=== PATIENT | female | born 1950 | race Caucasian/White ===

== ENCOUNTER 2020-06-23 13:48 | Outpatient (CLI) | payer MEDICARE, MEDICAID, SELFPAY ==
--- NOTE | 2020-06-23 13:54 | XR_ITS ---
WS: [id number] Exam: XR chest 2V* [id number] Date/Time of Exam: 06/23/2020 1:55 PM Reason For Exam: CLAVICULAR AREA FULLNESS Comparison 10/09/2016. The lungs are hyperinflated and clear. Normal cardiomediastinal structures. No pleural effusions. Old fracture of the midshaft old left clavicle. Bony structures are otherwise intact. Mild scoliosis of the lower thoracic and lumbar spine. XR/XR chest 2V* [id number] IMPRESSION: 1. Pulmonary hyperinflation which might indicate COPD. No acute cardiopulmonary process. 2. Old healed fracture of the left clavicle.
--- NOTE | 2020-06-23 13:54 | CT_ITS ---
WS: [id number] LDCT LUNG CANCER SCREENING TECHNIQUE: Noncontrast CT of the chest with coronal and sagittal reformatted images. CLINICAL INFORMATION: HX OF TOBACCO USE COMPARISON: CT chest , June 2017, December 2015. DLP: 78.91 mGy.cm DIvol: 2.[address] scans at [facility] use at least one of these dose optimization techniques: automat ed exposure control; mA and/or kV adjustment per patient size (includes targeted exams where dose is matched to clinical indication); or iterative reconstruction. FINDINGS: Moderate chronic emphysematous changes. Again seen is left upper lobe nodule measuring 5 mm in the an terior segment left upper lobe with long-term stability. A few calcified granulomas. Coronary calcifi cation. No mediastinal or hilar lymphadenopathy. Partially visualized left renal lesion likely renal cyst. Small esophageal hiatal hernia. Adrenal glands are normal. CT/CT lung screening [id number] IMPRESSION: LUNG-RADS: 2-Benign Appearance or Behavior FOLLOW UP: 12 Month: Continue annual screening with LDCT
--- NOTE | 2020-06-23 13:54 | USCV_ITS ---
Yoselin Martin Age: 69 Gender: F : 1950 Exam Date: 06/23/2020 14:10 Ordering Phys: Marine Eagle NP Technologist: Bobby Mcclellan [place] [facility] [place]ication: DVT IN NECK VEINS PROCEDURES: Venous duplex imaging was performed in only the left upper extremity. The following venous structures were evaluated: internal jugular vein, subclavian vein, axillary vein, and brachial veins. In addition, the basilic vein, cephalic vein, radial vein, and ulnar vein. Serial compression, augmentation maneuvers, and spectral Doppler flow evaluation were performed. FINDINGS: No evidence of deep vein thrombosis or superficial thrombophlebitis in the left upper extremity. CONCLUSIONS No evidence of thrombus of the left upper extremity veins. Den Chang MD (Electronically Signed) Final Date: 23 June 2020 17:27 S
== END 2020-06-23 13:49 | disposition home or self-care (01) ==
PROVIDERS: PCP Nurse Practitioner Family; Visit Provider Nurse Practitioner Family
DX: R22.2 Localized swelling, mass and lump, trunk (principal); Z72.0 Tobacco use; I82.629 Acute embolism and thrombosis of deep veins of unspecified upper extremity
CPT/HCPCS: 71046; 71271; 93971

== ENCOUNTER 2020-09-11 09:53 | Inpatient (IN) | payer MEDICARE, MEDICAID, SELFPAY ==
[2020-09-11] VITALS (13 sets, daily range): BP systolic 154–233; BP diastolic 77–130; PULSE 50–75; RESP 16–19; TEMP 36.4; O2SAT 94–98; BMI 28.3
--- NOTE | 2020-09-11 10:10 | CT_ITS ---
WS: [id number] CT HEAD NONCONTRAST HISTORY: stroke like symptoms TECHNIQUE: Contiguous axial imaging performed through the brain in 2.5 mm imaging. Bone and soft tiss ue windows. Sagittal and coronal reformats reviewed. All CT scans at [facility] use at ast one of these dose optimization techniques: automated exposure control; mA and/or kV adjustment pe r patient size (includes targeted exams where dose is matched to clinical indication); or iterative r econstruction. DLP: 846.00 mGy-cm. COMPARISON: None available. No acute intracranial hemorrhage, midline shift or mass effect. Mild atrophy and moderate chronic microvascular ischemic disease. Small lacunar infarcts in the LEFT external capsule and basal ganglia. Ventricles: Normal size with no hydrocephalus. No inferior displacement of the cerebellar tonsils. Paranasal sinuses: As visualized are clear. Mastoid air cells: Well pneumatized. Calvarium and scalp: Skull is intact with no soft tissue edema or swelling. Scattered intracranial vertebral artery calcifications. There is extensive calcification within the i ntracranial carotid arteries. CT/CT head wo con* [id number] IMPRESSION: 1. No acute intracranial hemorrhage. 2. Mild atrophy with moderate chronic microvascular ischemic type changes. Notified Irving Cordova DO at 09/11/2020 10:17 AM.
--- NOTE | 2020-09-11 10:20 | XR_ITS ---
WS: [id number] PORTABLE CHEST HISTORY: dyspnea COMPARISON: 06/23/2020 Mild pulmonary hyperinflation. No mass or nodules. No pneumonia. Benign granuloma LEFT lower lobe. No pleural effusion or pneumothorax. Cardiac size: Normal. Mediastinum/Aorta: Mild atherosclerosis aorta. No osseous abnormality seen. XR/XR chest 1V portable [id number] IMPRESSION: 1. Chronic emphysema. 2. Partially calcified aorta.
--- NOTE | 2020-09-11 10:20 | ECG_ITS ---
[facility] Test Date: 2020-09-11 Pat Name: Yoselin Martin Department: Room: Gender: Female Garment Inspector: : 1950 Requested By: Irving Petit Order Number: [id number] Karla MD: Colt Andino M.D. Measurements Intervals [place] Rate: 55 P: 65 CT: 149 QRS: 49 QRSD: 95 T: 254 QT: 440 QTc: 422 Interpretive Statements SINUS BRADYCARDIA SEPTAL MYOCARDIAL INFARCTION , PROBABLY OLD [40+ ms Q WAVE IN V1/V2] MODERATE T-WAVE ABNORMALITY, CONSIDER ANTEROLATERAL ISCHEMIA [-0.1+ mV T WAVE IN V3-V6] MODERATE T-WAVE ABNORMALITY, CONSIDER INFERIOR ISCHEMIA [-0.1+ mV T WAVE IN II/aVF] No previous ECG available for comparison Electronically Signed On 09-11-2020 21:50:15 CDT by Colt Andino M.D. [id number]
--- NOTE | 2020-09-11 10:21 | CT_ITS ---
WS: [id number] CT ANGIOGRAM CEREBRAL AND CAROTID ARTERIES HISTORY: L side acute weakness TECHNIQUE: CT angiogram is performed of the carotid and cerebral arteries. During arterial injection imaging is obtained from the skull vertex to the aortic arch in 1.25 mm imaging. Coronal and sagittal reformats are submitted. Additional multi planar reformats of the carotid and cerebral arteries are submitted, MIP imaging also reviewed. NASCET criteria utilized. All CT scans at [facility] use at least one of these dose optimization techniques: automated exposure control; mA and/or kV ad justment per patient size (includes targeted exams where dose is matched to clinical indication); or iterative reconstruction. CONTRAST: Omnipaque 350; 95 mL IV. DLP: 2194.45 mGy.cm COMPARISON: None available. Carotid Angiogram: Right carotid: Common carotid artery: Arises normally from the innominate artery. No significant plaque. There is a very small amount of scattered plaque and intimal thickening. Internal carotid artery: Mild stenosis at the origin. There is an additional stenosis with calcified plaque and intimal thickening in the proximal ICA. RIGHT ICA stenosis at the origin is 50%. Additiona l stenosis approximately 2 cm from the origin is 75%. External carotid artery: Patent. Left carotid: Common carotid artery: Arises from the base of the innominate. Mild atherosclerotic plaque and intima l thickening. Internal carotid artery: Focal calcified plaque and intimal thickening and mild stenosis involving th e origin. Less than 50% stenosis at the proximal ICA. External carotid artery: Patent. Right vertebral artery: Unremarkable. Left vertebral artery: Mild stenosis C5 LEFT transverse foramina. Subclavian arteries: Mild atherosclerotic disease. No high-grade stenosis. Upper thorax: Spiculated 4 mm nodule in the anterior LEFT upper lobe. No change since 07/21/2017. Mild biapical pleural thickening. Thyroid gland: Small caliber thyroid. Osseous structures: C4 anterolisthesis by 5 mm. In the region of the pharynx small low-attenuation nodule in the RIGHT palatine tonsil. Nodule measur es approximately 5 mm. Direct visualization recommended to exclude malignancy. Small benign cervical chain lymph nodes. CEREBRAL ANGIOGRAM: Intracranial vertebral arteries: Scattered plaque. Mildly dominant LEFT vertebral artery. Basilar artery: No significant stenosis or occlusion. No aneurysm. Intracranial Internal carotid arteries: Moderate calcified plaque through the cavernous sinuses and s upraclinoid carotid arteries. Stenosis at 50% bilaterally. Middle cerebral arteries: Normal. Anterior cerebral arteries and ACOM: Normal. Posterior cerebral arteries and PCOM's: Normal. Dural venous sinuses are normally enhancing. Mastoid air cells: Normal. Paranasal sinuses: Normal. Calvarium: Normal. CT/CT angio headneck* [id number] IMPRESSION: 1. Proximal RIGHT ICA stenosis 75%. 2. Origin RIGHT ICA stenosis 50%. 3. Proximal LEFT ICA stenosis less than 50%. 4. 50% stenoses involving the intracranial carotid arteries to the cavernous s inuses and supraclinoid. 5. RIGHT palatine tonsil hypoechoic nodule measures 5 mm. Recommend direct vis ualization.
--- NOTE | 2020-09-11 10:22 | W.ED.NEUROSD ---
HPI - Neuro Symptoms/Deficit General: Chief Complaint: Neuro Symptoms/Deficit Stated Complaint: neuro sys Time Seen by Provider: 09/11/20 10:15 History of Present Illness: HPI Narrative: 69-year-old female presents emergency room with right-sided weakness. It began at 3 30-4 AM this morning when she woke up. She is presenting now 6 hours after onset. Gotten up to go to the bathroom and stumbled and fell. She missed her dose of her blood pressure medicine prior. Initial presentation today she was hypertensive did improve after her first blood pressure was taken. She denies chest pain she has a little bit of shortness of breath. She has a little bit of numbness on her left side of her face and on the right arm and leg. Onset (ago): hour(s) Timing confirmed by: spouse Location: right face, left arm and left leg Severity: moderate Quality: weak, numb and tingling Relieving factors: none Exacerbating factors: none Context: other (Woke up with symptoms at 330.) Associated symptoms: Reports tingling and weakness; Deny chest pain, cough, diaphoresis, fevers/chills, headache(s), anorexia, malaise, nausea, seizures, short of breath, syncope, vertigo or vomiting Treatments Prior to Arrival: none Review of Systems Const: Denies: malaise or diaphoresis ENMT: Denies: throat pain, ear or mastoid pain, nasal discharge or nasal congestion Card: Denies: chest pain or syncope Resp: Denies: dyspnea, productive cough or non-productive cough GI: Denies: nausea or vomiting : Denies: flank pain, difficulty voiding, dysuria, urinary frequency or urinary urgency Skin/Breast: Denies: rash or pruritus Neuro: Reports: weakness in extremities; Denies: headache(s) or vertigo PFS ED PFSH: Medical History Claudication History of PFTs (~2013) normal spirometry Hyperlipidemia Hypertension Osteoporosis Peripheral vascular disease TIA (transient ischemic attack) Surgical History History of angiography (~2017) peripheral, fouond to have occluded mid to distal SFA, had orbital arthrectomy and balloon angioplasty History of tubal ligation Status post open reduction and internal fixation (ORIF) of fracture (~2012) right tib fib, Dr Cotter Family History Other Stroke Social History Smoking and tobacco status: current every day smoker Alcohol intake: never Substance/Drug Use: never Household members: family NIH stroke score NIHSS: Level Of Consciousness - 1a: 0 Level Of Consciousness Questions - 1b: Both Correct Level Of Consciousness Commands - 1c: Both Correct Best Gaze - 2: Normal Visual Barrios - 3: No Visual Loss Facial Palsy - 4: Minor Paralysis Motor Arm Right - 5: Drift Motor Arm Left - 5: No Drift Motor Leg Right - 6: No Drift Motor Leg Left - 6: Drift Limb Ataxia - 7: Present In One Limb Sensory - 8: Mild To Moderate Loss Best Language - 9: No Aphasia Dysarthia - 10: Normal Extinction And Inattention - 11: 0 Score: Total Score: 5 Physical Exam Const: COMMON NORMALS: no acute distress GENERAL APPEARANCE: cooperative and comfortable ORIENTATION/CONSCIOUSNESS: Yes awake, Yes oriented to person, Yes oriented to place and Yes oriented to time HENMT: COMMON NORMALS: normocephalic, atraumatic, hearing grossly normal bilaterally, external ears normal, EAC's normal, TM's normal bilaterally, Normal nasal mucous membranes and turbinates present, moist oral mucous membranes and oropharynx normal HEAD & SCALP: normocephalic and atraumatic NOSE: Normal nasal mucous membranes and turbinates present EXTERNAL EAR: Yes external ears normal EXTERNAL AUDITORY CANAL: EAC's normal TYMPANIC MEMBRANE: TM's normal bilaterally Eye: COMMON NORMALS: Equal, round and reactive pupils present, EOMs intact bilaterally, conjunctivae normal and no scleral icterus CONJUNCTIVA: Yes conjunctivae normal PUPIL: Yes Equal, round and reactive pupils present Neck/C-Spine: COMMON NORMALS: no JVD Resp: COMMON NORMALS: normal respiratory effort, No retractions, No use of accessory muscles and clear to auscultation bilaterally AUSCULTATION: clear to auscultation bilaterally Cardio: COMMON NORMALS: no JVD, regular rate, regular rhythm and No murmurs present (Cardio) RATE: regular rate RHYTHM: regular rhythm GI: COMMON NORMALS: Soft to palpation and No hepatosplenomegaly present AUSCULTATION: Yes normoactive bowel sounds PALPATION: Yes Soft to palpation, No Tenderness to palpation present (GI), No Guarding due to palpation present (GI) and Yes No hepatosplenomegaly present Extremity: NARRATIVE EXTREMITY EXAM: See stroke score Neuro: SENSORIUM/ORIENTATION: Yes oriented to person, Yes oriented to place and Yes oriented to time OTHER: See stroke score Skin: COMMON NORMALS: no rashes or lesions noted GENERAL SKIN EXAM: no rashes or lesions noted Course Vital Signs: Vital signs: Vital Signs Temperature 97.8 F 09/12/20 07:24 Pulse Rate 51 L 09/12/20 07:24 Respiratory Rate 18 09/12/20 07:24 Blood Pressure 179/68 09/12/20 07:24 Pulse Oximetry 98 09/12/20 07:24 MDM - Neuro Symptoms/Deficit MDM Narrative: Medical decision making narrative: Patient has persistent symptoms. Her stroke score is too low for embolectomy and her timeframe is outside of the window for TPA. She is a little over 6 hours the time presentation. CTA of the head and neck shows some right-sided ICA stenosis but there is no embolism. We will go ahead and admit for further work-up and evaluation for cause of stroke as well as adjustment antiplatelet therapies. Discussed with hospitalist orders written. Family expressed concern about blood pressure at this point would allow permissive hypertension try to keep blood pressure around 165-180 patient was placed on nitro paste to lower blood pressure slightly. Lab Data: Labs: Lab Results 09/11/20 09/11/20 09/11/20 Range/Units 10:00 10:00 10:00 WBC 9.3 (4.0-10.0) 10^3/ uL RBC 4.66 (4.1-5.3) 10^6/u L Hgb 15.2 (11.5-15.3) g/dL Hct 46.7 (37.0-47.0) % MCV 100.2 H (81-99) fL MCH 32.6 (28.0-34.0) pg MCHC 32.5 (30.0-36.0) g/dL RDW 15.6 H (12.1-15.1) % Plt Count 247 (130-400) 10^3/c mm MPV 9.9 (7.4-10.4) fL Neut % (Auto) 63.6 % Lymph % (Auto) 29.1 % [place] % (Auto) 5.1 % Eos % (Auto) 0.9 % Baso % (Auto) 1.0 % Neut # (Auto) 5.91 (1.8-7.7) 10^3/u L Lymph # (Auto) 2.7 (0.8-4.8) 10^3/u L [place] # (Auto) 0.5 (0.2-0.9) 10^3/u L Eos # (Auto) 0.1 (0.0-0.8) 10^3/u L Baso # (Auto) 0.1 (0.0-0.1) 10^3/u L Nucleated RBC % (a uto) 0 % Nucleated RBCs # 0.0 /100WBC PT 13.20 (12.1-14.9) SECO NDS INR 0.97 (0.8-1.2) APTT 32.4 (23.9-36.7) SECO NDS Sodium 140 (136-145) mmol/L Potassium 4.0 (3.5-5.1) mmol/L Chloride 103 (98-107) mmol/L Carbon Dioxide 25 (22-29) mmol/L Anion Gap 16.0 (5-19) BUN 5 L (8-23) mg/dL Creatinine 0.9 (0.5-0.9) mg/dL GFR Calculation 61.9 L (90-130) mL/min Glucose 115 (65-115) mg/dL Calculated Osmolal ity 288 (285-295) mOsm/k g Calcium 9.2 (8.5-10.5) mg/dL Total Bilirubin 0.6 (0.15-1.2) mg/dL AST 25 (0-32) U/L ALT 15 (0-33) U/L Alkaline Phosphata se 58 (35-105) IU/L Total Protein 8.3 (6.6-8.7) g/dL Albumin 4.8 (3.5-5.2) g/dL Globulin 3.5 (1.3-4.6) g/dL Urine Color (Yellow) Urine Appearance (CLEAR) Urine pH (5-7) Ur Specific Gravit y (1.005-1.030) Urine Protein (Negative) Urine Glucose (UA) (Normal) Urine Ketones (Negative) Urine Blood (Negative) Urine Nitrate (Negative) Urine Bilirubin (Negative) Prot Sulfosalicyli c Acd (Negative) Urine Urobilinogen (Negative) mg/dL Ur Leukocyte Jada ase (Negative) Urine RBC (0-2) /hpf Urine WBC (0-5) /hpf Ur Squamous Epith Cells (0-5) /hpf Amorphous Sediment Urine Bacteria (NONE) /hpf Urine Opiates Scre en (Negative) ng/mL Ur Barbiturates Sc reen (Negative) ng/mL Ur Phencyclidine S crn (Negative) ng/mL Ur Amphetamines Sc reen (Negative) ng/mL U Benzodiazepines Scrn (Negative) ng/mL Urine Cocaine Scre en (Negative) ng/mL U Marijuana (THC) Screen (Negative) ng/mL 09/11/20 09/11/20 Range/Units 12:18 12:18 WBC (4.0-10.0) 10^3/ uL RBC (4.1-5.3) 10^6/u L Hgb (11.5-15.3) g/dL Hct (37.0-47.0) % MCV (81-99) fL MCH (28.0-34.0) pg MCHC (30.0-36.0) g/dL RDW (12.1-15.1) % Plt Count (130-400) 10^3/c mm MPV (7.4-10.4) fL Neut % (Auto) % Lymph % (Auto) % [place] % (Auto) % Eos % (Auto) % Baso % (Auto) % Neut # (Auto) (1.8-7.7) 10^3/u L Lymph # (Auto) (0.8-4.8) 10^3/u L [place] # (Auto) (0.2-0.9) 10^3/u L Eos # (Auto) (0.0-0.8) 10^3/u L Baso # (Auto) (0.0-0.1) 10^3/u L Nucleated RBC % (a uto) % Nucleated RBCs # /100WBC PT (12.1-14.9) SECO NDS INR (0.8-1.2) APTT (23.9-36.7) SECO NDS Sodium (136-145) mmol/L Potassium (3.5-5.1) mmol/L Chloride (98-107) mmol/L Carbon Dioxide (22-29) mmol/L Anion Gap (5-19) BUN (8-23) mg/dL Creatinine (0.5-0.9) mg/dL GFR Calculation (90-130) mL/min Glucose (65-115) mg/dL Calculated Osmolal ity (285-295) mOsm/k g Calcium (8.5-10.5) mg/dL Total Bilirubin (0.15-1.2) mg/dL AST (0-32) U/L ALT (0-33) U/L Alkaline Phosphata se (35-105) IU/L Total Protein (6.6-8.7) g/dL Albumin (3.5-5.2) g/dL Globulin (1.3-4.6) g/dL Urine Color Yellow (Yellow) Urine Appearance Hazy A (CLEAR) Urine pH 8 H (5-7) Ur Specific Gravit y 1.015 (1.005-1.030) Urine Protein Neg (Negative) Urine Glucose (UA) Norm (Normal) Urine Ketones Negative (Negative) Urine Blood 2+ H (Negative) Urine Nitrate Positive H (Negative) Urine Bilirubin Neg (Negative) Prot Sulfosalicyli c Acd Positive (Negative) Urine Urobilinogen Norm (Negative) mg/dL Ur Leukocyte Jada ase Negative (Negative) Urine RBC 0-4 H (0-2) /hpf Urine WBC None (0-5) /hpf Ur Squamous Epith Cells 5-10 H (0-5) /hpf Amorphous Sediment Not Reportable Urine Bacteria 4+ H (NONE) /hpf Urine Opiates Scre en Positive H (Negative) ng/mL Ur Barbiturates Sc reen Negative (Negative) ng/mL Ur Phencyclidine S crn Negative (Negative) ng/mL Ur Amphetamines Sc reen Negative (Negative) ng/mL U Benzodiazepines Scrn Negative (Negative) ng/mL Urine Cocaine Scre en Negative (Negative) ng/mL U Marijuana (THC) Screen Positive H (Negative) ng/mL Discharge Plan Discharge Patient Disposition: Admitted As Inpatient Admit Provider: Marine Duong Clinical Impression: CVA (cerebral vascular accident), Accelerated hypertension, Carotid stenosis Condition: Stable Coding Level of Care Code ED Multimedia Authoring Specialist for Blayne Mccain
[2020-09-11 10:25] LABS: Basophils # 0.1 10^3/uL (0.0-0.1); Eosinophils # 0.1 10^3/uL (0.0-0.8); Eosinophils % 0.9 %; Hematocrit 46.7 % (37.0-47.0); Hemoglobin 15.2 g/dL (11.5-15.3); INR 0.97 (0.8-1.2); Lymphocytes # 2.7 10^3/uL (0.8-4.8); Lymphocytes % 29.1 %; Mean Corpuscular HGB Conc 32.5 g/dL (30.0-36.0); Mean Corpuscular Hemoglobin 32.6 pg (28.0-34.0); Mean Corpuscular Volume 100.2 fL (81-99); Mean Platelet Volume 9.9 fL (7.4-10.4); Monocytes # 0.5 10^3/uL (0.2-0.9); Monocytes % 5.1 %; Neutrophils # 5.91 10^3/uL (1.8-7.7); Neutrophils % 63.6 %; Nucleated Red Blood Cells % 0 %; Partial Thromboplastin Time 32.4 SECONDS (23.9-36.7); Platelet Count 247 10^3/cmm (130-400); Red Blood Count 4.66 10^6/uL (4.1-5.3); Red Cell Distribution Width 15.6 % (12.1-15.1); White Blood Count 9.3 10^3/uL (4.0-10.0)
[2020-09-11] MEDS: labetalol 5 mg/mL SDV 20mL 10 MG IV (10:30)
[2020-09-11 10:43] LABS: Alanine Aminotransferase 15 U/L (0-33); Albumin Level 4.8 g/dL (3.5-5.2); Alkaline Phosphatase 58 IU/L (35-105); Aspartate Amino Transferase 25 U/L (0-32); Blood Urea Nitrogen 5 mg/dL (8-23); Calcium 9.2 mg/dL (8.5-10.5); Carbon Dioxide 25 mmol/L (22-29); Chloride 103 mmol/L (98-107); Globulin 3.5 g/dL (1.3-4.6); Glomerular Filtration Rate 61.9 mL/min (90-130); Glucose 115 mg/dL (65-115); Osmolality Calculated 288 mOsm/kg (285-295); Sodium 140 mmol/L (136-145); Total Bilirubin 0.6 mg/dL (0.15-1.2); Total Protein 8.3 g/dL (6.6-8.7)
[2020-09-11] MEDS: iohexol 350 mg/mL 100 mL Btl IV (10:59)
[2020-09-11] MEDS: nitroglycerin 1 gm/inch oint Pkt 1 INCH TOPICAL (12:00)
--- NOTE | 2020-09-11 12:26 | PC.PHAR ---
PT STATES SHE TAKES CARE OF HER OWN MEDICATIONS-PT STATES SHE TAKES MOST OF HER MEDS PRN-ALL MEDICATIONS ENTERED HAVE NOTES IN THE PHARMACY COMMENTS OF WHEN MED WAS LAST FILLED-PT STATES SHE TOOK HER VALSARTAN 320MG TODAY LAST FILLED ON 06/03/20 30D/S-PT HAS A CYMBALTA 30MG READY TO DIGITAL STRATEGY MANAGER AT [facility]-PT STATES SHE JUST TAKES HER MEDS WHEN SHE THINKS SHE NEEDS THEM
[2020-09-11 12:40] LABS: Sulfosalicylic Acid Urine Positive (Negative); Urine Appearance Hazy (CLEAR); Urine Color Yellow (Yellow); pH Urine 8 (5-7)
[2020-09-11 12:41] LABS: Add Urine Microscopic? YES; Bilirubin Urine Neg (Negative); Blood Urine 2+ (Negative); Glucose Urine UA Norm (Normal); Ketones Urine Negative (Negative); Leukocyte Esterase Urine Negative (Negative); Nitrate Urine Positive (Negative); Protein Urine Neg (Negative); RBC Urine 0-4 /hpf (0-2); Specific Gravity, Urine 1.015 (1.005-1.030); Urobilinogen Urine Norm (Negative)
[2020-09-11 12:42] LABS: Add Urine Culture? Yes; Bacteria Urine 4+ /hpf
[2020-09-11 13:13] LABS: Amphetamines Screen Urine Negative (Negative); Barbiturates Screen Urine Negative (Negative); Benzodiazepines Screen Urine Negative (Negative); Cocaine Screen Urine Negative (Negative); Opiate Screen Urine Positive (Negative); PCP Screen Urine Negative (Negative); THC Screen Urine Positive (Negative)
--- NOTE | 2020-09-11 15:25 | PM.HP ---
Providers/Chief Complaint Admitting Physician: Marine Duong MD Primary Care Provider: Marnie Eagle NP Chief Complaint: neuro sys History of Present Illness Yoselin Martin is a 69 year old female who presented to the emergency room with chief complaint of a fall at home and right-sided weakness. Last known well was when she went to bed the evening prior. She got up in the middle of the night may be around 4 AM and try to get to the bathroom stumbled and fell down. She denies any difficulty swallowing. Her voice has been soft since then. She does not really have any difficulty finding words or speaking in a way that others can understand. She reports some weakness and numbness on her right upper and lower extremity. Complains of pain in the right leg as well although it is nonfocal and extending the entire leg. Unable to really describe further right now. No vision changes to speak of. She reports having had previous mini strokes in the past. She is a known smoker with peripheral vascular disease previously requiring peripheral angiography and intervention. She does not take her medications regularly. NIH score was 5. She presented outside of the window for TPA consideration. Pressures were 230s over 110s. She received some labetalol with improvement in pressure to 170s over 130s. Sounds like she had not taken her blood pressure medication today. Review of Systems Const: Denies: fever(s), chills, change in appetite or change in weight Eyes: Denies: change in vision ENMT: Reports: hoarseness; Denies: throat pain or nasal congestion Card: Denies: chest pain, palpitations or edema Resp: Denies: dyspnea, productive cough or non-productive cough GI: Denies: abdominal pain, nausea, vomiting, dysphagia, diarrhea, constipation, hematochezia or melena : Denies: difficulty voiding or hematuria Musc: Reports: extremity pain (Right leg throughout the length of the leg) Skin/Breast: Reports: dry skin; Denies: rash, pruritus or sores Neuro: Reports: headache(s), numbness in extremities, weakness in extremities and difficulty walking Psych: Denies: anxiety or depression Arvin/Lymph: Denies: easy bruising or easy bleeding Medications/Allergies Home Medications Medication Instructions Recorded Confirmed Last Taken Type albuterol sulfate 2 puff INHALATION Q4H PRN 09/11/20 09/11/20 Unknown History alendronate 70 mg PO Q7D PRN 09/11/20 09/11/20 Unknown History amlodipine 10 mg PO QPM PRN 09/11/20 09/11/20 09/09/20 History aspirin [Aspir-81] 81 mg PO QAM 09/11/20 09/11/20 Unknown History atorvastatin 40 mg PO BEDTIME 09/11/20 09/11/20 09/09/20 History buspirone 5 mg PO TID PRN 09/11/20 09/11/20 09/10/20 History cilostazol 50 mg PO BID PRN 09/11/20 09/11/20 Unknown History duloxetine 30 mg PO DAILY 09/11/20 09/11/20 Unknown History gabapentin 300 mg PO BID PRN 09/11/20 09/11/20 Unknown History levothyroxine 25 mcg PO DAILY PRN 09/11/20 09/11/20 Unknown History multivitamin 1 tab PO DAILY 09/11/20 09/11/20 Unknown History nitroglycerin 0.4 mg SUBLINGUAL PRN 09/11/20 09/11/20 Unknown History spironolactone 37.5 mg PO DAILY 09/11/20 09/11/20 09/09/20 History trazodone 100 - 200 mg PO BEDTIME PRN 09/11/20 09/11/20 Unknown History valsartan 320 mg PO DAILY PRN 09/11/20 09/11/20 09/11/20 History Allergies Allergy/AdvReac Type Severity Reaction Status Date / Time No Known Allergies Allergy Verified 09/11/20 12:07 PFSH Acute PFSH: Medical History (Updated 09/11/20 @ 21:14 by Marine Duong MD) Claudication History of PFTs (~2013) normal spirometry Hyperlipidemia Hypertension Osteoporosis Peripheral vascular disease TIA (transient ischemic attack) Surgical History (Updated 09/11/20 @ 21:05 by Marine Duong MD) History of angiography (~2017) peripheral, fouond to have occluded mid to distal SFA, had orbital arthrectomy and balloon angioplasty History of tubal ligation Status post open reduction and internal fixation (ORIF) of fracture (~2012) right tib fib, Dr Cotter Family History (Updated 09/11/20 @ 21:05 by Marine Duong MD) Other Stroke Social History (Updated 09/11/20 @ 21:05 by Marine Duong MD) Smoking and tobacco status: current every day smoker Alcohol intake: never Substance/Drug Use: never Household members: family Vitals/I&O/Wt Last Vital Signs Temp 97.5 F L 09/11/20 14:57 Pulse 54 L 09/11/20 14:57 Resp 16 09/11/20 14:57 BP 154/90 09/11/20 14:57 Pulse Ox 94 09/11/20 14:57 Weight last 48 hrs Weight 72.575 kg Data : 09/11/20 10:00 09/11/20 10:00 Other Labs: Laboratory Results WBC 9.3 10^3/uL (4.0-10.0) 09/11/20 10:00 RBC 4.66 10^6/uL (4.1-5.3) 09/11/20 10:00 Hgb 15.2 g/dL (11.5-15.3) 09/11/20 10:00 Hct 46.7 % (37.0-47.0) 09/11/20 10:00 MCV 100.2 fL (81-99) H 09/11/20 10:00 MCH 32.6 pg (28.0-34.0) 09/11/20 10:00 MCHC 32.5 g/dL (30.0-36.0) 09/11/20 10:00 RDW 15.6 % (12.1-15.1) H 09/11/20 10:00 Plt Count 247 10^3/cmm (130-400) 09/11/20 10:00 MPV 9.9 fL (7.4-10.4) 09/11/20 10:00 Neut % (Auto) 63.6 % 09/11/20 10:00 Lymph % (Auto) 29.1 % 09/11/20 10:00 [place] % (Auto) 5.1 % 09/11/20 10:00 Eos % (Auto) 0.9 % 09/11/20 10:00 Baso % (Auto) 1.0 % 09/11/20 10:00 Neut # (Auto) 5.91 10^3/uL (1.8-7.7) 09/11/20 10:00 Lymph # (Auto) 2.7 10^3/uL (0.8-4.8) 09/11/20 10:00 [place] # (Auto) 0.5 10^3/uL (0.2-0.9) 09/11/20 10:00 Eos # (Auto) 0.1 10^3/uL (0.0-0.8) 09/11/20 10:00 Baso # (Auto) 0.1 10^3/uL (0.0-0.1) 09/11/20 10:00 Nucleated RBC % (auto) 0 % 09/11/20 10:00 Nucleated RBCs # 0.0 /100WBC 09/11/20 10:00 PT 13.20 SECONDS (12.1-14.9) 09/11/20 10:00 INR 0.97 (0.8-1.2) 09/11/20 10:00 APTT 32.4 SECONDS (23.9-36.7) 09/11/20 10:00 Sodium 140 mmol/L (136-145) 09/11/20 10:00 Potassium 4.0 mmol/L (3.5-5.1) 09/11/20 10:00 Chloride 103 mmol/L (98-107) 09/11/20 10:00 Carbon Dioxide 25 mmol/L (22-29) 09/11/20 10:00 Anion Gap 16.0 (5-19) 09/11/20 10:00 BUN 5 mg/dL (8-23) L 09/11/20 10:00 Creatinine 0.9 mg/dL (0.5-0.9) 09/11/20 10:00 GFR Calculation 61.9 mL/min (90-130) L 09/11/20 10:00 Glucose 115 mg/dL (65-115) 09/11/20 10:00 Calculated Osmolality 288 mOsm/kg (285-295) 09/11/20 10:00 Calcium 9.2 mg/dL (8.5-10.5) 09/11/20 10:00 Total Bilirubin 0.6 mg/dL (0.15-1.2) 09/11/20 10:00 AST 25 U/L (0-32) 09/11/20 10:00 ALT 15 U/L (0-33) 09/11/20 10:00 Alkaline Phosphatase 58 IU/L (35-105) 09/11/20 10:00 Total Protein 8.3 g/dL (6.6-8.7) 09/11/20 10:00 Albumin 4.8 g/dL (3.5-5.2) 09/11/20 10:00 Globulin 3.5 g/dL (1.3-4.6) 09/11/20 10:00 Urine Color Yellow (Yellow) 09/11/20 12:18 Urine Appearance Hazy (CLEAR) A 09/11/20 12:18 Urine pH 8 (5-7) H 09/11/20 12:18 Ur Specific [place]ent 1.015 (1.005-1.030) 09/11/20 12:18 Urine Protein Neg (Negative) 09/11/20 12:18 Urine Glucose (UA) Norm (Normal) 09/11/20 12:18 Urine Ketones Negative (Negative) 09/11/20 12:18 Urine Blood 2+ (Negative) H 09/11/20 12:18 Urine Nitrate Positive (Negative) H 09/11/20 12:18 Urine Bilirubin Neg (Negative) 09/11/20 12:18 Prot Sulfosalicylic Acd Positive (Negative) 09/11/20 12:18 Urine Urobilinogen Norm mg/dL (Negative) 09/11/20 12:18 Ur Leukocyte Esterase Negative (Negative) 09/11/20 12:18 Urine RBC 0-4 /hpf (0-2) H 09/11/20 12:18 Urine WBC None /hpf (0-5) 09/11/20 12:18 Ur Squamous Epith Cells 5-10 /hpf (0-5) H 09/11/20 12:18 Amorphous Sediment Not Reportable 09/11/20 12:18 Urine Bacteria 4+ /hpf (NONE) H 09/11/20 12:18 Urine Opiates Screen Positive ng/mL (Negative) H 09/11/20 12:18 Ur Barbiturates Screen Negative ng/mL (Negative) 09/11/20 12:18 Ur Phencyclidine Scrn Negative ng/mL (Negative) 09/11/20 12:18 Ur Amphetamines Screen Negative ng/mL (Negative) 09/11/20 12:18 U Benzodiazepines Scrn Negative ng/mL (Negative) 09/11/20 12:18 Urine Cocaine Screen Negative ng/mL (Negative) 09/11/20 12:18 U Marijuana (THC) Screen Positive ng/mL (Negative) H 09/11/20 12:[address] 09/11/20 10:10 IMPRESSION: 1. No acute intracranial hemorrhage. 2. Mild atrophy with moderate chronic microvascular ischemic type changes. Notified Irving Cordova DO at 09/11/2020 10:17 AM. Chest X-Ray 09/11/20 10:20 IMPRESSION: 1. Chronic emphysema. 2. Partially calcified aorta. Head/Neck CTA 09/11/20 10:21 IMPRESSION: 1. Proximal RIGHT ICA stenosis 75%. 2. Origin RIGHT ICA stenosis 50%. 3. Proximal LEFT ICA stenosis less than 50%. 4. 50% stenoses involving the intracranial carotid arteries to the cavernous sinuses and supraclinoid. 5. RIGHT palatine tonsil hypoechoic nodule measures 5 mm. Recommend direct visualization. A&P Assessment and plan (1) Fall at home: Status: Acute (2) CVA (cerebral vascular accident): Status: Acute (3) Carotid stenosis: Status: Acute (4) Accelerated hypertension: Status: Acute (5) Hyperlipidemia: Status: Acute (6) Peripheral vascular disease: Status: Acute (7) Nicotine dependence, cigarettes, with other nicotine-induced disorders: Status: Acute Additional A&P Information Observation admission for now Serial neuro exams Aspirin and Plavix Chronically has a statin on her home medication list but it does not sound like she is always taking Permissive hypertension for now Echocardiogram, lipid panel, A1c, TSH Speech, PT, OT Education on smoking cessation initiated by reviewing with patient that the #1 thing she could do to help decrease the risk of recurrent stroke symptoms is to quit smoking. We talked about the fact that she had not previously quit smoking despite having to have vascular intervention on her legs. Continue home BuSpar Hold trazodone tonight to limit impact on serial neuro exams Address home antihypertensives in the next 24 to 48 hours Lovenox for DVT prophylaxis Supportive care otherwise Further plans of care pending clinical course Plans discussed with patient as well as her daughter. Everyone was given an opportunity to ask questions Full code Attestations Medical Necessity Statement*: Currently anticipated stay less than 2 midnights in a patient presenting with neurological complaints suggestive of CVA and accelerated hypertension. Plans are as indicated. Coding Level of Care Code Acute Clinical Unit Coordinator for Chg Fwd Diagnoses Fall at home W19.XXXA; Y92.009 CVA (cerebral vascular accident) I63.9 Carotid stenosis I65.29 Accelerated hypertension I10 Hyperlipidemia E78.5 Peripheral vascular disease I73.9 Nicotine dependence, cigarettes, with other nicotine-induced disorders F17.218
[2020-09-11] MEDS: atorvastatin 40 mg Tablet 20 MG PO (21:07)
[2020-09-11] MEDS: BuSPIRONE 10 mg Tablet 5 MG PO (21:07)
[2020-09-12] VITALS (11 sets, daily range): BP systolic 144–188; BP diastolic 68–89; PULSE 45–66; RESP 16–20; TEMP 36.5–36.8; O2SAT 94–98
[2020-09-12 05:47] LABS: Basophils # 0.1 10^3/uL (0.0-0.1); Eosinophils # 0.1 10^3/uL (0.0-0.8); Eosinophils % 0.6 %; Hematocrit 43.6 % (37.0-47.0); Hemoglobin 14.4 g/dL (11.5-15.3); Lymphocytes # 2.5 10^3/uL (0.8-4.8); Lymphocytes % 31.5 %; Mean Corpuscular Hemoglobin 32.1 pg (28.0-34.0); Mean Corpuscular Volume 97.3 fL (81-99); Mean Platelet Volume 10.2 fL (7.4-10.4); Monocytes # 0.5 10^3/uL (0.2-0.9); Monocytes % 5.9 %; Neutrophils # 4.76 10^3/uL (1.8-7.7); Neutrophils % 60.7 %; Nucleated Red Blood Cells % 0 %; Platelet Count 207 10^3/cmm (130-400); Red Blood Count 4.48 10^6/uL (4.1-5.3); Red Cell Distribution Width 15.2 % (12.1-15.1); White Blood Count 7.8 10^3/uL (4.0-10.0)
--- NOTE | 2020-09-12 06:00 | USCV_ITS ---
Yoselin Martin Age: 69 Gender: F : 1950 Exam Date: 09/12/2020 10:49 Ordering Phys: Marine Duong MD Technologist: Janae Natarajan [place] [facility] [place]: cva BP: 180 / 82 HR: 70 Rhythm: Sinus Technical Quality: Adequate MEASUREMENTS (Male / Female) Normal Values 2D ECHO LV Diastolic Diameter PLAX 4.0 cm 4.2 - 5.9 / 3.9 - 5.3 cm LV Systolic Diameter PLAX 2.7 cm LV Chamber Size 4.0 cm IVS Diastolic Thickness 1.7 cm 0.6 - 1.0 / 0.6 - 0.9 cm IVS Systolic Thickness 2.1 cm LVPW Diastolic Thickness 1.3 cm 0.6 - 1.0 / 0.6 - 0.9 cm LVPW Systolic Thickness 1.5 cm RV Chamber Size 2.9 cm LVOT Diameter 1.8 cm LV Ejection Fraction 2D Teich 62.8 % LV Ejection Fraction MOD 2C 55.8 % LV Ejection Fraction 2C AL 55.4 % LA Diameter 3.4 cm LA Width 2.6 cm LA Height 5.2 cm RA Width 2.9 cm RA Height 4.0 cm Aorta at Sinotubular Diameter 2.8 cm M-MODE LV Diastolic Diameter MM 5.0 cm 4.2 - 5.9 / 3.9 - 5.3 cm LV Systolic Diameter MM 3.2 cm LV Ejection Fraction MM Teich 64.9 % IVS Diastolic Thickness MM 1.3 cm 0.6 - 1.0 / 0.6 - 0.9 cm IVS Systolic Thickness MM 1.6 cm LVPW Diastolic Thickness MM 1.1 cm 0.6 - 1.0 / 0.6 - 0.9 cm LVPW Systolic Thickness MM 1.4 cm Aortic Annulus Diameter 3.1 cm LA Ao Ratio MM 1.2 MV E Point Septal Separation 0.5 cm DOPPLER AV Peak Velocity 115.0 cm/s LVOT Peak Velocity 90.0 cm/s AV Area Cont Eq vti 1.9 cm squared AV Area Cont Eq pk 2.1 cm squared MV Area PHT 3.7 cm squared Mitral E to A Ratio 0.7 MV E' Velocity 28.5 cm/s Mitral E to MV E' Ratio 11.5 Mitral E to LV E' Lateral Ratio 11.3 Mitral E to LV E' Septal Ratio 11.8 TR Peak Velocity 248.5 cm/s TR Peak Gradient 24.7 mmHg TR Mean Velocity 179.3 cm/s TR Mean Gradient 13.7 mmHg TR Velocity Time Integral 71.7 cm TV Peak E Velocity 32.0 cm/s Right Atrial Pressure 3.0 mmHg Pulmonary Artery Systolic Pressu 27.7 mmHg PV Peak Velocity 87.0 cm/s RV Acceleration Time 0.1 s RV Ejection Time 0.3 s RV AcT/ET 0.3 FINDINGS Left Ventricle Normal LV size ejection fraction of around 60%. Dyskinetic inferobasal segment. Right Ventricle The right ventricle is normal in size and function. Right Atrium The right atrium is normal in size. Left Atrium Mildly increased left atrial size. Mitral Valve Mild-moderate mitral valve regurgitation. Aortic Valve No gross abnormalities noted Tricuspid Valve [id number] tricuspid valve regurgitation. Estimated pulmonary peak systolic pressure of 28 mmHg Pulmonic Valve Pulmonic valve not well visualized. Pericardium Normal pericardium without effusion. Aorta Normal ascending aorta dimension. CONCLUSIONS Normal LV size ejection fraction of around 60%. Dyskinetic inferobasal segment-may suggest RCA infarct/ischemia. [id number] tricuspid valve regurgitation Mildly increased left atrial size. Mild-moderate mitral valve regurgitation. There is no pericardial effusion. There are no intracardiac masses. Compared to the study from 06/08/2017, there may not be a significant Dr Indra Julien MD FACC (Electronically Signed) Final Date: 12 Sep 2020 11:54 S
[2020-09-12 06:33] LABS: Alanine Aminotransferase 14 U/L (0-33); Albumin Level 4.5 g/dL (3.5-5.2); Alkaline Phosphatase 57 IU/L (35-105); Anion Gap 14.7 (5-19); Aspartate Amino Transferase 25 U/L (0-32); Blood Urea Nitrogen 6 mg/dL (8-23); Calcium 9.1 mg/dL (8.5-10.5); Carbon Dioxide 24 mmol/L (22-29); Chloride 104 mmol/L (98-107); Chol HDL Ratio 6.04 mg/dL (0.0-4.40); Cholesterol 290 mg/dL (0-200); Creatinine Clr Calc Pharmacy 62.4647; Globulin 3.7 g/dL (1.3-4.6); Glomerular Filtration Rate 82.7 mL/min (90-130); Glucose 97 mg/dL (65-115); HDL Cholesterol 48 mg/dL (60-100); LDL Cholesterol Calculated 218 mg/dL (50-129); LDL HDL Ratio 4.54 RATIO (0.00-3.22); Magnesium 2.1 mg/dL (1.7-2.3); Osmolality Calculated 286 mOsm/kg (285-295); Potassium 3.7 mmol/L (3.5-5.1); Sodium 139 mmol/L (136-145); Thyroid Stimulating Hormone 27.15 uIU/mL (0.27-4.20); Total Bilirubin 0.7 mg/dL (0.15-1.2); Total Protein 8.2 g/dL (6.6-8.7); Triglycerides 119 mg/dL (0-150)
[2020-09-12 06:48] LABS: Estmated Average Glucose 105; Hemoglobin A1C 5.3 % (4.0-6.0)
[2020-09-12] MEDS: aspirin 81 mg EC Tablet PO (08:43)
[2020-09-12] MEDS: enoxaparin 40 mg/0.4 mL Syringe SUBCUT (08:43)
[2020-09-12] MEDS: clopidogrel 75 mg Tablet PO (08:43)
[2020-09-12 11:34] LABS: Free T4 Free Thyroxine 0.12 ng/dL (0.82-1.77); T3 Free 0.4 PG/ML (2.0-4.4)
--- NOTE | 2020-09-12 12:35 | P.PN_ITS ---
Subjective Subjective: Interval history: Not doing any better but not doing any worse. Still with right-sided weakness. Voice remains hoarse. Has not yet worked with physical and Occupational Therapy at the time of my evaluation. NIH score staying 5-6. No new complaints. Vitals/I&O/Wt Last Vital Signs Temp 98.2 F 09/12/20 11:57 Pulse 56 L 09/12/20 11:57 Resp 18 09/12/20 11:57 BP 183/68 09/12/20 11:57 Pulse Ox 97 09/12/20 11:57 09/11/20 09/12/20 09/12/20 22:59 06:59 14:59 Intake Total 160 / 160 120 / 120 Balance 160 / 160 120 / 120 Weight last 48 hrs Weight 72.575 kg Physical Exam Narrative: EXAM NARRATIVE: Constitutional: Awake, alert, still soft-spoken HEENT: Facial droop unchanged, moist mucous membranes Respiratory: Scattered wheezes but no accessory muscle use Cardiovascular: Regular rate and rhythm Abdomen: Soft, nontender Extremities: No pitting edema Neuro: Speech remains soft but understandable, right-sided weakness unchanged involving both the arm and the leg Data : 09/12/20 05:28 09/12/20 05:28 Other data: Upper thorax: Spiculated 4 mm nodule in the anterior LEFT upper lobe. No change since 07/21/2017. CTA head/Neck results 1. Proximal RIGHT ICA stenosis 75%. 2. Origin RIGHT ICA stenosis 50%. 3. Proximal LEFT ICA stenosis less than 50%. 4. 50% stenoses involving the intracranial carotid arteries to the cavernous sinuses and supraclinoid. 5. RIGHT palatine tonsil hypoechoic nodule measures 5 mm. Recommend direct visualization. ECHO CONCLUSIONS Normal LV size ejection fraction of around 60%. Dyskinetic inferobasal segment-may suggest RCA infarct/ischemia. [id number] tricuspid valve regurgitation Mildly increased left atrial size. Mild-moderate mitral valve regurgitation. There is no pericardial effusion. There are no intracardiac masses. A&P Assessment and plan (1) Fall at home: Status: Acute (2) CVA (cerebral vascular accident): With right-sided weakness and facial droop Status: Acute (3) Carotid stenosis: Status: Acute (4) Accelerated hypertension: Status: Acute (5) Hyperlipidemia: Status: Chronic (6) Peripheral vascular disease: Status: Chronic (7) Hypothyroidism: with significant tsh elevation Status: Chronic (8) Noncompliance with medications: Status: Acute (9) Nicotine dependence, cigarettes, with other nicotine-induced disorders: Status: Acute Additional A&P Information Stable left thorax nodule 5mm right tonsil hypoechoic nodule Dyskinetic inferobasal segment of the heart on echo, may sugggest RCA infarct/ischemia - looks like no change from prior echo Aspirin and Plavix, statin Continue permissive hypertension for now Start resumption of valsartan tomorrow followed by other medications as needed Will need follow up regarding carotid stenosis, she has known significant vascular disease peripherally Home pletal held with aspirin and plavix Continue to reinforce smoking cessation Check free t3 and free t4 Resume home levothyroxine at 25 mcg as not certain she was taking regularly Continue home BuSpar Resume trazodone tonight at lower dose prn Lovenox for DVT prophylaxis Need to reinforce taking medications as prescribed Supportive care otherwise Plans discussed with patient. Current plan is home. Her sister is going to come help her with rehab needs and someone is building a ramp and such at the house. Full code Attestations Medical Necessity Statement*: Requires ongoing inpatient stay for continued evaluation given lack of any clinical improvement, need for therapy post stroke. As stay will now crossed 2 midnights, have changed to inpatient Coding Level of Care Code Acute Process Improvement Engineer for Chg Fwd Diagnoses Fall at home W19.XXXA; Y92.009 CVA (cerebral vascular accident) I63.9 Carotid stenosis I65.29 Accelerated hypertension I10 Hyperlipidemia E78.5 Peripheral vascular disease I73.9 Hypothyroidism E03.9 Noncompliance with medications Z91.14 Nicotine dependence, cigarettes, with other nicotine-induced disorders F17.218
--- NOTE | 2020-09-12 13:28 | PC.NUTR ---
MD nutrition consult, stroke diagnosis. Attempted to provide nutrition education related to Stroke Nutrition Therapy and Cholesterol-Lowering Nutrition Therapy but pt appeared very tired and was slow to respond to questions. Pt requested RD to come back at later time. Left educational handouts in room for pt to review. Will attempt to follow up on another day. Recommend assist with meal set-up as pt seemed to be struggling with some items on tray. Informed nurse of recommendation.
[2020-09-12] MEDS: atorvastatin 40 mg Tablet 20 MG PO (21:29)
[2020-09-13] VITALS (12 sets, daily range): BP systolic 127–172; BP diastolic 54–84; PULSE 51–70; RESP 15–19; TEMP 36.4–37; O2SAT 90–98
[2020-09-13] MEDS: enoxaparin 40 mg/0.4 mL Syringe SUBCUT (07:47)
[2020-09-13] MEDS: aspirin 81 mg EC Tablet PO (07:47)
[2020-09-13] MEDS: clopidogrel 75 mg Tablet PO (07:47)
[2020-09-13] MEDS: cefTRIAXone 1,000 MG in sodium chloride 0.9% (plus) 50 ML 100 MG IV (09:46)
--- NOTE | 2020-09-13 11:14 | PC.NURSE ---
Patient requesting pain medication for her legs. patient states she takes Tramadol at home. keno writer / runner notified Dr Duong.
--- NOTE | 2020-09-13 11:37 | PC.NURSE ---
Notified Dr Duong patient is positive for ecoli in urine.
[2020-09-13] MEDS: TRAMadol 50 mg Tablet PO (14:18)
--- NOTE | 2020-09-13 16:08 | P.PN_ITS ---
Subjective Subjective: Interval history: Feels like she is a little bit stronger today. Tolerating oral intake. After working with therapy, she realizes that she needs placement for rehabilitation. Vitals/I&O/Wt Last Vital Signs Temp 98.0 F 09/13/20 15:43 Pulse 61 09/13/20 15:43 Resp 17 09/13/20 15:43 BP 171/76 09/13/20 15:43 Pulse Ox 95 09/13/20 15:43 09/13/20 09/13/20 09/13/20 06:59 14:59 22:59 Intake Total 50 / 50 Balance 50 / 50 Physical Exam Narrative: EXAM NARRATIVE: Constitutional: Awake, alert, soft-spoken HEENT: Facial droop is a little less today Respiratory: Clear to auscultation bilaterally Cardiovascular: Regular rate and rhythm Abdomen: Soft, nontender Extremities: No pitting edema, chronic contracture right arm at the elbow Neuro: Speech is soft but appropriate and discernible, right upper extremity strength is a little better than yesterday as his right lower extremity. Can almost touch her finger with her nose in the right arm even with contraction Data : 09/12/20 05:28 09/12/20 05:28 Micro: Microbiology 09/11/20 12:18 Urine Culture - Final Urine,Clean Catch Escherichia coli A&P Assessment and plan (1) Fall at home: Status: Acute (2) CVA (cerebral vascular accident): With right-sided weakness and facial droop Status: Acute (3) Carotid stenosis: Status: Acute (4) Accelerated hypertension: Status: Acute (5) E. coli urinary tract infection: Status: Acute (6) Hyperlipidemia: Status: Chronic (7) Peripheral vascular disease: Status: Chronic (8) Hypothyroidism: with significant tsh elevation Status: Chronic (9) Noncompliance with medications: Status: Acute (10) Nicotine dependence, cigarettes, with other nicotine-induced disorders: Status: Acute Additional A&P Information Stable left thorax nodule 5mm right tonsil hypoechoic nodule Dyskinetic inferobasal segment of the heart on echo, may sugggest RCA infarct/ischemia - looks like no change from prior echo Chronic contracture right upper extremity Aspirin and Plavix, statin Repeat CT of the head in the morning Currently on 100 mg of losartan daily, home ARB had been valsartan 320 mg daily but she was not taking it Other antihypertensives from home medication list including spironolactone and amlodipine have not yet been addressed We will have to be careful resuming home medications as patient was not taking them as prescribed Reviewed with her at length the importance of compliance with her medications in particular her antiplatelet medications, her cholesterol medication and the blood pressure medications that we ultimately settle on. Also importance her thyroid medicine. She expressed understanding of this. We reviewed the need for smoking cessation and even avoidance of nicotine in the setting of a stroke. She is willing to try and actually looks at rehabilitation as an opportunity to get the nicotine out of her system. Will need follow up regarding carotid stenosis, she has known significant vascular disease peripherally Had previously been on Pletal for peripheral vascular disease Levothyroxine resumed at 25 mcg as patient has not been taking it Will need repeat TSH in 3 to 4 weeks Continue home BuSpar Has trazodone as needed for sleep Has breathing treatments if needed Lovenox for DVT prophylaxis Supportive care otherwise Plans discussed with patient as well as the niece at the bedside. She now is agreeable to placement for rehabilitation given the extent of her debility Full code Attestations Medical Necessity Statement*: Requires ongoing inpatient stay for continued rehabilitation, medication management status post CVA with right hemiparesis as well as treatment for E. coli urinary tract infection Other Attestations: Smoking cessation education for approximately 5 minutes wa s completed today Coding Level of Care Code Acute Boring Machine Operator Production for Nonag Fwd Diagnoses Fall at home W19.XXXA; Y92.009 CVA (cerebral vascular accident) I63.9 Carotid stenosis I65.29 Accelerated hypertension I10 E. coli urinary tract infection N39.0; B96.20 Hyperlipidemia E78.5 Peripheral vascular disease I73.9 Hypothyroidism E03.9 Noncompliance with medications Z91.14 Nicotine dependence, cigarettes, with other nicotine-induced disorders F17.218 NIH stroke score NIHSS Level Of Consciousness - 1a: 0 Level Of Consciousness Questions - 1b: Both Correct Level Of Consciousness Commands - 1c: Both Correct Best Gaze - 2: Normal Visual Barrios - 3: No Visual Loss Facial Palsy - 4: Minor Paralysis Motor Arm Right - 5: Drift Motor Arm Left - 5: Drift Motor Leg Right - 6: Drift Motor Leg Left - 6: No Drift Limb Ataxia - 7: Present In One Limb Sensory - 8: Mild To Moderate Loss Best Language - 9: No Aphasia Dysarthia - 10: Normal Extinction And Inattention - 11: 0 Score Total Score: 6
[2020-09-13] MEDS: atorvastatin 40 mg Tablet 20 MG PO (20:36)
[2020-09-14] VITALS (11 sets, daily range): BP systolic 133–178; BP diastolic 48–89; PULSE 50–78; RESP 16–18; TEMP 36.6–37; O2SAT 94–97
--- NOTE | 2020-09-14 00:53 | PC.NURSE ---
At midnight rounds Nurse noted that patient had pulled IV catheter out and had a skin tear on left forearm just under the IV site. When asked how the skin tear occurred the pt stated, this thing scratched me and pointed to the IV. Nurse inserted new 20 g IV to the left wrist. Skin tear measured 2.1 cm wide and 1.3 cm in length. Nurse cleansed skin tear with NS, patted dry, 3 steri strips applied and covered with optifoam. PT was incontinent of urine, Nurse provided reza care and changed pt brief, pt repositioned with pillows, pt resting in bed with call light within reach.
[2020-09-14] MEDS: ondansetron 2 mg/ML SDV 2 mL 4 MG IVP (04:43)
--- NOTE | 2020-09-14 06:00 | CT_ITS ---
WS: [id number] CT HEAD TECHNIQUE: Noncontrast CT of the head obtained from the skullbase to the vertex. CLINICAL INFORMATION: cva COMPARISON: September 11, 2020 DLP: 853.[address] scans at [facility] use at least one of these dose optimization techniques: automat ed exposure control; mA and/or kV adjustment per patient size (includes targeted exams where dose is matched to clinical indication); or iterative reconstruction. FINDINGS: No evidence of intracranial hemorrhage or mass effect. Ventricular system and basal cisterns are garcia nt. Mild small vessel changes with moderate parenchymal volume loss. Chronic appearing lacunar infarc t left caudate. Suggestion of Low-attenuation change left periventricular white matter slightly more prominent compared to previous. This can be followed up with MRI. No extra-axial fluid collections. N o evidence of mass or mass effect. Paranasal sinuses and mastoid air cells are well aerated. .Normal visualized soft tissues. CT/CT head wo con* [id number] IMPRESSION: 1. No evidence of intracranial hemorrhage or mass effect. 2. Multiple vessel changes. Moderate parenchymal volume loss. 3. Chronic lacunar infarct left caudate. 4. Suggestion of Low-attenuation change left periventricular white matter slig htly more prominent compared to previous. This can be followed up with MRI. Oth erwise normal cortes-white differentiation. 5. No other significant changes.
--- NOTE | 2020-09-14 06:00 | ECG_ITS ---
[facility] ED Test Date: 2020-09-14 Pat Name: Yoselin Martin Department: Room: 252 Gender: Female Drain Layer: : 1950 Requested By: Marine Duong Order Number: [id number] Karla MD: Debbie Miner M.D. Measurements Intervals [place] Rate: 51 P: 48 UT: 158 QRS: 30 QRSD: 102 T: 264 QT: 469 QTc: 433 Interpretive Statements SINUS BRADY[address]IA [address] DEVIATION AND MODERATE T-WAVE ABNORMALITY, CONSIDER LATERAL ISCHEMIA [-0.1+ mV T WAVE IN I/aVL/V5/V6] ST DEVIATION AND MODERATE T-WAVE ABNORMALITY, CONSIDER INFERIOR ISCHEMIA [-0.1+ mV T WAVE IN II/aVF] Compared to ECG 09/11/2020 11:07:00 Myocardial infarct finding no longer present T-wave abnormality still present Possible ischemia still present Electronically Signed On 09-16-2020 7:08:04 CDT by Debbie Miner M.D. [email or web address] [facility] [id number]
[2020-09-14] MEDS: cefTRIAXone 1,000 MG in sodium chloride 0.9% (plus) 50 ML 100 MG IV (07:46)
[2020-09-14] MEDS: aspirin 81 mg EC Tablet PO (07:46)
[2020-09-14] MEDS: clopidogrel 75 mg Tablet PO (07:46)
[2020-09-14] MEDS: enoxaparin 40 mg/0.4 mL Syringe SUBCUT (07:47)
--- NOTE | 2020-09-14 12:10 | P.PN_ITS ---
Subjective Subjective: Interval history: This morning patient was examined, she tells me that she is doing better, continues to have right upper extremity weakness, about the same compared to yesterday, right lower extremity weakness, minimal right facial droop, no slurring of her words, no visual deficits, she understands that she is quite unsteady on her feet, will require alf placement, is working with physical therapy, afebrile overnight Vitals/I&O/Wt Last Vital Signs Temp 98.6 F 09/14/20 11:09 Pulse 64 09/14/20 11:09 Resp 18 09/14/20 11:09 BP 133/48 09/14/20 11:09 Pulse Ox 96 09/14/20 11:09 09/13/20 09/14/20 09/14/20 22:59 06:59 14:59 Intake Total 360 / 410 290 / 290 Balance 360 / 410 290 / 290 Physical Exam Const: COMMON NORMALS: no acute distress and alert ORIENTATION/CONSCIOUSNESS: Yes awake, Yes oriented to person, Yes oriented to place and Yes oriented to time Resp: COMMON NORMALS: normal respiratory effort, No retractions, No use of accessory muscles and clear to auscultation bilaterally AUSCULTATION: clear to auscultation bilaterally Cardio: COMMON NORMALS: regular rate, regular rhythm, S1 normal heart sound present and S2 normal heart sound present RATE: regular rate RHYTHM: regular rhythm HEART SOUNDS: S1 normal heart sound present and S2 normal heart sound present GI: COMMON NORMALS: Normal to inspection, nondistended, normoactive bowel sounds present, Soft to palpation and non-tender PALPATION: Yes Soft to palpation Extremity: COMMON NORMALS: no pedal edema Neuro: SENSORIUM/ORIENTATION: Yes alert, Yes oriented to person, Yes oriented to place and Yes oriented to time OTHER: Minimal right facial droop Right upper extremity strength, 1 out of 5 compared to 5/5 on the left Right lower extremity strength 1 out of 5 compared to 5/5 on the left Data : 09/12/20 05:28 09/12/20 05:28 Micro: Microbiology 09/11/20 12:18 Urine Culture - Final Urine,Clean Catch Escherichia coli A&P Assessment and plan (1) Fall at home: Status: Acute (2) CVA (cerebral vascular accident): With right-sided weakness and facial droop Status: Acute (3) Carotid stenosis: Status: Acute (4) Accelerated hypertension: Status: Acute (5) E. coli urinary tract infection: Status: Acute (6) Hyperlipidemia: Status: Chronic (7) Peripheral vascular disease: Status: Chronic (8) Hypothyroidism: with significant tsh elevation Status: Chronic (9) Noncompliance with medications: Status: Acute (10) Nicotine dependence, cigarettes, with other nicotine-induced disorders: Status: Acute Additional A&P Information Stable left thorax nodule 5mm right tonsil hypoechoic nodule Dyskinetic inferobasal segment of the heart on echo, may sugggest RCA infarct/ ischemia - looks like no change from prior echo, on aspirin, statin, does have nonspecific ST-T wave changes seen on EKG, will order troponin series, monitor for chest pain will have patient follow-up with cardiology as outpatient Chronic contracture right upper extremity Aspirin and Plavix, statin Repeat CT of the head in the morning Currently on 100 mg of losartan daily, home ARB had been valsartan 320 mg daily but she was not taking it Other antihypertensives from home medication list including spironolactone and amlodipine have not yet been addressed We will have to be careful resuming home medications as patient was not taking them as prescribed Reviewed with her at length the importance of compliance with her medications in particular her antiplatelet medications, her cholesterol medication and the blood pressure medications that we ultimately settle on. Also importance her thyroid medicine. She expressed understanding of this. We reviewed the need for smoking cessation and even avoidance of nicotine in the setting of a stroke. She is willing to try and actually looks at rehabilitation as an opportunity to get the nicotine out of her system. Has right ICA stenosis 75%, will require follow-up as outpatient with Dr. Burgess Had previously been on Pletal for peripheral vascular disease Levothyroxine resumed at 25 mcg as patient has not been taking it Will need repeat TSH in 3 to 4 weeks Continue home BuSpar Has trazodone as needed for sleep Has breathing treatments if needed Lovenox for DVT prophylaxis Supportive care otherwise Plans discussed with patient as well as the niece at the bedside. She now is agreeable to placement for rehabilitation, working on alf placement Full code Attestations Medical Necessity Statement*: Patient requires hospitalization for CVA, echocardiogram changes Coding Level of Care Code Acute Rehab Assistant for Chg Fwd Diagnoses Fall at home W19.XXXA; Y92.009 CVA (cerebral vascular accident) I63.9 Carotid stenosis I65.29 Accelerated hypertension I10 E. coli urinary tract infection N39.0; B96.20 Hyperlipidemia E78.5 Peripheral vascular disease I73.9 Hypothyroidism E03.9 Noncompliance with medications Z91.14 Nicotine dependence, cigarettes, with other nicotine-induced disorders F17.218
--- NOTE | 2020-09-14 12:14 | ECG_ITS ---
[facility] ED Test Date: 2020-09-14 Pat Name: Yoselin Martin Department: Room: 252 Gender: Female Installment Account Checker: : 1950 Requested By: Murray Meng Order Number: [id number] Karla MD: Debbie Miner M.D. Measurements Intervals [place] Rate: 51 P: 27 HI: 142 QRS: 11 QRSD: 94 T: 214 QT: 469 QTc: 434 Interpretive Statements SINUS BRADYCARDIA ST DEVIATION AND MODERATE T-WAVE ABNORMALITY, CONSIDER ANTEROLATERAL ISCHEMIA [-0.1+ mV T WAVE IN V3-V6] Compared to ECG 09/14/2020 05:50:54 No significant changes Electronically Signed On 09-16-2020 6:57:20 CDT by Debbie Miner M.D. [id number]
[2020-09-14 13:00] LABS: Troponin(5th) Baseline 14 ng/L (0-10)
--- NOTE | 2020-09-14 14:14 | ECG_ITS ---
[facility] ED Test Date: 2020-09-14 Pat Name: Yoselin Martin Department: Room: 252 Gender: Female Paper Sheeter: : 1950 Requested By: Murray Meng Order Number: [id number] Karla MD: Debbie Miner M.D. Measurements Intervals [place] Rate: 52 P: 48 CO: 142 QRS: 26 QRSD: 93 T: -88 QT: 444 QTc: 415 Interpretive Statements SINUS BRADYCARDIA ST DEVIATION AND MODERATE T-WAVE ABNORMALITY, CONSIDER ANTEROLATERAL ISCHEMIA [-0.1+ mV T WAVE IN V3-V6] ST DEVIATION AND MODERATE T-WAVE ABNORMALITY, CONSIDER INFERIOR ISCHEMIA [-0.1+ mV T WAVE IN II/aVF] Compared to ECG 09/14/2020 13:37:54 No significant changes Electronically Signed On 09-16-2020 7:06:58 CDT by Debbie Miner M.D. [email or web address].[email or web address]/store/[id number]
[2020-09-14 14:43] LABS: Troponin 5 2HR 16.28 ng/L (0-10); Troponin 5 2HR Delta 2.28 ABS# (0-10)
[2020-09-14 19:16] LABS: Troponin 5 6HR 16.46 ng/L (0-10); Troponin 5 6HR Delta 2.46 ng/L (0-12)
[2020-09-14] MEDS: atorvastatin 40 mg Tablet 20 MG PO (20:16)
[2020-09-15] VITALS (9 sets, daily range): BP systolic 130–151; BP diastolic 67–95; PULSE 48–82; RESP 16–18; TEMP 36.3–37.2; O2SAT 92–97
[2020-09-15 06:23] LABS: Basophils # 0.1 10^3/uL (0.0-0.1); Basophils % 1.3 %; Eosinophils # 0.1 10^3/uL (0.0-0.8); Eosinophils % 1.3 %; Hematocrit 41.9 % (37.0-47.0); Hemoglobin 13.8 g/dL (11.5-15.3); Lymphocytes # 2.6 10^3/uL (0.8-4.8); Lymphocytes % 36.4 %; Mean Corpuscular HGB Conc 32.9 g/dL (30.0-36.0); Mean Corpuscular Hemoglobin 32.7 pg (28.0-34.0); Mean Corpuscular Volume 99.3 fL (81-99); Mean Platelet Volume 10.6 fL (7.4-10.4); Monocytes # 0.6 10^3/uL (0.2-0.9); Monocytes % 8.4 %; Neutrophils # 3.77 10^3/uL (1.8-7.7); Neutrophils % 52.3 %; Nucleated Red Blood Cells % 0 %; Platelet Count 207 10^3/cmm (130-400); Red Blood Count 4.22 10^6/uL (4.1-5.3); White Blood Count 7.2 10^3/uL (4.0-10.0)
[2020-09-15 07:05] LABS: Anion Gap 20.5 (5-19); Blood Urea Nitrogen 15 mg/dL (8-23); Calcium 9.1 mg/dL (8.5-10.5); Carbon Dioxide 18 mmol/L (22-29); Chloride 101 mmol/L (98-107); Glomerular Filtration Rate 61.9 mL/min (90-130); Glucose 83 mg/dL (65-115); Magnesium 2.2 mg/dL (1.7-2.3); Osmolality Calculated 282 mOsm/kg (285-295); Potassium 3.5 mmol/L (3.5-5.1); Sodium 136 mmol/L (136-145)
[2020-09-15] MEDS: aspirin 81 mg EC Tablet PO (08:40)
[2020-09-15] MEDS: clopidogrel 75 mg Tablet PO (08:40)
[2020-09-15] MEDS: cefTRIAXone 1,000 MG in sodium chloride 0.9% (plus) 50 ML 100 MG IV (08:40)
[2020-09-15] MEDS: enoxaparin 40 mg/0.4 mL Syringe SUBCUT (08:52)
--- NOTE | 2020-09-15 09:54 | PC.SOCIAL ---
IMM Update Pg. 2 of IMM updated and reviewed with patient who verbalized understanding. Copy provided.
--- NOTE | 2020-09-15 11:59 | P.PN_ITS ---
Subjective Subjective: Interval history: Patient was seen this morning, he denies any chest pain, no palpitations, her right upper extremity weakness, right lower extremity weakness improving, is working with physical therapy, she overall is doing better, continue PT OT Vitals/I&O/Wt Last Vital Signs Temp 98.5 F 09/15/20 11:31 Pulse 57 L 09/15/20 11:31 Resp 18 09/15/20 11:31 BP 151/86 09/15/20 11:31 Pulse Ox 95 09/15/20 11:31 09/14/20 09/15/20 09/15/20 22:59 06:59 14:59 Intake Total 240 / 1010 290 / 290 Balance 240 / 1010 290 / 290 Physical Exam Const: COMMON NORMALS: no acute distress and alert ORIENTATION/CONSCIOUSNESS: Yes awake, Yes oriented to person, Yes oriented to place and Yes oriented to time Resp: COMMON NORMALS: normal respiratory effort, No retractions, No use of accessory muscles and clear to auscultation bilaterally AUSCULTATION: clear to auscultation bilaterally Cardio: COMMON NORMALS: regular rate, regular rhythm, S1 normal heart sound present and S2 normal heart sound present RATE: regular rate RHYTHM: regular rhythm HEART SOUNDS: S1 normal heart sound present and S2 normal heart sound present GI: COMMON NORMALS: Normal to inspection, nondistended, normoactive bowel sounds present, Soft to palpation and non-tender PALPATION: Yes Soft to palpation Extremity: COMMON NORMALS: no pedal edema Neuro: SENSORIUM/ORIENTATION: Yes alert, Yes oriented to person, Yes oriented to place and Yes oriented to time OTHER: Minimal right facial droop Chronic flexion contracture right upper extremity Right upper extremity strength, 1 out of 5 compared to 5/5 on the left Right lower extremity strength 1 out of 5 compared to 5/5 on the left Data : 09/15/20 04:50 09/15/20 04:50 A&P Assessment and plan (1) Fall at home: Status: Acute (2) CVA (cerebral vascular accident): With right-sided weakness and facial droop Status: Acute (3) Carotid stenosis: Status: Acute (4) Accelerated hypertension: Status: Acute (5) E. coli urinary tract infection: Status: Acute (6) Hyperlipidemia: Status: Chronic (7) Peripheral vascular disease: Status: Chronic (8) Hypothyroidism: with significant tsh elevation Status: Chronic (9) Noncompliance with medications: Status: Acute (10) Nicotine dependence, cigarettes, with other nicotine-induced disorders: Status: Acute Additional A&P Information Stable left thorax nodule 5mm right tonsil hypoechoic nodule Dyskinetic inferobasal segment of the heart on echo, may sugggest RCA infa rct/ischemia, no chest pain complaints, 6-hour troponin XVI, no significant delta, EKG do show inferior and lateral ischemia, T wave changes, and ST depressions: Patient is on aspirin, statin, Plavix, have consulted cardiology Chronic contracture right upper extremity Aspirin and Plavix, statin Repeat CT of the head in the morning Currently on 100 mg of losartan daily, home ARB had been valsartan 320 mg daily but she was not taking it Other antihypertensives from home medication list including spironolactone and amlodipine have not yet been addressed We will have to be careful resuming home medications as patient was not taking them as prescribed Reviewed with her at length the importance of compliance with her medications in particular her antiplatelet medications, her cholesterol medication and the blood pressure medications that we ultimately settle on. Also importance her thyroid medicine. She expressed understanding of this. We reviewed the need for smoking cessation and even avoidance of nicotine in the setting of a stroke. She is willing to try and actually looks at rehabilitation as an opportunity to get the nicotine out of her system. Has right ICA stenosis 75%, will require follow-up as outpatient with Dr. Burgess Had previously been on Pletal for peripheral vascular disease Levothyroxine resumed at 25 mcg as patient has not been taking it Will need repeat TSH in 3 to 4 weeks Continue home BuSpar Has trazodone as needed for sleep Has breathing treatments if needed Lovenox for DVT prophylaxis Supportive care otherwise Plans discussed with patient as well as the niece at the bedside. She now is agreeable to placement for rehabilitation, working on retirement placement Full code Plan for today continue PT OT Coke, continue medications Attestations Medical Necessity Statement*: Patient requires hospitalization for CVA, now having heart wall motion abnormalities on echo with EKG changes requiring evaluation Coding Level of Care Code Acute Technical Inspector for Chg Fwd Diagnoses Fall at home W19.XXXA; Y92.009 CVA (cerebral vascular accident) I63.9 Carotid stenosis I65.29 Accelerated hypertension I10 E. coli urinary tract infection N39.0; B96.20 Hyperlipidemia E78.5 Peripheral vascular disease I73.9 Hypothyroidism E03.9 Noncompliance with medications Z91.14 Nicotine dependence, cigarettes, with other nicotine-induced disorders F17.218
--- NOTE | 2020-09-15 19:33 | PM.CONSULT ---
Providers/Reason For Consult Consulting Physican/Specialty*: DESI Julien MD/Cardiology Reason for Consult*: With abnormal EKG and echocardiogram suggesting underlying coronary ischemia. Attending Physician: Murray Meng MD Primary Care Provider: Marine Eagle NP History of Present Illness History of Present Illness Yoselin Martin is a 69 year old female with a history of hypertension, type 2 diabetes,? Dyslipidemia, presented with a right-sided weakness. She was found to have 2 inversions in the anterolateral and inferior leads. Echocardiographic evidence of dyskinetic inferobasal segment. Cardiology consult is requested for further cardiac evaluation recommendations. Apparently never had any chest pain or unusual shortness of breath. She has a history of peripheral artery disease and underwent atherectomy of the SFA lesion on the right side, in 2018. She currently has no leg pains. Denies any unusual shortness of breath. No fever or chills. No cough. She has no previous history for any coronary disease or myocardial infarction. In 2013, she had a myocardial perfusion imaging which was unremarkable. She has not had a recent stress testing. Her right-sided weakness is slowly improving. Review of Systems Narrative: CONSTITUTIONAL: No fever or chills. [] EYES: No blurring of vision or other visual disturbances lately. [] ENT: No hoarseness of voice, auditory disturbances or sore throat. [] CARDIOVASCULAR: As mentioned above. [] RESPIRATORY: No significant cough. [] GASTROINTESTINAL: No hematemesis or melena. [] GENITOURINARY: No dysuria or hematuria. [] INTEGUMENTARY: No skin rashes or history of skin cancer. [] NEURO: Sudden onset of weakness of the right upper and lower extremity. PSYCHIATRIC: No history of psychosis or major depression. [] HEMATOLOGIC: No bleeding disorders or significant anemia. [] ENDOCRINE: No history of polyuria or polydipsia. [] MUSCULOSKELETAL: No recent joint pain or swelling. [] ALLERGY/IMMUNOLOGY: As mentioned above. [] Meds/Allergies Home Medications and Allergies Home Medications Medication Instructions Recorded Confirmed Last Taken Type albuterol sulfate 2 puff INHALATION Q4H PRN 09/11/20 09/11/20 Unknown History alendronate 70 mg PO Q7D PRN 09/11/20 09/11/20 Unknown History amlodipine 10 mg PO QPM PRN 09/11/20 09/11/20 09/09/20 History aspirin [Aspir-81] 81 mg PO QAM 09/11/20 09/11/20 Unknown History atorvastatin 40 mg PO BEDTIME 09/11/20 09/11/20 09/09/20 History buspirone 5 mg PO TID PRN 09/11/20 09/11/20 09/10/20 History cilostazol 50 mg PO BID PRN 09/11/20 09/11/20 Unknown History duloxetine 30 mg PO DAILY 09/11/20 09/11/20 Unknown History gabapentin 300 mg PO BID PRN 09/11/20 09/11/20 Unknown History levothyroxine 25 mcg PO DAILY PRN 09/11/20 09/11/20 Unknown History multivitamin 1 tab PO DAILY 09/11/20 09/11/20 Unknown History nitroglycerin 0.4 mg SUBLINGUAL PRN 09/11/20 09/11/20 Unknown History spironolactone 37.5 mg PO DAILY 09/11/20 09/11/20 09/09/20 History trazodone 100 - 200 mg PO BEDTIME PRN 09/11/20 09/11/20 Unknown History valsartan 320 mg PO DAILY PRN 09/11/20 09/11/20 09/11/20 History Allergies Allergy/AdvReac Type Severity Reaction Status Date / Time No Known Allergies Allergy Verified 09/11/20 12:07 Current Medications Current Medications Generic Name Dose Route Start Last Admin Trade Name Freq PRN Reason Stop Dose Admin Aspirin 81 mg 09/12/20 09:00 09/15/20 08:40 Aspirin 81 Mg Ec Tablet PO 81 mg DAILY DEMOND Administration Atorvastatin Calcium 20 mg 09/11/20 21:00 09/14/20 20:16 Atorvastatin 40 Mg Tablet PO 20 mg BEDTIME DEMOND Administration Clopidogrel Bisulfate 75 mg 09/12/20 09:00 09/15/20 08:40 Clopidogrel 75 Mg Tablet PO 75 mg DAILY DEMOND Administration Enoxaparin Sodium 40 mg 09/12/20 09:00 09/15/20 08:52 Enoxaparin 40 Mg/0.4 Ml Syringe SUBCUT 40 mg Q24H DEMOND Administration Ceftriaxone Sodium 1,000 mg/ 50 mls @ 100 mls/hr 09/13/20 08:00 09/15/20 09:25 Sodium Chloride IV Infused Q24H DEMOND Infusion Protocol Ondansetron HCl 4 mg 09/11/20 15:19 09/14/20 04:43 Ondansetron 2 Mg/Ml Sdv 2 Ml IVP 4 mg Q6H PRN Administration NAUSEA AND VOMITING Tramadol HCl 50 mg 09/13/20 13:03 09/13/20 14:18 Tramadol 50 Mg Tablet PO 50 mg Q6H PRN Administration MODERATE PAIN PFSH Acute PFSH: Medical History Claudication History of PFTs (~2013) normal spirometry Hyperlipidemia Hypertension Hypothyroidism Osteoporosis Peripheral vascular disease TIA (transient ischemic attack) Surgical History History of angiography (~2017) peripheral, fouond to have occluded mid to distal SFA, had orbital arthrectomy and balloon angioplasty History of tubal ligation Status post open reduction and internal fixation (ORIF) of fracture (~2012) right tib fib, Dr Cotter Family History Other Stroke Social History Smoking and tobacco status: current every day smoker Alcohol intake: never Substance/Drug Use: never Household members: family Vitals/I&O/Wt Last Vital Signs Temp 98.5 F 09/15/20 19:31 Pulse 58 L 09/15/20 19:31 Resp 18 09/15/20 19:31 BP 133/80 09/15/20 19:31 Pulse Ox 92 09/15/20 19:31 09/15/20 09/15/20 09/15/20 06:59 14:59 22:59 Intake Total 770 / 770 120 / 890 Balance 770 / 770 120 / 890 Physical Exam Narrative: EXAM NARRATIVE: GENERAL: The patient is alert and oriented times three. Not in any acute distress. HEENT: No significant pallor, icterus or lymphadenopathy. The pupils are symmetrical in size. Oral cavity: There are no mucous membrane lesions. Funduscopic examination: The fundus is not visualized NECK: Trachea appears to be central. No masses noted. No JVD or thyromegaly appreciated. No carotid bruit. RESPIRATORY: Chest is symmetrical. No intercostals muscle retraction or any accessory muscle activation. There is no chest wall tenderness. Breath sounds are heard bilaterally. No rales or rhonchi heard. No evidence of any consolidation. BREASTS: Deferred. HEART: The PMI is in the 5th left intercostals space just inside the midclavicular line. No palpable precordial events. S1 and S2 are normal. No S3 or S4 heard. No pericardial rub or any click heard. Short systolic murmur in the left sternal border ABDOMEN: No vessel pulsations or distention. No tenderness. No organomegaly appreciated. No abdominal bruit. Bowel sounds are normally heard. : Deferred. RECTAL: Deferred. LYMPHATIC: No lymphadenopathy noted in the neck or groin. EXTREMITIES: No edema or cyanosis. No clubbing. The pulses are symmetrical bilaterally. The radial, femoral, dorsalis pedis and the posterior tibial pulses are palpated and was found to be of low volume and amplitude. MUSCULOSKELETAL: No acute joint deformities or swelling SKIN: There are no significant scars or skin rash noted. NEUROPSYCHIATRIC: Patient has grade 3 power of the right upper Maki and grade 4 of the right lower extremity. She also seems as minimal verbal aphasia ; increased rigidity in the upper and lower extremity on the right side Data Labs: Other Labs: Laboratory Last Values WBC 7.2 10^3/uL (4.0- 10.0) 09/15/20 04:50 RBC 4.22 10^6/uL (4.1 -5.3) 09/15/20 04:50 Hgb 13.8 g/dL (11.5-1 5.3) 09/15/20 04:50 Hct 41.9 % (37.0-47.0 ) 09/15/20 04:50 MCV 99.3 fL (81-99) H 09/15/20 04:50 MCH 32.7 pg (28.0-34. 0) 09/15/20 04:50 MCHC 32.9 g/dL (30.0-3 6.0) 09/15/20 04:50 RDW 15.0 % (12.1-15.1 ) 09/15/20 04:50 Plt Count 207 10^3/cmm (130 -400) 09/15/20 04:50 MPV 10.6 fL (7.4-10.4 ) H 09/15/20 04:50 Neut % (Auto) 52.3 % 09/15/20 04:50 Lymph % (Auto) 36.4 % 09/15/20 04:50 Eddy % (Auto) 8.4 % 09/15/20 04:50 Eos % (Auto) 1.3 % 09/15/20 04:50 Baso % (Auto) 1.3 % 09/15/20 04:50 Neut # (Auto) 3.77 10^3/uL (1.8 -7.7) 09/15/20 04:50 Lymph # (Auto) 2.6 10^3/uL (0.8- 4.8) 09/15/20 04:50 Eddy # (Auto) 0.6 10^3/uL (0.2- 0.9) 09/15/20 04:50 Eos # (Auto) 0.1 10^3/uL (0.0- 0.8) 09/15/20 04:50 Baso # (Auto) 0.1 10^3/uL (0.0- 0.1) 09/15/20 04:50 Nucleated RBC % (a uto) 0 % 09/15/20 04:50 Nucleated RBCs # 0.0 /100WBC 09/15/20 04:50 PT 13.20 SECONDS (12 .1-14.9) 09/11/20 10:00 INR 0.97 (0.8-1.2) 09/11/20 10:00 APTT 32.4 SECONDS (23. 9-36.7) 09/11/20 10:00 Sodium 136 mmol/L (136-1 45) 09/15/20 04:50 Potassium 3.5 mmol/L (3.5-5 .1) 09/15/20 04:50 Chloride 101 mmol/L (98-10 7) 09/15/20 04:50 Carbon Dioxide 18 mmol/L (22-29) L 09/15/20 04:50 Anion Gap 20.5 (5-19) H 09/15/20 04:50 BUN 15 mg/dL (8-23) 09/15/20 04:50 Creatinine 0.9 mg/dL (0.5-0. 9) 09/15/20 04:50 GFR Calculation 61.9 mL/min (90-1 30) L 09/15/20 04:50 Glucose 83 mg/dL (65-115) 09/15/20 04:50 Estimat Average Gl ucose 105 09/12/20 05:28 Hemoglobin A1c 5.3 % (4.0-6.0) 09/12/20 05:28 Calculated Osmolal ity 282 mOsm/kg (285- 295) L 09/15/20 04:50 Calcium 9.1 mg/dL (8.5-10 .5) 09/15/20 04:50 Magnesium 2.2 mg/dL (1.7-2. 3) 09/15/20 04:50 Total Bilirubin 0.7 mg/dL (0.15-1 .2) 09/12/20 05:28 AST 25 U/L (0-32) 09/12/20 05:28 ALT 14 U/L (0-33) 09/12/20 05:28 Alkaline Phosphata se 57 IU/L (35-105) 09/12/20 05:28 Troponin T Baselin e 14 ng/L (0-10) H 09/14/20 12:26 Troponin T 120 Min [place] band 16.28 ng/L (0-10) H 09/14/20 14:19 Delta Troponin T 2.28 ABS# (0-10) 09/14/20 14:19 Troponin T Hi Sens 6Hr 16.46 ng/L (0-10) H 09/14/20 18:30 Troponin T Hi Sens 6Hr Delta 2.46 ng/L (0-12) 09/14/20 18:30 Total Protein 8.2 g/dL (6.6-8.7 ) 09/12/20 05:28 Albumin 4.5 g/dL (3.5-5.2 ) 09/12/20 05:28 Globulin 3.7 g/dL (1.3-4.6 ) 09/12/20 05:28 Triglycerides 119 mg/dL (0-150) 09/12/20 05:28 Cholesterol 290 mg/dL (0-200) H 09/12/20 05:28 LDL Cholesterol, C alc 218 mg/dL (50-129 ) H 09/12/20 05:28 HDL Cholesterol 48 mg/dL (60-100) L 09/12/20 05:28 LDL/HDL Ratio 4.54 RATIO (0.00- 3.22) H 09/12/20 05: Cholesterol/HDL Ra maria ines 6.04 mg/dL (0.0-4 .40) H 09/12/20 05:28 TSH 27.15 uIU/mL (0.2 7-4.20) H 09/12/20 05: Free T4 0.12 ng/dL (0.82- 1.77) L 09/12/20 05: Free T3 0.4 PG/ML (2.0-4. 4) L 09/12/20 05:28 Urine Color Yellow (Yellow) 09/11/20 12:18 Urine Appearance Hazy (CLEAR) A 09/11/20 12:18 Urine pH 8 (5-7) H 09/11/20 12:18 Ur Specific Gravit y 1.015 (1.005-1.0 30) 09/11/20 12:18 Urine Protein Neg (Negative) 09/11/20 12:18 Urine Glucose (UA) Norm (Normal) 09/11/20 12:18 Urine Ketones Negative (Negati ve) 09/11/20 12:18 Urine Blood 2+ (Negative) H 09/11/20 12:18 Urine Nitrate Positive (Negati ve) H 09/11/20 12:18 Urine Bilirubin Neg (Negative) 09/11/20 12:18 Prot Sulfosalicyli c Acd Positive (Negati ve) 09/11/20 12:18 Urine Urobilinogen Norm mg/dL (Negat emily) 09/11/20 12:18 Ur Leukocyte Jada ase Negative (Negati ve) 09/11/20 12:18 Urine RBC 0-4 /hpf (0-2) H 09/11/20 12:18 Urine WBC None /hpf (0-5) 09/11/20 12:18 Ur Squamous Epith Cells 5-10 /hpf (0-5) H 09/11/20 12:18 Amorphous Sediment Not Reportable 09/11/20 12:18 Urine Bacteria 4+ /hpf (NONE) H 09/11/20 12:18 Urine Opiates Scre en Positive ng/mL (N egative) H 09/11/20 12:18 Ur Barbiturates Sc reen Negative ng/mL (N egative) 09/11/20 12:18 Ur Phencyclidine S crn Negative ng/mL (N egative) 09/11/20 12:18 Ur Amphetamines Sc reen Negative ng/mL (N egative) 09/11/20 12:18 U Benzodiazepines Scrn Negative ng/mL (N egative) 09/11/20 12:18 Urine Cocaine Scre en Negative ng/mL (N egative) 09/11/20 12:18 U Marijuana (THC) Screen Positive ng/mL (N egative) H 09/11/20 12:18 Peripheral angiogram followed by intervention of the right SFA on 04/19/2018 Successful atherectomy with using CSI luz device of mid right SFA after crossing with a wire performed it was followed by application of drug-eluting l utonix balloon. Excellent angiographic results with excellent flow was achieved. 3 vessel runoff was well-visualized below the knee. Right anterior tibial artery reconstitute itself in the distal segment after a short 100% occlusion. Since there was good blood supply throught right anterior tibial artery we do not think of need of performing right anterior tibial artery intervention. Echocardiogram on 09/12/2020 Normal LV size ejection fraction of around 60%. Dyskinetic inferobasal segment-may suggest RCA infarct/ischemia. [id number] tricuspid valve regurgitation Mildly increased left atrial size. Mild-moderate mitral valve regurgitation. There is no pericardial effusion. There are no intracardiac masses. Compared to the study from 06/08/2017, there may not be a significant The EKG from 09/14/2020 Sinus bradycardia with a rate of 52 bpm. T inversions in V3 to V5 and 2, 3 and aVF normal QTC Neck CTA revealed 1. Proximal RIGHT ICA stenosis 75%. 2. Origin RIGHT ICA stenosis 50%. 3. Proximal LEFT ICA stenosis less than 50%. 4. 50% stenoses involving the intracranial carotid arteries to the cavernous sinuses and supraclinoid. 5. RIGHT palatine tonsil hypoechoic nodule measures 5 mm. Recommend direct visualization. A&P Assessment and plan (1) Abnormal EKG: The abnormal EKG may suggest inferolateral wall ischemia. Apparently the patient has no specific symptoms pertaining to coronary ischemia. However since she is being considered for carotid artery surgery, it may be appropriate to go ahead and do a myocardial perfusion imaging to evaluate for any underlying coronary ischemia. Based on the results, further recommendations will be made. She may continue on the current medications for the time being Status: Acute (2) Carotid stenosis: This patient is around 75% stenosis in the right side and 50% stenosis in the left side. Further evaluation management Status: Acute Qualifiers: Laterality: bilateral Qualified Code(s): I65.23 - Occlusion and stenosis of bilateral carotid arteries (3) CVA (cerebral vascular accident): Patient has grade 3 part of the right upper extremity and grade 4 power of the right lower extremity. 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 May do a repeat Doppler examination, to follow-up on the peripheral arterial disease. Status: Chronic (5) Hyperlipidemia: The latest lipid profile were reviewed. Patient will have a repeat lipid profile today. Based on the results, further management decisions will be made. Status: Chronic Qualifiers: Hyperlipidemia type: moderate mixed hyperlipidemia not requiring statin therapy Qualified Code(s): E78.2 - Mixed hyperlipidemia Consult Attestations Medical Necessity Statement: Patient requires continued hospital stay for close monitoring and further management Coding Level of Care Code Acute Supervisor Statement [facility] for [facility] Medical Decision Making High Complexity Diagnoses Abnormal EKG R94.31 Carotid stenosis I65.23 Laterality: bilateral CVA (cerebral vascular accident) I63.443 CVA mechanism: embolism Laterality of affected vessel: bilateral Precerebral and cerebral artery: cerebellar artery Peripheral vascular disease I73.9 Hyperlipidemia E78.2 Hyperlipidemia type: moderate mixed hyperlipidemia not requiring statin therapy Time Spent (min) 60
[2020-09-15] MEDS: atorvastatin 40 mg Tablet 20 MG PO (21:47)
[2020-09-16] VITALS (12 sets, daily range): BP systolic 103–146; BP diastolic 68–83; PULSE 55–84; RESP 12–18; TEMP 36.3–36.6; O2SAT 90–97
[2020-09-16] MEDS: TRAMadol 50 mg Tablet PO (03:05)
[2020-09-16 05:17] LABS: Basophils # 0.1 10^3/uL (0.0-0.1); Eosinophils # 0.1 10^3/uL (0.0-0.8); Eosinophils % 1.8 %; Hematocrit 39.2 % (37.0-47.0); Hemoglobin 13.2 g/dL (11.5-15.3); Lymphocytes # 2.5 10^3/uL (0.8-4.8); Lymphocytes % 31.7 %; Mean Corpuscular HGB Conc 33.7 g/dL (30.0-36.0); Mean Corpuscular Hemoglobin 32.5 pg (28.0-34.0); Mean Corpuscular Volume 96.6 fL (81-99); Mean Platelet Volume 10.8 fL (7.4-10.4); Monocytes # 0.6 10^3/uL (0.2-0.9); Monocytes % 7.5 %; Neutrophils # 4.46 10^3/uL (1.8-7.7); Neutrophils % 57.6 %; Nucleated Red Blood Cells % 0 %; Platelet Count 215 10^3/cmm (130-400); Red Blood Count 4.06 10^6/uL (4.1-5.3); Red Cell Distribution Width 14.6 % (12.1-15.1); White Blood Count 7.8 10^3/uL (4.0-10.0)
[2020-09-16 05:39] LABS: Alanine Aminotransferase 18 U/L (0-33); Albumin Level 4.4 g/dL (3.5-5.2); Alkaline Phosphatase 51 IU/L (35-105); Anion Gap 15.5 (5-19); Aspartate Amino Transferase 53 U/L (0-32); Blood Urea Nitrogen 17 mg/dL (8-23); Calcium 9.4 mg/dL (8.5-10.5); Carbon Dioxide 23 mmol/L (22-29); Chloride 101 mmol/L (98-107); Globulin 3.3 g/dL (1.3-4.6); Glomerular Filtration Rate 61.9 mL/min (90-130); Glucose 100 mg/dL (65-115); Magnesium 2.2 mg/dL (1.7-2.3); Osmolality Calculated 284 mOsm/kg (285-295); Phosphorus 3.6 mg/dL (2.5-4.5); Potassium 3.5 mmol/L (3.5-5.1); Sodium 136 mmol/L (136-145); Total Bilirubin 0.7 mg/dL (0.15-1.2); Total Protein 7.7 g/dL (6.6-8.7)
[2020-09-16] MEDS: cefTRIAXone 1,000 MG in sodium chloride 0.9% (plus) 50 ML 100 MG IV (08:15)
[2020-09-16] MEDS: aspirin 81 mg EC Tablet PO (08:15)
[2020-09-16] MEDS: clopidogrel 75 mg Tablet PO (08:15)
[2020-09-16] MEDS: enoxaparin 40 mg/0.4 mL Syringe SUBCUT (08:16)
--- NOTE | 2020-09-16 12:37 | P.PN_ITS ---
Subjective Subjective: Interval history: Patient was examined this morning, her sister is at bedside, she tells me that her strength is improving, she is working well with physical therapy, no chest pain overnight, there is plans on performing stress test given her EKG changes, and echo findings, Vitals/I&O/Wt Last Vital Signs Temp 97.8 F 09/16/20 11:56 Pulse 61 09/16/20 11:56 Resp 18 09/16/20 11:56 BP 134/83 09/16/20 11:56 Pulse Ox 97 09/16/20 11:56 09/15/20 09/16/20 09/16/20 22:59 06:59 14:59 Intake Total 120 / 890 600 / 1490 290 / 290 Balance 120 / 890 600 / 1490 290 / 290 Physical Exam Const: COMMON NORMALS: alert ORIENTATION/CONSCIOUSNESS: Yes awake, Yes or iented to person, Yes oriented to place and Yes oriented to time Resp: COMMON NORMALS: normal respiratory effort, No retractions, No use of accessory muscles and clear to auscultation bilaterally AUSCULTATION: clear to auscultation bilaterally Cardio: COMMON NORMALS: regular rate, regular rhythm, S1 normal heart sound present and S2 normal heart sound present RATE: regular rate RHYTHM: regular rhythm HEART SOUNDS: S1 normal heart sound present and S2 normal heart sound present GI: COMMON NORMALS: Normal to inspection, nondistended, normoactive bowel sounds present, Soft to palpation and non-tender PALPATION: Yes Soft to pal pation Extremity: COMMON NORMALS: no pedal edema Neuro: SENSORIUM/ORIENTATION: Yes alert, Yes oriented to person, Yes oriented to place and Yes oriented to time OTHER: Minimal right facial droop Chronic flexion contracture right upper extremity Right upper extremity strength, 3 out of 5 compared to 5/5 on the left Right lower extremity strength 3 out of 5 compared to 5/5 on the left Data : 09/16/20 04:36 09/16/20 04:36 A&P Assessment and plan (1) Fall at home: Status: Acute (2) CVA (cerebral vascular accident): With right-sided weakness and facial droop Status: Acute Qualifiers: CVA mechanism: embolism Laterality of affected vessel: bilateral Precerebral and cerebral artery: cerebellar artery Qualified Code(s): 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 coli urinary tract infection: Status: Acute (6) Hyperlipidemia: Status: Chronic Qualifiers: Hyperlipidemia type: moderate mixed hyperlipidemia not requiring statin therapy Qualified Code(s): E78.2 - Mixed hyperlipidemia (7) Peripheral vascular disease: Status: Chronic (8) Hypothyroidism: with significant tsh elevation Status: Chronic (9) Noncompliance with medications: Status: Acute (10) Nicotine dependence, cigarettes, with other nicotine-induced disorders: Status: Acute Additional A&P Information Stable left thorax nodule 5mm right tonsil hypoechoic nodule Dyskinetic inferobasal segment of the heart on echo, may sugggest RCA infarct/is chemia, no chest pain complaints, 6-hour troponin XVI, no significant delta, EKG do show inferior and lateral ischemia, T wave changes, and ST depressions: Patient is on aspirin, statin, Plavix, have consulted cardiology, plans on performing a nuclear stress test, npo midnight Chronic contracture right upper extremity Aspirin and Plavix, statin Currently on 100 mg of losartan daily, home ARB had been valsartan 320 mg daily but she was not taking it Other antihypertensives from home medication list including spironolactone and amlodipine have not yet been addressed We will have to be careful resuming home medications as patient was not taking them as prescribed Reviewed with her at length the importance of compliance with her medications in particular her antiplatelet medications, her cholesterol medication and the blood pressure medications that we ultimately settle on. Also importance her thyroid medicine. She expressed understanding of this. We reviewed the need for smoking cessation and even avoidance of nicotine in the setting of a stroke. She is willing to try and actually looks at rehabilitation as an opportunity to get the nicotine out of her system. Has right ICA stenosis 75%, will require follow-up as outpatient with Dr. Burgess Had previously been on Pletal for peripheral vascular disease Levothyroxine resumed at 25 mcg as patient has not been taking it Will need repeat TSH in 3 to 4 weeks Continue home BuSpar Has trazodone as needed for sleep Has breathing treatments if needed Lovenox for DVT prophylaxis Supportive care otherwise Plans discussed with patient as well as the niece at the bedside. She now is agreeable to placement for rehabilitation, working on long-term placement Full code Plan for today continue PT OT, continue medications, monitor for chest pain, n.p.o. midnight for stress test Attestations Medical Necessity Statement*: Patient requires hospitalization, for stroke, echo changes, EKG changes, requiring stress test Coding Level of Care Code Acute [employer] Serv[employer] for [employer] Diagnoses Fall at home W19.XXXA; Y92.009 CVA (cerebral vascular accident) I63.443 CVA mechanism: embolism Laterality of affected vessel: bilateral Precerebral and cerebral artery: cerebellar artery Carotid stenosis I65.23 Laterality: bilateral Accelerated hypertension I10 E. coli urinary tract infection N39.0; B96.20 Hyperlipidemia E78.2 Hyperlipidemia type: moderate mixed hyperlipidemia not requiring statin therapy Peripheral vascular disease I73.9 Hypothyroidism E03.9 Noncompliance with medications Z91.14 Nicotine dependence, cigarettes, with other nicotine-induced disorders F17.218
--- NOTE | 2020-09-16 12:37 | PC.OT ---
OT note: Attempted OT session but pt declined at this time and requested to hold for the rest of this day as she reported she felt nauseated today. Alerted nurse.
[2020-09-16] MEDS: atorvastatin 40 mg Tablet PO (20:25)
--- NOTE | 2020-09-16 21:02 | P.PN_ITS ---
Subjective Subjective: Interval history: Patient is feeling okay. Denies any chest pain or shortness of breath. She did not have a myocardial perfusion imaging today because of some technical issues. Medications: Reviewed: Yes Medication Review Details: Current Medications Albuterol/Ipratropium (Ipratropium-Albuterol 3 Ml Neb) 3 ml INHALATION Q4H PRN PRN Reason: SHORTNESS OF BREATH Aspirin (Aspirin 81 Mg Ec Tablet) 81 mg PO DAILY PENDING SALE TO [facility] Last Admin: 09/16/20 08:15 Dose: 81 mg Documented by: Atorvastatin Calcium (Atorvastatin 40 Mg Tablet) 40 mg PO BEDTIME PENDING SALE TO [facility] Last Admin: 09/16/20 20:25 Dose: 40 mg Documented by: Buspirone HCl (Buspirone 10 Mg Tablet) 5 mg PO TID PRN PRN Reason: ANXIETY Clopidogrel Bisulfate (Clopidogrel 75 Mg Tablet) 75 mg PO DAILY PENDING SALE TO [facility] Last Admin: 09/16/20 08:15 Dose: 75 mg Documented by: Enoxaparin Sodium (Enoxaparin 40 Mg/0.4 Ml Syringe) 40 mg SUBCUT Q24H PENDING SALE TO [facility] Last Admin: 09/16/20 08:16 Dose: 40 mg Documented by: Levothyroxine Sodium (Levothyroxine 25 Mcg Tablet) 25 mcg PO DAILY PRN PRN Reason: THYROID Losartan Potassium (Losartan 50 Mg Tablet) 100 mg PO DAILY PRN PRN Reason: BLOOD PRESSURE. Nicotine (Nicotine 14 Mg Patch) 1 patch TRANSDERMA DAILY PRN PRN Reason: nicotine withdrawal Ondansetron HCl (Ondansetron 2 Mg/Ml Sdv 2 Ml) 4 mg IVP Q6H PRN PRN Reason: NAUSEA AND VOMITING Last Admin: 09/14/20 04:43 Dose: 4 mg Documented by: Regadenoson (Regadenoson 0.4 Mg/5 Ml Syringe) 0.4 mg IVP ONCE PRN PRN Reason: Lexiscan Stress Test Tramadol HCl (Tramadol 50 Mg Tablet) 50 mg PO Q6H PRN PRN Reason: MODERATE PAIN Last Admin: 09/16/20 03:05 Dose: 50 mg Documented by: Trazodone HCl (Trazodone 50 Mg Tablet) 50 mg PO BEDTIME PRN PRN Reason: INSOMNIA Vitals/I&O/Wt Last Vital Signs Temp 97.6 F 09/16/20 20:00 Pulse 58 L 09/16/20 20:00 Resp 16 09/16/20 20:00 BP 114/68 09/16/20 20:00 Pulse Ox 96 09/16/20 20:00 09/16/20 09/16/20 09/16/20 06:59 14:59 22:59 Intake Total 600 / 1490 530 / 530 240 / 770 Balance 600 / 1490 530 / 530 240 / 770 Physical Exam Narrative: EXAM NARRATIVE: GENERAL: The patient is alert and oriented times three. Not in any acute distress. HEENT: No significant pallor, icterus or lymphadenopathy. The pupils are symmetrical in size. Oral cavity: There are no mucous membrane lesions. NECK: Trachea appears to be central. No masses noted. No JVD or thyromegaly appreciated. No carotid bruit. RESPIRATORY: Chest is symmetrical. No intercostals muscle retraction or any accessory muscle activation. There is no chest wall tenderness. Breath sounds are heard bilaterally. No rales or rhonchi heard. No evidence of any consolidation. BREASTS: Deferred. HEART: No palpable precordial events. S1 and S2 are normal. No S3 or S4 heard. No pericardial rub or any click heard. Short systolic murmur in the left sternal border ABDOMEN: No vessel pulsations or distention. No tenderness. No organomegaly appreciated. No abdominal bruit. Bowel sounds are normally heard. : Deferred. RECTAL: Deferred. LYMPHATIC: No lymphadenopathy noted in the neck or groin. EXTREMITIES: No edema or cyanosis. No clubbing. The pulses are symmetrical bilat erally. The radial, femoral, dorsalis pedis and the posterior tibial pulses are palpated and was found to be of low volume and amplitude. MUSCULOSKELETAL: No acute joint deformities or swelling SKIN: There are no significant scars or skin rash noted. NEUROPSYCHIATRIC: Continues to have right-sided weakness Data : 09/17/20 05:36 09/17/20 05:36 A&P Assessment and plan (1) Abnormal EKG: The abnormal EKG may suggest inferolateral wall ischemia. Apparently the patient has no specific symptoms pertaining to coronary ischemia. However since she is being considered for carotid artery surgery, it may be appropriate to go ahead and do a myocardial perfusion imaging to evaluate for any underlying coronary ischemia. Based on the results, further recommendations will be made. She may continue on the current medications for the time being. The MPI was rescheduled for tomorrow. Status: Acute (2) Carotid stenosis: This patient is around 75% stenosis in the right side and 50% stenosis in the left side. Further evaluation management Status: Acute Qualifiers: Laterality: bilateral Qualified Code(s): I65.23 - Occlusion and stenosis of bilateral carotid arteries (3) CVA (cerebral vascular accident): Patient has grade 3 part of the right upper extremity and grade 4 power of the right lower extremity. 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 May continue with the current medications. Status: Chronic (5) Hyperlipidemia: The latest lipid profile were reviewed. Patient will have a repeat lipid profile today. Based on the results, further management decisions will be made. Status: Chronic Qualifiers: Hyperlipidemia type: moderate mixed hyperlipidemia not requiring statin therapy Qualified Code(s): E78.2 - Mixed hyperlipidemia Attestations Medical Necessity Statement*: Disposition as per the primary Coding Level of Care Code Acute Cotton Washer for [facility] Fwd Medical Decision Making Moderate Complexity Diagnoses Abnormal EKG R94.31 Carotid stenosis I65.23 Laterality: bilateral CVA (cerebral vascular accident) I63.443 CVA mechanism: embolism Laterality of affected vessel: bilateral Precerebral and cerebral artery: cerebellar artery Peripheral vascular disease I73.9 Hyperlipidemia E78.2 Hyperlipidemia type: moderate mixed hyperlipidemia not requiring statin therapy Time Spent (min) 25
[2020-09-17] VITALS (8 sets, daily range): BP systolic 112–149; BP diastolic 65–90; PULSE 55–112; RESP 12–20; TEMP 36.4–37.1; O2SAT 94–98
[2020-09-17 06:35] LABS: Basophils # 0.1 10^3/uL (0.0-0.1); Basophils % 0.9 %; Eosinophils # 0.1 10^3/uL (0.0-0.8); Eosinophils % 1.4 %; Hematocrit 35.1 % (37.0-47.0); Hemoglobin 11.6 g/dL (11.5-15.3); Lymphocytes # 2.5 10^3/uL (0.8-4.8); Lymphocytes % 30.4 %; Mean Corpuscular Hemoglobin 32.3 pg (28.0-34.0); Mean Corpuscular Volume 97.8 fL (81-99); Mean Platelet Volume 11.1 fL (7.4-10.4); Monocytes # 0.6 10^3/uL (0.2-0.9); Monocytes % 6.8 %; Neutrophils # 4.86 10^3/uL (1.8-7.7); Neutrophils % 60.1 %; Nucleated Red Blood Cells % 0 %; Platelet Count 201 10^3/cmm (130-400); Red Blood Count 3.59 10^6/uL (4.1-5.3); White Blood Count 8.1 10^3/uL (4.0-10.0)
[2020-09-17 06:52] LABS: Alanine Aminotransferase 16 U/L (0-33); Albumin Level 4.3 g/dL (3.5-5.2); Alkaline Phosphatase 49 IU/L (35-105); Anion Gap 15.4 (5-19); Aspartate Amino Transferase 50 U/L (0-32); Blood Urea Nitrogen 20 mg/dL (8-23); Carbon Dioxide 23 mmol/L (22-29); Chloride 100 mmol/L (98-107); Creatinine Clr Calc Pharmacy 49.9717; Globulin 3.3 g/dL (1.3-4.6); Glomerular Filtration Rate 54.8 mL/min (90-130); Glucose 89 mg/dL (65-115); Magnesium 2.2 mg/dL (1.7-2.3); Osmolality Calculated 282 mOsm/kg (285-295); Phosphorus 3.2 mg/dL (2.5-4.5); Potassium 3.4 mmol/L (3.5-5.1); Sodium 135 mmol/L (136-145); Total Bilirubin 0.8 mg/dL (0.15-1.2); Total Protein 7.6 g/dL (6.6-8.7)
--- NOTE | 2020-09-17 07:23 | ECG_ITS ---
[facility] Test Date: 2020-09-17 Pat Name: Yoselin Martin Department: Room: 252 Gender: Female Sales Service Promoter: : 1950 Requested By: Murray Meng Order Number: [id number] Karla MD: Indra Julien M.D. Interpretive Statements NAME OF STUDY: LEXISCAN SESTAMIBI STRESS TEST INDICATION: Chest Pain PROCEDURE: At the baseline, the EKG revealed normal sinus rhythm with short AR interval. Diffuse nonspecific ST-T changes.. The baseline blood pressure was 139/79 mm Hg with a heart rate of 61 beats/min. Lexiscan was infused over a period of 20 seconds. A total of 0.4 milligrams of Lexiscan was infused. The stress phase was continued for a total of 5 minutes. Heart rate at the end of the stress phase was 72 with a blood pressure 113/69. The EKG at the peak infusion revealed no significant changes. Sestamibi was injected 20 seconds after the Lexiscan infusion. Blood pressure at the end of the recovery phase was 112/66 with a heart rate of 73 per minute. CONCLUSION: 1. No significant EKG changes no significant changes Chest Painwith the LexiScan infusion 2. No LexiScan induced chest pain or cardiac arrhythmia 3. Normal blood pressure and heart rate response 4. Sestamibi/sestamibi perfusion scan pending; see separate report. Electronically Signed On 10-01-2020 20:10:01 CDT by Indra Julien M.D. [id number]
--- NOTE | 2020-09-17 07:23 | NMCV_ITS ---
NM karsten perf SPECT r/s* [id number] Yoselin Martin Age: 69 Gender: F : 1950 Exam Date: 09/17/2020 07:03 Ordering Phys: Murray Meng MD Technologist: MARJORIE Roland Exam Location: [facility] Indications: NEURO SYS STRESS TEST Please see separate stress test report in [facility] for full findings IMAGE PROTOCOL Rest/Stress 1 Lexiscan Day Radiopharmaceutical Dose (mCi) Administration Site Administered by Rest: Tc-99m 10.9 IV MARJORIE Chaudhary Sestamibi Stress:Tc-99m 32.8 IV MARJORIE Chaudhary Sestamibi Rest: 17-Sep-2020 60 Discovery 630 Stress: 17-Sep-2020 30 Discovery 630 0.4mg Lexiscan. Supine position only as patient was unable to lay prone. SPECT RESULTS Technical Quality: Good Raw Data Analysis: Normal Image Corrections: No attenuation or motion correction applied Summed Stress Score: 0 Summed Rest Score: 0 Summed Difference Score: 0 PERFUSION FINDINGS Uniform myocardial tracer uptake with no severe perfusion abnormalities. FUNCTIONAL RESULTS (calculated via Gated SPECT) Stress Image LV EF (%): 72 Stress EDV (mL):53 TID: 0.97 Stress ESV (mL):15 FUNCTIONAL FINDINGS: Segmental wall motion analysis revealing no gross wall motion abnormalities. IMPRESSIONS 1. Unremarkable myocardial perfusion imaging 2. Normal LV ejection fraction 72%. 3. LV wall motion analysis revealing no gross wall motion normalities. 4. Normal LV volume. No significant coronary ischemia, based on the above findings Dr Indra Julien MD FACC (Electronically Signed) Final Date: 17 Sep 2020 13:13 S
[2020-09-17] MEDS: regadenoson 0.4 Mg/5 ml Syringe IVP (07:48)
[2020-09-17] MEDS: TRAMadol 50 mg Tablet PO (08:47)
--- NOTE | 2020-09-17 10:39 | PC.CHAP ---
Pastoral Care Encounter/Spiritual Assessment Type of Contact [] Declined tin assorter visit [] Patient/Family/Request visit [] Outpatient visit [] Follow-up visit [] Physician referral [] Code/Alert [x] Routine visit [] Staff referral [] Actively dying [] Patient sleeping [] Family support [] [] Out of room [] Palliative care [] [x] Receiving care in room [] Pre-surgical visit [x] Trauma [x] Long length of stay [] ICU visit [] Other: Relational/Emotional Strength [x] Patient feels connected with others/family/visitors/staff [] Distress [x] Loneliness/isolation [] Abandonment Spirituality of Patient [x] Person of Vilma [] Attends Church of their Vilma [x] Believes in Prayer [] Reads Bible or Cheondoism materials [] There are Spiritual issues to be addressed Deputy Prosecuting Attorney Interventions x] Prayer [x] Active listening [x] Non-anxious presence [x] Spiritual/emotional support [] Crisis/trauma care [x] Spiritual counseling [] Bereavement support [] Provided bereavement packet [] Provided Bible/devotional materials [] Provided toy/stuffed animal, coloring book to patient or family member [] Provided Communion [] Anointing/[place] [] Salvation [x] Completed spiritual assessment [] Other: Impact on Illness or Injury [] Angry [x] Fearful [] Anxious [] Often cries [] Exhaustion [x] Unable to work [] Unable to attend sikhism [x] Unable to walk/stand [] Unable to read [] Unable to drive [] Unable to eat/drink [] Unable to sleep [] Unable to be with family [] Patient intubated [] Other: Summary Neuro system half-way care able to communicate, she weak proble go to a nurding home, just keeping under by [email or web address] Time spent with patient 10 mins
--- NOTE | 2020-09-17 10:46 | PC.SOCIAL ---
IMM Update Pg.2 of IMM updated and reviewed with patient who verbalized understanding. Copy provided to patient.
[2020-09-17] MEDS: clopidogrel 75 mg Tablet PO (11:06)
[2020-09-17] MEDS: aspirin 81 mg EC Tablet PO (11:06)
[2020-09-17] MEDS: enoxaparin 40 mg/0.4 mL Syringe SUBCUT (11:07)
--- NOTE | 2020-09-17 11:07 | PM.DCS ---
Discharge Providers Date of Admission: 09/12/20 12:29 Date of Discharge: September 17, 2020 Attending Provider at Admission: Marine Duong MD Attending Provider at Discharge: Murray Meng MD Primary Care Provider: Marine Eagle NP Diagnoses at Discharge Discharge Diagnosis (1) Abnormal EKG: Status: Acute (2) Carotid stenosis: Status: Acute Qualifiers: Laterality: bilateral Qualified Code(s): I65.23 - Occlusion and stenosis of bilateral carotid arteries (3) CVA (cerebral vascular accident): Status: Acute Qualifiers: CVA mechanism: embolism Laterality of affected vessel: bilateral Precerebral and cerebral artery: cerebellar artery Qualified Code(s): 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 for fall, and right-sided weakness. Patient was admitted to the [facility] for acute CVA, NIH was 5, she was outside the TPA window, was hypertensive on admission. For acute CVA, right-sided weakness and facial droop, admitted received aspirin, statin, Plavix, fluids, neurochecks, and clinically monitored. Patient's strength did improve, working with physical therapy, on discharge her right upper and right lower extremity strength is 3 out of 5, she does have a minimal facial droop, discharged to a halfway for physical therapy. For blood pressure control discharged on Norvasc 10 mg daily. [facility] was advised to monitor blood pressures, and titrate as tolerated. Apparently at home patient was taking blood pressure medications as needed, and a lot of her other medications as needed. Follow-up with neurology in 1 month. Discharged on aspirin, Plavix, statin. Patient was found to have right ICA stenosis of 75%, follow-up with Dr. Burgess as outpatient. Discharged on aspirin, Plavix, statin. For hypothyroidism, discharged on levothyroxine 25 mcg daily, repeat TSH in 6 weeks, patient was taking this medication as needed. On echocardiogram was found to have Dyskinetic inferobasal segment of the heart on echo, may sugggest RCA infarct/ischemia, no chest pain complaints, no significant delta troponin, EKG do show inferior and lateral ischemia, T wave changes, and ST depressions, Patient is on aspirin, statin, Plavix, have consulted cardiology,nuclear stress test showed: low probability of obstructive cad, patient advised to monitor for chest pain, follow up with cardiology as outpatient. Physical Exam Const: COMMON NORMALS: alert ORIENTATION/CONSCIOUSNESS: Yes awake, Yes oriented to person, Yes oriented to place and Yes oriented to time Resp: COMMON NORMALS: normal respiratory effort, No retractions, No use of accessory muscles and clear to auscultation bilaterally AUSCULTATION: clear to auscultation bilaterally Cardio: COMMON NORMALS: regular rate, regular rhythm, S1 normal heart sound present and S2 normal heart sound present RATE: regular rate RHYTHM: regular rhythm HEART SOUNDS: S1 normal heart sound present and S2 normal heart sound present GI: COMMON NORMALS: Normal to inspection, nondistended, normoactive bowel sounds present, Soft to palpation and non-tender PALPATION: Yes Soft to palpation Extremity: COMMON NORMALS: no pedal edema Neuro: SENSORIUM/ORIENTATION: Yes alert, Yes oriented to person, Yes oriented to place and Yes oriented to time OTHER: Minimal right facial droop Chronic flexion contracture right upper extremity Right upper extremity strength, 3 out of 5 compared to 5/5 on the left Right lower extremity strength 3 out of 5 compared to 5/5 on the left Discharge Data Data Completed and Pending: Completed Studies During Hospitalization Category Date Time Status CT angio headneck * [id number]/70178 Stat Cat Scan 09/11/20 10:[address] head wo con* 7 0450 Routine Cat Scan 09/14/20 06:[address] head wo con* 7 0450 Urgent Cat Scan 09/11/20 10:[address] Stress Te st MIBI [Sestamibi Stress Test Reque st Exams 09/17/20 07:23 Draft ] Routine XR chest 1V shanae ble [id number] Stat Exams 09/11/20 10:20 Completed CV echo complete* [id number] Routine Ultrasound 09/12/20 06:00 Completed Pending at discharge Category Date Time Status Sestamibi Stress Test Request Routi ne Exams 09/16/20 12:36 Ordered Complete Blood Co unt w/Auto AM LABS Lab 09/18/20 04:00 Ordered Comprehensive Met abolic Panel AM LA BS Lab 09/18/20 04:00 Ordered Magnesium AM LABS Lab 09/18/20 04:00 Ordered Phosphorus AM LAB S Lab 09/18/20 04:00 Ordered NM karsten perf SPECT r/s* [id number] Routin e Nuc Med 09/17/20 07:23 Taken Labs from last 24 hours 09/17/20 09/17/20 05:36 05:36 WBC 8.1 RBC 3.59 L Hgb 11.6 Hct 35.1 L MCV 97.8 MCH 32.3 MCHC 33.0 RDW 15.0 Plt Count 201 MPV 11.1 H Neut % (Auto) 60.1 Lymph % (Auto) 30.4 [place] % (Auto) 6.8 Eos % (Auto) 1.4 Baso % (Auto) 0.9 Neut # (Auto) 4.86 Lymph # (Auto) 2.5 [place] # (Auto) 0.6 Eos # (Auto) 0.1 Baso # (Auto) 0.1 Nucleated RBC % (a uto) 0 Nucleated RBCs # 0.0 Sodium 135 L Potassium 3.4 L Chloride 100 Carbon Dioxide 23 Anion Gap 15.4 BUN 20 Creatinine 1.0 H GFR Calculation 54.8 L Glucose 89 Calculated Osmolal ity 282 L Calcium 9.0 Phosphorus 3.2 Magnesium 2.2 Total Bilirubin 0.8 AST 50 H ALT 16 Alkaline Phosphata se 49 Total Protein 7.6 Albumin 4.3 Globulin 3.3 Vitals: Last Vital Signs Temp 98.4 F 09/17/20 07:16 Pulse 68 09/17/20 10:14 Resp 17 09/17/20 10:14 BP 120/65 09/17/20 07:48 Pulse Ox 98 09/17/20 10:14 Discharge Plan Discharge Patient Disposition: Xfer SNF Condition: Stable Prescriptions: New clopidogrel 75 mg Tablet 75 mg PO DAILY 30 Days Qty: 30 RF: 0 nicotine 14 mg/24 hr Patch 24 Hour 1 patch transdermal DAILY Qty: 28 RF: 0 Continued buspirone 5 mg tablet 5 mg PO TID PRN (Reason: Anxiety) RF: 0 trazodone 100 mg tablet 100 - 200 mg PO BEDTIME PRN (Reason: PT STATES SHE TAKES PRN-SEE PHARMACY COMMENTS) RF: 0 nitroglycerin 0.4 mg tablet, sublingual 0.4 mg sublingual PRN RF: 0 gabapentin 300 mg capsule 300 mg PO BID PRN (Reason: PT STATES TAKES PRN) RF: 0 albuterol sulfate 90 mcg/actuation HFA aerosol inhaler 2 puff INHALATION Q4H PRN (Reason: Shortness Of Breath) RF: 0 duloxetine 30 mg capsule,delayed release(DR/EC) 30 mg PO DAILY RF: 0 multivitamin Tablet 1 tab PO DAILY RF: 0 aspirin 81 mg Tablet,Delayed Release (Dr/Ec) 81 mg PO QAM 30 Days Qty: 30 RF: 0 atorvastatin 40 mg tablet 40 mg PO BEDTIME 30 Days Qty: 30 RF: 0 Changed amlodipine 10 mg tablet 10 mg PO DAILY 30 Days Qty: 30 RF: 0 alendronate 70 mg tablet 70 mg PO Q7D Qty: 0 RF: 0 levothyroxine 25 mcg tablet 25 mcg PO DAILY 30 Days Qty: 30 RF: 0 Discontinued cilostazol 50 mg tablet 50 mg PO BID PRN (Reason: PT STATES SHE TAKES PRN) RF: 0 spironolactone 25 mg tablet 37.5 mg PO DAILY RF: 0 valsartan 320 mg tablet 320 mg PO DAILY PRN (Reason: PT STATES SHE TAKES PRN-SEE PHARMACY COMMENTS) RF: 0 Discharge Orders: Discharge Order (Routine); Ordered 09/17/20 Ordered By: Murray Meng Referrals: [facility] [Outside] Ros Lee MD [Physician] - 1 month (cva) Indra Julien MD [Physician] - 1 month Robert Burgess MD [Physician] - 1 month (carotid artery stenosis) Discharge Diet: Advance as tolerated Discharge Activity: Resume usual activity Patient Instructions: Self Care Measures After a Stroke (DC), Opioid Safety Activity Restrictions/Additional Instructions: -If you have chest pain go to the emergency room -Continue physical therapy after CVA -Continue aspirin, statin, Plavix -Follow-up with neurology -For carotid artery stenosis on the right, please follow-up with Dr. Burgess -Repeat TSH in 6 weeks -Continue to monitor blood pressures closely, add blood pressure medications as needed Discharge Attestations Time Spent in Discharge Care*: greater than 30 min Quality Metrics Clinical Quality Measures During this hospital stay, did patient experience: Stroke Contraindication to Antithrombotic: Antithrombotic prescribed Contraindication to Anticoagulation: Overlap treatment not indicated Contraindication to Statin: Statin prescribed and None Coding Level of Care Code Acute Chg FW DC note Exam Detailed Diagnoses Abnormal EKG R94.31 Carotid stenosis I65.23 Laterality: bilateral CVA (cerebral vascular accident) I63.443 CVA mechanism: embolism Laterality of affected vessel: bilateral Precerebral and cerebral artery: cerebellar artery Peripheral vascular disease I73.9 Hyperlipidemia E78.2 Hyperlipidemia type: moderate mixed hyperlipidemia not requiring statin therapy
--- NOTE | 2020-09-17 11:09 | PC.NURSE ---
PT NOT IN ROOM AT [facility], WENT TO GET STRESS TEST
--- NOTE | 2020-09-17 13:51 | P.PN_ITS ---
Subjective Subjective: Interval history: Patient had a myocardial perfusion imaging today. She was found to have no evidence of ischemia, based on the perfusion scan. She denies any chest pain or chest tightness. The right-sided weakness is slowly improving. Medications: Medication Review Details: Current Medications Albuterol/Ipratropium (Ipratropium-Albuterol 3 Ml Neb) 3 ml INHALATION Q4H PRN PRN Reason: SHORTNESS OF BREATH Aminophylline (Aminophylline 25 Mg/Ml Sdv 10 Ml) 25 mg IVP Q2M PRN PRN Reason: see dose instructions Stop: 09/18/20 07:22 Aspirin (Aspirin 81 Mg Ec Tablet) 81 mg PO DAILY [facility] Last Admin: 09/17/20 11:06 Dose: 81 mg Documented by: Atorvastatin Calcium (Atorvastatin 40 Mg Tablet) 40 mg PO BEDTIME [facility] Last Admin: 09/16/20 20:25 Dose: 40 mg Documented by: Buspirone HCl (Buspirone 10 Mg Tablet) 5 mg PO TID PRN PRN Reason: ANXIETY Clopidogrel Bisulfate (Clopidogrel 75 Mg Tablet) 75 mg PO DAILY [facility] Last Admin: 09/17/20 11:06 Dose: 75 mg Documented by: Enoxaparin Sodium (Enoxaparin 40 Mg/0.4 Ml Syringe) 40 mg SUBCUT Q24H [facility] Last Admin: 09/17/20 11:07 Dose: 40 mg Documented by: Levothyroxine Sodium (Levothyroxine 25 Mcg Tablet) 25 mcg PO DAILY PRN PRN Reason: THYROID Losartan Potassium (Losartan 50 Mg Tablet) 100 mg PO DAILY PRN PRN Reason: BLOOD PRESSURE. Nicotine (Nicotine 14 Mg Patch) 1 patch TRANSDERMA DAILY PRN PRN Reason: nicotine withdrawal Nitroglycerin (Nitroglycerin 0.4 Mg Sublingual Tablet) 0.4 mg SUBLINGUAL Q5M PRN PRN Reason: CHEST PAIN Stop: 09/18/20 07:22 Ondansetron HCl (Ondansetron 2 Mg/Ml Sdv 2 Ml) 4 mg IVP Q6H PRN PRN Reason: NAUSEA AND VOMITING Last Admin: 09/14/20 04:43 Dose: 4 mg Documented by: Ondansetron HCl (Ondansetron 2 Mg/Ml Sdv 2 Ml) 4 mg IVP Q2M PRN PRN Reason: NAUSEA Regadenoson (Regadenoson 0.4 Mg/5 Ml Syringe) 0.4 mg IVP ONCE PRN PRN Reason: Lexiscan Stress Test Trazodone HCl (Trazodone 50 Mg Tablet) 50 mg PO BEDTIME PRN PRN Reason: INSOMNIA Vitals/I&O/Wt Last Vital Signs Temp 98.1 F 09/17/20 11:14 Pulse 60 09/17/20 11:14 Resp 17 09/17/20 11:14 BP 135/83 09/17/20 11:14 Pulse Ox 96 09/17/20 11:14 09/16/20 09/17/20 09/17/20 22:59 06:59 14:59 Intake Total 1200 / 1730 0 / 0 Balance 1200 / 1730 0 / 0 Physical Exam Narrative: EXAM NARRATIVE: GENERAL: The patient is alert and oriented times three. Not in any acute distress. HEENT: No significant pallor, icterus or lymphadenopathy. The pupils are symmetrical in size. Oral cavity: There are no mucous membrane lesions. NECK: Trachea appears to be central. No masses noted. No JVD or thyromegaly appreciated. No carotid bruit. RESPIRATORY: Chest is symmetrical. No intercostals muscle retraction or any accessory muscle activation. There is no chest wall tenderness. Breath sounds are heard bilaterally. No rales or rhonchi heard. No evidence of any consolidation. BREASTS: Deferred. HEART: No palpable precordial events. S1 and S2 are normal. No S3 or S4 heard. No pericardial rub or any click heard. Short systolic murmur in the left sternal border ABDOMEN: No vessel pulsations or distention. No tenderness. No organomegaly appreciated. No abdominal bruit. Bowel sounds are normally heard. : Deferred. RECTAL: Deferred. LYMPHATIC: No lymphadenopathy noted in the neck or groin. EXTREMITIES: No edema or cyanosis. No clubbing. The pulses are symmetrical bilaterally. The radial, femoral, dorsalis pedis and the posterior tibial pulses are palpated and was found to be of low volume and amplitude. MUSCULOSKELETAL: No acute joint deformities or swelling SKIN: There are no significant scars or skin rash noted. NEUROPSYCHIATRIC: Continues to have right-sided weakness Data : 09/17/20 05:36 09/17/20 05:36 A&P Assessment and plan (1) Abnormal EKG: The myocardial perfusion imaging results and the implications were discussed with the patient in detail. Based on the perfusion scan, patient does not require any further investigations at this point. She is advised to con tinue on the current medications. Status: Acute (2) Carotid stenosis: This patient is around 75% stenosis in the right side and 50% stenosis in the left side. Further evaluation management. Patient has an appointment to see Dr. Burgess as an outpatient. Whenever it is appropriate, the patient may go ahead with the surgical intervention. Status: Acute Qualifiers: Laterality: bilateral Qualified Code(s): I65.23 - Occlusion and stenosis of bilateral carotid arteries (3) CVA (cerebral vascular accident): Continue the physical therapy and Occupational Therapy as scheduled. 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 May continue with the current medications. Status: Chronic (5) Hyperlipidemia: The latest lipid profile were reviewed. Patient will have a repeat lipid profile today. Based on the results, further management decisions will be made. Status: Chronic Qualifiers: Hyperlipidemia type: moderate mixed hyperlipidemia not requiring statin therapy Qualified Code(s): E78.2 - Mixed hyperlipidemia Additional A&P Information Patient will be seen at the heart care services by Dr. Ulloa in 1 month Attestations Medical Necessity Statement*: As per the primary Coding Level of Care Code Acute Dental Service Chief for Chg Fwd Exam Detailed Medical Decision Making Moderate Complexity Diagnoses Abnormal EKG R94.31 Carotid stenosis I65.23 Laterality: bilateral CVA (cerebral vascular accident) I63.443 CVA mechanism: embolism Laterality of affected vessel: bilateral Precerebral and cerebral artery: cerebellar artery Peripheral vascular disease I73.9 Hyperlipidemia E78.2 Hyperlipidemia type: moderate mixed hyperlipidemia not requiring statin therapy Time Spent (min) 30
== END 2020-09-17 18:55 | disposition skilled nursing facility (03) | DRG 65 ==
LOC: ER 10:37 → MEDSURG 13:33
PROVIDERS: Admitting Provider Hospitalist; Emergency Provider Family Medicine; PCP Nurse Practitioner Family; Visit Provider Family Medicine
DX: I63.443 Cerebral infarction due to embolism of bilateral cerebellar arteries (principal); G81.91 Hemiplegia, unspecified affecting right dominant side; N39.0 Urinary tract infection, site not specified; R29.810 Facial weakness; R29.705 NIHSS score 5; W18.30XA Fall on same level, unspecified, initial encounter; F17.210 Nicotine dependence, cigarettes, uncomplicated; I73.9 Peripheral vascular disease, unspecified; Z98.62 Peripheral vascular angioplasty status; Z91.14 Patient's other noncompliance with medication regimen; Z86.73 Personal history of transient ischemic attack (TIA), and cerebral infarction without residual deficits; E78.2 Mixed hyperlipidemia; I10 Essential (primary) hypertension; M81.0 Age-related osteoporosis without current pathological fracture; J43.9 Emphysema, unspecified; I65.21 Occlusion and stenosis of right carotid artery; I08.1 Rheumatic disorders of both mitral and tricuspid valves; E03.9 Hypothyroidism, unspecified; R91.8 Other nonspecific abnormal finding of lung field; J35.9 Chronic disease of tonsils and adenoids, unspecified; B96.20 Unspecified Escherichia coli [E. coli] as the cause of diseases classified elsewhere; Z79.51 Long term (current) use of inhaled steroids; Z79.82 Long term (current) use of aspirin; R94.31 Abnormal electrocardiogram [ECG] [EKG]
CPT/HCPCS: 36415; 70450; 70496; 70498; 71045; 78452; 80048; 80053; 80061; 80306; 81001; 83036; 83735; 84100; 84439; 84443; 84481; 84484; 85025; 85610; 85730; 87077; 87086; 87186; 92507; 92523; 92526; 92610; 93005; 93017; 93306; 96372; 96374; 97110; 97112; 97161; 97165; 97530; 97535; 99291; A9500; G0378; J0696; J1650; J2405; J2785; J3490; Q9967

== ENCOUNTER 2020-10-26 12:22 | Outpatient (CLI) | payer MEDICARE, MEDICAID, SELFPAY ==
--- NOTE | 2020-10-26 15:22 | ONC CON_ITS ---
Dr. Martines New Patient Note Patient: Yoselin Martin Unit #: [id number]: 1950 Dicatated By: Mariza Martines M.D.Date of Visit: Oct 26, 2020 Onc MED New Patient/Consult Referring Physician: Marine Eagle N.P. History of Present Illness: Mrs. Yoselin Martin, 69-year-old female, with history of CVA causing right-sided weakness, hypothyroidism, hypertension, found to have elevated serum light chains on routine lab work-up. Her lab work-up done on October 05, 2020 showed free kappa light chain 84.54 free lambda light chain 31.98 and free kappa/lambda ratio 2.64, serum protein electrophoresis shows normal SPEP pattern, prior to that labs done on July 07, 2020 shows creatinine was 0.94, BUN 6, total protein was 8.2 normal being less than 8 and globin was 3.6, normal being 3.5 or less, calcium was 9.1 Patient denies any new bony pains, denies any recurrent infections, denies any night sweats, denies any recurrent fever, denies any peripheral lymphadenopathy, denies any abdominal fullness, denies any history of chronic arthritis, denies any back pain, denies any sinusitis or dysuria. As per patient she used to smoke heavily until about 2 months ago when she had a stroke, that time she quit smoking. Denies alcohol use Past Medical History: Ms. Martin's medical history consists of depression, hypertension, hypothyroidism, osteoporosis, and stroke. Past Surgical History: Ms. Martin's surgical/procedural history consists of appendectomy, tubal ligation, covid vaccine #2 in 2020, covid vaccine #1 in 2020, and repair of right lower leg fracture in 2008. Medications: 1Daily Multiple Vitamins 1 Tablet Oral daily, Alendronate Sodium 1 Tablet (of 70 mg) Oral q 7 days, amLODIPine Besylate 1 Tablet (of 10 mg) Oral daily, Aspirin 81 1 Tablet (of 81 mg) Tablet, chewable Oral daily, Atorvastatin Calcium 1 Tablet (of 40 mg) Oral daily, busPIRone HCl 1 Tablet (of 5 mg) Oral b.i.d., Clopidogrel Bisulfate 1 Tablet (of 75 mg) Oral daily, Cymbalta 1 Capsule (of 30 mg) Capsule Delayed Release Particles Oral daily, EQ Nicotine 1 Patch(es) (of 14 mg/24hr) Patch 24 Hr Transdermal daily, Euthyrox 1 Tablet (of 25 mcg) Oral daily, Gabapentin 1 Capsule (of 300 mg) Oral b.i.d. Allergies: Lisinopril Social History: Ms. Martin is single. She is a daily smoker who has smoked 1.0 pack/day for 57 years. Family History: Ms. Martin's mother at age 69: congestive heart failure, and rheumatoid arthritis. Ms. Martin's father at age 67: Parkinson's disease. Ms. Martin has 1 brother who is . She has 1 sister who is : lung cancer. Review Of Symptoms: Review of Systems is not available for this patient. Vital Signs: Performed on Oct 26, 2020 14:50: 5, 0, 27.74, 1.74 sq.m, 63 in, 98 %, 68 /min, 18 /min, 121/76 mm(hg), 98.9 F (HIGH), and 156.6 lbs (HIGH). Performance Status: 2 - Ambulatory/capable of all self-care, unable to perform any work activities. Up and about more than 50% of waking hours. (ECOG) Physical Examination: ENMT - No mouth sores, no thrush, no jaundice, No cervical or axillary lymphadenopathy, Respiratory - Lungs are clear to auscultation, Cardiovascular - Regular rate and rhythm of heart, Abdomen - Soft, bowel sounds present, Extremities - No visible edema or rash. Lab/Imaging: Most recent lab results are not available for this patient. Impression: Elevated free kappa/lambda ratio, and free kappa/lambda light chains chains, checked on October 05, 2020, showed free kappa serum light chain 84.54, lambda light chain 31.98, kappa/lambda ratio 2.64 normal being less than 1.65 Serum protein electrophoresis shows normal pattern CMP done on July 07, 2020 showed total protein 8.2 normal being less than 8, globin 3.6 normal being less than 3.5, serum creatinine 0.94, calcium 9.1 Hypothyroidism Essential hypertension CVA causing right-sided weakness, now on physical therapy History of heavy smoking since age 15, quit about 2 months ago Plan: Discussed with patient regarding her labs especially elevated total protein/globulin seen on CMP done on July 07, 2020, serum light chain assay and SPEP done on October 05, 2020 showed SPEP normal pattern but elevated both serum kappa and lambda chain as well as ratio, etiology unclear , could be multifactorial including underlying inflammation or immunological disorder or renal insufficiency or plasma cell disorder like MGUS or myeloma but less likely. At this point, will proceed with sed rate, C-reactive protein level to rule out underlying inflammation, also check quantitative immunoglobulins, 24-hour urine protein electrophoresis and immunofixation, and bone survey and serum LDH. Patient return to clinic in 2 weeks with CBC CMP Signed By: Mariza Martines M.D. <<Signature on File>>
[2020-10-26 16:38] LABS: C Reactive Protein 0.8 mg/L (0.0-4.9); Immunoglobulin IGA 302 mg/dL (70-400); Immunoglobulin IGG 1826 mg/dL (700-1600); Immunoglobulin IGM 37 mg/dL (40-230); Lactate Dehydrogenase 211 U/L (135-214)
[2020-10-26 16:53] LABS: Erythrocyte Sedimentation Rate 22 mm/hr (0-15)
== END 2020-10-26 12:23 | disposition home or self-care (01) ==
PROVIDERS: PCP Nurse Practitioner Family; Visit Provider Internal Medicine Hematology & Oncology
DX: R74.8 Abnormal levels of other serum enzymes (principal); E03.9 Hypothyroidism, unspecified; I10 Essential (primary) hypertension; I63.9 Cerebral infarction, unspecified; R53.1 Weakness; F17.211 Nicotine dependence, cigarettes, in remission; Z79.899 Other long term (current) drug therapy
CPT/HCPCS: 36415; 82784; 83615; 85651; 86140; 99204

== ENCOUNTER 2020-10-28 12:13 | Outpatient (CLI) | payer MEDICARE, MEDICAID, SELFPAY ==
[2020-10-29 13:33] LABS: CREATININE, 24 HOUR URINE 0.34 g/24 h (0.50-2.15); PROTEIN, TOTAL, 24 HR UR 34 mg/24 h (<150); Protein/Creatinine Ratio 0.101 (< OR = 0.114); Protein/Creatinine Ratio 101 mg/g creat (< OR = 114)
[2020-10-30 12:28] LABS: ALBUMIN 100 %; ALPHA-1-GLOBULINS 0 %; ALPHA-2-GLOBULINS 0 %; BETA GLOBULINS 0 %; GAMMA GLOBULINS 0 %
== END 2020-10-28 12:14 | disposition home or self-care (01) ==
PROVIDERS: PCP Nurse Practitioner Family; Visit Provider Internal Medicine Hematology & Oncology
DX: R74.8 Abnormal levels of other serum enzymes (principal); Z79.899 Other long term (current) drug therapy
CPT/HCPCS: 84156; 84166

== ENCOUNTER 2020-11-10 05:59 | Outpatient (CLI) | payer MEDICARE, MEDICAID, SELFPAY ==
[2020-11-10 14:05] LABS: Basophils # 0.1 10^3/uL (0.0-0.1); Eosinophils # 0.2 10^3/uL (0.0-0.8); Eosinophils % 3.6 %; Hematocrit 35.7 % (37.0-47.0); Hemoglobin 11.1 g/dL (11.5-15.3); Lymphocytes # 2.6 10^3/uL (0.8-4.8); Lymphocytes % 37.9 %; Mean Corpuscular HGB Conc 31.1 g/dL (30.0-36.0); Mean Corpuscular Hemoglobin 32.6 pg (28.0-34.0); Mean Corpuscular Volume 104.7 fL (81-99); Mean Platelet Volume 9.7 fL (7.4-10.4); Monocytes # 0.4 10^3/uL (0.2-0.9); Monocytes % 5.8 %; Neutrophils # 3.48 10^3/uL (1.8-7.7); Neutrophils % 51.6 %; Nucleated Red Blood Cells % 0 %; Platelet Count 229 10^3/cmm (130-400); Red Blood Count 3.41 10^6/uL (4.1-5.3); Red Cell Distribution Width 13.9 % (12.1-15.1); White Blood Count 6.8 10^3/uL (4.0-10.0)
[2020-11-10 14:19] LABS: Alanine Aminotransferase 13 U/L (0-33); Albumin Level 4.3 g/dL (3.5-5.2); Alkaline Phosphatase 50 IU/L (35-105); Anion Gap 13.2 (5-19); Aspartate Amino Transferase 21 U/L (0-32); Blood Urea Nitrogen 12 mg/dL (8-23); Carbon Dioxide 27 mmol/L (22-29); Chloride 101 mmol/L (98-107); Globulin 3.5 g/dL (1.3-4.6); Glomerular Filtration Rate 61.9 mL/min (90-130); Glucose 91 mg/dL (65-115); Osmolality Calculated 283 mOsm/kg (285-295); Potassium 4.2 mmol/L (3.5-5.1); Sodium 137 mmol/L (136-145); Total Bilirubin 0.3 mg/dL (0.15-1.2); Total Protein 7.8 g/dL (6.6-8.7)
[2020-11-10 16:49] LABS: Ferritin 202 ng/mL (15-150); Iron 61 ug/dL (37-145); Percent Saturation 21.5 % (20-50); Total Iron Binding Capacity 283 mcg/dl; Unsaturated Iron Binding 222 ug/dL (112-347)
[2020-11-10 17:03] LABS: Vitamin B12 455 pg/mL (232-1245)
--- NOTE | 2020-11-15 17:00 | ONC FU_ITS ---
Dr. Martines follow up note Patient: Yoselin Martin Unit #: [id number]: 1950 Dicatated By: Mariza Martines M.D.Date of Visit:Nov 10, 2020 Onc Med Follow-up/Prog Note History of Present Illness: Mrs. Yoselin Martin, 69-year-old female, with history of CVA causing right-sided weakness, hypothyroidism, hypertension, found to have elevated serum light chains on routine lab work-up. Her lab work-up done on October 05, 2020 showed free kappa light chain 84.54 free lambda light chain 31.98 and free kappa/lambda ratio 2.64, serum protein electrophoresis shows normal SPEP pattern, prior to that labs done on July 07, 2020 shows creatinine was 0.94, BUN 6, total protein was 8.2 normal being less than 8 and globin was 3.6, normal being 3.5 or less, calcium was 9.1 Patient denies any new bony pains, denies any recurrent infections, denies any night sweats, denies any recurrent fever, denies any peripheral lymphadenopathy, denies any abdominal fullness, denies any history of chronic arthritis, denies any back pain, denies any sinusitis or dysuria. As per patient she used to smoke heavily until about 2 months ago when she had a stroke, that time she quit smoking. Denies alcohol use Came for follow-up, denies any specific complaints, no fever chills, no nausea or vomiting, no diarrhea constipation, no new bony pains, no weight loss, no night sweats, no recurrent fever no palpitation or shortness of breath, no peripheral numbness Medications: 1Daily Multiple Vitamins 1 Tablet Oral daily, Alendronate Sodium 1 Tablet (of 70 mg) Oral q 7 days, amLODIPine Besylate 1 Tablet (of 10 mg) Oral daily, Aspirin 81 1 Tablet (of 81 mg) Tablet, chewable Oral daily, Atorvastatin Calcium 1 Tablet (of 40 mg) Oral daily, busPIRone HCl 1 Tablet (of 5 mg) Oral b.i.d., Clopidogrel Bisulfate 1 Tablet (of 75 mg) Oral daily, Cymbalta 1 Capsule (of 30 mg) Capsule Delayed Release Particles Oral daily, EQ Nicotine 1 Patch(es) (of 14 mg/24hr) Patch 24 Hr Transdermal daily, Euthyrox 1 Tablet (of 25 mcg) Oral daily, Gabapentin 1 Capsule (of 300 mg) Oral b.i.d. Allergies: Lisinopril Review of Systems: Review of Systems is not available for this patient. Vital Signs: Performed on Nov 10, 2020 16:20 Height - 63.00 in Weight - 160.2 lbs (HIGH) BSA - 1.76 sq.m BMI - 28.38 Temperature - 98.6 F Pulse - 59 /min (LOW) Respiration - 18 /min BP - 130/75 mm(hg) O2 Sat - 98 % Pain - 0 Fatigue - 5 Performance Status: 0 - Fully active, able to carry on all predisease activities without restrictions. (ECOG) Physical Examination: ENMT - No mouth sores, no thrush, no jaundice, Respiratory - Lungs are clear to auscultation, Cardiovascular - Regular rate and rhythm of heart, Abdomen - Soft, bowel sounds present, Extremities - No visible edema. Lab/Imaging: Most recent lab results are not available for this patient. Impression: Elevated free kappa/lambda ratio, and free kappa/lambda light chains chains, checked on October 05, 2020, showed free kappa serum light chain 84.54, lambda light chain 31.98, kappa/lambda ratio 2.64 normal being less than 1.65 Serum protein electrophoresis shows normal pattern CMP done on July 07, 2020 showed total protein 8.2 normal being less than 8, globin 3.6 normal being less than 3.5, serum creatinine 0.94, calcium 9.1 24-hour urine protein electrophoresis/immunofixation done on October 27, 2020 showed no abnormal protein is observed, sed rate 22, IgG 1826 normal being less than 1600, IgM 37, IgA 302, C-reactive protein 0.8, LDH 211 Hypothyroidism Essential hypertension CVA causing right-sided weakness, now on physical therapy History of heavy smoking since age 15, quit about 2 months ago Plan: Discussed with patient regarding her labs white blood count 6.8 hemoglobin 11.1 hematocrit 35.7 MCV 104.7 platelets 229,000 CMP within normal limits, IgA 302 IgG 1826 normal being less than 1600, IgM 37, sed rate 22 C-reactive protein 0.8, 24-hour urine protein electrophoresis shows no abnormal pattern Clinically, patient doing well with no new signs symptom her follow-up lab work-up shows elevated IgG level and initial work-up shows elevated kappa/lambda ratio, concern is about plasma cell disorder/dyscrasia or lymphoproliferative disorder, but LDH is within normal range At this point, will proceed with bone marrow evaluation and also check iron studies and B12 level as patient has macrocytic anemia, if normal, her macrocytic anemia could be due to myelodysplasia Return to clinic 10 days after bone marrow evaluation for further discussion Signed By: Mariza Martines M.D. <<Signature on File>>
== END 2020-11-10 06:00 | disposition home or self-care (01) ==
LOC: ONCMED 06:08
PROVIDERS: PCP Nurse Practitioner Family; Visit Provider Internal Medicine Hematology & Oncology
DX: R74.8 Abnormal levels of other serum enzymes (principal); E03.9 Hypothyroidism, unspecified; I10 Essential (primary) hypertension; F17.211 Nicotine dependence, cigarettes, in remission; Z86.73 Personal history of transient ischemic attack (TIA), and cerebral infarction without residual deficits; Z79.899 Other long term (current) drug therapy
CPT/HCPCS: 36415; 80053; 82607; 82728; 83540; 83550; 85025; 99214

== ENCOUNTER → 2020-11-13 14:52 | Outpatient (BNVA) | payer MEDICARE, MEDICAID, SELFPAY | PROVIDERS: PCP Nurse Practitioner Family; Visit Provider Nurse Practitioner | DX: I69.398 Other sequelae of cerebral infarction (principal); R26.89 Other abnormalities of gait and mobility; Z87.891 Personal history of nicotine dependence | CPT/HCPCS: 99204 ==

== ENCOUNTER 2021-01-20 06:00 | Outpatient (RCR) | payer MEDICARE, MEDICAID, SELFPAY | END 2021-01-28 23:59 | disposition home or self-care (01) | LOC: SST 06:00 | PROVIDERS: PCP Nurse Practitioner Family; Referring Provider Nurse Practitioner Family; Visit Provider Nurse Practitioner Family | DX: R13.10 Dysphagia, unspecified (principal) | CPT/HCPCS: 92524; 92610 ==

== ENCOUNTER 2021-02-15 08:22 | Outpatient (CLI) | payer MEDICARE, MEDICAID, SELFPAY ==
--- NOTE | 2021-02-15 08:34 | FL_ITS ---
WS: [id number] MODIFIED BARIUM SWALLOW TECHNIQUE: Modified barium swallow with speech therapy using multiple consistencies. FLUOROSCOPY TIME: 3.9 minutes. CLINICAL INFORMATION: Other dysphagia COMPARISON: None. FINDINGS: Multiple consistencies utilized. Mild pooling in the vallecula. Slightly delayed oropharyngeal phase. Trace penetration with thin liquids. No kiran aspiration. Barium tablet delayed transit at the GE junction with moderate esophageal dysmotility. Moderate narro wing of the GE junction could be further evaluated with endoscopy. Some this may be due to spasm or a chalasia Moderate spondylitic changes cervical spine with grade 1 anterolisthesis C4 on C5. Disc space narrowi ng worse at C5-C7. FL/FL barium swallow modifd 40936 IMPRESSION: 1. Trace penetration with thin liquids. No kiran aspiration. 2. Moderate esophageal dysmotility with delayed emptying. 3. Moderate narrowing of the GE junction with delayed transit of the barium ta blet could be further evaluated with endoscopy.
== END 2021-02-15 08:23 | disposition home or self-care (01) ==
LOC: RAD 08:29
PROVIDERS: PCP Nurse Practitioner Family; Visit Provider Nurse Practitioner Family
DX: I63.9 Cerebral infarction, unspecified (principal); R49.9 Unspecified voice and resonance disorder; R13.10 Dysphagia, unspecified
CPT/HCPCS: 74230; 92611

== ENCOUNTER 2021-03-01 06:00 | Outpatient (RCR) | payer MEDICARE, MEDICAID, SELFPAY | END 2021-03-01 23:59 | disposition home or self-care (01) | LOC: SST 06:00 | PROVIDERS: PCP Nurse Practitioner Family; Visit Provider Nurse Practitioner Family | DX: R13.10 Dysphagia, unspecified (principal) | CPT/HCPCS: 92507 ==

== ENCOUNTER → 2021-04-12 13:58 | Outpatient (BNVA) | payer MEDICARE, MEDICAID, SELFPAY | PROVIDERS: PCP Nurse Practitioner Family; Visit Provider Surgery | DX: Z01.812 Encounter for preprocedural laboratory examination (principal); Z20.822 Contact with and (suspected) exposure to COVID-19 | CPT/HCPCS: 87635 ==

== ENCOUNTER 2021-04-15 09:49 | Day surgery (SDC) | payer MEDICARE, MEDICAID, SELFPAY ==
[2021-04-13 14:30] VITALS: BMI 27.4
--- NOTE | 2021-04-15 10:26 | ANES.PREANE2 ---
Pre-Anesthetic Assessment Pre-Anesthetic Assessment: Height/Weight: Height 1.63 m Weight 72.575 kg Preop Diagnosis: upper gi symptoms Proposed Procedure: Operation Date: 04/15/21 11:30 Proposed Procedures p EGD Dilation W/ Balloon 68279 R13.10(Not Applicable) - Obey Funez MD Was Beta Cristiano taken within 24 hours: N/A Was Clonidine taken within 24 hours: N/A Social: Social History: No alcohol and No tobacco Exam: Pre-Anes Outpt Exam: alert, oriented x 3, clear to auscultation bilaterally and regular rate & rhythm Airway: Submandibular: WNL Cervical ROM: WNL MP: 2 Dentition: False Pulmonary: Pulmonary: COPD CV/HEM: CV/HEM: HTN and PVD Metabolic: Metabolic: Hyperlipidemia, Morbid obesity and Thyroid Neuropsych: Neuropsych: CVA Anesthetic Plan: ASA status: 3 Anesthesia: MAC Risk of > 500 ml blood loss (7ml/kg in children): No PFSH Anesthesia PFSH: Medical History (Updated 03/23/21 @ 16:37 by Obey Funez MD) Carotid stenosis CVA (cerebral vascular accident) Hyperlipidemia Hypertension Hypothyroidism Osteoporosis Peripheral vascular disease TIA (transient ischemic attack) Surgical History (Updated 03/23/21 @ 16:37 by Obey Fuenz MD) History of angiography (~2017) peripheral, fouond to have occluded mid to distal SFA, had orbital arthrectomy and balloon angioplasty History of colonoscopy History of tubal ligation Status post open reduction and internal fixation (ORIF) of fracture (~2012) right tib fib, Dr Cotter Family History Mother CAD (coronary artery disease) Family/Other CAD (coronary artery disease) Sister Cancer Diabetes Denies family history of Clotting disorder Dementia Chronic kidney disease (CKD) Suicide Anesthesia complication Bleeding disorder Lung disease Stroke Social History Smoking and tobacco status: never smoked Quit status (tobacco): has quit using tobacco Year quit tobacco: 1.5 month ago Alcohol intake: never Household members: family History of recent travel: No Data Anesthesia Cardiac Studies: No Data to Display
[2021-04-15 10:58] VITALS: BP 162/88; PULSE 61; RESP 18; TEMP 36.1; O2SAT 99
[2021-04-15] MEDS: sodium chloride 0.9% 1,000 ML 30 ML IV (11:17)
--- NOTE | 2021-04-15 11:56 | P.HP_ITS ---
Same Day Surgery H&P Indication for Procedure/HPI DATE OF PROCEDURE: April 15, 2021 CHIEF COMPLAINT/INDICATIONFOR SURGICAL PROCEDURE: dysphagia PREOP DIAGNOSIS: upper gi symptoms PLANNED PROCEDRUE: Operation Date: 04/15/21 11:30 Proposed Procedures p EGD Dilation W/ Balloon 53299 R13.10(Not Applicable) - Obey Funez MD Medications/Allergies* Home Medications Medication Instructions Recorded Confirmed Type buspirone 5 mg PO TID PRN 09/11/20 04/15/21 History duloxetine 30 mg PO DAILY 09/11/20 04/15/21 History gabapentin 300 mg PO BID PRN 09/11/20 04/15/21 History multivitamin 1 tab PO DAILY 09/11/20 04/15/21 History nitroglycerin 0.4 mg SUBLINGUAL PRN 09/11/20 04/13/21 History clopidogrel 75 mg tablet 75 mg PO DAILY 10/19/20 04/13/21 History spironolactone 25 mg tablet 25 mg PO DAILY 11/13/20 04/15/21 History levothyroxine 50 mcg PO DAILY 04/15/21 04/15/21 History Allergies/Adverse Reactions Allergy/AdvReac Type Severity Reaction Status Date / Time No Known Allergies Allergy Verified 04/15/21 10:57 Current Medications: Generic Name Dose Route Start Last Admin Trade Name Freq PRN Reason Stop Dose Admin Sodium Chloride 1,000 mls @ 30 mls/hr 04/15/21 10:00 04/15/21 11:17 Sodium Chloride 0.9% IV 04/16/21 09:59 30 mls/hr .Q24H DEMOND Administration Pertinent History/Comorbid Conditions* Medical History (Updated 03/23/21 @ 16:37 by Obey Fnuez MD) Carotid stenosis CVA (cerebral vascular accident) Hyperlipidemia Hypertension Hypothyroidism Osteoporosis Peripheral vascular disease TIA (transient ischemic attack) Surgical History (Updated 03/23/21 @ 16:37 by Obey Funez MD) History of angiography (~2017) peripheral, fouond to have occluded mid to distal SFA, had orbital arthrectomy and balloon angioplasty History of colonoscopy History of tubal ligation Status post open reduction and internal fixation (ORIF) of fracture (~2012) right tib fib, Dr Cotter Family History (Updated 10/19/20 @ 14:36 by Mariela Hall RN) Diabetes Sister CAD (coronary artery disease) Mother Family/Other Cancer Sister Denies family history of Clotting disorder Dementia Chronic kidney disease (CKD) Suicide Anesthesia complication Bleeding disorder Lung disease Stroke Social History Smoking and tobacco status: never smoked Quit status (tobacco): has quit using tobacco Year quit tobacco: 1.5 month ago Alcohol intake: never Household members: family History of recent travel: No Pertinent Exam Findings alert, oriented x 3 and regular rate & rhythm Recommendations Surgery/Procedure today Coding Level of Care Code Acute Electromechanisms Design Drafter for Blayne Mccain
[2021-04-15 12:24] VITALS: BP 121/73; PULSE 79; RESP 18; TEMP 36.5; O2SAT 96
[2021-04-15 12:40] VITALS: BP 117/72; PULSE 66; RESP 18; TEMP 36.3; O2SAT 95
--- NOTE | 2021-04-15 13:13 | ANE.PACU2 ---
Documented by User: Racquel Zambrano CRNA 04/15/21 13:13 Inpatient post-anesthesia follow up: Airway intact: Yes Vital signs: Temperature 97.4 F Pulse Rate 66 Respiratory Rate 18 Blood Pressure 117/72 Pulse Oximetry 95 Oxygen Delivery Me thod Room Air Oxygen Flow Rate Fraction of Inspir ed Oxygen Hydration adequate: Yes Mental status: Baseline
--- NOTE | 2021-04-15 14:11 | ANE.PACU2 ---
Inpatient post-anesthesia follow up: Airway intact: Yes Vital signs: Temperature 97.4 F Pulse Rate 66 Respiratory Rate 18 Blood Pressure 117/72 Pulse Oximetry 95 Oxygen Delivery Me thod Room Air Oxygen Flow Rate Fraction of Inspir ed Oxygen Hydration adequate: Yes Nausea and vomiting: No Pain level: 1 Mental status: Baseline
== END 2021-04-15 13:00 | disposition home or self-care (01) ==
PROVIDERS: PCP Nurse Practitioner Family; Visit Provider Surgery
PROC: 0DJ08ZZ Inspection of Upper Intestinal Tract, Via Natural or Artificial Opening Endoscopic (ICD-10-PCS; CPT 43235; 2021-04-15 11:30)
DX: R13.10 Dysphagia, unspecified (principal); Z86.73 Personal history of transient ischemic attack (TIA), and cerebral infarction without residual deficits; E78.5 Hyperlipidemia, unspecified; I10 Essential (primary) hypertension; E03.9 Hypothyroidism, unspecified; M81.0 Age-related osteoporosis without current pathological fracture; K44.9 Diaphragmatic hernia without obstruction or gangrene; K20.90 Esophagitis, unspecified without bleeding; K22.2 Esophageal obstruction; J44.9 Chronic obstructive pulmonary disease, unspecified
CPT/HCPCS: 43239; 43249; 88305; 96360; 96361; J2704; J7030

== ENCOUNTER 2021-05-05 08:39 | Outpatient (CLI) | payer MEDICARE, MEDICAID, SELFPAY ==
--- NOTE | 2021-05-05 08:47 | USCV_ITS ---
Yoselin Martin Age: 70 Gender: F : 1950 Exam Date: 05/05/2021 08:57 Ordering Phys: Robert Burgess MD (Andy) ([email or web address] Technologist: [place] [facility] [place] Indication: ICA STENOSIS Risk Factors: Smoker Previous Vascular Surgery: Right Brachial BP: / Left Brachial BP: / Right Left Velocity (cm/s) Spectral Plaque Velocity (cm/s) Spectral Plaque Syst/Diast Broadening Syst/Diast Broadening 48.20/ 9.60 Prox CCA 44.50 / 9.00 43.60/ 7.20 Mid CCA 42.00 / 11.00 58.60/ 12.80 Hetro Distal CCA 46.50 / 10.30 Hetro 78.80/ 10.10 Hetro Prox ICA 25.60 / 7.50 Hetro 94.40/ 24.70 Mid ICA 44.20 / 13.10 80.60/ 9.20 Distal ICA 48.60 / 12.00 104.40 ECA 65.20 1.61 ICA/CCA 1.05 Antegrade Vertebral Antegrade 32.90/ 10.30 cm/s 81.60/ 21.30 cm/s Tri Subclavian Bi FINDINGS Comparison: none available. No significant elevation of systolic or diastolic velocities. Diffuse bilateral scattered calcified plaque extending through the bifurcations. Antegrade vertebral arteries. CONCLUSIONS Bilateral ICA stenosis less than 50%. Dr. Nuha Way DO (Electronically Signed) Final Date: 05 May 2021 11:47 S
== END 2021-05-05 08:40 | disposition home or self-care (01) ==
LOC: RAD 08:42
PROVIDERS: PCP Nurse Practitioner Family; Visit Provider Thoracic Surgery (Cardiothoracic Vascular Surgery)
DX: I65.23 Occlusion and stenosis of bilateral carotid arteries (principal)
CPT/HCPCS: 93880

== ENCOUNTER → 2021-06-26 14:46 | Outpatient (BNVA) | payer MEDICARE, MEDICAID, SELFPAY | PROVIDERS: PCP Nurse Practitioner Family; Visit Provider Nurse Practitioner | DX: Z20.822 Contact with and (suspected) exposure to COVID-19 (principal); B34.9 Viral infection, unspecified | CPT/HCPCS: 87635 ==

== ENCOUNTER 2021-07-21 07:34 | Outpatient (CLI) | payer MEDICARE, MEDICAID, SELFPAY ==
--- NOTE | 2021-07-21 07:54 | USCV_ITS ---
Yoselin Martin Age: 70 Gender: F : 1950 Exam Date: 07/21/2021 08:02 Ordering Phys: Indra Julien MD ([email or web address]) Technologist: Exam [place] [facility] [place]: pad Risk Factors: Previous Vascular Surgery: RIGHT LEFT BP: 140.0 / 82.00 BP: 140.0/ 78.00 0 0 Waveform Velocity (cm/s) Velocity (cm/s) Waveform Biphasic 102.4 Iliac Prox 228.4 Biphasic Biphasic 95.5 Iliac Mid 226.4 Biphasic Biphasic 86.4 Iliac Distal 212.8 Biphasic Biphasic 59.4 DYNAMOTOR REPAIRER 117.0 Biphasic Biphasic 54.2 SFA Prox 120.0 Biphasic Monophasic 26.2 SFA Mid 130.2 Biphasic N/A SFA Dist 94.4 Biphasic Monophasic 42.8 POP 42.2 Monophasic Monophasic 31.3 SKOOG PATCHING MACHINE OPERATOR 33.0 Monophasic N/A DPA 55.5 Monophasic 0.4 OLAF 0.3 FINDINGS On the right side moderate diffuse plaques in the iliac artery on the right side. Monophasic Doppler waveforms with sluggish flow in the common femoral , proximal and mid superficial femoral artery. No flow was detected in the distal superficial femoral and dorsalis pedis artery on the right side. Monophasic and continuous Doppler flow signals in the popliteal and posterior tibial artery. Mild to moderate diffuse disease in the left iliac and femoral artery with biphasic Doppler flow signal. Monophasic flow signals in the popliteal and infrapopliteal vessels. OLAF of 0.4 on the right side and 0.3 on the left side CONCLUSIONS 1. Abnormal resting ABIs bilaterally, suggesting severe obstructive, multisegmental peripheral artery disease 2. Distal superficial femoral and dorsalis pedis artery on the right side appeared to be totally occluded. 3. Features of collateral filling of the popliteal and posterior tibial artery, on the right side. 4. The iliac, femoral, popliteal and infrapopliteal vessels appear to be patent on the left side Compared to the study from 03/29/2018, there is a significant drop in the ABIs bilaterally Dr Indra Julien MD [facility] (Electronically Signed) Final Date: 23 July 2021 09:59 S
== END 2021-07-21 07:35 | disposition home or self-care (01) ==
LOC: RAD 07:36
PROVIDERS: PCP Nurse Practitioner Family; Visit Provider Internal Medicine Cardiovascular Disease
DX: I73.9 Peripheral vascular disease, unspecified (principal)
CPT/HCPCS: 93925

== ENCOUNTER → 2021-08-05 14:54 | Outpatient (BNVA) | payer MEDICARE, MEDICAID, SELFPAY | PROVIDERS: PCP Nurse Practitioner Family; Visit Provider Internal Medicine | DX: I73.9 Peripheral vascular disease, unspecified (principal); I10 Essential (primary) hypertension; E78.2 Mixed hyperlipidemia; F17.210 Nicotine dependence, cigarettes, uncomplicated; Z79.82 Long term (current) use of aspirin | CPT/HCPCS: 99214; 99215 ==

== ENCOUNTER 2021-08-17 10:00 | Outpatient (CLI) | payer MEDICARE, MEDICAID, SELFPAY ==
[2021-08-17 11:03] LABS: Basophils # 0.1 10^3/uL (0.0-0.1); Eosinophils # 0.2 10^3/uL (0.0-0.8); Eosinophils % 3.1 %; Hematocrit 44.7 % (37.0-47.0); Hemoglobin 14.3 g/dL (11.5-15.3); Lymphocytes # 2.6 10^3/uL (0.8-4.8); Lymphocytes % 34.8 %; Mean Corpuscular Volume 93.9 fl (81-99); Mean Platelet Volume 9.7 fL (7.4-10.4); Monocytes # 0.5 10^3/uL (0.2-0.9); Monocytes % 6.4 %; Neutrophils % 54.6 %; Nucleated Red Blood Cells % 0 %; Platelet Count 311 10^3/cmm (130-400); Red Blood Count 4.76 10^6/uL (4.1-5.3); Red Cell Distribution Width 15.6 % (12.1-15.1); White Blood Count 7.3 10^3/uL (4.0-10.0)
[2021-08-17 11:21] LABS: INR 0.95 (0.83-1.21)
[2021-08-17 11:24] LABS: Anion Gap 12.9 (5-19); Blood Urea Nitrogen 7 mg/dL (8-23); Calcium 9.8 mg/dL (8.5-10.5); Carbon Dioxide 25 mmol/L (22-29); Chloride 106 mmol/L (98-107); Glucose 79 mg/dL (65-115); Osmolality Calculated 287 mOsm/kg (285-295); Potassium 3.9 mmol/L (3.5-5.1); Sodium 140 mmol/L (136-145)
== END 2021-08-17 10:01 | disposition home or self-care (01) ==
LOC: LAB 10:07
PROVIDERS: PCP Nurse Practitioner Family; Visit Provider Internal Medicine
DX: Z01.812 Encounter for preprocedural laboratory examination (principal); I10 Essential (primary) hypertension
CPT/HCPCS: 80048; 85025; 85610

== ENCOUNTER 2021-08-20 09:50 | Inpatient (IN) | payer MEDICARE, MEDICAID, SELFPAY ==
[2021-08-20] VITALS (27 sets, daily range): BP systolic 86–166; BP diastolic 28–104; PULSE 62–96; RESP 12–24; TEMP 36.5–36.6; O2SAT 77–100; BMI 30.1
--- NOTE | 2021-08-20 06:00 | XACV_ITS ---
Wt: 77 kg BSA: 1.88 m2 Any Known Allergies: No known allergies Gender: Female : 1950 Exam Type: Invasive Peripheral Vascular Procedure(s): Procedure Description: Peripheral Cath Diagnostic Procedure Procedure Description: Abdominal aortic angiography Procedure Description: Lower extremities' angiography Procedure Description: Peripheral vascular Intervention Procedure Description: PV Balloon Procedure Description: PV Atherectomy Exam Priority: Routine Abdominal Diagnostic Findings Distal aorta: Patent. 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 Lower Extremity Diagnostic Findings Right common iliac artery:Patent Right external iliac artery: Has proximal 20 to 30% stenosis Right internal iliac artery: Patent Right common femoral artery: Patent Right profunda artery: Patent Right SFA: Proximal to mid artery is totally occluded. Heavily calcified. Right SFA: Proximal to mid SFA is totally occluded. Popliteal artery is reconstituted via collaterals. Right TP segment: Patent Right anterior tibial artery: Occluded Right peroneal artery is diffusely diseased with a mid segment occlusion. Right posterior tibial artery: Patent . Right Mid-longitudinal Superficial Femoral Artery: 100% stenosis. Right Mid-longitudinal Posterior Tibial Artery: 100% stenosis. INDICATION: Severe lifesyle limiting claudication. Lower Extremity Interventional Findings PROCEDURE DETAIL: We obtained access in the left common femoral artery. Short sheath was switched over to long sheath and was put in right external iliac artery. Using seeker support catheter and Glidewire we crossed the totally occluded SFA segment. Orbital arthrectomy of SFA was performed. After that we performed balloon angioplasty using 5.0 x 250mm. At this time angiogram demonstrated extravasation of contrast at TP segment level. There was also possible dissection of the posterior tibial artery with compromised flow. We used 300 cm run-through wire to cross the occluded posterior tibial segment and performed balloon angioplasty with 2.0 x 80 mm multiple times. Blood flow was still compromised however improved significantly compared to before. At this time we decided to stop the procedure. Guide wire and catheter were removed. Patient left the [facility] in a stable condition.. Right Mid-longitudinal Superficial Femoral Artery: 70% stenosis treated with AB [place] 35 DIVISION ENGINEER Catheter [id number]. Right Mid-longitudinal Posterior Tibial Artery: 70% stenosis treated with AB ARMADA 14 OTW [id number]. Conclusions Totally occluded right SFA that underwent successful revascularization with orbital arthrectomy and balloon angioplasty. Small vessel perforation in the TP segment and possible dissection of the Posterior tibial artery. Balloon angioplasty of the PT was also performed. Improved but still low flow. There is severe right lower extremity disease. Right Mid-longitudinal Superficial Femoral Artery was treated with Balloon. Right Mid-longitudinal Posterior Tibial Artery was treated with Balloon. Recommendations Transfer to ICU. Close serial right lower extremity exams including doppler exams of pulses. Continue Aspirin. Hemodynamic Data Phase:Rest AO : 123.0 / 59.0 ( 72.0 ) @ 8:44:00 AM 129.0 / 58.0 ( 86.0 ) @ 8:44:00 AM 104.0 / 58.0 ( 77.0 ) @ 8:45:00 AM Access Site Site: Left Femoral artery Sheath Size: 6 Fr Hemost... Method: Suture Hemost... Success: Successful Procedure Details Findings Procedure Consent Obtained. Admit Source: Out Patient. Pre-Procedure Time Out. Identified patient by full name and date of as verbalized by the patient/guarantor. Does the consent match the physician's order: Yes. Accurate & Complete Informed Consent: Yes. Inpatient/Outpatient History & Physical on Chart: Yes. If H&P is completed, is and addenduem needed: No; If yes, is the addendum complete: No. Visualize and Verify Site with Patient/Guarantor: N/A. Relevant Radiology Images available: No. The risks, benefits, and alternatives of sedation and/or procedure were discussed by physician. The patient agrees to continue. Procedure started. Correct patient, site and procedure confirmed by cath team. PERRLA. Strong, equal hand clinic licensed practical nurse bilaterally. Lungs clear x 5 lobes. IV Site on Arrival: 20 gauge in the left anticubital. IV Fluids: 0.9% NaCl at KVO. 0 mL infused prior to optical lab technician. Pre Procedural Pulses: bilateral dorsalis pedis was Absent. Pre Procedural Pulses: bilateral posterior tibial was Doppled. Pre Procedural Pulses: bilateral radial was 3+. Oxygen started at 2liters/min via nasal canula. bilateral groins was prepped with chloroprep then draped in the usual sterile fashion. Physician notified. Baseline sample Acquired. HR: 60 BPM. Physician arrived. Physician scrubbed in. Time out performed with cath team. Lidocaine 1% infiltrated to the left groin. Arterial access obtained with micropuncture set. 5 fr UF catheter in over standard wire. Abdominal aortogram performed in AP @ 10 mL/sec for a total of 30 mL. Glidewire advanced through UF catheter. Glidewire out. Right common iliac selected and arteriogram performed 10ml/sec for a total of 30ml. Glidewire advanced through UF catheter, seated in right SFA. UF catheter removed over Glidewire. 6fr sheath exchanged for 6fr 45cm flexor sheath. Right common and external iliac selected and arteriogram performed 10ml/sec for a total of 20ml. Right leg selected and arteriogram with runoff performed @ 10 mL/sec for a total of 30 mL. 5 Fr Seeker in over glidewire. Side port of sheath attached to Normal Saline flush at KVO to maintain patency. Glidewire out through seeker. Hand injection through the seeker. Viper wire in through seeker, advanced to popliteal. Unable to cross. Viper wire out through seeker catheter. Hand injection through seeker. Viper wire advanced through seeker catheter. Seeker removed over viper wire. Orbital atherectomy device loaded and advanced over viper wire, directed to ostial sfa. Orbital atherectomy performed to ostial SFA. Orbital atherectomy performed to mid and distal SFA. Orbital atherectomy device removed over viper wire. Seeker advanced in over viper wire to popliteal. Viper wire out through seeker. Glidewire in through seeker catheter, directed to popliteal. Seeker out over wire. Inflation number : 1 A AB [place] 35 DIVISION ENGINEER Catheter [id number] was prepped and advanced across the Superficial Femoral, Right , then inflated to 8 FAN for 1:30 seconds. Inflation number: 2 The AB [place] 35 DIVISION ENGINEER Catheter [id number] was reinflated across the Superficial Femoral, Right, to 6 FAN for 1:29 seconds. Balloon out over wire. Angiography performed, checking results. Seeker in over glidewire. Glidewire advanced to popliteal. Glidewire removed through seeker. Hand injection through the seeker. Support catheter positioned in the popliteal to better visualize the distal vessels. Angiography performed. 300cm runthrough wire advanced through seeker catheter. Runthrough wire out. Seeker advanced to peroneal. 300cm runthrough wire advanced through seeker to peroneal. Runthrough wire out. Hand injection through seeker. Runthrough wire in through seeker advanced to posterior tib. Anesthesiologist Paged. Anesthesia arrived to sedate patient. seeker removed over runthrough wire. Inflation number : 1 A AB ARMADA 14 OTW [id number] was prepped and advanced across the Posterior Tibial, Right , then inflated to 8 FAN for 0:54 seconds. Inflation number: 2 The AB ARMADA 14 OTW [id number] was reinflated across the Posterior Tibial, Right, to 8 FAN for 1:01 seconds. Balloon out over wire. Angiography performed. Checking results. Balloon inserted over the wire to the posterior tibial. Inflation number: 3 The AB ARMADA 14 OTW [id number] was reinflated across the Posterior Tibial, Right, to 8 FAN for 0:36 seconds. Inflation number: 4 The AB ARMADA 14 OTW [id number] was reinflated across the Posterior Tibial, Right, to 8 FAN for 1:04 seconds. Inflation number: 5 The AB ARMADA 14 OTW [id number] was reinflated across the Posterior Tibial, Right, to 4 FAN for 0:32 seconds. Balloon out over wire. Seeker in over runthrough 300cm, advanced to popliteal. wire out through seeker. Hand injection through the seeker. DSA 6f/s performed. Hand injection through seeker. DSA 6f/s. Obtained new second Runthrough 300cm wire. Runthrough in through seeker. Runthrough wire advanced to mid posteror tibial. Seeker out over wire. Inflation number: 6 The AB ARMADA 14 OTW [id number] was reinflated across the Posterior Tibial, Right, to 8 FAN for 0:41 seconds. Inflation number: 7 The AB ARMADA 14 OTW [id number] was reinflated across the Posterior Tibial, Right, to 8 FAN for 0:26 seconds. Inflation number: 8 The AB ARMADA 14 OTW [id number] was reinflated across the Posterior Tibial, Right, to 8 FAN for 0:31 seconds. Inflation number: 9 The AB ARMADA 14 OTW [id number] was reinflated across the Posterior Tibial, Right, to 6 FAN for 0:13 seconds. Balloon out over wire. Seeker advanced over wire to politeal. Wire out. Hand injection through seeker. DSA 6f/s performed. Glidewire in through seeker. Seeker out. Right leg runoff through sheath 10ml/sec for a total of 30 ml. Exchanged 45 flexor 6fr sheath for short 6 fr femoral sheath. A Suture was successful obtaining hemostatsis at the Left Femoral artery insertion site. Sheath(s) sutured into position with 2-0 silk and sterile 4x4's and Op-site applied over the site. No oozing or signs and symptoms of hematoma noted. Arterial sheath flushed and connected to tranducer and pressure bag with heparinized saline. Post Procedure: Pulses reassessed and unchanged. PERRLA. Strong, equal hand clinic licensed practical nurse bilaterally. No VTE prophylaxis required. Post-op diagnosis: Severe PAD. Complications: None. Estimated blood loss: 5mL-10mL. Responsiveness - Normal response to verbal stimuli; alert and oriented, PERRLA. Airway - Unaffected, no intervention required; spontaneous ventilation. Circulation: W/N/L, pulses unchanged. Nausea/Vomiting: No. Total IV fluids: 500 mL. Medication's Wasted: Heparin = 3000 unit. Medication's Wasted: Nitro = 48.6 mg. Procedure completed. Patient transferred by bed to ICU. Procedure Medications Start: 7:24 AM Stop: 7:24 AM Medication: Versed Amount: 1 mg Route: I.V. Start: 7:24 AM Stop: 7:24 AM Medication: Fentanyl Amount: 50 mcg Route: I.V. Start: 8:12 AM Stop: 8:12 AM Medication: Heparin Amount: 5000 units Route: I.V. Start: 8:16 AM Stop: 8:16 AM Medication: Versed Amount: 1 mg Route: I.V. Start: 8:17 AM Stop: 8:17 AM Medication: Fentanyl Amount: 25 mcg Route: I.V. Start: 8:21 AM Stop: 8:21 AM Medication: Nitrogylcerin Amount: 400 mcg Route: I.A. Start: 8:28 AM Stop: 8:28 AM Medication: Fentanyl Amount: 25 mcg Route: I.V. Start: 8:28 AM Stop: 8:28 AM Medication: Versed Amount: 1 mg Route: I.V. Start: 8:32 AM Stop: 8:32 AM Medication: Hydralazine Amount: 10 mg Route: I.V. Start: 8:33 AM Stop: 8:33 AM Medication: Hydralazine Amount: 10 mg Route: I.V. Start: 8:33 AM Stop: 8:33 AM Medication: Versed Amount: 1 mg Route: I.V. Start: 8:33 AM Stop: 8:33 AM Medication: Fentanyl Amount: 25 mcg Route: I.V. Start: 8:34 AM Stop: 8:34 AM Medication: Fentanyl Amount: 25 mcg Route: I.V. Start: 9:19 AM Stop: 9:19 AM Medication: Heparin Amount: 1000 units Route: I.V. Start: 9:29 AM Stop: 9:29 AM Medication: Heparin Amount: 1000 units Route: I.V. I, the attending physician, have reviewed and verified all procedure medications. Yes, all medications given per verbal order History/Risk Factors Hypertension: Yes Dyslipidemia: Yes Peripheral Arterial Disease (PAD): Yes Obesity: No Renal Disease: No Tobacco Use: Former Prior Interventions PCI: No CABG: No Valve Surgery: No Report Signatures Finalized by Colt Andino MD on 09/02/2021 05:03 PM
[2021-08-20] MEDS: diphenhydrAMINE 50 mg Capsule PO (06:45)
--- NOTE | 2021-08-20 07:17 | W.PM.OPSUD ---
Surgery/Procedure H&P Update DATE OF PROCEDURE: August 20, 2021 DATE H&P PERFORMED: 08/05/21 H&P UPDATE INFORMATION: I have reviewed H&P completed within last 30 days, I have examined patient prior to procedure and No changes to prior documentation PREOP DIAGNOSIS: Severe lifestyle limiting claudication PRIMARY INDICATION FOR PROCEDURE: Severe lifestyle limiting claudication PLANNED PROCEDURE: Operation Date: 08/20/21 07:00 Proposed Procedures p Peripheral Diagnostic(Bilateral) - Colt Andino M.D Possible percutaneous intervention PATIENT REASSESSED PRIOR TO SEDATION, WITH NO CHANGE NOTED: Yes PHYSICAL EXAM: alert, oriented x 3, clear to auscultation bilaterally and regular rate & rhythm AIRWAY EVAL/ANESTHESIA PLAN: ASA III, Local Anesthesia, Risks, benefits & alternatives of sedation and/or procedure discussed and Patient agrees to continue as planned
--- NOTE | 2021-08-20 09:52 | P.ANESASSM_ITS ---
Pre-Anesthetic Assessment Height/Weight: Height 1.6 m Weight 77.111 kg Temp Pulse Resp BP Pulse Ox 97.9 F 62 18 135/77 97 08/20/21 06:30 08/20/21 06:30 08/20/21 06:30 08/20/21 06:30 08/20/21 06:30 Preop Diagnosis: Severe lifestyle limiting claudication Operation Date: 08/20/21 07:00 Proposed Procedures p Peripheral Diagnostic(Bilateral) - Colt Andino M.D Anesthetic Plan ASA status: 3 Anesthesia: Anesthesia Evaluation, General and MAC Other: Called emergently to central lab technician for help with sedation. Patient not tolerating nurse administered sedation. Risk of > 500 ml blood loss (7ml/kg in children): No Medications/Allergies Home Medications Medication Instructions Recorded Confirmed Last Taken Type buspirone 5 mg tablet 5 mg PO TID PRN 09/11/20 08/20/21 08/19/21 21:00 History duloxetine 30 mg capsule,delayed 30 mg PO DAILY 09/11/20 08/20/21 08/19/21 09:00 History release gabapentin 300 mg capsule 300 mg PO BID PRN 09/11/20 08/20/21 08/19/21 21:00 History multivitamin 1 tab PO DAILY 09/11/20 08/20/21 08/19/21 09:00 History nitroglycerin 0.4 mg sublingual 0.4 mg SUBLINGUAL PRN 09/11/20 08/20/21 Unknown History tablet alendronate 70 mg tablet 70 mg PO Q7D #0 tab 09/17/20 08/20/21 08/17/21 09:00 Rx amlodipine 10 mg tablet 10 mg PO DAILY 30 Days #30 tab 09/17/20 08/20/21 08/19/21 21:00 Rx aspirin 81 mg tablet,delayed 81 mg PO QAM 30 Days #30 tab 09/17/20 08/20/21 08/19/21 21:00 Rx release atorvastatin 40 mg tablet 40 mg PO BEDTIME 30 Days #30 tab 09/17/20 08/20/21 08/19/21 21:00 Rx clopidogrel 75 mg tablet 75 mg PO DAILY 10/19/20 08/20/21 08/19/21 21:00 History spironolactone 25 mg tablet 25 mg PO DAILY 11/13/20 08/20/21 08/19/21 09:00 History levothyroxine 25 mcg tablet 50 mcg PO DAILY 04/15/21 08/20/21 08/20/21 06:00 History Allergies Allergy/AdvReac Type Severity Reaction Status Date / Time No Known Allergies Allergy Verified 08/20/21 06:31 Current Medications Generic Name Dose Route Start Last Admin Trade Name Jonasq PRN Reason Stop Dose Admin Sodium Chloride 1,000 mls @ 50 mls/hr 08/20/21 06:15 08/20/21 06:57 Sodium Chloride 0.9% IV 08/21/21 02:14 Not Given .Q20H ONE PFSH Anesthesia Medical History Carotid stenosis CVA (cerebral vascular accident) Hyperlipidemia Hypertension Hypothyroidism Osteoporosis Peripheral vascular disease TIA (transient ischemic attack) Surgical History History of angiography (~2017) peripheral, fouond to have occluded mid to distal SFA, had orbital arthrectomy and balloon angioplasty History of colonoscopy History of tubal ligation Status post open reduction and internal fixation (ORIF) of fracture (~2012) right tib fib, Dr Cotter Family History Mother CAD (coronary artery disease) Family/Other CAD (coronary artery disease) Sister Cancer Diabetes Denies family history of Clotting disorder Dementia Chronic kidney disease (CKD) Suicide Anesthesia complication Bleeding disorder Lung disease Stroke Social History Smoking and tobacco status: current every day smoker Alcohol intake: never Household members: family History of recent travel: No Data Anesthesia Cardiac Studies: Echocardiogram Ultrasound 09/12/20 Sestamibi Stress Test (Cardiology) 09/17/20
--- NOTE | 2021-08-20 09:53 | ANE.PACU2 ---
Inpatient post-anesthesia follow up: Airway intact: Yes Vital signs: Temperature 97.9 F Pulse Rate 62 Respiratory Rate 18 Blood Pressure 135/77 Pulse Oximetry 97 Oxygen Delivery Me thod Room Air Oxygen Flow Rate Fraction of Inspir ed Oxygen Hydration adequate: Yes Nausea and vomiting: No Pain level: 1 Mental status: Baseline
--- NOTE | 2021-08-20 10:07 | PC.NURSE ---
Left groin cath insertion clean dry and intact, distal pulses +2 with doppler
[2021-08-20] MEDS: fentaNYL 50 mcg/mL INJ 2mL IVP (10:31)
--- NOTE | 2021-08-20 10:39 | PC.NURSE ---
Dr. Andino at bedside, gave v.o. to place nitro paste to L foot, warm extremity, leave sheath in. HCP to reassess later today
[2021-08-20] MEDS: sodium chloride 0.9% 1,000 ML 50 ML IV (11:11)
[2021-08-20] MEDS: nitroglycerin 1 gm/inch oint Pkt 1 INCH TOPICAL ×4 (11:11→22:10)
[2021-08-20] MEDS: sodium chloride 0.9% 1,000 ML 100 ML IV ×2 (11:12→21:16)
--- NOTE | 2021-08-20 11:15 | P.ANESASSM_ITS ---
Pre-Anesthetic Assessment Height/Weight: Height 1.6 m Weight 77.111 kg Temp Pulse Resp BP Pulse Ox 97.9 F 71 19 H 140/75 91 08/20/21 06:30 08/20/21 10:15 08/20/21 10:31 08/20/21 10:15 08/20/21 10:31 Preop Diagnosis: Severe lifestyle limiting claudication Operation Date: 08/20/21 07:00 Proposed Procedures p Peripheral Diagnostic(Bilateral) - Colt Andino M.D Operation Date: 08/20/21 11:55 Proposed Procedures p Exploration of Wound(Not Applicable) - Robert Burgess MD Familial anesthetic complications: None Was Beta Cristiano taken within 24 hours: N/A Was Clonidine taken within 24 hours: N/A Last intake: 06/21/21 Social Tobacco Exam alert, oriented x 3 and regular rate & rhythm course breath sounds b/l Airway Submandibular: within normal limits Cervical ROM: within normal limits Mallampati: Class II Dentition: false History/ROS No significant complaints Pulmonary Chronic Obstructive Pulmonary Disease CV/HEM Hypertension and Peripheral Vascular Disease 09/17/20 Stress Test CONCLUSION: 1. No significant EKG changes? no significant changes Chest Painwith the LexiScan infusion 2. No LexiScan induced chest pain or cardiac arrhythmia 3. Normal blood pressure and heart rate response 4. Sestamibi/sestamibi perfusion scan pending; see separate report. Carotid Doppler Study 05/05/21 CONCLUSIONS ?Bilateral ICA stenosis less than 50%. None reported Hepatic None reported GI None reported Metabolic Thyroid Disease Musc/sk Acute compartment syndrome Neuropsych Cerebrovascular Accident Anesthetic Plan ASA status: 3E Anesthesia: Anesthesia Evaluation and General Other: We discussed risk and benefits of general anesthesia including PONV, sore throat (sometimes severe), corneal abrasion, positioning and peripheral nerve injuries, life threatening allergic reaction, post operative ICU admission requiring prolonged intubation, stroke, heart attack, , and rare incidences of recall. Patient consents to proceed with general anesthesia consent not signed due to patient discomfort and recent sedation. Risk of > 500 ml blood loss (7ml/kg in children): No Medications/Allergies Home Medications Medication Instructions Recorded Confirmed Last Taken Type buspirone 5 mg tablet 5 mg PO TID PRN 09/11/20 08/20/21 08/19/21 21:00 History duloxetine 30 mg capsule,delayed 30 mg PO DAILY 09/11/20 08/20/21 08/19/21 09:00 History release gabapentin 300 mg capsule 300 mg PO BID PRN 09/11/20 08/20/21 08/19/21 21:00 History multivitamin 1 tab PO DAILY 09/11/20 08/20/21 08/19/21 09:00 History nitroglycerin 0.4 mg sublingual 0.4 mg SUBLINGUAL PRN 09/11/20 08/20/21 Unknown History tablet alendronate 70 mg tablet 70 mg PO Q7D #0 tab 09/17/20 08/20/21 08/17/21 09:00 Rx amlodipine 10 mg tablet 10 mg PO DAILY 30 Days #30 tab 09/17/20 08/20/21 08/19/21 21:00 Rx aspirin 81 mg tablet,delayed 81 mg PO QAM 30 Days #30 tab 09/17/20 08/20/21 08/19/21 21:00 Rx release atorvastatin 40 mg tablet 40 mg PO BEDTIME 30 Days #30 tab 09/17/20 08/20/21 08/19/21 21:00 Rx clopidogrel 75 mg tablet 75 mg PO DAILY 10/19/20 08/20/21 08/19/21 21:00 History spironolactone 25 mg tablet 25 mg PO DAILY 11/13/20 08/20/21 08/19/21 09:00 Hist ory levothyroxine 25 mcg tablet 50 mcg PO DAILY 04/15/21 08/20/21 08/20/21 06:00 History Allergies Allergy/AdvReac Type Severity Reaction Status Date / Time No Known Allergies Allergy Verified 08/20/21 06:31 Current Medications Generic Name Dose Route Start Last Admin Trade Name Freq PRN Reason Stop Dose Admin Fentanyl 50 mcg 08/20/21 10:01 08/20/21 10:31 Fentanyl 50 Mcg/Ml Inj 2ml IVP 50 mcg PRN PRN Administration PAIN Sodium Chloride 1,000 mls @ 50 mls/hr 08/20/21 06:15 08/20/21 11:11 Sodium Chloride 0.9% IV 08/21/21 02:14 50 mls/hr .Q20H ONE Administration Sodium Chloride 1,000 mls @ 100 mls/hr 08/20/21 10:15 08/20/21 11:12 Sodium Chloride 0.9% IV 100 mls/hr .Q10H DEMOND Administration Nitroglycerin 1 inch 08/20/21 11:00 08/20/21 11:11 Nitroglycerin 1 Gm/Inch Oint Pkt TOPICAL 1 inch Q6H DEMOND Administration PFSH Anesthesia Medical History Carotid stenosis CVA (cerebral vascular accident) Hyperlipidemia Hypertension Hypothyroidism Osteoporosis Peripheral vascular disease TIA (transient ischemic attack) Surgical History History of angiography (~2017) peripheral, fouond to have occluded mid to distal SFA, had orbital arthrec quyen and balloon angioplasty History of colonoscopy History of tubal ligation Status post open reduction and internal fixation (ORIF) of fracture (~2012) right tib fib, Dr Cotter Family History Mother CAD (coronary artery disease) Family/Other CAD (coronary artery disease) Sister Cancer Diabetes Denies family history of Clotting disorder Dementia Chronic kidney disease (CKD) Suicide Anesthesia complication Bleeding disorder Lung disease Stroke Social History Smoking and tobacco status: current every day smoker Alcohol intake: never Household members: family History of recent travel: No Data Anesthesia : 08/20/21 12:18 08/20/21 12:18 Cardiac Studies: Echocardiogram Ultrasound 09/12/20 Sestamibi Stress Test (Cardiology) 09/17/20
--- NOTE | 2021-08-20 11:19 | PC.NURSE ---
Patient has decreased sensation to R LE and loss of pulse, Dr. Arana aware
--- NOTE | 2021-08-20 11:42 | PM.CONSULT ---
Providers/Reason For Consult Consulting Physician/Specialty*: Dr. Burgess/cardiothoracic surgery Reason for Consult*: Acute right lower extremity compartment syndrome Requesting Physician: Dr. Andino/cardiovascular medicine Attending Physician: Colt Andino M.D Primary Care Provider: Marine Eagle NP History of Present Illness History of Present Illness Yoselin Martin is a 70 year old female whom I have been requested to see urgently by Dr. Andino for concerns of right lower extremity compartment syndrome. She underwent intervention earlier today for an occluded SFA. She had a previous intervention to the right lower extremity a few years ago by Dr. Ulloa. She most recently complained of life activity limiting claudication of the right lower extremity prompting need for reassessment. Duplex study performed of July 21 revealed monophasic signals from the mid right SFA distally Procedure report is not yet available for the intervention earlier today though I have reviewed the study where there was angioplasty after successfully crossing the right SFA occlusion. The distal wire did appear to terminate at the level of the trifurcation. Images performed at the end of the procedure did reveal a extravascular blush consistent with probable extravasation at this level. Post procedure, patient has complained of increasing discomfort in the right lower extremity, and indeed by exam the right posterior leg he has very tight which I do think does suggest probable compartment syndrome. I also note that she does have decreased motion of her right toes and right foot. I concur with Dr. Andino's assessment and have recommended proceeding expeditiously to the operating room and attempt to perform fasciotomies. At my request, I did asked Dr. Andino to speak with orthopedic service as I feel they have a greater knowledge of the anatomy of the compartments of the leg, though after speaking with Dr. Gates, he reports that she stated she did not feel comfortable related to probable vascular bleeding. Medications/Allergies Home Medications Medication Instructions Recorded Confirmed Last Taken Type buspirone 5 mg tablet 5 mg PO TID PRN 09/11/20 08/20/21 08/19/21 21:00 History duloxetine 30 mg capsule,delayed 30 mg PO DAILY 09/11/20 08/20/21 08/19/21 09:00 History release gabapentin 300 mg capsule 300 mg PO BID PRN 09/11/20 08/20/21 08/19/21 21:00 History multivitamin 1 tab PO DAILY 09/11/20 08/20/21 08/19/21 09:00 History nitroglycerin 0.4 mg sublingual 0.4 mg SUBLINGUAL PRN 09/11/20 08/20/21 Unknown History tablet alendronate 70 mg tablet 70 mg PO Q7D #0 tab 09/17/20 08/20/21 08/17/21 09:00 Rx amlodipine 10 mg tablet 10 mg PO DAILY 30 Days #30 tab 09/17/20 08/20/21 08/19/21 21:00 Rx aspirin 81 mg tablet,delayed 81 mg PO QAM 30 Days #30 tab 09/17/20 08/20/21 08/19/21 21:00 Rx release atorvastatin 40 mg tablet 40 mg PO BEDTIME 30 Days #30 tab 09/17/20 08/20/21 08/19/21 21:00 Rx clopidogrel 75 mg tablet 75 mg PO DAILY 10/19/20 08/20/21 08/19/21 21:00 History spironolactone 25 mg tablet 25 mg PO DAILY 11/13/20 08/20/21 08/19/21 09:00 History levothyroxine 25 mcg tablet 50 mcg PO DAILY 04/15/21 08/20/21 08/20/21 06:00 History Allergies Allergy/AdvReac Type Severity Reaction Status Date / Time No Known Allergies Allergy Verified 08/20/21 06:31 Current Medications Generic Name Dose Route Start Last Admin Trade Name Freq PRN Reason Stop Dose Admin Fentanyl 50 mcg 08/20/21 10:01 08/20/21 10:31 Fentanyl 50 Mcg/Ml Inj 2ml IVP 50 mcg PRN PRN Administration PAIN Sodium Chloride 1,000 mls @ 50 mls/hr 08/20/21 06:15 08/20/21 11:11 Sodium Chloride 0.9% IV 08/21/21 02:14 50 mls/hr .Q20H ONE Administration Sodium Chloride 1,000 mls @ 100 mls/hr 08/20/21 10:15 08/20/21 11:12 Sodium Chloride 0.9% IV 100 mls/hr .Q10H DEMOND Administration Nitroglycerin 1 inch 08/20/21 11:00 08/20/21 11:11 Nitroglycerin 1 Gm/Inch Oint Pkt TOPICAL 1 inch Q6H DEMOND Administration PFSH Acute PFSH: Medical History Carotid stenosis CVA (cerebral vascular accident) Hyperlipidemia Hypertension Hypothyroidism Osteoporosis Peripheral vascular disease TIA (transient ischemic attack) Surgical History History of angiography (~2018) peripheral, fouond to have occluded mid to distal SFA, had orbital arthrectomy and balloon angioplasty History of colonoscopy History of tubal ligation Status post open reduction and internal fixation (ORIF) of fracture (~2012) right tib fib, Dr Cotter Family History Mother CAD (coronary artery disease) Family/Other CAD (coronary artery disease) Sister Cancer Diabetes Denies family history of Clotting disorder Dementia Chronic kidney disease (CKD) Suicide Anesthesia complication Bleeding disorder Lung disease Stroke Social History Smoking and tobacco status: current every day smoker Alcohol intake: never Household members: family History of recent travel: No Vitals/I&O/Wt Last Vital Signs Temp 97.9 F 08/20/21 06:30 Pulse 71 08/20/21 10:15 Resp 19 H 08/20/21 10:31 BP 140/75 08/20/21 10:15 Pulse Ox 91 08/20/21 10:31 Weight last 48 hrs Weight 170 lb Physical Exam Extremity: OTHER: The right lower extremity below the knee is quite tense posteriorly consistent with probable compartment syndrome which does coincide with her examination, radiographic findings, increasing pain, and decreasing motor movement of the right foot. A&P Assessment and plan (1) Compartment syndrome of lower extremity: I have spoken with Ms. Martin at bedside and discussed my impression and recommendation for urgent surgical exploration to relieve what I feel clinically, is compartment syndrome. Rationale was carefully discussed and she is in agreement. She is in quite a bit of discomfort so we will try to assist with analgesia as we prepare for urgent transport to the operating room theater. Status: Acute Consult Attestations Medical Necessity Statement: Acute compartment syndrome right lower extremity Coding Level of Care Code New Pt Acute Newspaper Or Periodical Editor for [facility] Fwd Patient Type New History Problem Focused Exam Problem Focused Medical Decision Making Moderate Complexity Diagnoses Compartment syndrome of lower extremity T79.A29A
--- NOTE | 2021-08-20 11:51 | PC.NURSE ---
OR staff took patient to OR per Dr. Blackwell approximately [phone]
[2021-08-20] MEDS: ceFAZolin 1,000 mg SDV 1000 MG IRRIGATION (12:25)
[2021-08-20 12:29] LABS: Basophils # 0.1 10^3/uL (0.0-0.1); Basophils % 0.4 %; Eosinophils % 0.3 %; Hematocrit 37.5 % (37.0-47.0); Lymphocytes # 2.1 10^3/uL (0.8-4.8); Lymphocytes % 16.9 %; Mean Corpuscular Volume 93.8 fl (81-99); Mean Platelet Volume 9.7 fL (7.4-10.4); Monocytes # 0.6 10^3/uL (0.2-0.9); Neutrophils # 9.34 10^3/uL (1.8-7.7); Neutrophils % 76.9 %; Nucleated Red Blood Cells % 0 %; Platelet Count 266 10^3/cmm (130-400); Red Cell Distribution Width 15.6 % (12.1-15.1); White Blood Count 12.2 10^3/uL (4.0-10.0)
[2021-08-20 12:46] LABS: Alanine Aminotransferase 13 U/L (0-33); Albumin Level 3.8 g/dL (3.5-5.2); Alkaline Phosphatase 60 IU/L (35-105); Anion Gap 15.4 (5-19); Aspartate Amino Transferase 18 U/L (0-32); Blood Urea Nitrogen 10 mg/dL (8-23); Calcium 7.4 mg/dL (8.5-10.5); Carbon Dioxide 19 mmol/L (22-29); Chloride 107 mmol/L (98-107); Creatinine Clr Calc Pharmacy 63.4198; Glucose 171 mg/dL (65-115); Osmolality Calculated 289 mOsm/kg (285-295); Potassium 3.4 mmol/L (3.5-5.1); Sodium 138 mmol/L (136-145); Total Bilirubin 0.2 mg/dL (0.15-1.2); Total Protein 5.8 g/dL (6.6-8.7)
--- NOTE | 2021-08-20 12:55 | P.OP_ITS ---
Operative Report Date of procedure: August 20, 2021 Pre-op diagnosis: Preop Diagnosis acute compartment syndrome Post-op diagnosis: same Procedure done: 2 incision approach for relief of compartment syndrome right lower extremity Pathology: none sent Surgeon: Robert Burgess Estimated blood loss (mL): 200 Complications: None Brief History: Ms. Martin is a 70-year-old female who underwent percutaneous intervention kristie soriano for an occluded right SFA which was resulting in lifestyle limiting claudication. The right SFA was successfully crossed though it appears there is an extravasation at the level of the trifurcation. Post procedure, patient has developed increasing pain and obvious tension in the right leg. There is also noted to be some decreased range of motion of her toes and dorsiflexion of her foot. After examination at bedside in the ICU, we have recommended an expeditious attempt for decompression. Rationale was carefully discussed with Ms. Martin. Risks were carefully reviewed. Procedure: Ms. Martin was taken expeditiously to the operating room theater where she was carefully placed on the OR table. She underwent general endotracheal anes thesia. Her entire right leg and distal thigh were sterilely prepped and draped. Initially, an incision was made medially extending from just distal to the level of the knee down toward the medial malleolus. Dissection was continued through the soft tissue with cautery utilized as required. Fascia was separately reached at which time the superior posterior compartment was decompressed with a longitudinal incision along the gastrocnemius fascia. The soleus muscle was then elevated after detachment exposing the deep posterior fascia which was then opened. Violaceous discoloration of the muscle began to return to normal pink color after fascial release. Next, we turned our attention to the lateral aspect of the leg where a lateral incision was made over the intermuscular septum and extended distally. Skin flaps were created medially and laterally exposing the fascia to the anterior and lateral compartments. The intermuscular septum between the compartments was identified lying for appropriate release of the associated fascia closure. Bleeding encountered was controlled with cautery as required. I continued dissection more proximally from the lateral aspect up to the level of near the knee where there was moderate thrombus noted which I suspect was related to the area of additional extravasation. This region was evacuated. No further obvious bleeding was noted. Hemostasis confirmed. Wound VAC dressing was then placed on both medial and lateral wounds and connected to appropriate suction. Ms. Mario tolerated procedure well was awakened from general anesthesia. She will be returned to the ICU for continued close monitoring.
--- NOTE | 2021-08-20 12:55 | P.MISC_ITS ---
Miscellaneous Note Purpose of Documentation: Brief procedure note and post procedure events Note: Patient presented with severe lifestyle limiting claudication of the right lower extremity. Patient was taken to the Accounting [facility] Operator for peripheral angiogram and possible intervention after discussing risks and benefits of the procedure. On angiogram, she was found to have totally occluded SFA that reconstituted in the distal segment via collaterals. She had single-vessel runoff to the foot with patent posterior tibial artery that had a proximal stenosis. Peroneal artery is occluded in the midsegment and anterior tibial artery is totally occluded. We decided to perform revascularization of right SFA. After performing orbital arthrectomy and balloon angioplasty, blush and contrast extravasation was noted in TP segment that was likely secondary to wire perforation. Flow in posterior tibial artery was also compromised. We advanced a run-through wire into distal posterior tibial artery and performed low- pressure balloon angioplasties. This restored blood flow to mid calf with weak collaterals to the foot. During the procedure patient did have significant right lower leg discomfort. Postprocedure she was transferred to ICU. I examined the patient and she had significant tightness and swelling of upper calf. Her sensation on examination was intact however had painful movement of the foot. Given high likelihood of compartment syndrome, I emergently contacted Dr. Burgess. I also discussed with orthopedic team however they did not feel comfortable doing the procedure as they were concerned about vascular injury. Dr Burgses evaluated the patient and transferred her to OR for possible fasciotomy. Plan discussed in detail with the patient.
--- NOTE | 2021-08-20 13:16 | SUR.OPER ---
1300 report given to ANNETTE RN, PNEUMONIC SIMCO, REPORT CHARTED, ALL QUESTIONS ANSWERED AND RN STATED UNDERSTANDING.
--- NOTE | 2021-08-20 13:19 | SUR.OPER ---
1310 ADDENDUM TO REPORT: TOES ON RIGHT FOOT PINK AND PULSES FOUND ON DORSALIS PEDIS RIGHT FOOT.
--- NOTE | 2021-08-20 13:23 | PC.NURSE ---
Dr. Arana at bedside, observed Wound vac and slight pedal pulse palpable to R foot. gave v.o. to place Nitro paste back on that was removed during surgery
--- NOTE | 2021-08-20 13:41 | P.PN_ITS ---
Subjective Subjective: Patient developed some respiratory distress last night. She is currently on a BiPAP. The oxygenation seems to be improving. She was given IV Lasix for diuresis. Clinically she seems to improving. Currently she is on 6 L of oxygen by nasal cannula. Medications: Medication Review Details: Current Medications Acetaminophen (Acetaminophen 325 Mg Tablet) 650 mg PO Q6H PRN PRN Reason: MILD PAIN Al Hydrox/Mg Hydrox/Simethicone (Hzpu-Amn-Dduxgytut-Sean 30 Ml Udc) 30 ml PO Q15M PRN PRN Reason: INDIGESTION Al Hydrox/Mg Hydrox/Simethicone (Kfpd-Lai-Xcehgtwcp-Sean 30 Ml Udc) 30 ml PO Q4H PRN PRN Reason: INDIGESTION Alprazolam (Alprazolam 0.5 Mg Tablet) 0.25 mg PO TID PRN PRN Reason: ANXIETY Atropine Sulfate (Atropine 1 Mg/Ml Sdv 1 Ml) 0.5 mg IVP PRN PRN PRN Reason: Symptomatic bradycardia Bisacodyl (Bisacodyl 5 Mg Tablet) 5 mg PO Q6H PRN PRN Reason: Constipation (Use 2nd) Bisacodyl (Bisacodyl 10 Mg Supp) 10 mg [place] Q6H PRN PRN Reason: Constipation (Use 5th) Bismuth Subsalicylate (Bismuth Subsalicylate 240 Ml Btl) 30 ml PO PRN PRN PRN Reason: DIARRHEA Diphenhydramine HCl (Diphenhydramine 25 Mg Capsule) 25 mg PO BEDTIME PRN PRN Reason: SLEEP Docusate Sodium (Docusate Sodium 100 Mg Capsule) 100 mg PO BID PRN PRN Reason: Constipation (Use 1st) Fentanyl (Fentanyl 50 Mcg/Ml Inj 2ml) 50 mcg IVP PRN PRN PRN Reason: PAIN Last Admin: 08/20/21 10:31 Dose: 50 mcg Documented by: Guaifenesin (Guaifenesin 100 Mg/5 Ml Udc 10 Ml) 200 mg PO Q4H PRN PRN Reason: COUGH Sodium Chloride (Sodium Chloride 0.9%) 1,000 mls @ 50 mls/hr IV .Q20H ONE Stop: 08/21/21 02:14 Last Admin: 08/20/21 11:11 Dose: 50 mls/hr Documented by: Sodium Chloride (Sodium Chloride 0.9%) 1,000 mls @ 100 mls/hr IV .Q10H [facility] Last Admin: 08/20/21 11:12 Dose: 100 mls/hr Documented by: Cefazolin Sodium 1,000 mg/ (Sodium Chloride) 50 mls @ 100 mls/hr IV Q8H [facility]; Protocol Stop: 08/21/21 12:29 Ketorolac Tromethamine (Ketorolac 30 Mg/Ml Inj) 30 mg IVP Q6H PRN PRN Reason: MODERATE PAIN Stop: 08/25/21 13:06 Lactulose (Lactulose Oral Liq 20 Gm/30 Ml Udc) 20 gm PO Q6H PRN PRN Reason: Constipation (Use 3rd) Magnesium Hydroxide (Magnesium Hydroxide 30 Ml Udc) 45 ml PO DAILY PRN PRN Reason: Constipation (use 4th) Morphine Sulfate (Morphine 4 Mg/Ml Sdv 1 Ml) 2 mg IVP Q1H PRN PRN Reason: SEVERE PAIN Naloxone HCl (Naloxone 0.4 Mg/Ml Sdv) 0.1 mg IVP Q2M PRN PRN Reason: RESPIRATORY RATE < 8/MIN Nitroglycerin (Nitroglycerin 0.4 Mg Sublingual Tablet) 0.4 mg SUBLINGUAL Q5M PRN PRN Reason: CHEST PAIN Nitroglycerin (Nitroglycerin 1 Gm/Inch Oint Pkt) 1 inch TOPICAL Q6H [facility] Last Admin: 08/20/21 11:11 Dose: 1 inch Documented by: Ondansetron HCl (Ondansetron 2 Mg/Ml Sdv 2 Ml) 4 mg IVP Q6H PRN PRN Reason: NAUSEA AND VOMITING Oxycodone/Acetaminophen (Oxycodone-Apap 5-325 Mg Tablet) 1 tab PO Q4H PRN PRN Reason: MODERATE PAIN Promethazine HCl (Promethazine 25 Mg Supp) 25 mg [place] Q6H PRN PRN Reason: NAUSEA AND VOMITING Temazepam (Temazepam 15 Mg Capsule) 15 mg PO BEDTIME PRN PRN Reason: INSOMNIA Vitals/I&O/Wt Last Vital Signs Temp 97.9 F 08/20/21 06:30 Pulse 82 08/20/21 13:00 Resp 19 H 08/20/21 10:31 BP 116/28 08/20/21 13:00 Pulse Ox 100 08/20/21 13:00 08/19/21 08/20/21 08/20/21 22:59 06:59 14:59 Intake Total 50 / 50 Balance 50 / 50 Weight last 48 hrs Weight 170 lb Physical Exam Narrative: GENERAL: The patient is alert and oriented times three. Not in any acute distress. HEENT: Minimal pallor. No icterus or lymphadenopathy.Oral cavity: There are no mucous membrane lesions. NECK: Trachea appears to be central. No masses noted. No JVD or thyromegaly appreciated. RESPIRATORY: Chest is symmetrical. No intercostals muscle retraction or any accessory muscle activation. There is no chest wall tenderness. Breath sounds are heard bilaterally. No rales or rhonchi heard. No evidence of any consolidation. BREASTS: Deferred. HEART: The first heart sound is variable. Second heart sound is normal. No S3 or S4. Holosystolic murmur in the left sternal border. No diastolic murmurs. No pericardial rub ABDOMEN: No vessel pulsations or distention. No tenderness. No organomegaly jeff reciated. Bowel sounds are normally heard. : Deferred. RECTAL: Deferred. LYMPHATIC: No lymphadenopathy noted in the neck. EXTREMITIES: No edema or cyanosis. No clubbing. MUSCULOSKELETAL: No acute joint deformities or swelling SKIN: There are no significant rashes or ecchymosis NEUROPSYCHIATRIC: The patient is alert and oriented x3. Appears to be in a good mood. No tremors or rigidity noted. Data : 08/20/21 12:18 08/20/21 12:18 Other Labs: Laboratory Last Values WBC 12.2 10^3/uL (4.0-10.0) H 08/20/21 12:18 RBC 4.00 10^6/uL (4.1-5.3) L 08/20/21 12:18 Hgb 12.0 g/dL (11.5-15.3) 08/20/21 12:18 Hct 37.5 % (37.0-47.0) 08/20/21 12:18 MCV 93.8 fl (81-99) 08/20/21 12:18 MCH 30.0 pg (28.0-34.0) 08/20/21 12:18 MCHC 32.0 g/dL (30.0-36.0) 08/20/21 12:18 RDW 15.6 % (12.1-15.1) H 08/20/21 12:18 Plt Count 266 10^3/cmm (130-400) 08/20/21 12:18 MPV 9.7 fL (7.4-10.4) 08/20/21 12:18 Neut % (Auto) 76.9 % 08/20/21 12:18 Lymph % (Auto) 16.9 % 08/20/21 12:18 Sutter % (Auto) 5.0 % 08/20/21 12:18 Eos % (Auto) 0.3 % 08/20/21 12:18 Baso % (Auto) 0.4 % 08/20/21 12:18 Neut # (Auto) 9.34 10^3/uL (1.8-7.7) H 08/20/21 12:18 Lymph # (Auto) 2.1 10^3/uL (0.8-4.8) 08/20/21 12:18 Sutter # (Auto) 0.6 10^3/uL (0.2-0.9) 08/20/21 12:18 Eos # (Auto) 0.0 10^3/uL (0.0-0.8) 08/20/21 12:18 Baso # (Auto) 0.1 10^3/uL (0.0-0.1) 08/20/21 12:18 Nucleated RBC % (auto) 0 % 08/20/21 12:18 Nucleated RBCs # 0.0 /100WBC 08/20/21 12:18 Sodium 138 mmol/L (136-145) 08/20/21 12:18 Potassium 3.4 mmol/L (3.5-5.1) L 08/20/21 12:18 Chloride 107 mmol/L (98-107) 08/20/21 12:18 Carbon Dioxide 19 mmol/L (22-29) L 08/20/21 12:18 Anion Gap 15.4 (5-19) 08/20/21 12:18 BUN 10 mg/dL (8-23) 08/20/21 12:18 Creatinine 0.7 mg/dL (0.5-0.9) 08/20/21 12:18 GFR Calculation Not Reportable 08/20/21 12:18 Glucose 171 mg/dL (65-115) H 08/20/21 12:18 Calculated Osmolality 289 mOsm/kg (285-295) 08/20/21 12:18 Calcium 7.4 mg/dL (8.5-10.5) L 08/20/21 12:18 Total Bilirubin 0.2 mg/dL (0.15-1.2) 08/20/21 12:18 AST 18 U/L (0-32) 08/20/21 12:18 ALT 13 U/L (0-33) 08/20/21 12:18 Alkaline Phosphatase 60 IU/L (35-105) 08/20/21 12:18 Total Protein 5.8 g/dL (6.6-8.7) L 08/20/21 12:18 Albumin 3.8 g/dL (3.5-5.2) 08/20/21 12:18 Globulin 2.0 g/dL (1.3-4.6) 08/20/21 12:18 Blood Type O Positive 08/20/21 11:44 Rho(D) Type Positive 08/20/21 11:44 Antibody Screen Negative 08/20/21 11:44 Crossmatch See Detail 08/20/21 11:44 A&P Assessment and plan (1) Abnormal EKG: The myocardial perfusion imaging results and the implications were discussed with the patient in detail. Based on the perfusion scan, patient does not require any further investigations at this point. She is advised to continue on the current medications. Status: Acute (2) Carotid stenosis: Patient may continue on the current management. This is being followed by Dr. Burgess as an outpatient. Status: Acute Qualifiers: Laterality: bilateral Qualified Code(s): I65.23 - Occlusion and stenosis of bilateral carotid arteries (3) CVA (cerebral vascular accident): Continue the physical therapy and Occupational Therapy as scheduled. 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 May continue with the current medications. Status: Chronic (5) Hyperlipidemia: The latest lipid profile were reviewed. Patient will have a repeat lipid profile today. Based on the results, further management decisions will be made. Status: Chronic Qualifiers: Hyperlipidemia type: moderate mixed hyperlipidemia not requiring statin therapy Qualified Code(s): E78.2 - Mixed hyperlipidemia Coding Level of Care Code Acute Neighborhood Coordinator for g Fwd Diagnoses Abnormal EKG R94.31 Carotid stenosis I65.23 Laterality: bilateral CVA (cerebral vascular accident) I63.443 CVA mechanism: embolism Laterality of affected vessel: bilateral Precerebral and cerebral artery: cerebellar artery Peripheral vascular disease I73.9 Hyperlipidemia E78.2 Hyperlipidemia type: moderate mixed hyperlipidemia not requiring statin therapy
[2021-08-20] MEDS: morphine 4 mg/mL SDV 1 mL 2 MG IVP ×3 (14:37→22:05)
--- NOTE | 2021-08-20 15:18 | PC.NURSE ---
Report given to JENNIFER DEMPSEY
--- NOTE | 2021-08-20 15:19 | ANE.PACU2 ---
Inpatient post-anesthesia follow up: Airway intact: Yes Vital signs: Temperature 97.9 F Pulse Rate 72 Respiratory Rate 17 Blood Pressure 116/28 Pulse Oximetry 100 Oxygen Delivery Me thod [ Room Air Current Rate & Del jose angel] Oxygen Delivery Me thod Simple Mask Oxygen Flow Rate 6 Fraction of Inspir ed Oxygen Hydration adequate: Yes Nausea and vomiting: No Pain level: 1 Mental status: Baseline
[2021-08-20] MEDS: ondansetron 2 mg/ML SDV 2 mL 4 MG IVP (15:31)
[2021-08-20 16:24] LABS: Partial Thromboplastin Time 27.1 SECONDS (23.9-36.7)
--- NOTE | 2021-08-20 16:45 | P.CONIM_ITS ---
Providers/Reason For Consult Consulting Physician/Specialty*: Internal medicine/Dr. Lauren Reason for Consult*: Medical comorbidities Requesting Physician: Dr. Andino Attending Physician: Colt Andino M.D Primary Care Provider: Marine Eagle NP History of Present Illness History of Present Illness Yoselin Martin is a 70 year old female with a past medical history of hypertension, hyperlipidemia, hypothyroidism, chronic contracture of right upper extremity, history of peripheral vascular disease, TIA, smoker who underwent elective peripheral angiogram and intervention earlier today for occluded SFA for life activity limiting claudication and right lower extremity. Patient had previous intervention on the right lower extremity a few years ago as well. Patient had duplex study performed of July 21 which revealed monophasic signals from the mid right SFA distally. Procedure report is not yet available for the intervention earlier today though I am told there was angioplasty after successfully crossing the right SFA occlusion.? Postprocedure images performed at the end of the procedure did reveal a extravascular blush consistent with probable extravasation at this level.? Post procedure, patient has complained of increasing discomfort in the right lower extremity, and indeed by exam the right posterior leg he has very tight which I do think does suggest probable compartment syndrome. Cardiothoracic surgery was consulted urgently with concerns for compartment syndrome of the right lower extremities and she underwent fasciotomy. Hospitalist service has been consulted for managing medical comorbidities. Patient seen in ICU. Wound VAC in place. Patient is on normal saline disease per hour. Vitals stable with mean artery pressure over 65. Patient is awake and alert. As per nursing staff patient leg is already becoming warm and better preoperatively. Blood work preoperatively showed a white count 12.2, hemoglobin of 12,000, platelet count 266, sodium 138, chloride of 107, creatinine of 0.7, AST/ALT of 18/13, protein of 5.8, TSH of 0.9. Review of Systems General: Reports: 10 or more systems reviewed and unremarkable except in HPI and below Const: Denies: fever(s), chills, body aches, change in appetite, change in weight, malaise, night sweats, diaphoresis, change in sleep pattern, daytime sleepiness or snoring Eyes: Denies: change in vision, blurry vision, photophobia, eye discomfort or eye discharge ENMT: Denies: throat pain, enlarged tonsils, hoarseness, mouth pain, oral sores, dry mouth, tinnitus, nasal congestion or post nasal drip Card: Denies: chest pain, palpitations, irregular heart rhythm, edema, swelling of feet/ankles, lightheadedness, syncope, pre-syncope, dyspnea on e xertion, orthopnea, leg pain with exertion or acrocyanosis Resp: Denies: dyspnea, productive cough, non-productive cough, wheezing, stridor, pain on inspiration, change in phlegm color, hemoptysis or chest congestion GI: Denies: abdominal pain, nausea, vomiting, hematemesis, coffee ground emesis, dysphagia, heartburn, diarrhea, constipation, bloating, GI cramping, change in bowel habits, pain on defecation, hematochezia or melena : Denies: flank pain, dysuria, urinary frequency, urinary urgency, urinary hesitancy, nocturia or hematuria Musc: Denies: neck pain, back pain, extremity pain, joint pain, joint swelling, joint redness, joint stiffness or limited range of motion Neuro: Denies: headache(s), numbness in extremities, weakness in extremities, sensory changes, lack of coordination, difficulty walking, frequent falls, dizziness, vertigo, confusion, Slurred speech present, difficulty communicating thoughts or seizure-like activity Psych: Denies: anxiety, depression, mood swings, panic attacks, hopelessness or irritability Endo: Denies: polyuria, polydipsia, tired all the time, cold intolerance, excessive sweating, flushing or heat intolerance Arvin/Lymph: Denies: easy bruising or easy bleeding All/Imm: Denies: tongue swelling, facial swelling or acute wheezing Medications/Allergies Home Medications Medication Instructions Recorded Confirmed Last Taken Type buspirone 5 mg tablet 5 mg PO TID PRN 09/11/20 08/20/21 08/19/21 21:00 History duloxetine 30 mg capsule,delayed 30 mg PO DAILY 09/11/20 08/20/21 08/19/21 09:00 History release gabapentin 300 mg capsule 300 mg PO BID PRN 09/11/20 08/20/21 08/19/21 21:00 History multivitamin 1 tab PO DAILY 09/11/20 08/20/21 08/19/21 09:00 History nitroglycerin 0.4 mg sublingual 0.4 mg SUBLINGUAL PRN 09/11/20 08/20/21 Unknown History tablet alendronate 70 mg tablet 70 mg PO Q7D #0 tab 09/17/20 08/20/21 08/17/21 09:00 Rx amlodipine 10 mg tablet 10 mg PO DAILY 30 Days #30 tab 09/17/20 08/20/21 08/19/21 21:00 Rx aspirin 81 mg tablet,delayed 81 mg PO QAM 30 Days #30 tab 09/17/20 08/20/21 08/19/21 21:00 Rx release atorvastatin 40 mg tablet 40 mg PO BEDTIME 30 Days #30 tab 09/17/20 08/20/21 08/19/21 21:00 Rx clopidogrel 75 mg tablet 75 mg PO DAILY 10/19/20 08/20/21 08/19/21 21:00 History spironolactone 25 mg tablet 25 mg PO DAILY 11/13/20 08/20/21 08/19/21 09:00 History levothyroxine 25 mcg tablet 50 mcg PO DAILY 04/15/21 08/20/21 08/20/21 06:00 History Allergies Allergy/AdvReac Type Severity Reaction Status Date / Time No Known Allergies Allergy Verified 08/20/21 06:31 Current Medications Generic Name Dose Route Start Last Admin Trade Name Freq PRN Reason Stop Dose Admin Sodium Chloride 1,000 mls @ 100 mls/hr 08/20/21 10:15 08/20/21 11:12 Sodium Chloride 0.9% IV 100 mls/hr .Q10H DEMOND Administration Morphine Sulfate 2 mg 08/20/21 13:07 08/20/21 14:37 Morphine 4 Mg/Ml Sdv 1 Ml IVP 2 mg Q1H PRN Administration SEVERE PAIN Nitroglycerin 1 inch 08/20/21 11:00 08/20/21 11:11 Nitroglycerin 1 Gm/Inch Oint Pkt TOPICAL 1 inch Q6H DEMOND Administration Ondansetron HCl 4 mg 08/20/21 13:07 08/20/21 15:31 Ondansetron 2 Mg/Ml Sdv 2 Ml IVP 4 mg Q6H PRN Administration NAUSEA AND VOMITING PFSH Acute PFSH: Medical History (Updated 08/20/21 @ 16:47 by Mendez Lauren MD) Abnormal EKG Carotid stenosis Claudication CVA (cerebral vascular accident) Hyperlipidemia Hypertension Hypothyroidism Nicotine dependence, cigarettes, with other nicotine-induced disorders Osteoporosis Peripheral vascular disease TIA (transient ischemic attack) Surgical History History of angiography (~2018) peripheral, fouond to have occluded mid to distal SFA, had orbital arthrectomy and balloon angioplasty History of colonoscopy History of tubal ligation Status post open reduction and internal fixation (ORIF) of fracture (~2012) right tib fib, Dr Cotter Family History Mother CAD (coronary artery disease) Family/Other CAD (coronary artery disease) Sister Cancer Diabetes Denies family history of Clotting disorder Dementia Chronic kidney disease (CKD) Suicide Anesthesia complication Bleeding disorder Lung disease Stroke Social History Smoking and tobacco status: current every day smoker Alcohol intake: never Household members: family History of recent travel: No Vitals/I&O/Wt Last Vital Signs Temp 97.9 F 08/20/21 06:30 Pulse 72 08/20/21 14:00 Resp 17 08/20/21 14:37 BP 116/28 08/20/21 13:00 Pulse Ox 100 08/20/21 13:00 08/20/21 08/20/21 08/20/21 06:59 14:59 22:59 Intake Total 50 / 50 Balance 50 / 50 Weight last 48 hrs Weight 77.111 kg Physical Exam Narrative: General: No acute distress, AO x3 contracture present in right upper extremity HEENT: PERRLA, pupils bilaterally equal and reactive Chest: Normal vesicular breath sounds, no added sounds, equal good air entry bilaterally CVS: S1-S2 regular, no murmurs, no tachycardia, no gallops, no rubs Abdomen: Soft, nontender, no organomegaly, bowel sounds present Neuro: No focal deficits, no facial deformity, AO x3, Extremity: Wound VAC present in right lower extremity, foot slightly warm to touch, pulses not palpable palpable or dopplerable. Patient slightly able to move her toes Data : 08/21/21 03:15 08/21/21 03:15 A&P Assessment and plan (1) Peripheral vascular disease: Status: Chronic (2) Peripheral vascular angioplasty status: Status: Acute (3) Compartment syndrome of lower extremity: Status: Acute (4) Accelerated hypertension: Status: Acute (5) Hypothyroidism: Status: Chronic Qualifiers: Hypothyroidism type: acquired Qualified Code(s): E03.9 - Hypothyroidism, unspecified (6) Noncompliance with medications: Status: Acute (7) Hyperlipidemia: Status: Chronic Qualifiers: Hyperlipidemia type: moderate mixed hyperlipidemia not requiring statin therapy Qualified Code(s): E78.2 - Mixed hyperlipidemia Plan 70-year-old female with past medical history of peripheral vascular disease who underwent peripheral angioplasty today complicated by slight extravasation is leading to compartment syndrome post fasciotomies seen in ICU. Plan: Compartment syndrome post fasciotomy: Continue wound VAC dressing as per Dr. Burgess. Anticoagulation, ambulation as per Dr. Burgess. Recheck postoperative labs with CBC, CMP, lactate. Switch antibiotics from cefazolin to Zosyn. For now we will continue anti biotics at least for 3 days. MRSA swab. Normal saline 100 cc/h. Frequent neurovascular checks. Dilaudid 0.2 mg every 4 hours as needed for pain. Keep mean artery pressure over 65. If needed can use Levophed. For now blood pressure is well controlled. Continued IV fluids. Watch for fluid overload. Last echocardiogram from August 2020 shows an EF of 60%, dyskinetic inferior basal segment, mild to moderate TR, mildly increased LA size, mild to moderate MR. Hypertension: Goal blood pressure less than 140/90 mmHg with mean over 65. Takes amlodipine 10 mg daily at home. For now hold off on medication given soft blood pressures. We will continue to monitor. Continue other chronic medications including atorvastatin 40 mg daily, BuSpar 5 mg 3 times daily as needed, Cymbalta, iron, gabapentin, levothyroxine. Full code. Cardiac diet. Anticoagulation as per surgical team. Thank you for involving us in the care of Ms. Martin. Please call with any questions. Consult Attestations Medical Necessity Statement: As per primary team. Time Spent in Patient Care: Greater than 35 minutes Coding Level of Care Code Acute Chain[employer]ch Pants Outseamer for Blayne Mccain Diagnoses Peripheral vascular disease I73.9 Peripheral vascular angioplasty status Z98.62 Compartment syndrome of lower extremity T79.A29A Accelerated hypertension I10 Hypothyroidism E03.9 Hypothyroidism type: acquired Noncompliance with medications Z91.14 Hyperlipidemia E78.2 Hyperlipidemia type: moderate mixed hyperlipidemia not requiring statin therapy
[2021-08-20] MEDS: famotidine 20 mg/2 mL INJ IVP (17:35)
[2021-08-20] MEDS: piperacillin-tazobactam 3.375 GM in sodium chloride 0.9% (plus) 100 ML IV (17:36)
[2021-08-20] MEDS: ferrous gluconate 324 mg Tablet PO (17:36)
--- NOTE | 2021-08-20 17:40 | PC.NURSE ---
Wound vac keeps saying blockage detected, staff unable to fix, message sent to Dr. Blackwell
[2021-08-20 18:15] LABS: Iron 95 ug/dL (37-145); Percent Saturation 28.1 % (20-50); Total Iron Binding Capacity 337 mcg/dl; Unsaturated Iron Binding 242 ug/dL (112-347)
[2021-08-20 18:24] LABS: Thyroid Stimulating Hormone 0.97 uIU/mL (0.27-4.20)
--- NOTE | 2021-08-20 18:33 | PC.NURSE ---
bp dropped to 79 systolic,Dr. Lauren notified, ordered cmp cbc and latic and type and cross, advised to ask Dr. Andino if sheath can be left in for art line, he denied due to vessel disease to site
[2021-08-20 19:15] LABS: Basophils % 0.2 %; Hematocrit 33.8 % (37.0-47.0); Hemoglobin 10.9 g/dL (11.5-15.3); Lymphocytes # 0.9 10^3/uL (0.8-4.8); Lymphocytes % 7.9 %; Mean Corpuscular HGB Conc 32.2 g/dL (30.0-36.0); Mean Corpuscular Hemoglobin 31.3 pg (28.0-34.0); Mean Corpuscular Volume 97.1 fl (81-99); Mean Platelet Volume 9.8 fL (7.4-10.4); Monocytes # 0.2 10^3/uL (0.2-0.9); Monocytes % 1.5 %; Neutrophils # 9.87 10^3/uL (1.8-7.7); Nucleated Red Blood Cells % 0 %; Platelet Count 256 10^3/cmm (130-400); Red Blood Count 3.48 10^6/uL (4.1-5.3); Red Cell Distribution Width 15.9 % (12.1-15.1)
[2021-08-20 19:29] LABS: Lactate (Lactic Acid level) 3.4 mmol/L (0.5-2.2)
[2021-08-20 19:30] LABS: Alanine Aminotransferase 13 U/L (0-33); Albumin Level 3.7 g/dL (3.5-5.2); Alkaline Phosphatase 61 IU/L (35-105); Anion Gap 18.1 (5-19); Aspartate Amino Transferase 20 U/L (0-32); Blood Urea Nitrogen 13 mg/dL (8-23); Calcium 7.7 mg/dL (8.5-10.5); Carbon Dioxide 18 mmol/L (22-29); Chloride 107 mmol/L (98-107); Globulin 2.7 g/dL (1.3-4.6); Glucose 189 mg/dL (65-115); Osmolality Calculated 293 mOsm/kg (285-295); Potassium 4.1 mmol/L (3.5-5.1); Sodium 139 mmol/L (136-145); Total Bilirubin 0.2 mg/dL (0.15-1.2); Total Protein 6.4 g/dL (6.6-8.7)
[2021-08-20] MEDS: ketorolac 30 mg/mL INJ IVP (19:47)
[2021-08-20] MEDS: HYDROmorphone 1 mg/mL INJ 1 mL 0.2 MG IVP ×2 (20:36→23:51)
[2021-08-20] MEDS: atorvastatin 40 mg Tablet PO (20:42)
[2021-08-20] MEDS: sodium chloride 0.9% (100 ml) 100 ML 50 ML (21:03)
[2021-08-20 23:06] LABS: Add Urine Microscopic? NO; Charge for UA Resulting for Rev
[2021-08-20 23:11] LABS: Bilirubin Urine Neg (Negative); Blood Urine Neg (Negative); Glucose Urine UA Norm (Normal); Ketones Urine Negative (Negative); Leukocyte Esterase Urine Negative (Negative); Nitrate Urine Negative (Negative); Protein Urine Neg (Negative); Specific Gravity, Urine 1.005 (1.005-1.030); Urine Appearance Clear (CLEAR); Urine Color Yellow (Yellow); Urobilinogen Urine Norm (Negative); pH Urine 6.5 (5-7)
[2021-08-21] VITALS (56 sets, daily range): BP systolic 81–145; BP diastolic 45–86; PULSE 65–92; RESP 11–23; TEMP 36.4–36.9; O2SAT 79–94
[2021-08-21] MEDS: morphine 4 mg/mL SDV 1 mL 2 MG IVP ×3 (00:12→23:08)
[2021-08-21] MEDS: piperacillin-tazobactam 3.375 GM in sodium chloride 0.9% (plus) 100 ML IV ×3 (00:42→16:58)
--- NOTE | 2021-08-21 00:43 | PC.NURSE ---
SHEATH REMOVAL Left leg sheath removed without complication.
[2021-08-21] MEDS: ketorolac 30 mg/mL INJ IVP (01:21)
[2021-08-21] MEDS: nitroglycerin 1 gm/inch oint Pkt 1 INCH TOPICAL ×4 (04:16→22:41)
[2021-08-21 04:56] LABS: Basophils % 0.1 %; Hematocrit 36.4 % (37.0-47.0); Hemoglobin 11.4 g/dL (11.5-15.3); Lymphocytes # 1.1 10^3/uL (0.8-4.8); Lymphocytes % 7.2 %; Mean Corpuscular HGB Conc 31.3 g/dL (30.0-36.0); Mean Corpuscular Volume 95.8 fl (81-99); Mean Platelet Volume 10.3 fL (7.4-10.4); Monocytes # 0.5 10^3/uL (0.2-0.9); Monocytes % 3.6 %; Neutrophils # 13.32 10^3/uL (1.8-7.7); Neutrophils % 88.6 %; Nucleated Red Blood Cells % 0 %; Platelet Count 210 10^3/cmm (130-400); Red Cell Distribution Width 16.4 % (12.1-15.1)
[2021-08-21 05:14] LABS: Alanine Aminotransferase 13 U/L (0-33); Albumin Level 3.4 g/dL (3.5-5.2); Alkaline Phosphatase 57 IU/L (35-105); Anion Gap 14.9 (5-19); Aspartate Amino Transferase 27 U/L (0-32); Blood Urea Nitrogen 17 mg/dL (8-23); Calcium 7.5 mg/dL (8.5-10.5); Carbon Dioxide 19 mmol/L (22-29); Chloride 107 mmol/L (98-107); Globulin 2.8 g/dL (1.3-4.6); Glucose 131 mg/dL (65-115); Osmolality Calculated 285 mOsm/kg (285-295); Potassium 4.9 mmol/L (3.5-5.1); Sodium 136 mmol/L (136-145); Total Bilirubin 0.6 mg/dL (0.15-1.2); Total Protein 6.2 g/dL (6.6-8.7)
[2021-08-21 05:22] LABS: Estmated Average Glucose 108; Hemoglobin A1C 5.4 % (4.0-6.0)
[2021-08-21] MEDS: HYDROmorphone 1 mg/mL INJ 1 mL 0.2 MG IVP (05:52)
[2021-08-21] MEDS: famotidine 20 mg/2 mL INJ IVP ×2 (05:52→17:51)
[2021-08-21] MEDS: sodium chloride 0.9% 1,000 ML 100 ML IV ×2 (05:53→18:07)
--- NOTE | 2021-08-21 07:18 | P.PN_ITS ---
Subjective Subjective: Postop day #1 status post right lower extremity fasciotomy for acute compartment syndrome. Continue to difficulties with functioning of the wound VAC due to output and clots in the tubing has necessitated removing the wound VAC and initiating wet-to-dry dressings. The muscle itself appears to be of viable. She has good sensation and movement of her foot and toes. Output has been substantial at approximate 100 cc with wound VAC in place, therefore I did elect to transfuse 1 unit packed RBCs. Hemoglobin this morning is 11.4 Vitals/I&O/Wt Last Vital Signs Temp 98 F 08/20/21 21:45 Pulse 82 08/21/21 06:00 Resp 15 08/21/21 06:00 BP 128/76 08/21/21 06:00 Pulse Ox 89 L 08/21/21 06:00 08/20/21 08/21/21 08/21/21 22:59 06:59 14:59 Intake Total 2200 / 2250 2271.667 / 4521.667 Output Total 850 / 850 1050 / 1900 Balance 1350 / 1400 1221.667 / 2621.667 Weight last 48 hrs Weight 170 lb Physical Exam Extremity: NARRATIVE EXTREMITY EXAM: Wound VAC dressing was removed. Exposed musculature appears viable. Wet-to-dry dressing was reapplied. Neuro: OTHER: She is able to move her right foot and toes to command. Sensation appears to be intact. The right foot is slowly warming up. Urinary Catheter Management: Forrest: Cath Placed During This Visit: yes Reason for Continuing Indwelling Catheter: Accurate Measurement of Urinary Output in Critically Ill Patients Urinary Catheter Date of Insertion: 08/20/21 Urinary Catheter Time of Insertion: 22:57 Data : 08/21/21 03:15 08/21/21 03:15 A&P Assessment and plan (1) Compartment syndrome of lower extremity: Postop day #1 status post right lower extremity fasciotomy Plan: We will transition to wet-to-dry dressing changes at least daily and as needed if there is bloody saturation Status: Acute Attestations Medical Necessity Statement*: Postop day #1 status post fasciotomy for acute compartment syndrome. Coding Level of Care Code Acute Rn Medical Surgical for Blayne Mccain Diagnoses Compartment syndrome of lower extremity T79.A29A
[2021-08-21] MEDS: ferrous gluconate 324 mg Tablet PO ×2 (08:00→17:51)
[2021-08-21] MEDS: levothyroxine 50 mcg Tablet PO (08:46)
[2021-08-21] MEDS: duloxetine 30 mg Capsule PO (08:46)
--- NOTE | 2021-08-21 08:53 | P.PN_ITS ---
Subjective Subjective: Patient is feeling better today. Yesterday had developed compartment syndrome of the right lower extremity, after successful revascularization with balloon angioplasty and orbital arthrectomy.Underwent fasciotomy with Dr Burgess. Leg pain has resolved today. Sensation and movement intact Vitals/I&O/Wt Last Vital Signs Temp 97.9 F 08/21/21 07:33 Pulse 83 08/21/21 07:33 Resp 18 08/21/21 07:33 BP 129/63 08/21/21 07:33 Pulse Ox 90 08/21/21 07:33 08/20/21 08/21/21 08/21/21 22:59 06:59 14:59 Intake Total 2200 / 2250 2271.667 / 4521.667 100 / 100 Output Total 850 / 850 1050 / 1900 Balance 1350 / 1400 1221.667 / 2621.667 100 / 100 Weight last 48 hrs Weight 170 lb Physical Exam Narrative: General: No acute distress, AO x3 contracture present in right upper extremity HEENT: PERRLA, pupils bilaterally equal and reactive Chest: Normal vesicular breath sounds, no added sounds, equal good air entry bilaterally CVS: S1-S2 regular, no murmurs, no tachycardia, no gallops, no rubs Abdomen: Soft, nontender, no organomegaly, bowel sounds present Neuro: No focal deficits, no facial deformity, AO x3, Extremity: Dressing on the right lower extremity. Patient's right foot has normal temparature and color has improved significantly compared to yesterday. Able to move the toes and has senstation. Pulses not palpable Urinary Catheter Management: Forrest: Cath Placed During This Visit: yes Reason for Continuing Indwelling Catheter: Accurate Measurement of Urinary Output in Critically Ill Patients Urinary Catheter Date of Insertion: 08/20/21 Urinary Catheter Time of Insertion: 22:57 Data : 08/21/21 03:15 08/21/21 03:15 A&P Assessment and plan (1) Claudication: Status: Acute (2) Compartment syndrome of lower extremity: Status: Acute (3) Peripheral vascular disease: Status: Chronic (4) Hyperlipidemia: Status: Chronic Qualifiers: Hyperlipidemia type: moderate mixed hyperlipidemia not requiring statin therapy Qualified Code(s): E78.2 - Mixed hyperlipidemia Plan Patient had developed compartment syndrome of the right lower extremity, after successful revascularization with balloon angioplasty and orbital arthrectomy yesterday.Underwent emergent fasciotomy with Dr Burgess. Leg pain has resolved today. Sensation and movement intact with significant improvement in foot color. Pulses are not dopplerable(only had a dopplerable PT previously). Lactate is improving Continue current medications Blood pressure control Appreciate Dr Burgess's input and management of the compartment syndrome. Appreciate hospitalist service with help in management of medical issues Continue ICU stay Attestations Medical Necessity Statement*: Care expected to cross 2 midnights. Coding Level of Care Code Acute Principal Electrical Engineer for Blayne Mccain Diagnoses Claudication I73.9 Compartment syndrome of lower extremity T79.A29A Peripheral vascular disease I73.9 Hyperlipidemia E78.2 Hyperlipidemia type: moderate mixed hyperlipidemia not requiring statin therapy
--- NOTE | 2021-08-21 09:14 | PC.NURSE ---
Patient placed on 3L of o2, saturation improved from 87%-93%. Unable to doppler pedal/posterior tibial pulse. Right extremity shows evidence of better color, sensation, and warmth. Doctor notified and assessed in person.
[2021-08-21 09:50] LABS: Lactate (Lactic Acid level) 2.5 mmol/L (0.5-2.2)
[2021-08-21] MEDS: oxyCODONE-APAP 5-325 mg Tablet 1 TAB PO ×2 (12:56→21:05)
--- NOTE | 2021-08-21 14:09 | P.PN_ITS ---
Subjective Subjective: This morning on examination ICU patient doing a lot better. She is awake and alert. Denies any nausea, vomiting, headache. Wound VAC dressing has been removed by Dr. Burgess and switch to wet-to-dry dressings. Mild soakage present. Patient states she has mild sensation in her toes. Denies any [id number]. Able to wiggle her toes slightly. Vitals/I&O/Wt Last Vital Signs Temp 98.2 F 08/21/21 12:00 Pulse 79 08/21/21 12:00 Resp 17 08/21/21 12:56 BP 138/66 08/21/21 12:00 Pulse Ox 92 08/21/21 12:56 08/20/21 08/21/21 08/21/21 22:59 06:59 14:59 Intake Total 2200 / 2250 2271.667 / 4521.667 250 / 250 Output Total 850 / 850 1050 / 1900 Balance 1350 / 1400 1221.667 / 2621.667 250 / 250 Weight last 48 hrs Weight 77.111 kg Physical Exam Narrative: General: No acute distress, AO x3 contracture present in right upper extremity HEENT: PERRLA, pupils bilaterally equal and reactive Chest: Normal vesicular breath sounds, no added sounds, equal good air entry bilaterally CVS: S1-S2 regular, no murmurs, no tachycardia, no gallops, no rubs Abdomen: Soft, nontender, no organomegaly, bowel sounds present Neuro: No focal deficits, no facial deformity, AO x3, Extremity: Postsurgical dressings wet-to-dry present in right lower extremity, slight soakage, foot warm to touch, pulses not palpable palpable or dopplerable. Patient slightly able to move her toes Urinary Catheter Management: Forrest: Cath Placed During This Visit: yes Reason for Continuing Indwelling Catheter: Accurate Measurement of Urinary Output in Critically Ill Patients Urinary Catheter Date of Insertion: 08/20/21 Urinary Catheter Time of Insertion: 22:57 Data : 08/21/21 03:15 08/21/21 03:15 Micro: Microbiology 08/20/21 22:42 MRSA Culture - Final Nose A&P Assessment and plan (1) Peripheral vascular disease: Status: Chronic (2) Peripheral vascular angioplasty status: Status: Acute (3) Compartment syndrome of lower extremity: Status: Acute (4) Accelerated hypertension: Status: Acute (5) Hypothyroidism: Status: Chronic Qualifiers: Hypothyroidism type: acquired Qualified Code(s): E03.9 - Hypothyroidism, unspecified (6) Noncompliance with medications: Status: Acute (7) Hyperlipidemia: Status: Chronic Qualifiers: Hyperlipidemia type: moderate mixed hyperlipidemia not requiring statin therapy Qualified Code(s): E78.2 - Mixed hyperlipidemia Plan 70-year-old female with past medical history of peripheral vascular disease who underwent peripheral angioplasty today complicated by slight extravasation is leading to compartment syndrome post fasciotomies seen in ICU. Plan: Compartment syndrome post fasciotomy: Wound dressings as per Dr. Burgess. Anticoagulation, ambulation as per Dr. Burgess. Continue with to Zosyn. For now we will continue antibiotics at least for 3 days. MRSA swab negative Normal saline 100 cc/h. Frequent neurovascular checks. Dilaudid 0.2 mg every 4 hours as needed for pain. Keep mean artery pressure over 65. If needed can use Levophed. For now blood pressure is well controlled. Continued IV fluids. Watch for fluid overload. Last echocardiogram from August 2020 shows an EF of 60%, dyskinetic inferior basal segment, mild to moderate TR, mildly increased LA size, mild to moderate MR. Hypertension: Goal blood pressure less than 140/90 mmHg with mean over 65. Takes amlodipine 10 mg daily at home. Blood pressure is better. For now continue to hold off on amlodipine. Continue other chronic medications including atorvastatin 40 mg daily, BuSpar 5 mg 3 times daily as needed, Cymbalta, iron, gabapentin, levothyroxine. Full code. Cardiac diet. Anticoagulation as per surgical team. Thank you for involving us in the care of Ms. Martin. Please call with any questions. Attestations Medical Necessity Statement*: As per primary team. Time Spent in Patient Care: 16 - 35 minutes Coding Level of Care Code Acute Hand Printed Circuit Board Assembler for Blayne Fwd Diagnoses Peripheral vascular disease I73.9 Peripheral vascular angioplasty status Z98.62 Compartment syndrome of lower extremity T79.A29A Accelerated hypertension I10 Hypothyroidism E03.9 Hypothyroidism type: acquired Noncompliance with medications Z91.14 Hyperlipidemia E78.2 Hyperlipidemia type: moderate mixed hyperlipidemia not requiring statin therapy
[2021-08-21] MEDS: ondansetron 2 mg/ML SDV 2 mL 4 MG IVP (18:34)
[2021-08-21] MEDS: atorvastatin 40 mg Tablet PO (20:27)
[2021-08-22] VITALS (58 sets, daily range): BP systolic 91–145; BP diastolic 46–88; PULSE 60–108; RESP 12–24; TEMP 36.4–37.3; O2SAT 87–97
[2021-08-22] MEDS: piperacillin-tazobactam 3.375 GM in sodium chloride 0.9% (plus) 100 ML IV ×2 (01:28→17:37)
[2021-08-22 02:33] LABS: Basophils % 0.3 %; Hematocrit 24.6 % (37.0-47.0); Lymphocytes # 3.2 10^3/uL (0.8-4.8); Lymphocytes % 21.7 %; Mean Corpuscular HGB Conc 32.5 g/dL (30.0-36.0); Mean Corpuscular Hemoglobin 30.4 pg (28.0-34.0); Mean Corpuscular Volume 93.5 fl (81-99); Monocytes % 7.1 %; Neutrophils # 10.35 10^3/uL (1.8-7.7); Neutrophils % 70.3 %; Nucleated Red Blood Cells % 0 %; Platelet Count 156 10^3/cmm (130-400); Red Blood Count 2.63 10^6/uL (4.1-5.3); Red Cell Distribution Width 16.7 % (12.1-15.1); White Blood Count 14.7 10^3/uL (4.0-10.0)
[2021-08-22 02:57] LABS: Alanine Aminotransferase 15 U/L (0-33); Albumin Level 3.4 g/dL (3.5-5.2); Alkaline Phosphatase 46 IU/L (35-105); Anion Gap 13.2 (5-19); Aspartate Amino Transferase 52 U/L (0-32); Blood Urea Nitrogen 10 mg/dL (8-23); Calcium 7.5 mg/dL (8.5-10.5); Carbon Dioxide 20 mmol/L (22-29); Chloride 113 mmol/L (98-107); Creatinine Clr Calc Pharmacy 63.4198; Globulin 1.7 g/dL (1.3-4.6); Glucose 97 mg/dL (65-115); Osmolality Calculated 293 mOsm/kg (285-295); Potassium 4.2 mmol/L (3.5-5.1); Sodium 142 mmol/L (136-145); Total Bilirubin 0.3 mg/dL (0.15-1.2); Total Protein 5.1 g/dL (6.6-8.7)
[2021-08-22] MEDS: nitroglycerin 1 gm/inch oint Pkt 1 INCH TOPICAL ×4 (04:57→22:54)
[2021-08-22] MEDS: BuSPIRONE 10 mg Tablet 5 MG PO (07:20)
[2021-08-22] MEDS: famotidine 20 mg/2 mL INJ IVP ×2 (08:42→17:40)
[2021-08-22] MEDS: ferrous gluconate 324 mg Tablet PO ×2 (08:43→17:40)
[2021-08-22] MEDS: duloxetine 30 mg Capsule PO (08:43)
[2021-08-22] MEDS: levothyroxine 50 mcg Tablet PO (08:43)
[2021-08-22] MEDS: oxyCODONE-APAP 5-325 mg Tablet 1 TAB PO ×2 (09:23→21:10)
--- NOTE | 2021-08-22 09:29 | PM.PN ---
Subjective Subjective: Patient is doing better. No leg pain today. Hgb has decreased. Getting blood transfusion. Vitals/I&O/Wt Last Vital Signs Temp 98 F 08/22/21 07:34 Pulse 90 08/22/21 07:34 Resp 18 08/22/21 09:23 BP 129/69 08/22/21 07:34 Pulse Ox 93 08/22/21 09:23 08/21/21 08/22/21 08/22/21 22:59 06:59 14:59 Intake Total 1850 / 2200 788.750 / 2988.750 400 / 400 Output Total 1600 / 2500 Balance 1850 / 1300 -811.250 / 488.750 400 / 400 Physical Exam Narrative: General: No acute distress, AO x3 contracture present in right upper extremity HEENT: PERRLA, pupils bilaterally equal and reactive Chest: Normal vesicular breath sounds, no added sounds, equal good air entry bilaterally CVS: S1-S2 regular, no murmurs, no tachycardia, no gallops, no rubs Abdomen: Soft, nontender, no organomegaly, bowel sounds present Neuro: No focal deficits, no facial deformity, AO x3, Extremity: Dressing on the right lower extremity. Patient's right foot has normal temperature and color has improved Able to move the toes and has senstation. Pulses not palpable Urinary Catheter Management: Forrest: Cath Placed During This Visit: yes Reason for Continuing Indwelling Catheter: Accurate Measurement of Urinary Output in Critically Ill Patients Urinary Catheter Date of Insertion: 08/20/21 Urinary Catheter Time of Insertion: 22:57 Data : 08/22/21 02:15 08/22/21 02:15 Micro: Microbiology 08/20/21 22:42 MRSA Culture - Final Nose A&P Assessment and plan (1) Claudication: Status: Acute (2) Compartment syndrome of lower extremity: Status: Acute (3) Peripheral vascular disease: Status: Chronic (4) Hyperlipidemia: Status: Chronic Qualifiers: Hyperlipidemia type: moderate mixed hyperlipidemia not requiring statin therapy Qualified Code(s): E78.2 - Mixed hyperlipidemia Plan Patient had developed compartment syndrome of the right lower extremity, after successful revascularization of SFA with balloon angioplasty and orbital arthrectomy yesterday.Underwent emergent fasciotomy with Dr Burgess. Leg pain has resolved today. Sensation and movement intact with significant improvement in foot color. Pulses are not dopplerable(only had a dopplerable PT previously). Hemoglobin has decreased. Will recieve blood transfusion Continue current medications Blood pressure control Appreciate Dr Burgess's input and management of the compartment syndrome. Appreciate hospitalist service with help in management of medical issues Continue ICU stay Attestations Medical Necessity Statement*: Care expected to cross 2 midnights. Coding Level of Care Code Acute Inspector Experimental Assembly for [facility] Fwd Diagnoses Claudication I73.9 Compartment syndrome of lower extremity T79.A29A Peripheral vascular disease I73.9 Hyperlipidemia E78.2 Hyperlipidemia type: moderate mixed hyperlipidemia not requiring statin therapy
--- NOTE | 2021-08-22 10:57 | PC.NURSE ---
Patient was reported as confused and agitated after midnight. Patient reportedly pulled IV twice. second shift supervisor was unable to get IV access. New IV inserted approximately 0830 and IV fluids started. One dose of Zosyn was not administered due to unavailable IV access. Patient was well oriented after shift change.
[2021-08-22] MEDS: docusate sodium 100 mg Capsule PO ×2 (11:17→19:57)
--- NOTE | 2021-08-22 12:00 | PM.PN ---
Subjective Subjective: Postop day #2 status post right lower extremity fasciotomy. Having lunch right now with her son. Minimal right leg discomfort. She is able to wiggle her toes much more actively today. Foot color remains good. Hemoglobin drifted to 8.0. Transfusion is pending. Nurses report dressing is not been changed since prior to shift change at 6:30 AM and currently upon inspection remains dry. Vitals/I&O/Wt Last Vital Signs Temp 97.9 F 08/22/21 11:18 Pulse 76 08/22/21 11:18 Resp 16 08/22/21 11:18 BP 110/75 08/22/21 11:18 Pulse Ox 93 08/22/21 11:18 08/21/21 08/22/21 08/22/21 22:59 06:59 14:59 Intake Total 1850 / 2200 788.750 / 2988.750 400 / 400 Output Total 1600 / 2500 Balance 1850 / 1300 -811.250 / 488.750 400 / 400 Physical Exam Extremity: NARRATIVE EXTREMITY EXAM: Good motion of the right foot and right toes which has improved over the past 24 hours. Foot color is also improved. Current dressing which has been in place for at least 7 to 8 hours remains dry to the outer surface., This would suggest decreasing drainage. Urinary Catheter Management: Forrest: Cath Placed During This Visit: yes Reason for Continuing Indwelling Catheter: Accurate Measurement of Urinary Output in Critically Ill Patients Urinary Catheter Date of Insertion: 08/20/21 Urinary Catheter Time of Insertion: 22:57 Data : 08/22/21 02:15 08/22/21 02:15 Micro: Microbiology 08/20/21 22:42 MRSA Culture - Final Nose A&P Assessment and plan (1) Compartment syndrome of lower extremity: Status: Acute Plan Postop day #2 status post right lower extremity fasciotomy Plan: Continue dressing changes wet-to-dry, at least daily and as needed for drainage At discharge with need to arrange for home health services and also schedule follow-up with wound care services. I did confer with Ms. Martin and her son today. All questions answered. Attestations Medical Necessity Statement*: Postop day #2 status post right lower extremity fasciotomy secondary to acute compartment syndrome, following successful revascularization Coding Level of Care Code Acute Screen Repairer Crusher for Blayne Mccain Diagnoses Compartment syndrome of lower extremity T79.A29A
--- NOTE | 2021-08-22 12:35 | P.PN_ITS ---
Subjective Subjective: No complaints overnight. Had had dressing changed 3 times yesterday because of soakage. No soakage today. Getting out of bed to bedside commode. Denies any nausea vomiting, headache. States have some sensation in the feet. Able to move her toes. Family at bedside. Vitals/I&O/Wt Last Vital Signs Temp 98.5 F 08/22/21 12:15 Pulse 78 08/22/21 12:15 Resp 16 08/22/21 12:15 BP 116/71 08/22/21 12:15 Pulse Ox 95 08/22/21 12:15 08/21/21 08/22/21 08/22/21 22:59 06:59 14:59 Intake Total 1850 / 2200 788.750 / 2988.750 400 / 400 Output Total 1600 / 2500 Balance 1850 / 1300 -811.250 / 488.750 400 / 400 Physical Exam Narrative: General: No acute distress, AO x3 contracture present in right upper extremity HEENT: PERRLA, pupils bilaterally equal and reactive Chest: Normal vesicular breath sounds, no added sounds, equal good air entry bilaterally CVS: S1-S2 regular, no murmurs, no tachycardia, no gallops, no rubs Abdomen: Soft, nontender, no organomegaly, bowel sounds present Neuro: No focal deficits, no facial deformity, AO x3, Extremity: Postsurgical dressings wet-to-dry present in right lower extremity, slight soakage, foot warm to touch, pulses not palpable palpable or dopplerable. Patient slightly able to move her toes Urinary Catheter Management: Forrest: Cath Placed During This Visit: yes Reason for Continuing Indwelling Catheter: Accurate Measurement of Urinary Output in Critically Ill Patients Urinary Catheter Date of Insertion: 08/20/21 Urinary Catheter Time of Insertion: 22:57 Data : 08/22/21 02:15 08/22/21 02:15 Micro: Microbiology 08/20/21 22:42 MRSA Culture - Final Nose A&P Assessment and plan (1) Peripheral vascular disease: Status: Chronic (2) Peripheral vascular angioplasty status: Status: Acute (3) Compartment syndrome of lower extremity: Status: Acute (4) Accelerated hypertension: Status: Acute (5) Hypothyroidism: Status: Chronic Qualifiers: Hypothyroidism type: acquired Qualified Code(s): E03.9 - Hypothyroid ism, unspecified (6) Noncompliance with medications: Status: Acute (7) Hyperlipidemia: Status: Chronic Qualifiers: Hyperlipidemia type: moderate mixed hyperlipidemia not requiring statin therapy Qualified Code(s): E78.2 - Mixed hyperlipidemia Plan 70-year-old female with past medical history of peripheral vascular disease who underwent peripheral angioplasty today complicated by slight extravasation is leading to compartment syndrome post fasciotomies seen in ICU. Plan: Compartment syndrome post fasciotomy: Wound dressings as per Dr. Burgess. Anticoagulation, ambulation as per Dr. Burgess. Continue with to Zosyn. For now we will continue antibiotics at least for 3 days. MRSA swab negative Normal saline 100 cc/h. Frequent neurovascular checks. Dilaudid 0.2 mg every 4 hours as needed for pain. Keep mean artery pressure over 65. If needed can use Levophed. For now blood pressure is well controlled. Continued IV fluids. Watch for fluid overload. Last echocardiogram from August 2020 shows an EF of 60%, dyskinetic inferior basal segment, mild to moderate TR, mildly increased LA size, mild to moderate MR. Hypertension: Goal blood pressure less than 140/90 mmHg with mean over 65. Takes amlodipine 10 mg daily at home. Blood pressure is better. For now continue to hold off on amlodipine. Continue other chronic medications including atorvastatin 40 mg daily, BuSpar 5 mg 3 times daily as needed, Cymbalta, iron, gabapentin, levothyroxine. Full code. Cardiac diet. Anticoagulation as per surgical team. Plan for today: Transfuse 1 unit of PRBC. Keep hemoglobin over 8. Continue Zosyn. Can discontinue fluids. Out of bed to chair. Physical therapy evaluation. Continue with dressing as per cardiothoracic surgery. Thank you for involving us in the care of Ms. Martin. Please call with any questions. Attestations Medical Necessity Statement*: As per primary team. Follow-up COTTON CLASSER care follow-up compartment syndrome post revascularization Time Spent in Patient Care: Greater than 35 minutes Coding Level of Care Code Acute Business Test Analyst for [facility] Diagnoses Peripheral vascular disease I73.9 Peripheral vascular angioplasty status Z98.62 Compartment syndrome of lower extremity T79.A29A Accelerated hypertension I10 Hypothyroidism E03.9 Hypothyroidism type: acquired Noncompliance with medications Z91.14 Hyperlipidemia E78.2 Hyperlipidemia type: moderate mixed hyperlipidemia not requiring statin therapy
--- NOTE | 2021-08-22 15:46 | NUR.SHIFT ---
Shift Note Frequent safety and comfort rounds today less confusion noted today. Orders and/or nursing care completed as indicated. Patient monitored for response to intervention changing dressings on right leg. assisted up to bedside commode with no weightbearing on right leg for today. significant other in room aware started teaching on wound care at home. Will continue to monitor.
[2021-08-22] MEDS: atorvastatin 40 mg Tablet PO (20:23)
[2021-08-22] MEDS: bisacodyl 5 mg Tablet PO (21:12)
--- NOTE | 2021-08-22 22:37 | PC.NURSE ---
Spoke with Family Patient woke up requesting to speak with significant other, Ceferino. Took mobile phone in room and let patient talk to Ceferino, then this nurse updated on patient condition. Answered all questions.
[2021-08-23] VITALS (46 sets, daily range): BP systolic 95–173; BP diastolic 42–77; PULSE 62–107; RESP 10–26; TEMP 36.3–36.8; O2SAT 80–97
[2021-08-23] MEDS: piperacillin-tazobactam 3.375 GM in sodium chloride 0.9% (plus) 100 ML IV ×2 (01:52→10:03)
[2021-08-23] MEDS: nitroglycerin 1 gm/inch oint Pkt 1 INCH TOPICAL ×4 (04:58→23:26)
[2021-08-23] MEDS: famotidine 20 mg/2 mL INJ IVP ×2 (05:01→17:21)
[2021-08-23 05:03] LABS: Basophils # 0.1 10^3/uL (0.0-0.1); Basophils % 0.4 %; Eosinophils # 0.2 10^3/uL (0.0-0.8); Eosinophils % 1.4 %; Hematocrit 27.5 % (37.0-47.0); Hemoglobin 8.9 g/dL (11.5-15.3); Lymphocytes # 4.3 10^3/uL (0.8-4.8); Lymphocytes % 36.6 %; Mean Corpuscular HGB Conc 32.4 g/dL (30.0-36.0); Mean Corpuscular Hemoglobin 30.3 pg (28.0-34.0); Mean Corpuscular Volume 93.5 fl (81-99); Mean Platelet Volume 10.4 fL (7.4-10.4); Monocytes # 0.9 10^3/uL (0.2-0.9); Monocytes % 7.4 %; Neutrophils # 6.33 10^3/uL (1.8-7.7); Neutrophils % 53.4 %; Nucleated Red Blood Cells % 0.3 %; Platelet Count 170 10^3/cmm (130-400); Red Blood Count 2.94 10^6/uL (4.1-5.3); Red Cell Distribution Width 15.9 % (12.1-15.1); White Blood Count 11.9 10^3/uL (4.0-10.0)
--- NOTE | 2021-08-23 05:07 | PC.NURSE ---
Shift Summary Patient had an uneventful shift. She remains alert to self and place. Surgical incision noted to right lower medial and lateral leg, dressing changed overnight-please see wound assessment for details. Patient ambulates to bedside commode with nurse assist voided 480 mls of urine overnight.
[2021-08-23 05:25] LABS: Alanine Aminotransferase 20 U/L (0-33); Albumin Level 3.2 g/dL (3.5-5.2); Alkaline Phosphatase 52 IU/L (35-105); Anion Gap 12.5 (5-19); Aspartate Amino Transferase 71 U/L (0-32); Blood Urea Nitrogen 8 mg/dL (8-23); Calcium 7.6 mg/dL (8.5-10.5); Carbon Dioxide 21 mmol/L (22-29); Chloride 110 mmol/L (98-107); Creatinine Clr Calc Pharmacy 63.4198; Globulin 2.6 g/dL (1.3-4.6); Glucose 96 mg/dL (65-115); Osmolality Calculated 288 mOsm/kg (285-295); Potassium 3.5 mmol/L (3.5-5.1); Sodium 140 mmol/L (136-145); Total Bilirubin 0.5 mg/dL (0.15-1.2); Total Protein 5.8 g/dL (6.6-8.7)
--- NOTE | 2021-08-23 06:57 | P.PN_ITS ---
Subjective Subjective: Postop day 3 status post right lower extremity fasciotomy. Up on side of bed during rounds. Continue decreasing right lower extremity discomfort. Good range of motion of her right foot and toes. Nurses report dressing had to be changed twice yesterday due to saturation. This appears to be decreasing. Vitals/I&O/Wt Last Vital Signs Temp 98.2 F 08/23/21 04:00 Pulse 75 08/23/21 06:00 Resp 15 08/23/21 06:00 BP 111/48 08/23/21 06:00 Pulse Ox 93 08/23/21 06:00 08/22/21 08/22/21 08/23/21 14:59 22:59 06:59 Intake Total 1299.583 / 1299.583 950 / 2249.583 300 / 2549.583 Output Total 500 / 500 225 / 725 480 / 1205 Balance 799.583 / 799.583 725 / 1524.583 -180 / 1344.583 Physical Exam Extremity: NARRATIVE EXTREMITY EXAM: Currently, dressing is in place. Good range of motion of right foot and toes Urinary Catheter Management: Forrest: Cath Placed During This Visit: yes, but has since been removed by the nurse Reason for Continuing Indwelling Catheter: Decision to DC Catheter Urinary Catheter Date of Insertion: 08/20/21 Urinary Catheter Time of Insertion: 22:57 Date Urinary Catheter Removed: 08/22/21 Time Urinary Catheter Discontinued: 18:00 Data : 08/23/21 03:25 08/23/21 03:25 A&P Assessment and plan (1) Compartment syndrome of lower extremity: Postop day #3 status post right lower extremity fasciotomy Plan: Continue medical management per our hospitalist and cardiology colleagues. Will reassess just prior to discharge to determine whether we can we placed the wound VAC or need to continue wet-to-dry dressing changes. Ultimately, we would plan for a wound VAC to be replaced once drainage has subsided. She will continue outpatient follow-up with the wound care services department. Status: Acute Attestations Medical Necessity Statement*: Postop day #3 status post fasciotomy of right lower extremity secondary to acute compartment syndrome Coding Level of Care Code Acute Grinder Set Up Operator Universal for Blayne Mccain Diagnoses Compartment syndrome of lower extremity T79.A29A
[2021-08-23] MEDS: ferrous gluconate 324 mg Tablet PO ×2 (07:30→17:15)
[2021-08-23] MEDS: levothyroxine 50 mcg Tablet PO (07:30)
[2021-08-23] MEDS: duloxetine 30 mg Capsule PO (07:31)
[2021-08-23] MEDS: oxyCODONE-APAP 5-325 mg Tablet 1 TAB PO ×3 (07:31→21:36)
--- NOTE | 2021-08-23 09:23 | PC.CHAP ---
Pastoral Care Encounter/Spiritual Assessment Type of Contact [] Declined environmental adviser visit [] Patient/Family/Request visit [] Outpatient visit [] Follow-up visit [] Physician referral [] Code/Alert [x] Routine visit [] Staff referral [] Actively dying [] Patient sleeping [] Family support [] [] Out of room [] Palliative care [] [] Receiving care in room [] Pre-surgical visit [] Trauma [] Long length of stay [x] ICU visit [] Other: Relational/Emotional Strength [] Patient feels connected with others/family/visitors/staff [] Distress [] Loneliness/isolation [] Abandonment Spirituality of Patient [] Person of Vilma [] Attends Mandaen of their Vilma [] Believes in Prayer [] Reads Bible or Zoroastrianism materials [] There are Spiritual issues to be addressed Hadoop Admin Interventions [x] Prayer [x] Active listening [x] Non-anxious presence [x] Spiritual/emotional support [] Crisis/trauma care [] Spiritual counseling [] Bereavement support [] Provided bereavement packet [] Provided Bible/devotional materials [] Provided toy/stuffed animal, coloring book to patient or family member [] Provided Communion [] Anointing/Venetia [] Salvation [x] Completed spiritual assessment [] Other: Impact on Illness or Injury [] Angry [] Fearful [] Anxious [] Often cries [] Exhaustion [] Unable to work [] Unable to attend synagogue [] Unable to walk/stand [] Unable to read [] Unable to drive [] Unable to eat/drink [] Unable to sleep [] Unable to be with family [] Patient intubated [] Other: Summary patient setting up having breakfast.... waiting on doctors visit Time spent with patient 10 min
--- NOTE | 2021-08-23 10:59 | PM.PN ---
Subjective Subjective: Patient is doing well. No complaints of leg pain today. Good range of movement and intact sensation Vitals/I&O/Wt Last Vital Signs Temp 98.2 F 08/23/21 07:38 Pulse 75 08/23/21 08:19 Resp 15 08/23/21 07:38 BP 111/48 08/23/21 07:38 Pulse Ox 93 08/23/21 08:19 08/22/21 08/23/21 08/23/21 22:59 06:59 14:59 Intake Total 950 / 2249.583 300 / 2549.583 Output Total 225 / 725 480 / 1205 Balance 725 / 1524.583 -180 / 1344.583 Physical Exam Narrative: General: No acute distress, AO x3 contracture present in right upper extremity HEENT: PERRLA, pupils bilaterally equal and reactive Chest: Normal vesicular breath sounds, no added sounds, equal good air entry bilaterally CVS: S1-S2 regular, no murmurs, no tachycardia, no gallops, no rubs Abdomen: Soft, nontender, no organomegaly, bowel sounds present Neuro: No focal deficits, no facial deformity, AO x3, Extremity: Dressing on the right lower extremity. Patient's right foot has normal temperature and color has improved Able to move the toes and has senstation. Pulses not palpable, transiently dopplerable PT Urinary Catheter Management: Forrest: Cath Placed During This Visit: yes, but has since been removed by the nurse Reason for Continuing Indwelling Catheter: Decision to DC Catheter Urinary Catheter Date of Insertion: 08/20/21 Urinary Catheter Time of Insertion: 22:57 Date Urinary Catheter Removed: 08/22/21 Time Urinary Catheter Discontinued: 18:00 Data : 08/23/21 03:25 08/23/21 03:25 A&P Assessment and plan (1) Claudication: Status: Acute (2) Compartment syndrome of lower extremity: Status: Acute (3) Peripheral vascular disease: Status: Chronic (4) Hyperlipidemia: Status: Chronic Qualifiers: Hyperlipidemia type: moderate mixed hyperlipidemia not requiring statin therapy Qualified Code(s): E78.2 - Mixed hyperlipidemia Plan Patient had developed compartment syndrome of the right lower extremity, after successful revascularization of SFA with balloon angioplasty and orbital arthrectomy .Underwent emergent fasciotomy with Dr Burgess. Leg pain has resolved today. Sensation and movement intact with significant improvement in foot color.Transiently dopplerable PT pulse Patient received blood transfusion Continue current medications Blood pressure control Appreciate Dr Burgess's input and management of the compartment syndrome. Appreciate hospitalist service with help in management of medical issues Continue ICU stay Attestations Medical Necessity Statement*: Care expected to cross 2 midnights. Coding Level of Care Code Acute Licensed Journeyman Electrician for [facility] Diagnoses Claudication I73.9 Compartment syndrome of lower extremity T79.A29A Peripheral vascular disease I73.9 Hyperlipidemia E78.2 Hyperlipidemia type: moderate mixed hyperlipidemia not requiring statin therapy
--- NOTE | 2021-08-23 11:21 | P.PN_ITS ---
Subjective Subjective: Patient is complaining of rt lower extremity pain.WBC Count is appropriately trending down. Medications: Medication Review Details: Generic Name Dose Route Start Last Admin Trade Name Freq PRN Reason Stop Dose Admin Atorvastatin Calci um 40 mg 08/20/21 21:00 08/22/21 20:23 Atorvastatin 40 Mg Tablet PO 40 mg BEDTIME DEMOND Administration Bisacodyl 5 mg 08/20/21 13:07 08/22/21 21:12 Bisacodyl 5 Mg T ablet PO 5 mg Q6H PRN Administration Constipation (Use 2nd) Buspirone HCl 5 mg 08/20/21 16:59 08/22/21 07:20 Buspirone 10 Mg Tablet PO 5 mg TID PRN Administration Anxiety Docusate Sodium 100 mg 08/20/21 13:07 08/22/21 19:57 Docusate Sodium 100 Mg Capsule PO 100 mg BID PRN Administration Constipation (Use 1st) Duloxetine HCl 30 mg 08/21/21 09:00 08/23/21 07:31 Duloxetine 30 Mg Capsule PO 30 mg DAILY DEMOND Administration Famotidine 20 mg 08/20/21 18:00 08/23/21 05:01 Famotidine 20 Mg /2 Ml Inj IVP 20 mg Q12H DEMOND Administration Ferrous Gluconate 324 mg 08/20/21 18:00 08/23/21 07:30 Ferrous Gluconat e 324 Mg Tablet PO 324 mg BIDWM DEMOND Administration Hydromorphone HCl 0.2 mg 08/20/21 20:22 08/21/21 05:52 Hydromorphone 1 Mg/Ml Inj 1 Ml IVP 0.2 mg Q4H PRN Administration PAIN Piperacillin Sod/T azobactam 100 mls @ 25 mls/ hr 08/20/21 17:30 08/23/21 10:03 Sod 3.375 gm/ So dium Chloride IV 08/23/21 17:29 25 mls/hr Q8H DEMOND Administration Protocol Ketorolac Trometha mine 30 mg 08/20/21 13:07 08/21/21 01:21 Ketorolac 30 Mg/ Ml Inj IVP 08/25/21 13:06 30 mg Q6H PRN Administration MODERATE PAIN Levothyroxine Sodi um 50 mcg 08/21/21 09:00 08/23/21 07:30 Levothyroxine 50 Mcg Tablet PO 50 mcg DAILY DEMOND Administration Morphine Sulfate 2 mg 08/20/21 13:07 08/21/21 23:08 Morphine 4 Mg/Ml Sdv 1 Ml IVP 2 mg Q1H PRN Administration SEVERE PAIN Nitroglycerin 1 inch 08/20/21 11:00 08/23/21 04:58 Nitroglycerin 1 Gm/Inch Oint Pkt TOPICAL 1 inch Q6H DEMOND Administration Ondansetron HCl 4 mg 08/20/21 13:07 08/21/21 18:34 Ondansetron 2 Mg /Ml Sdv 2 Ml IVP 4 mg Q6H PRN Administration NAUSEA AND VOMITI NG Oxycodone/Acetamin ophen 1 tab 08/20/21 13:07 08/23/21 07:31 Oxycodone-Apap 5 -325 Mg Tablet PO 1 tab Q4H PRN Administration MODERATE PAIN Vitals/I&O/Wt Last Vital Signs Temp 98.2 F 08/23/21 10:00 Pulse 75 08/23/21 10:00 Resp 15 08/23/21 10:00 BP 111/48 08/23/21 10:00 Pulse Ox 93 08/23/21 10:00 08/22/21 08/23/21 08/23/21 22:59 06:59 14:59 Intake Total 950 / 2249.583 300 / 2549.583 Output Total 225 / 725 480 / 1205 Balance 725 / 1524.583 -180 / 1344.583 Physical Exam 2 Const: COMMON NORMALS: patient oriented x3 HENMT: COMMON NORMALS: normocephalic and atraumatic HEAD & SCALP: normocephalic and atraumatic Eye: GENERAL EYE: appearance normal, both eyes and all related structures Chest: COMMONS NORMALS: normal inspection of the chest and normal palpation of entire chest wall CHEST: Yes Symmetrical chest wall rise Resp: COMMON NORMALS: normal respiratory effort, No retractions, No use of accessory muscles and clear to auscultation bilaterally EFFORT & INSPECTION: Yes symmetric chest movement AUSCULTATION: clear to auscultation bilaterally Cardio: COMMON NORMALS: regular rate, regular rhythm, S1 normal heart sound present, S2 normal heart sound present, No gallops present (Cardio), No murmurs present (Cardio), No rub (Cardio) and Peripheral pulses 2+ throughout RATE: regular rate RHYTHM: regular rhythm HEART SOUNDS: S1 normal heart sound present and S2 normal heart sound present PERIPHERAL PULSES: Peripheral pulses 2+ throughout GI: COMMON NORMALS: Normal to inspection, nondistended, normoactive bowel sounds present, Soft to palpation, non-tender, No hepatosplenomegaly present and no masses AUSCULTATION: Yes normoactive bowel sounds PALPATION: Yes Soft to palpation and Yes No hepatosplenomegaly present RECTAL EXAM: deferred Extremity: COMMON NORMALS: no clubbing, cyanosis or edema and no pedal edema NARRATIVE EXTREMITY EXAM: Rt lower extremity dressing in place. Neuro: COMMON NORMALS: patient oriented x3 Urinary Catheter Management: Forrest: Cath Placed During This Visit: yes, but has since been removed by the nurse Reason for Continuing Indwelling Catheter: Decision to DC Catheter Urinary Catheter Date of Insertion: 08/20/21 Urinary Catheter Time of Insertion: 22:57 Date Urinary Catheter Removed: 08/22/21 Time Urinary Catheter Discontinued: 18:00 Data : 08/23/21 03:25 08/23/21 03:25 A&P Assessment and plan (1) Peripheral vascular disease: Status: Chronic (2) Peripheral vascular angioplasty status: Status: Acute (3) Compartment syndrome of lower extremity: Status: Acute (4) Accelerated hypertension: Status: Acute (5) Hypothyroidism: Status: Chronic Qualifiers: Hypothyroidism type: acquired Qualified Code(s): E03.9 - Hypothyr oidism, unspecified (6) Noncompliance with medications: Status: Acute (7) Hyperlipidemia: Status: Chronic Qualifiers: Hyperlipidemia type: moderate mixed hyperlipidemia not requiring statin therapy Qualified Code(s): E78.2 - Mixed hyperlipidemia Plan 70-year-old female with past medical history of peripheral vascular disease, hypertension hypothyroidism, dyslipidemia, was admitted for management of right lower extremity peripheral arterial disease status post peripheral angioplasty complicated by development of compartment syndrome s/p fasciotomies. Assessment #Right lower extremity compartment syndrome s/p fasciotomy: MRSA swab negative Frequent neurovascular checks Dr. Burgess is following the patient Continue with routine dressing Continue Zosyn. Dilaudid 0.2 mg every 4 hours as needed for pain. #Right lower extremity peripheral artery disease: S/p peripheral angioplasty #Hypertension: Blood pressure is well controlled. On amlodipine at home Continue to monitor blood pressure #History of hypothyroidism : Continue levothyroxine #Anemia: Likely secondary to postop acute blood loss anemia s/p 1 unit PRBC transfusion Monitor H&H #CODE STATUS: Full code Anticoagulation as per surgical team. Attestations Medical Necessity Statement*: Per primary team Time Spent in Patient Care: Greater than 35 minutes (>than 50% of time spent in counselling and/or direct pt care on unit) . Coding Level of Care Code Acute Licensed Final Expense Agents for Chg Fwd Exam Comprehensive Diagnoses Peripheral vascular disease I73.9 Peripheral vascular angioplasty status Z98.62 Compartment syndrome of lower extremity T79.A29A Accelerated hypertension I10 Hypothyroidism E03.9 Hypothyroidism type: acquired Noncompliance with medications Z91.14 Hyperlipidemia E78.2 Hyperlipidemia type: moderate mixed hyperlipidemia not requiring statin therapy
--- NOTE | 2021-08-23 14:41 | PC.SOCIAL ---
IMM update IMM updated with patient. Verbalized an understanding. Copy Pg 2 provided. Initialled, dated, timed, and placed in chart.
--- NOTE | 2021-08-23 16:48 | PM.MISC ---
Miscellaneous Note Purpose of Documentation: Edema continues to decrease in the musculature which appears quite viable both medially and laterally. Less discomfort and increasing range of motion of her foot. I recommend continuing daily wet-to-dry dressing changes and as needed related to drainage, which continues to decrease. Increase physical therapy. We will assess wound tomorrow and make decision concerning next course of action which might either be wound VAC therapy which is most probable, or possibly consideration for delayed primary closure.
--- NOTE | 2021-08-23 18:10 | PC.NURSE ---
Rounding/Dressing changed Dressing changed. Wet to dry using 4x4 and normal saline then covered with ABD and wrapped in kerlix. Wound inspected by Dr Blackwell. Pt tolerated well.
[2021-08-23] MEDS: atorvastatin 40 mg Tablet PO (21:34)
[2021-08-24] VITALS (22 sets, daily range): BP systolic 99–173; BP diastolic 49–70; PULSE 57–81; RESP 12–23; TEMP 36.4–37.1; O2SAT 92–98
[2021-08-24] MEDS: nitroglycerin 1 gm/inch oint Pkt 1 INCH TOPICAL ×4 (04:54→22:46)
[2021-08-24] MEDS: famotidine 20 mg/2 mL INJ IVP ×2 (05:00→17:34)
--- NOTE | 2021-08-24 05:58 | PM.PN ---
Subjective Subjective: Sleeping on rounds this morning. Nurses report 1 dressing change overnight. Wound drainage has clearly continued to decrease. Vitals/I&O/Wt Last Vital Signs Temp 97.6 F 08/24/21 04:00 Pulse 57 L 08/24/21 05:00 Resp 15 08/24/21 05:00 BP 121/63 08/24/21 05:00 Pulse Ox 97 08/24/21 05:00 08/23/21 08/23/21 08/24/21 14:59 22:59 06:59 Intake Total 590 / 590 200 / 790 Output Total 850 / 850 440 / 1290 Balance -260 / -260 -240 / -500 Physical Exam Extremity: NARRATIVE EXTREMITY EXAM: Wound dressing currently in place. Right foot is warm. Urinary Catheter Management: Forrest: Cath Placed During This Visit: yes, but has since been removed by the nurse Reason for Continuing Indwelling Catheter: Decision to DC Catheter Urinary Catheter Date of Insertion: 08/20/21 Urinary Catheter Time of Insertion: 22:57 Date Urinary Catheter Removed: 08/22/21 Time Urinary Catheter Discontinued: 18:00 Data : 08/23/21 03:25 08/23/21 03:25 A&P Assessment and plan (1) Compartment syndrome of lower extremity: Status post fasciotomy right lower extremity Wound assessment yesterday revealed substantial resolution of the postoperative swelling and edema of the wounds. Plan: I will plan for wound VAC placement at bedside today. We will need to make arrangements for home wound VAC service and home health services. Status: Acute Attestations Medical Necessity Statement*: Status post right lower extremity fasciotomy secondary to acute compartment syndrome Coding Level of Care Code Acute Communications Executive for Blayne Mccain Diagnoses Compartment syndrome of lower extremity T79.A29A
--- NOTE | 2021-08-24 06:40 | PC.NURSE ---
Wound Update Dr. Burgess at bedside, informed this nurse wound vac would be reapplied to right lower lateral/medial wounds. Dr. Burgess requested nursing staff to contact case management for setup of home wound vac.
--- NOTE | 2021-08-24 06:45 | PC.NURSE ---
Shift Summary Patient had an uneventful shift-remains alert and oriented to self/place. Wounds noted to right lower medial/lateral leg, dressing changed overnight. Please see wound assessment for details. Patient go up to [facility] with assistance from staff and had one report of pain overnight, PRN pain medication administered.
--- NOTE | 2021-08-24 08:01 | P.PN_ITS ---
Subjective Subjective: Patient is doing well. No leg pain. Vitals/I&O/Wt Last Vital Signs Temp 97.6 F 08/24/21 07:18 Pulse 61 08/24/21 07:18 Resp 14 08/24/21 07:18 BP 125/63 08/24/21 07:18 Pulse Ox 95 08/24/21 07:18 08/23/21 08/24/21 08/24/21 22:59 06:59 14:59 Intake Total 590 / 590 200 / 790 Output Total 850 / 850 440 / 1290 Balance -260 / -260 -240 / -500 Physical Exam Narrative: General: No acute distress, AO x3 HEENT: PERRLA, pupils bilaterally equal and reactive Chest: Normal vesicular breath sounds, no added sounds, equal good air entry bilaterally CVS: S1-S2 regular, no murmurs, no tachycardia, no gallops, no rubs Abdomen: Soft, nontender, no organomegaly, bowel sounds present Neuro: No focal deficits, no facial deformity, AO x3, Extremity: Dressing on the right lower extremity. Patient's right foot has normal temperature and color has improved Able to move the toes and has senstation. Pulses not palpable, transiently dopplerable PT. Dressing applied Urinary Catheter Management: Forrest: Cath Placed During This Visit: yes, but has since been removed by the nurse Reason for Continuing Indwelling Catheter: Decision to DC Catheter Urinary Catheter Date of Insertion: 08/20/21 Urinary Catheter Time of Insertion: 22:57 Date Urinary Catheter Removed: 08/22/21 Time Urinary Catheter Discontinued: 18:00 Data : 08/23/21 03:25 08/23/21 03:25 A&P Assessment and plan (1) Claudication: Status: Acute (2) Compartment syndrome of lower extremity: Status: Acute (3) Peripheral vascular disease: Status: Chronic (4) Hyperlipidemia: Status: Chronic Qualifiers: Hyperlipidemia type: moderate mixed hyperlipidemia not requiring statin therapy Qualified Code(s): E78.2 - Mixed hyperlipidemia Plan Patient had developed compartment syndrome of the right lower extremity, after successful revascularization of SFA with balloon angioplasty and orbital arthrectomy .Underwent emergent fasciotomy with Dr Burgess. Leg pain has resolved today. Sensation and movement intact with significant improvement in foot color.Transiently dopplerable PT pulse Continue current medications Blood pressure control Appreciate Dr Burgess's input and management of the compartment syndrome. Appreciate hospitalist service with help in management of medical issues Continue ICU stay Attestations Medical Necessity Statement*: Care expected to cross 2 midnights. Coding Level of Care Code Acute Heavy Equipment Service Technician for Blayne Mccain Diagnoses Claudication I73.9 Compartment syndrome of lower extremity T79.A29A Peripheral vascular disease I73.9 Hyperlipidemia E78.2 Hyperlipidemia type: moderate mixed hyperlipidemia not requiring statin therapy
[2021-08-24] MEDS: oxyCODONE-APAP 5-325 mg Tablet 1 TAB PO ×2 (08:24→20:26)
[2021-08-24] MEDS: levothyroxine 50 mcg Tablet PO (09:17)
[2021-08-24] MEDS: duloxetine 30 mg Capsule PO (09:17)
[2021-08-24] MEDS: ferrous gluconate 324 mg Tablet PO ×2 (09:17→17:33)
--- NOTE | 2021-08-24 11:36 | PM.PN ---
Subjective Subjective: No acute events overnight, wound VAC in place. Medications: Medication Review Details: Generic Name Dose Route Start Last Admin Trade Name Freq PRN Reason Stop Dose Admin Atorvastatin Calci um 40 mg 08/20/21 21:00 08/22/21 20:23 Atorvastatin 40 Mg Tablet PO 40 mg BEDTIME DEMOND Administration Bisacodyl 5 mg 08/20/21 13:07 08/22/21 21:12 Bisacodyl 5 Mg T ablet PO 5 mg Q6H PRN Administration Constipation (Use 2nd) Buspirone HCl 5 mg 08/20/21 16:59 08/22/21 07:20 Buspirone 10 Mg Tablet PO 5 mg TID PRN Administration Anxiety Docusate Sodium 100 mg 08/20/21 13:07 08/22/21 19:57 Docusate Sodium 100 Mg Capsule PO 100 mg BID PRN Administration Constipation (Use 1st) Duloxetine HCl 30 mg 08/21/21 09:00 08/23/21 07:31 Duloxetine 30 Mg Capsule PO 30 mg DAILY DEMOND Administration Famotidine 20 mg 08/20/21 18:00 08/23/21 05:01 Famotidine 20 Mg /2 Ml Inj IVP 20 mg Q12H DEMOND Administration Ferrous Gluconate 324 mg 08/20/21 18:00 08/23/21 07:30 Ferrous Gluconat e 324 Mg Tablet PO 324 mg BIDWM DEMOND Administration Hydromorphone HCl 0.2 mg 08/20/21 20:22 08/21/21 05:52 Hydromorphone 1 Mg/Ml Inj 1 Ml IVP 0.2 mg Q4H PRN Administration PAIN Piperacillin Sod/T azobactam 100 mls @ 25 mls/ hr 08/20/21 17:30 08/23/21 10:03 Sod 3.375 gm/ So dium Chloride IV 08/23/21 17:29 25 mls/hr Q8H DEMOND Administration Protocol Ketorolac Trometha mine 30 mg 08/20/21 13:07 08/21/21 01:21 Ketorolac 30 Mg/ Ml Inj IVP 08/25/21 13:06 30 mg Q6H PRN Administration MODERATE PAIN Levothyroxine Sodi um 50 mcg 08/21/21 09:00 08/23/21 07:30 Levothyroxine 50 Mcg Tablet PO 50 mcg DAILY DEMOND Administration Morphine Sulfate 2 mg 08/20/21 13:07 08/21/21 23:08 Morphine 4 Mg/Ml Sdv 1 Ml IVP 2 mg Q1H PRN Administration SEVERE PAIN Nitroglycerin 1 inch 08/20/21 11:00 08/23/21 04:58 Nitroglycerin 1 Gm/Inch Oint Pkt TOPICAL 1 inch Q6H DEMOND Administration Ondansetron HCl 4 mg 08/20/21 13:07 08/21/21 18:34 Ondansetron 2 Mg /Ml Sdv 2 Ml IVP 4 mg Q6H PRN Administration NAUSEA AND VOMITI NG Oxycodone/Acetamin ophen 1 tab 08/20/21 13:07 08/23/21 07:31 Oxycodone-Apap 5 -325 Mg Tablet PO 1 tab Q4H PRN Administration MODERATE PAIN Vitals/I&O/Wt Last Vital Signs Temp 97.6 F 08/24/21 10:00 Pulse 61 08/24/21 10:00 Resp 14 08/24/21 10:00 BP 125/63 08/24/21 10:00 Pulse Ox 95 08/24/21 10:00 08/23/21 08/24/21 08/24/21 22:59 06:59 14:59 Intake Total 590 / 590 200 / 790 Output Total 850 / 850 440 / 1290 Balance -260 / -260 -240 / -500 Physical Exam Const: COMMON NORMALS: patient oriented x3 HENMT: COMMON NORMALS: normocephalic and atraumatic HEAD & SCALP: normocephalic and atraumatic Eye: GENERAL EYE: appearance normal, both eyes and all related structures Chest: COMMONS NORMALS: normal inspection of the chest and normal palpation of entire chest wall CHEST: Yes Symmetrical chest wall rise Resp: COMMON NORMALS: normal respiratory effort, No retractions, No use of accessory muscles and clear to auscultation bilaterally EFFORT & INSPECTION: Yes symmetric chest movement AUSCULTATION: clear to auscultation bilaterally Cardio: COMMON NORMALS: regular rate, regular rhythm, S1 normal heart sound present, S2 normal heart sound present, No gallops present (Cardio), No murmurs present (Cardio), No rub (Cardio) and Peripheral pulses 2+ throughout RATE: regular rate RHYTHM: regular rhythm HEART SOUNDS: S1 normal heart sound present and S2 normal heart sound present PERIPHERAL PULSES: Peripheral pulses 2+ throughout GI: COMMON NORMALS: Normal to inspection, nondistended, normoactive bowel sounds present, Soft to palpation, non-tender, No hepatosplenomegaly present and no masses AUSCULTATION: Yes normoactive bowel sounds PALPATION: Yes Soft to palpation and Yes No hepatosplenomegaly present RECTAL EXAM: deferred Extremity: COMMON NORMALS: no clubbing, cyanosis or edema and no pedal edema NARRATIVE EXTREMITY EXAM: Rt lower extremity dressing in place. Neuro: COMMON NORMALS: patient oriented x3 Urinary Catheter Management: Forrest: Cath Placed During This Visit: yes, but has since been removed by the nurse Reason for Continuing Indwelling Catheter: Decision to DC Catheter Urinary Catheter Date of Insertion: 08/20/21 Urinary Catheter Time of Insertion: 22:57 Date Urinary Catheter Removed: 08/22/21 Time Urinary Catheter Discontinued: 18:00 Data : 08/23/21 03:25 08/23/21 03:25 A&P Assessment and plan (1) Peripheral vascular disease: Status: Chronic (2) Peripheral vascular angioplasty status: Status: Acute (3) Compartment syndrome of lower extremity: Status: Acute (4) Accelerated hypertension: Status: Acute (5) Hypothyroidism: Status: Chronic Qualifiers: Hypothyroidism type: acquired Qualified Code(s): E03.9 - Hypothyroidism, unspecified (6) Noncompliance with medications: Status: Acute (7) Hyperlipidemia: Status: Chronic Qualifiers: Hyperlipidemia type: moderate mixed hyperlipidemia not requiring statin therapy Qualified Code(s): E78.2 - Mixed hyperlipidemia Plan 70-year-old female with past medical history of peripheral vascular disease, hypertension hypothyroidism, dyslipidemia, was admitted for management of right lower extremity peripheral arterial disease status post peripheral angioplasty complicated by development of compartment syndrome s/p fasciotomies. Assessment #Right lower extremity compartment syndrome s/p fasciotomy: MRSA swab negative Frequent neurovascular checks Dr. Burgess is following the patient Continue with routine dressing Continue Zosyn. Dilaudid 0.2 mg every 4 hours as needed for pain. #Right lower extremity peripheral artery disease: S/p peripheral angioplasty #Hypertension: Blood pressure is well controlled. On amlodipine at home Continue to monitor blood pressure #History of hypothyroidism : Continue levothyroxine #Anemia: Likely secondary to postop acute blood loss anemia s/p 1 unit PRBC transfusion Monitor H&H #CODE STATUS: Full code Anticoagulation as per surgical team. Attestations Medical Necessity Statement*: Per primary team Coding Level of Care Code Acute Supervisor Ovens for Chg Fwd Exam Comprehensive Diagnoses Peripheral vascular disease I73.9 Peripheral vascular angioplasty status Z98.62 Compartment syndrome of lower extremity T79.A29A Accelerated hypertension I10 Hypothyroidism E03.9 Hypothyroidism type: acquired Noncompliance with medications Z91.14 Hyperlipidemia E78.2 Hyperlipidemia type: moderate mixed hyperlipidemia not requiring statin therapy
--- NOTE | 2021-08-24 17:57 | PC.NURSE ---
Wound vac Wound vac placed to right leg by OR staff. Case Man contacted are starting the process for home wound vac and home health.
[2021-08-24] MEDS: piperacillin-tazobactam 3.375 GM in sodium chloride 0.9% (plus) 50 ML IV (19:35)
[2021-08-24] MEDS: atorvastatin 40 mg Tablet PO (20:26)
[2021-08-25] VITALS (15 sets, daily range): BP systolic 109–154; BP diastolic 59–70; PULSE 60–80; RESP 13–18; TEMP 36.3–37; O2SAT 94–96
[2021-08-25] MEDS: piperacillin-tazobactam 3.375 GM in sodium chloride 0.9% (plus) 50 ML IV ×3 (03:43→20:05)
[2021-08-25] MEDS: nitroglycerin 1 gm/inch oint Pkt 1 INCH TOPICAL ×4 (05:19→23:07)
[2021-08-25] MEDS: famotidine 20 mg/2 mL INJ IVP ×2 (05:30→18:08)
[2021-08-25] MEDS: levothyroxine 50 mcg Tablet PO (07:59)
[2021-08-25] MEDS: ferrous gluconate 324 mg Tablet PO ×2 (07:59→18:08)
[2021-08-25] MEDS: duloxetine 30 mg Capsule PO (07:59)
--- NOTE | 2021-08-25 08:52 | P.PN_ITS ---
Subjective Subjective: Deny any rt lower extremity pain.Wound vac in place Medications: Medication Review Details: Generic Name Dose Route Start Last Admin Trade Name Freq PRN Reason Stop Dose Admin Atorvastatin Calci um 40 mg 08/20/21 21:00 08/22/21 20:23 Atorvastatin 40 Mg Tablet PO 40 mg BEDTIME DEMOND Administration Bisacodyl 5 mg 08/20/21 13:07 08/22/21 21:12 Bisacodyl 5 Mg T ablet PO 5 mg Q6H PRN Administration Constipation (Use 2nd) Buspirone HCl 5 mg 08/20/21 16:59 08/22/21 07:20 Buspirone 10 Mg Tablet PO 5 mg TID PRN Administration Anxiety Docusate Sodium 100 mg 08/20/21 13:07 08/22/21 19:57 Docusate Sodium 100 Mg Capsule PO 100 mg BID PRN Administration Constipation (Use 1st) Duloxetine HCl 30 mg 08/21/21 09:00 08/23/21 07:31 Duloxetine 30 Mg Capsule PO 30 mg DAILY DEMOND Administration Famotidine 20 mg 08/20/21 18:00 08/23/21 05:01 Famotidine 20 Mg /2 Ml Inj IVP 20 mg Q12H DEMOND Administration Ferrous Gluconate 324 mg 08/20/21 18:00 08/23/21 07:30 Ferrous Gluconat e 324 Mg Tablet PO 324 mg BIDWM DEMOND Administration Hydromorphone HCl 0.2 mg 08/20/21 20:22 08/21/21 05:52 Hydromorphone 1 Mg/Ml Inj 1 Ml IVP 0.2 mg Q4H PRN Administration PAIN Piperacillin Sod/T azobactam 100 mls @ 25 mls/ hr 08/20/21 17:30 08/23/21 10:03 Sod 3.375 gm/ So dium Chloride IV 08/23/21 17:29 25 mls/hr Q8H DEMOND Administration Protocol Ketorolac Trometha mine 30 mg 08/20/21 13:07 08/21/21 01:21 Ketorolac 30 Mg/ Ml Inj IVP 08/25/21 13:06 30 mg Q6H PRN Administration MODERATE PAIN Levothyroxine Sodi um 50 mcg 08/21/21 09:00 08/23/21 07:30 Levothyroxine 50 Mcg Tablet PO 50 mcg DAILY DEMOND Administration Morphine Sulfate 2 mg 08/20/21 13:07 08/21/21 23:08 Morphine 4 Mg/Ml Sdv 1 Ml IVP 2 mg Q1H PRN Administration SEVERE PAIN Nitroglycerin 1 inch 08/20/21 11:00 08/23/21 04:58 Nitroglycerin 1 Gm/Inch Oint Pkt TOPICAL 1 inch Q6H DEMOND Administration Ondansetron HCl 4 mg 08/20/21 13:07 08/21/21 18:34 Ondansetron 2 Mg /Ml Sdv 2 Ml IVP 4 mg Q6H PRN Administration NAUSEA AND VOMITI NG Oxycodone/Acetamin ophen 1 tab 08/20/21 13:07 08/23/21 07:31 Oxycodone-Apap 5 -325 Mg Tablet PO 1 tab Q4H PRN Administration MODERATE PAIN Vitals/I&O/Wt Last Vital Signs Temp 98.6 F 08/25/21 07:35 Pulse 60 08/25/21 07:35 Resp 13 08/25/21 07:35 BP 121/62 08/25/21 07:35 Pulse Ox 94 08/25/21 07:35 08/24/21 08/25/21 08/25/21 22:59 06:59 14:59 Intake Total 600 / 600 50 / 650 Balance 600 / 250 50 / 300 Weight last 48 hrs Weight 80.286 kg Physical Exam Const: COMMON NORMALS: patient oriented x3 HENMT: COMMON NORMALS: normocephalic and atraumatic HEAD & SCALP: normocephalic and atraumatic Eye: GENERAL EYE: appearance normal, both eyes and all related structures Chest: COMMONS NORMALS: normal inspection of the chest and normal palpation of entire chest wall CHEST: Yes Symmetrical chest wall rise Resp: COMMON NORMALS: normal respiratory effort, No retractions, No use of accessory muscles and clear to auscultation bilaterally EFFORT & INSPECTION: Yes symmetric chest movement AUSCULTATION: clear to auscultation bilaterally Cardio: COMMON NORMALS: regular rate, regular rhythm, S1 normal heart sound present, S2 normal heart sound present, No gallops present (Cardio), No murmurs present (Cardio), No rub (Cardio) and Peripheral pulses 2+ throughout RATE: regular rate RHYTHM: regular rhythm HEART SOUNDS: S1 normal heart sound present and S2 normal heart sound present PERIPHERAL PULSES: Peripheral pulses 2+ throughout GI: COMMON NORMALS: Normal to inspection, nondistended, normoactive bowel sounds present, Soft to palpation, non-tender, No hepatosplenomegaly present and no masses AUSCULTATION: Yes normoactive bowel sounds PALPATION: Yes Soft to palpation and Yes No hepatosplenomegaly present RECTAL EXAM: deferred Extremity: COMMON NORMALS: no clubbing, cyanosis or edema and no pedal edema NARRATIVE EXTREMITY EXAM: Rt lower extremity dressing in place. Neuro: COMMON NORMALS: patient oriented x3 Urinary Catheter Management: Forrest: Cath Placed During This Visit: yes, but has since been removed by the nurse Reason for Continuing Indwelling Catheter: Decision to DC Catheter Urinary Catheter Date of Insertion: 08/20/21 Urinary Catheter Time of Insertion: 22:57 Date Urinary Catheter Removed: 08/22/21 Time Urinary Catheter Discontinued: 18:00 Data : 08/23/21 03:25 08/23/21 03:25 A&P Assessment and plan (1) Peripheral vascular disease: Status: Chronic (2) Peripheral vascular angioplasty status: Status: Acute (3) Compartment syndrome of lower extremity: Status: Acute (4) Accelerated hypertension: Status: Acute (5) Hypothyroidism: Status: Chronic Qualifiers: Hypothyroidism type: acquired Qualified Code(s): E03.9 - Hypothyroidism, unspecified (6) Noncompliance with medications: Status: Acute (7) Hyperlipidemia: Status: Chronic Qualifiers: Hyperlipidemia type: moderate mixed hyperlipidemia not requiring statin therapy Qualified Code(s): E78.2 - Mixed hyperlipidemia Plan 70-year-old female with past medical history of peripheral vascular disease, hypertension hypothyroidism, dyslipidemia, was admitted for management of right lower extremity peripheral arterial disease status post peripheral angioplasty complicated by development of compartment syndrome s/p fasciotomies. Assessment #Right lower extremity compartment syndrome s/p fasciotomy: MRSA swab negative Frequent neurovascular checks Dr. Burgess is following the patient Continue with routine dressing Continue Zosyn. Dilaudid 0.2 mg every 4 hours as needed for pain. #Right lower extremity peripheral artery disease: S/p peripheral angioplasty #Hypertension: Blood pressure is well controlled. On amlodipine at home Continue to monitor blood pressure #History of hypothyroidism : Continue levothyroxine #Anemia: Likely secondary to postop acute blood loss anemia s/p 1 unit PRBC transfusion Monitor H&H #CODE STATUS: Full code Anticoagulation as per surgical team. Attestations Medical Necessity Statement*: Per primary Team Coding Level of Care Code Acute Coining Press Operator for Chg Fwd Exam Comprehensive Diagnoses Peripheral vascular disease I73.9 Peripheral vascular angioplasty status Z98.62 Compartment syndrome of lower extremity T79.A29A Accelerated hypertension I10 Hypothyroidism E03.9 Hypothyroidism type: acquired Noncompliance with medications Z91.14 Hyperlipidemia E78.2 Hyperlipidemia type: moderate mixed hyperlipidemia not requiring statin therapy
--- NOTE | 2021-08-25 09:54 | PC.CHAP ---
Pastoral Care Encounter/Spiritual Assessment Type of Contact [] Declined penology teacher visit [] Patient/Family/Request visit [] Outpatient visit [] Follow-up visit [] Physician referral [] Code/Alert [x] Routine visit [] Staff referral [] Actively dying [] Patient sleeping [] Family support [] [] Out of room [] Palliative care [] [] Receiving care in room [] Pre-surgical visit [] Trauma [] Long length of stay [x] ICU visit [] Other: Relational/Emotional Strength [] Patient feels connected with others/family/visitors/staff [] Distress [] Loneliness/isolation [] Abandonment Spirituality of Patient [] Person of Vilma [] Attends Spiritism of their Vilma [] Believes in Prayer [] Reads Bible or Episcopal materials [] There are Spiritual issues to be addressed Animal Skinner Interventions [x] Prayer [x] Active listening [x] Non-anxious presence [x] Spiritual/emotional support [] Crisis/trauma care [] Spiritual counseling [] Bereavement support [] Provided bereavement packet [] Provided Bible/devotional materials [] Provided toy/stuffed animal, coloring book to patient or family member [] Provided Communion [] Anointing/[place] [] Salvation [x] Completed spiritual assessment [] Other: Impact on Illness or Injury [] Angry [] Fearful [] Anxious [] Often cries [] Exhaustion [] Unable to work [] Unable to attend faith [] Unable to walk/stand [] Unable to read [] Unable to drive [] Unable to eat/drink [] Unable to sleep [] Unable to be with family [] Patient intubated [] Other: Summary patient excited over the improvement in her leg... being addressed Time spent with patient 10 min
--- NOTE | 2021-08-25 10:50 | PC.SOCIAL ---
IMM update IMM updated with patient. Verbalized an understanding. Copy Pg 2 provided. Initialled, dated, timed, and placed in chart.
--- NOTE | 2021-08-25 17:16 | P.PN_ITS ---
Subjective Subjective: Patient is doing well. No complaints of chest pain or leg pain Vitals/I&O/Wt Last Vital Signs Temp 98.6 F 08/25/21 12:00 Pulse 60 08/25/21 12:00 Resp 13 08/25/21 12:00 BP 121/62 08/25/21 12:00 Pulse Ox 94 08/25/21 12:00 08/25/21 08/25/21 08/25/21 06:59 14:59 22:59 Intake Total 50 / 650 50 / 50 50 / 100 Balance 50 / 300 50 / 50 50 / 100 Weight last 48 hrs Weight 177 lb Physical Exam Narrative: General: No acute distress, AO x3 HEENT: PERRLA, pupils bilaterally equal and reactive Chest: Normal vesicular breath sounds, no added sounds, equal good air entry bilaterally CVS: S1-S2 regular, no murmurs, no tachycardia, no gallops, no rubs Abdomen: Soft, nontender, no organomegaly, bowel sounds present Neuro: No focal deficits, no facial deformity, AO x3, Extremity: Dressing on the right lower extremity. Patient's right foot has normal temperature and color has improved Able to move the toes and has senstation. Pulses not palpable, transiently dopplerable PT. Dressing applied Urinary Catheter Management: Forrest: Cath Placed During This Visit: yes, but has since been removed by the nurse Reason for Continuing Indwelling Catheter: Decision to DC Catheter Urinary Catheter Date of Insertion: 08/20/21 Urinary Catheter Time of Insertion: 22:57 Date Urinary Catheter Removed: 08/22/21 Time Urinary Catheter Discontinued: 18:00 Data : 08/23/21 03:25 08/23/21 03:25 A&P Assessment and plan (1) Claudication: Status: Acute (2) Compartment syndrome of lower extremity: Status: Acute (3) Peripheral vascular disease: Status: Chronic (4) Hyperlipidemia: Status: Chronic Qualifiers: Hyperlipidemia type: moderate mixed hyperlipidemia not requiring statin therapy Qualified Code(s): E78.2 - Mixed hyperlipidemia Plan Patient had developed compartment syndrome of the right lower extremity, after successful revascularization of SFA with balloon angioplasty and orbital arthrectomy .Underwent emergent fasciotomy with Dr Burgess. Leg pain has resolved. Sensation and movement intact with significant improvement in foot colo r.Transiently dopplerable PT pulse Patient is ambulating Continue current medications Blood pressure control Appreciate Dr Burgess's input and management of the compartment syndrome. Appreciate hospitalist service with help in management of medical issues Patient is stable to be transferred out of ICU today Attestations Medical Necessity Statement*: Care expected to cross 2 midnights. Coding Level of Care Code Acute Public Health Clinical Nurse Specialist for Blayne Mccain Diagnoses Claudication I73.9 Compartment syndrome of lower extremity T79.A29A Peripheral vascular disease I73.9 Hyperlipidemia E78.2 Hyperlipidemia type: moderate mixed hyperlipidemia not requiring statin therapy
--- NOTE | 2021-08-25 18:55 | PC.NURSE ---
Report to Nuha DEMPSEY at this time.
[2021-08-25] MEDS: atorvastatin 40 mg Tablet PO (20:06)
[2021-08-25] MEDS: oxyCODONE-APAP 5-325 mg Tablet 1 TAB PO (20:34)
[2021-08-26] VITALS (9 sets, daily range): BP systolic 135–152; BP diastolic 65–80; PULSE 55–71; RESP 16–18; TEMP 36.6–36.9; O2SAT 93–99
[2021-08-26] MEDS: piperacillin-tazobactam 3.375 GM in sodium chloride 0.9% (plus) 50 ML IV (03:48)
[2021-08-26] MEDS: nitroglycerin 1 gm/inch oint Pkt 1 INCH TOPICAL ×4 (05:21→23:12)
[2021-08-26] MEDS: famotidine 20 mg/2 mL INJ IVP ×2 (06:11→17:53)
[2021-08-26] MEDS: duloxetine 30 mg Capsule PO (08:00)
[2021-08-26] MEDS: ferrous gluconate 324 mg Tablet PO ×2 (08:00→17:53)
[2021-08-26] MEDS: levothyroxine 50 mcg Tablet PO (08:00)
--- NOTE | 2021-08-26 08:29 | PM.PN ---
Subjective Subjective: Ms. Martin is up in chair having breakfast this morning. She looks quite good. She has good range of motion and function of her right foot and toes. Wound VAC dressing is in place Vitals/I&O/Wt Last Vital Signs Temp 98.4 F 08/26/21 04:00 Pulse 55 L 08/26/21 06:00 Resp 16 08/26/21 04:00 BP 152/75 08/26/21 04:00 Pulse Ox 93 08/26/21 04:00 08/25/21 08/26/21 08/26/21 22:59 06:59 14:59 Intake Total 170 / 220 110 / 330 50 / 50 Output Total 250 / 250 200 / 450 Balance -80 / -30 -90 / -120 50 / 50 Weight last 48 hrs Weight 176 lb 9.6 oz Weight 177 lb Physical Exam Extremity: NARRATIVE EXTREMITY EXAM: Right lower extremity wound VAC dressing is in place. Good function of right foot and toes. No paresthesias. Right foot is warm. Urinary Catheter Management: Forrest: Cath Placed During This Visit: yes, but has since been removed by the nurse Reason for Continuing Indwelling Catheter: Decision to DC Catheter Urinary Catheter Date of Insertion: 08/20/21 Urinary Catheter Time of Insertion: 22:57 Date Urinary Catheter Removed: 08/22/21 Time Urinary Catheter Discontinued: 18:00 Data : 08/23/21 03:25 08/23/21 03:25 A&P Assessment and plan (1) Compartment syndrome of lower extremity: Status post right lower extremity fasciotomy. Ms. aMrtin is scheduled for discharge today and will follow up with me at wound care services tomorrow at 1 PM for planned wound VAC dressing change and wound inspection. Hopefully, with continued resolution of edema and wound contraction, we can consider delayed primary closure. Status: Acute Attestations Medical Necessity Statement*: Status post right lower extremity fasciotomy secondary to compartment syndrome. Coding Level of Care Code Acute Special Events Planner for Blayne Mccain Diagnoses Compartment syndrome of lower extremity T79.A29A
--- NOTE | 2021-08-26 09:09 | P.PN_ITS ---
Subjective Subjective: Seen resting comfortably in chair, wound VAC in place, overall feeling better Medications: Medication Review Details: Generic Name Dose Route Start Last Admin Trade Name Freq PRN Reason Stop Dose Admin Atorvastatin Calci um 40 mg 08/20/21 21:00 08/22/21 20:23 Atorvastatin 40 Mg Tablet PO 40 mg BEDTIME DEMOND Administration Bisacodyl 5 mg 08/20/21 13:07 08/22/21 21:12 Bisacodyl 5 Mg T ablet PO 5 mg Q6H PRN Administration Constipation (Use 2nd) Buspirone HCl 5 mg 08/20/21 16:59 08/22/21 07:20 Buspirone 10 Mg Tablet PO 5 mg TID PRN Administration Anxiety Docusate Sodium 100 mg 08/20/21 13:07 08/22/21 19:57 Docusate Sodium 100 Mg Capsule PO 100 mg BID PRN Administration Constipation (Use 1st) Duloxetine HCl 30 mg 08/21/21 09:00 08/23/21 07:31 Duloxetine 30 Mg Capsule PO 30 mg DAILY DEMOND Administration Famotidine 20 mg 08/20/21 18:00 08/23/21 05:01 Famotidine 20 Mg /2 Ml Inj IVP 20 mg Q12H DEMOND Administration Ferrous Gluconate 324 mg 08/20/21 18:00 08/23/21 07:30 Ferrous Gluconat e 324 Mg Tablet PO 324 mg BIDWM DEMOND Administration Hydromorphone HCl 0.2 mg 08/20/21 20:22 08/21/21 05:52 Hydromorphone 1 Mg/Ml Inj 1 Ml IVP 0.2 mg Q4H PRN Administration PAIN Piperacillin Sod/T azobactam 100 mls @ 25 mls/ hr 08/20/21 17:30 08/23/21 10:03 Sod 3.375 gm/ So dium Chloride IV 08/23/21 17:29 25 mls/hr Q8H DEMOND Administration Protocol Ketorolac Trometha mine 30 mg 08/20/21 13:07 08/21/21 01:21 Ketorolac 30 Mg/ Ml Inj IVP 08/25/21 13:06 30 mg Q6H PRN Administration MODERATE PAIN Levothyroxine Sodi um 50 mcg 08/21/21 09:00 08/23/21 07:30 Levothyroxine 50 Mcg Tablet PO 50 mcg DAILY DEMOND Administration Morphine Sulfate 2 mg 08/20/21 13:07 08/21/21 23:08 Morphine 4 Mg/Ml Sdv 1 Ml IVP 2 mg Q1H PRN Administration SEVERE PAIN Nitroglycerin 1 inch 08/20/21 11:00 08/23/21 04:58 Nitroglycerin 1 Gm/Inch Oint Pkt TOPICAL 1 inch Q6H DEMOND Administration Ondansetron HCl 4 mg 08/20/21 13:07 08/21/21 18:34 Ondansetron 2 Mg /Ml Sdv 2 Ml IVP 4 mg Q6H PRN Administration NAUSEA AND VOMITI NG Oxycodone/Acetamin ophen 1 tab 08/20/21 13:07 08/23/21 07:31 Oxycodone-Apap 5 -325 Mg Tablet PO 1 tab Q4H PRN Administration MODERATE PAIN Vitals/I&O/Wt Last Vital Signs Temp 97.9 F 08/26/21 08:00 Pulse 62 08/26/21 08:00 Resp 17 08/26/21 08:00 BP 137/65 08/26/21 08:00 Pulse Ox 99 08/26/21 08:00 08/25/21 08/26/21 08/26/21 22:59 06:59 14:59 Intake Total 170 / 220 110 / 330 290 / 290 Output Total 250 / 250 200 / 450 Balance -80 / -30 -90 / -120 290 / 290 Weight last 48 hrs Weight 80.104 kg Weight 80.286 kg Physical Exam 2 Const: COMMON NORMALS: patient oriented x3 HENMT: COMMON NORMALS: normocephalic and atraumatic HEAD & SCALP: normocephalic and atraumatic Eye: GENERAL EYE: appearance normal, both eyes and all related structures Chest: COMMONS NORMALS: normal inspection of the chest and normal palpation of entire chest wall CHEST: Yes Symmetrical chest wall rise Resp: COMMON NORMALS: normal respiratory effort, No retractions, No use of accessory muscles and clear to auscultation bilaterally EFFORT & INSPECTION: Yes symmetric chest movement AUSCULTATION: clear to auscultation bilaterally Cardio: COMMON NORMALS: regular rate, regular rhythm, S1 normal heart sound present, S2 normal heart sound present, No gallops present (Cardio), No murmurs present (Cardio), No rub (Cardio) and Peripheral pulses 2+ throughout RATE: regular rate RHYTHM: regular rhythm HEART SOUNDS: S1 normal heart sound present and S2 normal heart sound present PERIPHERAL PULSES: Peripheral pulses 2+ throughout GI: COMMON NORMALS: Normal to inspection, nondistended, normoactive bowel sounds present, Soft to palpation, non-tender, No hepatosplenomegaly present and no masses AUSCULTATION: Yes normoactive bowel sounds PALPATION: Yes Soft to palpation and Yes No hepatosplenomegaly present RECTAL EXAM: deferred Extremity: COMMON NORMALS: no clubbing, cyanosis or edema and no pedal edema NARRATIVE EXTREMITY EXAM: Rt lower extremity dressing in place. Neuro: COMMON NORMALS: patient oriented x3 Urinary Catheter Management: Forrest: Cath Placed During This Visit: yes, but has since been removed by the nurse Reason for Continuing Indwelling Catheter: Decision to DC Catheter Urinary Catheter Date of Insertion: 08/20/21 Urinary Catheter Time of Insertion: 22:57 Date Urinary Catheter Removed: 08/22/21 Time Urinary Catheter Discontinued: 18:00 Data : 08/23/21 03:25 08/23/21 03:25 A&P Assessment and plan (1) Peripheral vascular disease: Status: Chronic (2) Peripheral vascular angioplasty status: Status: Acute (3) Compartment syndrome of lower extremity: Status: Acute (4) Accelerated hypertension: Status: Acute (5) Hypothyroidism: Status: Chronic Qualifiers: Hypothyroidism type: acquired Qualified Code(s): E03.9 - Hypothyr oidism, unspecified (6) Noncompliance with medications: Status: Acute (7) Hyperlipidemia: Status: Chronic Qualifiers: Hyperlipidemia type: moderate mixed hyperlipidemia not requiring statin therapy Qualified Code(s): E78.2 - Mixed hyperlipidemia Plan 70-year-old female with past medical history of peripheral vascular disease, hypertension hypothyroidism, dyslipidemia, was admitted for management of right lower extremity peripheral arterial disease status post peripheral angioplasty complicated by development of compartment syndrome s/p fasciotomies. Assessment #Right lower extremity compartment syndrome s/p fasciotomy: MRSA swab negative Frequent neurovascular checks Dr. Burgess is following the patient Continue with routine dressing Was on Zosyn. Dilaudid 0.2 mg every 4 hours as needed for pain. #Right lower extremity peripheral artery disease: S/p peripheral angioplasty #Hypertension: Blood pressure is well controlled. On amlodipine at home Continue to monitor blood pressure #History of hypothyroidism : Continue levothyroxine #Anemia: Likely secondary to postop acute blood loss anemia s/p 1 unit PRBC transfusion Monitor H&H #CODE STATUS: Full code Anticoagulation as per surgical team. Attestations Medical Necessity Statement*: Per primary team Coding Level of Care Code Acute Cartridge Belt Puncher for Chg Fwd Exam Comprehensive Diagnoses Peripheral vascular disease I73.9 Peripheral vascular angioplasty status Z98.62 Compartment syndrome of lower extremity T79.A29A Accelerated hypertension I10 Hypothyroidism E03.9 Hypothyroidism type: acquired Noncompliance with medications Z91.14 Hyperlipidemia E78.2 Hyperlipidemia type: moderate mixed hyperlipidemia not requiring statin therapy
--- NOTE | 2021-08-26 09:21 | PM.DCS ---
Discharge Providers Date of Admission: 08/20/21 11:49 Date of Discharge: August 26, 2021 Attending Provider at Admission: Colt Andino M.D Attending Provider at Discharge: Colt Andino M.D Primary Care Provider: Marine Eagle NP Diagnoses at Discharge Discharge Diagnosis (1) Peripheral vascular disease: Status: Chronic (2) Peripheral vascular angioplasty status: Status: Acute (3) Compartment syndrome of lower extremity: Status: Acute (4) Accelerated hypertension: Status: Acute (5) Hypothyroidism: Status: Chronic Qualifiers: Hypothyroidism type: acquired Qualified Code(s): E03.9 - Hypothyroidism, unspecified (6) Noncompliance with medications: Status: Acute (7) Hyperlipidemia: Status: Chronic Qualifiers: Hyperlipidemia type: moderate mixed hyperlipidemia not requiring statin therapy Qualified Code(s): E78.2 - Mixed hyperlipidemia Reason for Visit Reason for Visit: 70673 i73.9 Physical Exam Urinary Catheter Management: Forrest: Cath Placed During This Visit: yes, but has since been removed by the nurse Reason for Continuing Indwelling Catheter: Decision to DC Catheter Urinary Catheter Date of Insertion: 08/20/21 Urinary Catheter Time of Insertion: 22:57 Date Urinary Catheter Removed: 08/22/21 Time Urinary Catheter Discontinued: 18:00 Discharge Data Studies Completed and Pending Pending at discharge Category Date Time Status PHYSICIAN [facility] request for service Routine Exams 08/20/21 06:00 Taken Laboratory Results WBC 11.9 10^3/uL (4.0-10.0) H 08/23/21 03:25 RBC 2.94 10^6/uL (4.1-5.3) L 08/23/21 03:25 Hgb 8.9 g/dL (11.5-15.3) L 08/23/21 03:25 Hct 27.5 % (37.0-47.0) L 08/23/21 03:25 MCV 93.5 fl (81-99) 08/23/21 03:25 MCH 30.3 pg (28.0-34.0) 08/23/21 03:25 MCHC 32.4 g/dL (30.0-36.0) 08/23/21 03:25 RDW 15.9 % (12.1-15.1) H 08/23/21 03:25 Plt Count 170 10^3/cmm (130-400) 08/23/21 03:25 MPV 10.4 fL (7.4-10.4) 08/23/21 03:25 Neut % (Auto) 53.4 % 08/23/21 03:25 Lymph % (Auto) 36.6 % 08/23/21 03:25 [place] % (Auto) 7.4 % 08/23/21 03:25 Eos % (Auto) 1.4 % 08/23/21 03:25 Baso % (Auto) 0.4 % 08/23/21 03:25 Neut # (Auto) 6.33 10^3/uL (1.8-7.7) 08/23/21 03:25 Lymph # (Auto) 4.3 10^3/uL (0.8-4.8) 08/23/21 03:25 [place] # (Auto) 0.9 10^3/uL (0.2-0.9) 08/23/21 03:25 Eos # (Auto) 0.2 10^3/uL (0.0-0.8) 08/23/21 03:25 Baso # (Auto) 0.1 10^3/uL (0.0-0.1) 08/23/21 03:25 Nucleated RBC % (auto) 0.3 % 08/23/21 03:25 Nucleated RBCs # 0.0 /100WBC 08/23/21 03:25 APTT 27.1 SECONDS (23.9-36.7) 08/20/21 15:23 Sodium 140 mmol/L (136-145) 08/23/21 03:25 Potassium 3.5 mmol/L (3.5-5.1) 08/23/21 03:25 Chloride 110 mmol/L (98-107) H 08/23/21 03:25 Carbon Dioxide 21 mmol/L (22-29) L 08/23/21 03:25 Anion Gap 12.5 (5-19) 08/23/21 03:25 BUN 8 mg/dL (8-23) 08/23/21 03:25 Creatinine 0.7 mg/dL (0.5-0.9) 08/23/21 03:25 GFR Calculation Not Reportable 08/23/21 03:25 Glucose 96 mg/dL (65-115) 08/23/21 03:25 Estimat Average Glucose 108 08/21/21 03:15 Hemoglobin A1c 5.4 % (4.0-6.0) 08/21/21 03:15 Calculated Osmolality 288 mOsm/kg (285-295) 08/23/21 03:25 Lactate 2.5 mmol/L (0.5-2.2) H 08/21/21 09:19 Calcium 7.6 mg/dL (8.5-10.5) L 08/23/21 03:25 Iron 95 ug/dL (37-145) 08/20/21 12:18 TIBC 337 mcg/dl 08/20/21 12:18 % Saturation 28.1 % (20-50) 08/20/21 12:18 Unsat Iron Binding 242 ug/dL (112-347) 08/20/21 12:18 Total Bilirubin 0.5 mg/dL (0.15-1.2) 08/23/21 03:25 AST 71 U/L (0-32) H 08/23/21 03:25 ALT 20 U/L (0-33) 08/23/21 03:25 Alkaline Phosphatase 52 IU/L (35-105) 08/23/21 03:25 Total Protein 5.8 g/dL (6.6-8.7) L 08/23/21 03:25 Albumin 3.2 g/dL (3.5-5.2) L 08/23/21 03:25 Globulin 2.6 g/dL (1.3-4.6) 08/23/21 03:25 TSH 0.97 uIU/mL (0.27-4.20) 08/20/21 12:18 Urine Color Yellow (Yellow) 08/20/21 22:55 Urine Appearance Clear (CLEAR) 08/20/21 22:55 Urine pH 6.5 (5-7) 08/20/21 22:55 Ur Specific [place] 1.005 (1.005-1.030) 08/20/21 22:55 Urine Protein Neg (Negative) 08/20/21 22:55 Urine Glucose (UA) Norm (Normal) 08/20/21 22:55 Urine Ketones Negative (Negative) 08/20/21 22:55 Urine Blood Neg (Negative) 08/20/21 22:55 Urine Nitrate Negative (Negative) 08/20/21 22:55 Urine Bilirubin Neg (Negative) 08/20/21 22:55 Urine Urobilinogen Norm mg/dL (Negative) 08/20/21 22:55 Ur Leukocyte Esterase Negative (Negative) 08/20/21 22:55 Blood Type O Positive 08/20/21 11:44 Rho(D) Type Positive 08/20/21 11:44 Antibody Screen Negative 08/20/21 11:44 Crossmatch See Detail 08/20/21 11:44 Vitals Last Vital Signs Temp 97.9 F 08/26/21 08:00 Pulse 62 08/26/21 08:00 Resp 17 08/26/21 08:00 BP 137/65 08/26/21 08:00 Pulse Ox 99 08/26/21 08:00 Discharge Plan Discharge Patient Disposition: Home Condition: Stable Prescriptions: New Bactrim DS 800-160 mg tablet 1 tab PO BID 7 Days Qty: 14 0RF levofloxacin 750 mg tablet 750 mg PO DAILY 7 Days Qty: 7 0RF Continued clopidogrel 75 mg tablet 75 mg PO DAILY 0RF spironolactone 25 mg tablet 25 mg PO DAILY 0RF buspirone 5 mg tablet 5 mg PO TID PRN (Reason: Anxiety) 0RF nitroglycerin 0.4 mg tablet, sublingual 0.4 mg sublingual PRN 0RF gabapentin 300 mg capsule 300 mg PO BID PRN (Reason: PT STATES TAKES PRN) 0RF duloxetine 30 mg capsule,delayed release(DR/EC) 30 mg PO DAILY 0RF multivitamin Tablet 1 tab PO DAILY 0RF atorvastatin 40 mg tablet 40 mg PO BEDTIME 30 Days Qty: 30 0RF alendronate 70 mg tablet 70 mg PO Q7D Qty: 0 0RF aspirin 81 mg Tablet,Delayed Release (Dr/Ec) 81 mg PO QAM 30 Days Qty: 30 0RF amlodipine 10 mg tablet 10 mg PO DAILY 30 Days Qty: 30 0RF levothyroxine 25 mcg tablet 50 mcg PO DAILY 0RF Discharge Orders: Discharge Order (Routine); Ordered 08/26/21 Ordered By: Brayan Pierre Referrals: Colt Andino M.D [Physician] - 1 month Luann Segovia FNP [Nurse Practitioner] - [facility], [Staff Physician] - 08/27/21 1:00 pm (Status post right lower extremity fasciotomy with bilateral right lower extremity wounds HAVE APPOINTMENT FOR Monday TIME OF 1:00 PM WITH .THIS HAS BEEN CONFIRMED WITH AND WOUND CLINIC.) Discharge Diet: Regular Patient Instructions: Opioid Safety Coding Level of Care Code Acute Chg FW DC note Diagnoses Peripheral vascular disease I73.9 Peripheral vascular angioplasty status Z98.62 Compartment syndrome of lower extremity T79.A29A Accelerated hypertension I10 Hypothyroidism E03.9 Hypothyroidism type: acquired Noncompliance with medications Z91.14 Hyperlipidemia E78.2 Hyperlipidemia type: moderate mixed hyperlipidemia not requiring statin therapy
[2021-08-26] MEDS: oxyCODONE-APAP 5-325 mg Tablet 1 TAB PO (10:21)
--- NOTE | 2021-08-26 15:56 | PC.NURSE ---
Patient was set to go home today but does not have her home wound vac yet. Vitals stable. Patient reporting getting some sleep. Pain was controlled with PRN medications. Patient was up in recliner for half the shift. Will continue to monitor and give report to night nurse.
[2021-08-26] MEDS: acetaminophen 325 mg Tablet 650 MG PO ×2 (18:07→23:20)
[2021-08-26] MEDS: docusate sodium 100 mg Capsule PO (18:10)
[2021-08-26] MEDS: bisacodyl 5 mg Tablet PO (18:10)
[2021-08-26] MEDS: atorvastatin 40 mg Tablet PO (21:11)
[2021-08-26] MEDS: gabapentin 300 mg Capsule PO (23:20)
--- NOTE | 2021-08-26 23:49 | P.PN_ITS ---
Subjective Subjective: Patient doing well.No leg pain symptoms Vitals/I&O/Wt Last Vital Signs Temp 98.4 F 08/26/21 19:30 Pulse 65 08/26/21 22:00 Resp 18 08/26/21 19:30 BP 135/76 08/26/21 19:30 Pulse Ox 97 08/26/21 19:30 08/26/21 08/26/21 08/27/21 14:59 22:59 06:59 Intake Total 840 / 840 Output Total 450 / 450 300 / 750 Balance 390 / 390 -300 / 90 Weight last 48 hrs Weight 176 lb 9.6 oz Weight 177 lb Physical Exam Narrative: General: No acute distress, AO x3 HEENT: PERRLA, pupils bilaterally equal and reactive Chest: Normal vesicular breath sounds, no added sounds, equal good air entry bilaterally CVS: S1-S2 regular, no murmurs, no tachycardia, no gallops, no rubs Abdomen: Soft, nontender, no organomegaly, bowel sounds present Neuro: No focal deficits, no facial deformity, AO x3, Extremity: Dressing on the right lower extremity. Patient's right foot has normal temperature and color has improved Able to move the toes and has senstation. Pulses not palpable, transiently dopplerable PT. Dressing applied Urinary Catheter Management: Forrest: Cath Placed During This Visit: yes, but has since been removed by the nurse Reason for Continuing Indwelling Catheter: Decision to DC Catheter Urinary Catheter Date of Insertion: 08/20/21 Urinary Catheter Time of Insertion: 22:57 Date Urinary Catheter Removed: 08/22/21 Time Urinary Catheter Discontinued: 18:00 Data : 08/23/21 03:25 08/23/21 03:25 A&P Assessment and plan (1) Claudication: Status: Acute (2) Compartment syndrome of lower extremity: Status: Acute (3) Peripheral vascular disease: Status: Chronic (4) Hyperlipidemia: Status: Chronic Qualifiers: Hyperlipidemia type: moderate mixed hyperlipidemia not requiring statin therapy Qualified Code(s): E78.2 - Mixed hyperlipidemia Plan Patient had developed compartment syndrome of the right lower extremity, after successful revascularization of SFA with balloon angioplasty and orbital arthrectomy .Underwent emergent fasciotomy with Dr Burgess. Leg pain has resolved. Sensation and movement intact with significant improvement in foot color.Transiently dopplerable PT pulse Patient is ambulating. Plan was to discharge patient today, awaiting wound vac approval Continue current medications Blood pressure control Appreciate Dr Burgess's input and management of the compartment syndrome. Appreciate hospitalist service with help in management of medical issues Patient is stable to be discharged once outpatient wound vac approved.Patient planned to follow with Dr Burgess as outpatient Attestations Medical Necessity Statement*: Care expected to cross 2 midnights. Coding Level of Care Code Acute Resource Recovery Engineer for [facility] Kalyn Diagnoses Claudication I73.9 Compartment syndrome of lower extremity T79.A29A Peripheral vascular disease I73.9 Hyperlipidemia E78.2 Hyperlipidemia type: moderate mixed hyperlipidemia not requiring statin therapy
[2021-08-27] VITALS (11 sets, daily range): BP systolic 100–166; BP diastolic 57–83; PULSE 60–77; RESP 16–18; TEMP 36.4–36.9; O2SAT 93–98
[2021-08-27] MEDS: HYDROcodone-acetaminophen 7.5-325 mg Tablet 1 TAB PO ×4 (04:55→22:38)
[2021-08-27] MEDS: famotidine 20 mg/2 mL INJ IVP ×2 (04:57→17:00)
[2021-08-27] MEDS: nitroglycerin 1 gm/inch oint Pkt 1 INCH TOPICAL ×4 (04:58→22:39)
[2021-08-27] MEDS: ferrous gluconate 324 mg Tablet PO ×2 (08:49→17:00)
[2021-08-27] MEDS: duloxetine 30 mg Capsule PO (08:49)
[2021-08-27] MEDS: levothyroxine 50 mcg Tablet PO (08:49)
[2021-08-27] MEDS: lactulose oral liq 20 gm/30 mL UDC PO (08:52)
--- NOTE | 2021-08-27 10:07 | PC.SOCIAL ---
IMM update IMM updated with patient. Copy Pg 2 provided. Verbalized an understanding. Initialled, dated, timed, and placed in chart.
[2021-08-27 10:24] LABS: Basophils # 0.1 10^3/uL (0.0-0.1); Basophils % 0.6 %; Eosinophils # 0.4 10^3/uL (0.0-0.8); Eosinophils % 4.3 %; Hematocrit 32.4 % (37.0-47.0); Hemoglobin 10.2 g/dL (11.5-15.3); Lymphocytes # 3.3 10^3/uL (0.8-4.8); Lymphocytes % 36.1 %; Mean Corpuscular HGB Conc 31.5 g/dL (30.0-36.0); Mean Corpuscular Hemoglobin 30.6 pg (28.0-34.0); Mean Corpuscular Volume 97.3 fl (81-99); Mean Platelet Volume 9.6 fL (7.4-10.4); Monocytes # 0.7 10^3/uL (0.2-0.9); Monocytes % 7.8 %; Neutrophils # 4.58 10^3/uL (1.8-7.7); Neutrophils % 50.6 %; Nucleated Red Blood Cells % 0 %; Platelet Count 292 10^3/cmm (130-400); Red Blood Count 3.33 10^6/uL (4.1-5.3); Red Cell Distribution Width 16.4 % (12.1-15.1); White Blood Count 9.1 10^3/uL (4.0-10.0)
[2021-08-27 10:49] LABS: Anion Gap 11.7 (5-19); Blood Urea Nitrogen 7 mg/dL (8-23); Calcium 8.5 mg/dL (8.5-10.5); Carbon Dioxide 24 mmol/L (22-29); Chloride 107 mmol/L (98-107); Glucose 107 mg/dL (65-115); Osmolality Calculated 286 mOsm/kg (285-295); Potassium 3.7 mmol/L (3.5-5.1); Sodium 139 mmol/L (136-145)
[2021-08-27] MEDS: magnesium hydroxide 30 mL UDC 45 ML PO (11:32)
--- NOTE | 2021-08-27 15:48 | PC.NURSE ---
Patient medically stable but still waiting for authorization for wound vac. Vitals stable. Had shower. Got to the chair for the lunch. Pain medications given on request. Will continue to monitor and give report to night nurse.
--- NOTE | 2021-08-27 15:56 | PM.PN ---
Subjective Subjective: Seen resting comfortably in chair, wound VAC in place. Medications: Medication Review Details: Generic Name Dose Route Start Last Admin Trade Name Freq PRN Reason Stop Dose Admin Atorvastatin Calci um 40 mg 08/20/21 21:00 08/22/21 20:23 Atorvastatin 40 Mg Tablet PO 40 mg BEDTIME DEMOND Administration Bisacodyl 5 mg 08/20/21 13:07 08/22/21 21:12 Bisacodyl 5 Mg T ablet PO 5 mg Q6H PRN Administration Constipation (Use 2nd) Buspirone HCl 5 mg 08/20/21 16:59 08/22/21 07:20 Buspirone 10 Mg Tablet PO 5 mg TID PRN Administration Anxiety Docusate Sodium 100 mg 08/20/21 13:07 08/22/21 19:57 Docusate Sodium 100 Mg Capsule PO 100 mg BID PRN Administration Constipation (Use 1st) Duloxetine HCl 30 mg 08/21/21 09:00 08/23/21 07:31 Duloxetine 30 Mg Capsule PO 30 mg DAILY DEMOND Administration Famotidine 20 mg 08/20/21 18:00 08/23/21 05:01 Famotidine 20 Mg /2 Ml Inj IVP 20 mg Q12H DEMOND Administration Ferrous Gluconate 324 mg 08/20/21 18:00 08/23/21 07:30 Ferrous Gluconat e 324 Mg Tablet PO 324 mg BIDWM DEMOND Administration Hydromorphone HCl 0.2 mg 08/20/21 20:22 08/21/21 05:52 Hydromorphone 1 Mg/Ml Inj 1 Ml IVP 0.2 mg Q4H PRN Administration PAIN Piperacillin Sod/T azobactam 100 mls @ 25 mls/ hr 08/20/21 17:30 08/23/21 10:03 Sod 3.375 gm/ So dium Chloride IV 08/23/21 17:29 25 mls/hr Q8H DEMOND Administration Protocol Ketorolac Trometha mine 30 mg 08/20/21 13:07 08/21/21 01:21 Ketorolac 30 Mg/ Ml Inj IVP 08/25/21 13:06 30 mg Q6H PRN Administration MODERATE PAIN Levothyroxine Sodi um 50 mcg 08/21/21 09:00 08/23/21 07:30 Levothyroxine 50 Mcg Tablet PO 50 mcg DAILY DEMOND Administration Morphine Sulfate 2 mg 08/20/21 13:07 08/21/21 23:08 Morphine 4 Mg/Ml Sdv 1 Ml IVP 2 mg Q1H PRN Administration SEVERE PAIN Nitroglycerin 1 inch 08/20/21 11:00 08/23/21 04:58 Nitroglycerin 1 Gm/Inch Oint Pkt TOPICAL 1 inch Q6H DEMOND Administration Ondansetron HCl 4 mg 08/20/21 13:07 08/21/21 18:34 Ondansetron 2 Mg /Ml Sdv 2 Ml IVP 4 mg Q6H PRN Administration NAUSEA AND VOMITI NG Oxycodone/Acetamin ophen 1 tab 08/20/21 13:07 08/23/21 07:31 Oxycodone-Apap 5 -325 Mg Tablet PO 1 tab Q4H PRN Administration MODERATE PAIN Vitals/I&O/Wt Last Vital Signs Temp 98.1 F 08/27/21 12:00 Pulse 60 08/27/21 14:44 Resp 17 08/27/21 12:00 BP 114/67 08/27/21 12:00 Pulse Ox 93 08/27/21 12:00 08/27/21 08/27/21 08/27/21 06:59 14:59 22:59 Intake Total 950 / 2030 Output Total 200 / 950 350 / 350 Balance 750 / 1080 -350 / -350 Weight last 48 hrs Weight 78.653 kg Weight 80.104 kg Physical Exam Const: COMMON NORMALS: patient oriented x3 HENMT: COMMON NORMALS: normocephalic and atraumatic HEAD & SCALP: normocephalic and atraumatic Eye: GENERAL EYE: appearance normal, both eyes and all related structures Chest: COMMONS NORMALS: normal inspection of the chest and normal palpation of entire chest wall CHEST: Yes Symmetrical chest wall rise Resp: COMMON NORMALS: normal respiratory effort, No retractions, No use of accessory muscles and clear to auscultation bilaterally EFFORT & INSPECTION: Yes symmetric chest movement AUSCULTATION: clear to auscultation bilaterally Cardio: COMMON NORMALS: regular rate, regular rhythm, S1 normal heart sound present, S2 normal heart sound present, No gallops present (Cardio), No murmurs present (Cardio), No rub (Cardio) and Peripheral pulses 2+ throughout RATE: regular rate RHYTHM: regular rhythm HEART SOUNDS: S1 normal heart sound present and S2 normal heart sound present PERIPHERAL PULSES: Peripheral pulses 2+ throughout GI: COMMON NORMALS: Normal to inspection, nondistended, normoactive bowel sounds present, Soft to palpation, non-tender, No hepatosplenomegaly present and no masses AUSCULTATION: Yes normoactive bowel sounds PALPATION: Yes Soft to palpation and Yes No hepatosplenomegaly present RECTAL EXAM: deferred Extremity: COMMON NORMALS: no clubbing, cyanosis or edema and no pedal edema NARRATIVE EXTREMITY EXAM: Rt lower extremity dressing in place. Neuro: COMMON NORMALS: patient oriented x3 Urinary Catheter Management: Forrest: Cath Placed During This Visit: yes, but has since been removed by the nurse Reason for Continuing Indwelling Catheter: Decision to DC Catheter Urinary Catheter Date of Insertion: 08/20/21 Urinary Catheter Time of Insertion: 22:57 Date Urinary Catheter Removed: 08/22/21 Time Urinary Catheter Discontinued: 18:00 Data : 08/27/21 10:10 08/27/21 10:10 A&P Assessment and plan (1) Peripheral vascular disease: Status: Chronic (2) Peripheral vascular angioplasty status: Status: Acute (3) Compartment syndrome of lower extremity: Status: Acute (4) Accelerated hypertension: Status: Acute (5) Hypothyroidism: Status: Chronic Qualifiers: Hypothyroidism type: acquired Qualified Code(s): E03.9 - Hypothyroidism, unspecified (6) Noncompliance with medications: Status: Acute (7) Hyperlipidemia: Status: Chronic Qualifiers: Hyperlipidemia type: moderate mixed hyperlipidemia not requiring statin therapy Qualified Code(s): E78.2 - Mixed hyperlipidemia Plan 70-year-old female with past medical history of peripheral vascular disease, hypertension hypothyroidism, dyslipidemia, was admitted for management of right lower extremity peripheral arterial disease status post peripheral angioplasty complicated by development of compartment syndrome s/p fasciotomies. Assessment #Right lower extremity compartment syndrome s/p fasciotomy: MRSA swab negative Frequent neurovascular checks Dr. Burgess is following the patient Continue with routine dressing Was on Zosyn. Dilaudid 0.2 mg every 4 hours as needed for pain. #Right lower extremity peripheral artery disease: S/p peripheral angioplasty #Hypertension: Blood pressure is well controlled. On amlodipine at home Continue to monitor blood pressure #History of hypothyroidism : Continue levothyroxine #Anemia: Likely secondary to postop acute blood loss anemia s/p 1 unit PRBC transfusion Monitor H&H #CODE STATUS: Full code Anticoagulation as per surgical team. Attestations Medical Necessity Statement*: per primary team Coding Level of Care Code Acute Teacher Industrial Arts for Chg Fwd Diagnoses Peripheral vascular disease I73.9 Peripheral vascular angioplasty status Z98.62 Compartment syndrome of lower extremity T79.A29A Accelerated hypertension I10 Hypothyroidism E03.9 Hypothyroidism type: acquired Noncompliance with medications Z91.14 Hyperlipidemia E78.2 Hyperlipidemia type: moderate mixed hyperlipidemia not requiring statin therapy
[2021-08-27] MEDS: morphine 4 mg/mL SDV 1 mL 2 MG IVP (19:06)
[2021-08-27] MEDS: atorvastatin 40 mg Tablet PO (20:25)
--- NOTE | 2021-08-27 20:42 | PC.NURSE ---
WOUND VAC CHANGE WOUND VAC WAS CHANGED BY THIS NURSE. SEROSANG DRAINAGE NOTED. SMALL AMOUNT OF GRANULATION IN BOTH WOUNDS. LARGE AMOUNT OF MUSCLE EXPOSURE IN BOTH WOUNDS. CALLED AND SPOKE TO DR. SIMON AND RECEIVED ORDER TO PLACE ADAPTIC DRESSING IN WOUND BED COVERING MUSCLE. PT HAD PAIN OF 4/10 DURING WOUND VAC DRESSING REMOVAL AND APPLICATION. ONCE WOUND VAC WAS TURNED ON PT EXPERIENCED 10/10 PAIN. ORDER TO REDUCE WOUND VAC SUCTION TO 75MMHG WAS OBTAINED BY DR. SIMON. PTS PAIN STILL 10/10. THIS NURSE RELAYED THIS INFORMATION TO KE PAYNE DAY SHIFT NURSE WHO CALLED PTS DR. PTS DR ORDERED IV MORPHINE 2MG TO BE GIVEN ONCE. KE LOPEZ ADMINISTERED MEDICATION. THIS NURSE ROUNDED ON PATIENT 1 HOUR AFTER MORPHINE ADMINISTRATION. PT STATES MORPHINE IS NOT RELIEVING PAIN. PT STATES SHE IS HAVING A CRAMPING AND SPASM FEELING IN HER RIGHT THIGH. THIS NURSE CALLED DR. COTE, HOSPITALIST CARING FOR PT TONIGHT. DR. COTE GAVE VERBAL ORDER FOR FLEXERIL 5MG ORAL TID PRN FOR MUSCLE SPASMS. ORDER WAS READ BACK AND CONFIRMED. THIS INFORMATION WAS GIVEN TO PTS FEED MILL SUPERVISOR NURSE KE LOPEZ. JESSICA STATES SHE WILL ADMINISTER MEDICATION SOON PHARMACY HAS ACKNOWLEDGED THE MEDICATION.
--- NOTE | 2021-08-27 21:06 | P.PN_ITS ---
Subjective Subjective: Patient is doing well. no complaints of chest pain, shortness of breath or palpitations. 70 year old woman with PMH of Hypertension, hyperlipidemia, peripheral artery disease presented with severe lifestyle limited claudication and OLAF of 0.4 in the right lower extremity. She underewent peripheral angiogram that showed occluded right SFA with collateral flow supplying the vasculature below the knee with single vessel runoff to foot( only Posterior tibial artery). She underwent successful revascularization of SFA with orbital arthrectomy and balloon angioplasty, however later was noted to have a blush in the TP segment, showing extravasation and wire perforation. Flow to the PT was also compromised. Wire was put in the PT and serial balloon angioplasties improved flow however was still low. Post procedure, she was transferred to ICU. She complained of significant leg pain. On exam it was getting tight and had tenderness.Sensation and movement also appeared to be compromised. Findings were consistent with compartment syndrome. Dr Burgess was emergently contacted for fasciotomy who took patient to the OR and fasciotomy was performed and wound vac was put in place. Her symptoms resolved over the next few hours with normal range of motion, normal sensation, decreasing lactate and normal foot temparature. Patient recovered well and started ambulating. Currently is ready for discharge awaiting outpatient wound vac. Vitals/I&O/Wt Last Vital Signs Temp 97.9 F 08/27/21 19:41 Pulse 60 08/27/21 21:04 Resp 18 08/27/21 19:41 BP 160/74 08/27/21 19:41 Pulse Ox 97 08/27/21 19:41 08/27/21 08/27/21 08/27/21 06:59 14:59 22:59 Intake Total 950 / 2030 240 / 240 Output Total 200 / 950 350 / 350 Balance 750 / 1080 -350 / -350 240 / -110 Weight last 48 hrs Weight 173 lb 6.4 oz Weight 176 lb 9.6 oz Physical Exam Narrative: General: No acute distress, AO x3 HEENT: PERRLA, pupils bilaterally equal and reactive Chest: Normal vesicular breath sounds, no added sounds, equal good air entry b ilaterally CVS: S1-S2 regular, no murmurs, no tachycardia, no gallops, no rubs Abdomen: Soft, nontender, no organomegaly, bowel sounds present Neuro: No focal deficits, no facial deformity, AO x3, Extremity: Dressing on the right lower extremity. Patient's right foot has normal temperature and color has improved Able to move the toes and has senstation. Pulses not palpable, transiently dopplerable PT. Dressing applied Urinary Catheter Management: Forrest: Cath Placed During This Visit: yes, but has since been removed by the nurse Reason for Continuing Indwelling Catheter: Decision to DC Catheter Urinary Catheter Date of Insertion: 08/20/21 Urinary Catheter Time of Insertion: 22:57 Date Urinary Catheter Removed: 08/22/21 Time Urinary Catheter Discontinued: 18:00 Data : 08/27/21 10:10 08/27/21 10:10 A&P Assessment and plan (1) Claudication: Status: Acute (2) Compartment syndrome of lower extremity: Status: Acute (3) Peripheral vascular disease: Status: Chronic (4) Hyperlipidemia: Status: Chronic Qualifiers: Hyperlipidemia type: moderate mixed hyperlipidemia not requiring statin therapy Qualified Code(s): E78.2 - Mixed hyperlipidemia Plan Patient had developed compartment syndrome of the right lower extremity, after successful revascularization of SFA with balloon angioplasty and orbital arthrectomy .Underwent emergent fasciotomy with Dr Burgess. Leg pain resolved. Sensation and movement intact with significant improvement in foot color. Transiently dopplerable PT pulse Patient is ambulating. Plan was to discharge patient yesterday, awaiting wound vac approval Continue current medications Blood pressure control Appreciate Dr Burgess's input and management of the compartment syndrome. Appreciate hospitalist service with help in management of medical issues Patient is stable to be discharged once outpatient wound vac approved.Patient planned to follow with Dr Burgess as outpatient Attestations Medical Necessity Statement*: Care expected to cross 2 midnights Coding Level of Care Code Acute Pilot Plant Operator for Blayne Mccain Diagnoses Claudication I73.9 Compartment syndrome of lower extremity T79.A29A Peripheral vascular disease I73.9 Hyperlipidemia E78.2 Hyperlipidemia type: moderate mixed hyperlipidemia not requiring statin therapy
[2021-08-27] MEDS: cyclobenzaprine 10 mg Tablet 5 MG PO (22:05)
[2021-08-28] VITALS (8 sets, daily range): BP systolic 102–155; BP diastolic 59–75; PULSE 63–90; RESP 16–18; TEMP 36.6–36.8; O2SAT 94–96
[2021-08-28] MEDS: HYDROcodone-acetaminophen 7.5-325 mg Tablet 1 TAB PO ×4 (03:54→19:49)
[2021-08-28] MEDS: nitroglycerin 1 gm/inch oint Pkt 1 INCH TOPICAL ×4 (04:51→22:39)
[2021-08-28] MEDS: famotidine 20 mg/2 mL INJ IVP ×2 (04:51→17:34)
--- NOTE | 2021-08-28 05:20 | PC.NURSE ---
Patient pain has been higher overnight after dressing change. Patient received 2mg Morphine IVP that did little to relieve pain. This nurse then gave Flexeril and then hydrocodone. Patient is now sleeping and appears to be comfortable.
[2021-08-28] MEDS: cyclobenzaprine 10 mg Tablet 5 MG PO ×2 (08:03→17:34)
[2021-08-28] MEDS: duloxetine 30 mg Capsule PO (08:03)
[2021-08-28] MEDS: levothyroxine 50 mcg Tablet PO (08:03)
[2021-08-28] MEDS: ferrous gluconate 324 mg Tablet PO ×2 (08:03→17:34)
[2021-08-28] MEDS: bisacodyl 10 mg Supp PR (10:26)
--- NOTE | 2021-08-28 12:47 | P.PN_ITS ---
Subjective Subjective: Seen resting comfortably in chair, wound VAC in place. Minimal drainage. Medications: Medication Review Details: Generic Name Dose Route Start Last Admin Trade Name Freq PRN Reason Stop Dose Admin Acetaminophen 650 mg 08/20/21 10:01 08/26/21 23:20 Acetaminophen 32 5 Mg Tablet PO 650 mg Q6H PRN Administration MILD PAIN Hydrocodone Bitart /Acetaminophen 1 tab 08/27/21 02:47 08/28/21 12:09 Hydrocodone-Acet aminophen 7.5-325 Mg Tablet PO 1 tab Q6H PRN Administration MODERATE PAIN Atorvastatin Calci um 40 mg 08/20/21 21:00 08/27/21 20:25 Atorvastatin 40 Mg Tablet PO 40 mg BEDTIME DEMOND Administration Bisacodyl 5 mg 08/20/21 13:07 08/26/21 18:10 Bisacodyl 5 Mg T ablet PO 5 mg Q6H PRN Administration Constipation (Use 2nd) Bisacodyl 10 mg 08/20/21 13:07 08/28/21 10:26 Bisacodyl 10 Mg Supp UT 10 mg Q6H PRN Administration Constipation (Use 5th) Buspirone HCl 5 mg 08/20/21 16:59 08/22/21 07:20 Buspirone 10 Mg Tablet PO 5 mg TID PRN Administration Anxiety Cyclobenzaprine HC l 5 mg 08/27/21 20:31 08/28/21 08:03 Cyclobenzaprine 10 Mg Tablet PO 5 mg TID PRN Administration MUSCLE SPASMS Docusate Sodium 100 mg 08/20/21 13:07 08/26/21 18:10 Docusate Sodium 100 Mg Capsule PO 100 mg BID PRN Administration Constipation (Use 1st) Duloxetine HCl 30 mg 08/21/21 09:00 08/28/21 08:03 Duloxetine 30 Mg Capsule PO 30 mg DAILY DEMOND Administration Famotidine 20 mg 08/20/21 18:00 08/28/21 04:51 Famotidine 20 Mg /2 Ml Inj IVP 20 mg Q12H DEMOND Administration Ferrous Gluconate 324 mg 08/20/21 18:00 08/28/21 08:03 Ferrous Gluconat e 324 Mg Tablet PO 324 mg BIDWM DEMOND Administration Gabapentin 300 mg 08/20/21 16:44 08/26/21 23:20 Gabapentin 300 M g Capsule PO 300 mg BID PRN Administration NEUROPATHY Lactulose 20 gm 08/20/21 13:07 08/27/21 08:52 Lactulose Oral L iq 20 Gm/30 Ml Udc PO 20 gm Q6H PRN Administration Constipation (Use 3rd) Levothyroxine Sodi um 50 mcg 08/21/21 09:00 08/28/21 08:03 Levothyroxine 50 Mcg Tablet PO 50 mcg DAILY DEMOND Administration Magnesium Hydroxid e 45 ml 08/20/21 13:07 08/27/21 11:32 Magnesium Hydrox aquiles 30 Ml Udc PO 45 ml DAILY PRN Administration Constipation (use 4th) Nitroglycerin 1 inch 08/20/21 11:00 08/28/21 10:26 Nitroglycerin 1 Gm/Inch Oint Pkt TOPICAL 1 inch Q6H DEMOND Administration Ondansetron HCl 4 mg 08/20/21 13:07 08/21/21 18:34 Ondansetron 2 Mg /Ml Sdv 2 Ml IVP 4 mg Q6H PRN Administration NAUSEA AND VOMITI NG Vitals/I&O/Wt Last Vital Signs Temp 97.8 F 08/28/21 11:49 Pulse 90 08/28/21 11:49 Resp 17 08/28/21 11:49 BP 140/71 08/28/21 11:49 Pulse Ox 95 08/28/21 11:49 08/27/21 08/28/21 08/28/21 22:59 06:59 14:59 Intake Total 240 / 240 120 / 120 Output Total 600 / 950 250 / 250 Balance 240 / -110 -600 / -710 -130 / -130 Weight last 48 hrs Weight 81.647 kg Weight 78.653 kg Physical Exam Const: COMMON NORMALS: patient oriented x3 HENMT: COMMON NORMALS: normocephalic and atraumatic HEAD & SCALP: normocephalic and atraumatic Eye: GENERAL EYE: appearance normal, both eyes and all related structures Chest: COMMONS NORMALS: normal inspection of the chest and normal palpation of entire chest wall CHEST: Yes Symmetrical chest wall rise Resp: COMMON NORMALS: normal respiratory effort, No retractions, No use of accessory muscles and clear to auscultation bilaterally EFFORT & INSPECTION: Yes symmetric chest movement AUSCULTATION: clear to auscultation bilaterally Cardio: COMMON NORMALS: regular rate, regular rhythm, S1 normal heart sound present, S2 normal heart sound present, No gallops present (Cardio), No murmurs present (Cardio), No rub (Cardio) and Peripheral pulses 2+ throughout RATE: regular rate RHYTHM: regular rhythm HEART SOUNDS: S1 normal heart sound present and S2 normal heart sound present PERIPHERAL PULSES: Peripheral pulses 2+ throughout GI: COMMON NORMALS: Normal to inspection, nondistended, normoactive bowel sounds present, Soft to palpation, non-tender, No hepatosplenomegaly present and no masses AUSCULTATION: Yes normoactive bowel sounds PALPATION: Yes Soft to palpation and Yes No hepatosplenomegaly present RECTAL EXAM: deferred Extremity: COMMON NORMALS: no clubbing, cyanosis or edema and no pedal edema NARRATIVE EXTREMITY EXAM: Rt lower extremity dressing in place. Neuro: COMMON NORMALS: patient oriented x3 Urinary Catheter Management: Forrest: Cath Placed During This Visit: yes, but has since been removed by the nurse Reason for Continuing Indwelling Catheter: Decision to DC Catheter Urinary Catheter Date of Insertion: 08/20/21 Urinary Catheter Time of Insertion: 22:57 Date Urinary Catheter Removed: 08/22/21 Time Urinary Catheter Discontinued: 18:00 Data : 08/27/21 10:10 08/27/21 10:10 A&P Assessment and plan (1) Peripheral vascular disease: Status: Chronic (2) Peripheral vascular angioplasty status: Status: Acute (3) Compartment syndrome of lower extremity: Status: Acute (4) Accelerated hypertension: Status: Acute (5) Hypothyroidism: Status: Chronic Qualifiers: Hypothyroidism type: acquired Qualified Code(s): E03.9 - Hypothyroidism, unspecified (6) Noncompliance with medications: Status: Acute (7) Hyperlipidemia: Status: Chronic Qualifiers: Hyperlipidemia type: moderate mixed hyperlipidemia not requiring statin therapy Qualified Code(s): E78.2 - Mixed hyperlipidemia Plan 70-year-old female with past medical history of peripheral vascular disease, hypertension hypothyroidism, dyslipidemia, was admitted for management of right lower extremity peripheral arterial disease status post peripheral angioplasty complicated by development of compartment syndrome s/p fasciotomies. Assessment #Right lower extremity compartment syndrome s/p fasciotomy: MRSA swab negative Frequent neurovascular checks Dr. Burgess is following the patient Continue with routine dressing Was on Zosyn. Dilaudid 0.2 mg every 4 hours as needed for pain. #Right lower extremity peripheral artery disease: S/p peripheral angioplasty #Hypertension: Blood pressure is well controlled. On amlodipine at home Continue to monitor blood pressure #History of hypothyroidism : Continue levothyroxine #Anemia: Likely secondary to postop acute blood loss anemia s/p 1 unit PRBC transfusion Monitor H&H #CODE STATUS: Full code Anticoagulation as per surgical team. Attestations Medical Necessity Statement*: Per primary team Coding Level of Care Code Acute Plant Protection Guard for g Fwd Diagnoses Peripheral vascular disease I73.9 Peripheral vascular angioplasty status Z98.62 Compartment syndrome of lower extremity T79.A29A Accelerated hypertension I10 Hypothyroidism E03.9 Hypothyroidism type: acquired Noncompliance with medications Z91.14 Hyperlipidemia E78.2 Hyperlipidemia type: moderate mixed hyperlipidemia not requiring statin therapy
--- NOTE | 2021-08-28 15:30 | PC.NURSE ---
Patient finally had a bowel movement after suppository. Pain was a lot worse today since getting dressing changed, pain being controlled with pain meds and muscle relaxer. Patient slept for a lot of shift. Vital sign stable. Will continue to monitor and give report to night nurse.
[2021-08-28] MEDS: gabapentin 300 mg Capsule PO (19:50)
[2021-08-28] MEDS: atorvastatin 40 mg Tablet PO (19:50)
[2021-08-29] VITALS (9 sets, daily range): BP systolic 106–125; BP diastolic 60–73; PULSE 72–86; RESP 16–18; TEMP 36.4–36.9; O2SAT 90–94
[2021-08-29] MEDS: cyclobenzaprine 10 mg Tablet 5 MG PO ×3 (01:34→23:37)
[2021-08-29] MEDS: HYDROcodone-acetaminophen 7.5-325 mg Tablet 1 TAB PO ×3 (01:34→18:18)
[2021-08-29] MEDS: famotidine 20 mg/2 mL INJ IVP (04:52)
[2021-08-29] MEDS: nitroglycerin 1 gm/inch oint Pkt 1 INCH TOPICAL ×4 (04:53→23:37)
[2021-08-29] MEDS: ferrous gluconate 324 mg Tablet PO ×2 (08:21→18:19)
[2021-08-29] MEDS: gabapentin 300 mg Capsule PO ×2 (08:21→18:18)
[2021-08-29] MEDS: levothyroxine 50 mcg Tablet PO (08:21)
[2021-08-29] MEDS: duloxetine 30 mg Capsule PO (08:21)
--- NOTE | 2021-08-29 09:28 | PC.NURSE ---
WOUND VAC LEAK upon entering room pts wound vac was alarming. pt had got tubing hooked on bed and it had pulled track pad loose from dressing on lateral leg. this nurse was able to patch the leak. pt educated to push call light if wound vac alarm goes off again.
--- NOTE | 2021-08-29 10:25 | PC.SOCIAL ---
IMM Updated Updated pt on IMM. No questions voiced. Provided pt a copy. Initialed, dated, & timed copy in chart.
--- NOTE | 2021-08-29 14:30 | PC.NURSE ---
Patient pushed patient outside for a little while.
--- NOTE | 2021-08-29 14:55 | P.PN_ITS ---
Subjective Subjective: No acute events. Wound VAC in place Medications: Medication Review Details: Generic Name Dose Route Start Last Admin Trade Name Freq PRN Reason Stop Dose Admin Acetaminophen 650 mg 08/20/21 10:01 08/26/21 23:20 Acetaminophen 32 5 Mg Tablet PO 650 mg Q6H PRN Administration MILD PAIN Hydrocodone Bitart /Acetaminophen 1 tab 08/27/21 02:47 08/28/21 12:09 Hydrocodone-Acet aminophen 7.5-325 Mg Tablet PO 1 tab Q6H PRN Administration MODERATE PAIN Atorvastatin Calci um 40 mg 08/20/21 21:00 08/27/21 20:25 Atorvastatin 40 Mg Tablet PO 40 mg BEDTIME DEMOND Administration Bisacodyl 5 mg 08/20/21 13:07 08/26/21 18:10 Bisacodyl 5 Mg T ablet PO 5 mg Q6H PRN Administration Constipation (Use 2nd) Bisacodyl 10 mg 08/20/21 13:07 08/28/21 10:26 Bisacodyl 10 Mg Supp HI 10 mg Q6H PRN Administration Constipation (Use 5th) Buspirone HCl 5 mg 08/20/21 16:59 08/22/21 07:20 Buspirone 10 Mg Tablet PO 5 mg TID PRN Administration Anxiety Cyclobenzaprine HC l 5 mg 08/27/21 20:31 08/28/21 08:03 Cyclobenzaprine 10 Mg Tablet PO 5 mg TID PRN Administration MUSCLE SPASMS Docusate Sodium 100 mg 08/20/21 13:07 08/26/21 18:10 Docusate Sodium 100 Mg Capsule PO 100 mg BID PRN Administration Constipation (Use 1st) Duloxetine HCl 30 mg 08/21/21 09:00 08/28/21 08:03 Duloxetine 30 Mg Capsule PO 30 mg DAILY DEMOND Administration Famotidine 20 mg 08/20/21 18:00 08/28/21 04:51 Famotidine 20 Mg /2 Ml Inj IVP 20 mg Q12H DEMOND Administration Ferrous Gluconate 324 mg 08/20/21 18:00 08/28/21 08:03 Ferrous Gluconat e 324 Mg Tablet PO 324 mg BIDWM DEMOND Administration Gabapentin 300 mg 08/20/21 16:44 08/26/21 23:20 Gabapentin 300 M g Capsule PO 300 mg BID PRN Administration NEUROPATHY Lactulose 20 gm 08/20/21 13:07 08/27/21 08:52 Lactulose Oral L iq 20 Gm/30 Ml Udc PO 20 gm Q6H PRN Administration Constipation (Use 3rd) Levothyroxine Sodi um 50 mcg 08/21/21 09:00 08/28/21 08:03 Levothyroxine 50 Mcg Tablet PO 50 mcg DAILY DEMOND Administration Magnesium Hydroxid e 45 ml 08/20/21 13:07 08/27/21 11:32 Magnesium Hydrox aquiles 30 Ml Udc PO 45 ml DAILY PRN Administration Constipation (use 4th) Nitroglycerin 1 inch 08/20/21 11:00 08/28/21 10:26 Nitroglycerin 1 Gm/Inch Oint Pkt TOPICAL 1 inch Q6H DEMOND Administration Ondansetron HCl 4 mg 08/20/21 13:07 08/21/21 18:34 Ondansetron 2 Mg /Ml Sdv 2 Ml IVP 4 mg Q6H PRN Administration NAUSEA AND VOMITI NG Vitals/I&O/Wt Last Vital Signs Temp 97.9 F 08/29/21 11:49 Pulse 72 08/29/21 11:49 Resp 18 08/29/21 11:49 BP 107/66 08/29/21 11:49 Pulse Ox 94 08/29/21 11:49 08/28/21 08/29/21 08/29/21 22:59 06:59 14:59 Intake Total 480 / 600 1000 / 1600 480 / 480 Output Total 1300 / 1950 50 / 2000 Balance -820 / -1350 950 / -400 480 / 480 Weight last 48 hrs Weight 80.24 kg Weight 81.647 kg Physical Exam Const: COMMON NORMALS: patient oriented x3 HENMT: COMMON NORMALS: normocephalic and atraumatic HEAD & SCALP: normocephalic and atraumatic Eye: GENERAL EYE: appearance normal, both eyes and all related structures Chest: COMMONS NORMALS: normal inspection of the chest and normal palpation of entire chest wall CHEST: Yes Symmetrical chest wall rise Resp: COMMON NORMALS: normal respiratory effort, No retractions, No use of accessory muscles and clear to auscultation bilaterally EFFORT & INSPECTION: Yes symmetric chest movement AUSCULTATION: clear to auscultation bilaterally Cardio: COMMON NORMALS: regular rate, regular rhythm, S1 normal heart sound present, S2 normal heart sound present, No gallops present (Cardio), No murmurs present (Cardio), No rub (Cardio) and Peripheral pulses 2+ throughout RATE: regular rate RHYTHM: regular rhythm HEART SOUNDS: S1 normal heart sound present and S2 normal heart sound present PERIPHERAL PULSES: Peripheral pulses 2+ throughout GI: COMMON NORMALS: Normal to inspection, nondistended, normoactive bowel sounds present, Soft to palpation, non-tender, No hepatosplenomegaly present and no masses AUSCULTATION: Yes normoactive bowel sounds PALPATION: Yes Soft to palpation and Yes No hepatosplenomegaly present RECTAL EXAM: deferred Extremity: COMMON NORMALS: no clubbing, cyanosis or edema and no pedal edema NARRATIVE EXTREMITY EXAM: Rt lower extremity dressing in place. Neuro: COMMON NORMALS: patient oriented x3 Urinary Catheter Management: Forrest: Cath Placed During This Visit: yes, but has since been removed by the nurse Reason for Continuing Indwelling Catheter: Decision to DC Catheter Urinary Catheter Date of Insertion: 08/20/21 Urinary Catheter Time of Insertion: 22:57 Date Urinary Catheter Removed: 08/22/21 Time Urinary Catheter Discontinued: 18:00 Data : 08/27/21 10:10 08/27/21 10:10 A&P Assessment and plan (1) Peripheral vascular disease: Status: Chronic (2) Peripheral vascular angioplasty status: Status: Acute (3) Compartment syndrome of lower extremity: Status: Acute (4) Accelerated hypertension: Status: Acute (5) Hypothyroidism: Status: Chronic Qualifiers: Hypothyroidism type: acquired Qualified Code(s): E03.9 - Hypothyroidism, unspecified (6) Noncompliance with medications: Status: Acute (7) Hyperlipidemia: Status: Chronic Qualifiers: Hyperlipidemia type: moderate mixed hyperlipidemia not requiring statin therapy Qualified Code(s): E78.2 - Mixed hyperlipidemia Plan 70-year-old female with past medical history of peripheral vascular disease, hypertension hypothyroidism, dyslipidemia, was admitted for management of right lower extremity peripheral arterial disease status post peripheral angioplasty complicated by development of compartment syndrome s/p fasciotomies. Assessment #Right lower extremity compartment syndrome s/p fasciotomy: MRSA swab negative Frequent neurovascular checks Dr. Burgess is following the patient Continue with routine dressing Was on Zosyn. Dilaudid 0.2 mg every 4 hours as needed for pain. #Right lower extremity peripheral artery disease: S/p peripheral angioplasty #Hypertension: Blood pressure is well controlled. On amlodipine at home Continue to monitor blood pressure #History of hypothyroidism : Continue levothyroxine #Anemia: Likely secondary to postop acute blood loss anemia s/p 1 unit PRBC transfusion Monitor H&H #CODE STATUS: Full code Anticoagulation as per surgical team. Attestations Medical Necessity Statement*: Per primary team Coding Level of Care Code Acute Strand Buncher Fine Wire for Chg Fwd Diagnoses Peripheral vascular disease I73.9 Peripheral vascular angioplasty status Z98.62 Compartment syndrome of lower extremity T79.A29A Accelerated hypertension I10 Hypothyroidism E03.9 Hypothyroidism type: acquired Noncompliance with medications Z91.14 Hyperlipidemia E78.2 Hyperlipidemia type: moderate mixed hyperlipidemia not requiring statin therapy
[2021-08-29] MEDS: famotidine 20 mg Tablet PO (18:19)
[2021-08-29] MEDS: atorvastatin 40 mg Tablet PO (21:01)
[2021-08-29] MEDS: acetaminophen 325 mg Tablet 650 MG PO (23:37)
[2021-08-30] VITALS (7 sets, daily range): BP systolic 111–119; BP diastolic 66–73; PULSE 68–74; RESP 13–18; TEMP 36.3–36.8; O2SAT 92–96
[2021-08-30] MEDS: nitroglycerin 1 gm/inch oint Pkt 1 INCH TOPICAL ×2 (05:07→11:26)
[2021-08-30] MEDS: HYDROcodone-acetaminophen 7.5-325 mg Tablet 1 TAB PO ×2 (05:07→11:31)
[2021-08-30] MEDS: duloxetine 30 mg Capsule PO (08:19)
[2021-08-30] MEDS: levothyroxine 50 mcg Tablet PO (08:19)
[2021-08-30] MEDS: ferrous gluconate 324 mg Tablet PO (08:19)
[2021-08-30] MEDS: famotidine 20 mg Tablet PO (08:19)
--- NOTE | 2021-08-30 09:06 | PM.PN ---
Vitals/I&O/Wt Last Vital Signs Temp 97.9 F 08/30/21 07:58 Pulse 68 08/30/21 07:58 Resp 13 08/30/21 07:58 BP 114/66 08/30/21 07:58 Pulse Ox 92 08/30/21 07:58 08/29/21 08/30/21 08/30/21 22:59 06:59 14:59 Intake Total 250 / 730 Output Total 800 / 800 Balance -550 / -70 Weight last 48 hrs Weight 180 lb 2 oz Weight 176 lb 14.4 oz Physical Exam Urinary Catheter Management: Forrest: Cath Placed During This Visit: yes, but has since been removed by the nurse Reason for Continuing Indwelling Catheter: Decision to DC Catheter Urinary Catheter Date of Insertion: 08/20/21 Urinary Catheter Time of Insertion: 22:57 Date Urinary Catheter Removed: 08/22/21 Time Urinary Catheter Discontinued: 18:00 Data : 08/27/21 10:10 08/27/21 10:10 Coding Level of Care Code Acute Blood Donor Recruiter for Blayne Mccain
--- NOTE | 2021-08-30 14:30 | PM.PN ---
Subjective Subjective: Hospital course, labs appreciated. Patient denies any new complaints. Laying comfortably in bed. Awaiting authorization of wound VAC prior to discharge. Denies any nausea, vomiting, chest pain. Hemodynamically stable. Vitals/I&O/Wt Last Vital Signs Temp 97.9 F 08/30/21 11:53 Pulse 71 08/30/21 11:53 Resp 13 08/30/21 11:53 BP 113/67 08/30/21 11:53 Pulse Ox 95 08/30/21 11:53 08/29/21 08/30/21 08/30/21 22:59 06:59 14:59 Intake Total 250 / 730 Output Total 800 / 800 Balance -550 / -70 Weight last 48 hrs Weight 81.703 kg Weight 80.24 kg Physical Exam Narrative: General: No acute distress, AO x3 contracture present in right upper extremity HEENT: PERRLA, pupils bilaterally equal and reactive Chest: Normal vesicular breath sounds, no added sounds, equal good air entry bilaterally CVS: S1-S2 regular, no murmurs, no tachycardia, no gallops, no rubs Abdomen: Soft, nontender, no organomegaly, bowel sounds present Neuro: No focal deficits, no facial deformity, AO x3, Extremity: Postsurgical dressings wet-to-dry present in right lower extremity, slight soakage, foot warm to touch, pulses not palpable palpable or dopplerable. Patient slightly able to move her toes Urinary Catheter Management: Forrest: Cath Placed During This Visit: yes, but has since been removed by the nurse Reason for Continuing Indwelling Catheter: Decision to DC Catheter Urinary Catheter Date of Insertion: 08/20/21 Urinary Catheter Time of Insertion: 22:57 Date Urinary Catheter Removed: 08/22/21 Time Urinary Catheter Discontinued: 18:00 Data : 08/27/21 10:10 08/27/21 10:10 A&P Assessment and plan (1) Peripheral vascular disease: Status: Chronic (2) Peripheral vascular angioplasty status: Status: Acute (3) Compartment syndrome of lower extremity: Status: Acute (4) Accelerated hypertension: Status: Acute (5) Hypothyroidism: Status: Chronic Qualifiers: Hypothyroidism type: acquired Qualified Code(s): E03.9 - Hypothyroidism, unspecified (6) Noncompliance with medications: Status: Acute (7) Hyperlipidemia: Status: Chronic Qualifiers: Hyperlipidemia type: moderate mixed hyperlipidemia not requiring statin therapy Qualified Code(s): E78.2 - Mixed hyperlipidemia Plan Recheck CBC, CMP in a.m. Compartment syndrome post fasciotomy: Wound VAC care/wound dressing as per Dr. Burgess. Off antibiotics. Finished course of Zosyn. Hydrocodone for pain management. Last echocardiogram from August 2020 shows an EF of 60%, dyskinetic inferior basal segment, mild to moderate TR, mildly increased LA size, mild to moderate MR. Hypertension: Goal blood pressure less than 140/90 mmHg with mean over 65. Takes amlodipine 10 mg daily at home. Blood pressure is better. For now continue to hold off on amlodipine. Continue other chronic medications including atorvastatin 40 mg daily, BuSpar 5 mg 3 times daily as needed, Cymbalta, iron, gabapentin, levothyroxine. Full code. Cardiac diet. Anticoagulation as per surgical team. Care discussed in detail with case management. Discussed if not able to get authorization for wound VAC should consult with surgical team for possibility of discharge with wound care to SNF versus home with home health with frequent close monitoring as an outpatient. Thank you for involving us in the care of Ms. Martin. Please call with any questions. Attestations Medical Necessity Statement*: As per primary team. Requires further hospitalization while wound VAC is arranged for outpatient wound care. Time Spent in Patient Care: 16 - 35 minutes Coding Level of Care Code Acute Resident Physician In Radiology for Blayne Fwd Diagnoses Peripheral vascular disease I73.9 Peripheral vascular angioplasty status Z98.62 Compartment syndrome of lower extremity T79.A29A Accelerated hypertension I10 Hypothyroidism E03.9 Hypothyroidism type: acquired Noncompliance with medications Z91.14 Hyperlipidemia E78.2 Hyperlipidemia type: moderate mixed hyperlipidemia not requiring statin therapy
--- NOTE | 2021-08-30 15:06 | PM.DCS ---
Discharge Providers Date of Admission: 08/20/21 11:49 Date of Discharge: August 30, 2021 Attending Provider at Admission: Colt Andino M.D Attending Provider at Discharge: Colt Andino M.D Consults: Dr Burgess (vascular surgery), Dr Lauren (hospitalist) Primary Care Provider: Marine Eagle NP Diagnoses at Discharge Discharge Diagnosis (1) Peripheral vascular disease: (2) Peripheral vascular angioplasty status: (3) Compartment syndrome of lower extremity: (4) Accelerated hypertension: (5) Hypothyroidism: Qualifiers: Hypothyroidism type: acquired Qualified Code(s): E03.9 - Hypothyroidism, unspecified (6) Noncompliance with medications: (7) Hyperlipidemia: Qualifiers: Hyperlipidemia type: moderate mixed hyperlipidemia not requiring statin therapy Qualified Code(s): E78.2 - Mixed hyperlipidemia Reason for Visit Reason for Visit: 20313 i73.9 Brief History: 70 year old woman with PMH of Hypertension, hyperlipidemia, peripheral artery disease presented with severe lifestyle limiting claudication and OLAF of 0.4 in the right lower extremity. Plan for peripheral angiogram with possible percutaneous intervention Hospital Course Hospital Course 70 year old woman with PMH of Hypertension, hyperlipidemia, peripheral artery disease presented with severe lifestyle limiting claudication and OLAF of 0.4 in the right lower extremity. She underewent peripheral angiogram that showed occluded right SFA with collateral flow supplying the vasculature below the knee with single vessel runoff to foot( only Posterior tibial artery). She underwent successful revascularization of SFA with orbital arthrectomy and balloon angioplasty, however later was noted to have a blush in the TP segment, showing extravasation and wire perforation. Flow to the PT was also compromised. Wire was put in the PT and serial balloon angioplasties improved flow however was still low. Post procedure, she was transferred to ICU. She complained of significant leg pain. On exam it was getting tight and had tenderness.Sensation and movement also appeared to be compromised. Findings were consistent with compartment syndrome. Dr Burgess was emergently contacted for fasciotomy who took patient to the OR and fasciotomy was performed and wound vac was put in place. Her symptoms resolved over the next few hours with normal range of motion, normal sensation, decreasing lactate and normal foot temparature. Patient recovered well and started ambulating. Patient was discharged home in a stable condition with wound vac. Physical Exam Narrative: General: No acute distress, AO x3 HEENT: PERRLA, pupils bilaterally equal and reactive Chest: Normal vesicular breath sounds, no added sounds, equal good air entry bilaterally CVS: S1-S2 regular, no murmurs, no tachycardia, no gallops, no rubs Abdomen: Soft, nontender, no organomegaly, bowel sounds present Neuro: No focal deficits, no facial deformity, AO x3, Extremity: Dressing on the right lower extremity. Patient's right foot has normal temperature and color has improved. Able to move the foot and toes and has normal senstation. Pulses not palpable, dopplerable PT. Dressing applied Urinary Catheter Management: Forrest: Cath Placed During This Visit: yes, but has since been removed by the nurse Reason for Continuing Indwelling Catheter: Decision to DC Catheter Urinary Catheter Date of Insertion: 08/20/21 Urinary Catheter Time of Insertion: 22:57 Date Urinary Catheter Removed: 08/22/21 Time Urinary Catheter Discontinued: 18:00 Discharge Data Studies Completed and Pending Pending at discharge Category Date Time Status MEDICAL FACILITIES SECTION DIRECTOR request for service Routine Exams 08/20/21 06:00 Taken Complete Blood Count w/Auto AM LABS Lab 08/31/21 04:00 Ordered Comprehensive Metabolic Panel AM LABS Lab 08/31/21 04:00 Ordered Laboratory Results WBC 9.1 10^3/uL (4.0-10.0) 08/27/21 10:10 RBC 3.33 10^6/uL (4.1-5.3) L 08/27/21 10:10 Hgb 10.2 g/dL (11.5-15.3) L 08/27/21 10:10 Hct 32.4 % (37.0-47.0) L 08/27/21 10:10 MCV 97.3 fl (81-99) 08/27/21 10:10 MCH 30.6 pg (28.0-34.0) 08/27/21 10:10 MCHC 31.5 g/dL (30.0-36.0) 08/27/21 10:10 RDW 16.4 % (12.1-15.1) H 08/27/21 10:10 Plt Count 292 10^3/cmm (130-400) 08/27/21 10:10 MPV 9.6 fL (7.4-10.4) 08/27/21 10:10 Neut % (Auto) 50.6 % 08/27/21 10:10 Lymph % (Auto) 36.1 % 08/27/21 10:10 [place] % (Auto) 7.8 % 08/27/21 10:10 Eos % (Auto) 4.3 % 08/27/21 10:10 Baso % (Auto) 0.6 % 08/27/21 10:10 Neut # (Auto) 4.58 10^3/uL (1.8-7.7) 08/27/21 10:10 Lymph # (Auto) 3.3 10^3/uL (0.8-4.8) 08/27/21 10:10 [place] # (Auto) 0.7 10^3/uL (0.2-0.9) 08/27/21 10:10 Eos # (Auto) 0.4 10^3/uL (0.0-0.8) 08/27/21 10:10 Baso # (Auto) 0.1 10^3/uL (0.0-0.1) 08/27/21 10:10 Nucleated RBC % (auto) 0 % 08/27/21 10:10 Nucleated RBCs # 0.0 /100WBC 08/27/21 10:10 APTT 27.1 SECONDS (23.9-36.7) 08/20/21 15:23 Sodium 139 mmol/L (136-145) 08/27/21 10:10 Potassium 3.7 mmol/L (3.5-5.1) 08/27/21 10:10 Chloride 107 mmol/L (98-107) 08/27/21 10:10 Carbon Dioxide 24 mmol/L (22-29) 08/27/21 10:10 Anion Gap 11.7 (5-19) 08/27/21 10:10 BUN 7 mg/dL (8-23) L 08/27/21 10:10 Creatinine 0.8 mg/dL (0.5-0.9) 08/27/21 10:10 GFR Calculation Not Reportable 08/27/21 10:10 Glucose 107 mg/dL (65-115) 08/27/21 10:10 Estimat Average Glucose 108 08/21/21 03:15 Hemoglobin A1c 5.4 % (4.0-6.0) 08/21/21 03:15 Calculated Osmolality 286 mOsm/kg (285-295) 08/27/21 10:10 Lactate 2.5 mmol/L (0.5-2.2) H 08/21/21 09:19 Calcium 8.5 mg/dL (8.5-10.5) 08/27/21 10:10 Iron 95 ug/dL (37-145) 08/20/21 12:18 TIBC 337 mcg/dl 08/20/21 12:18 % Saturation 28.1 % (20-50) 08/20/21 12:18 Unsat Iron Binding 242 ug/dL (112-347) 08/20/21 12:18 Total Bilirubin 0.5 mg/dL (0.15-1.2) 08/23/21 03:25 AST 71 U/L (0-32) H 08/23/21 03:25 ALT 20 U/L (0-33) 08/23/21 03:25 Alkaline Phosphatase 52 IU/L (35-105) 08/23/21 03:25 Total Protein 5.8 g/dL (6.6-8.7) L 08/23/21 03:25 Albumin 3.2 g/dL (3.5-5.2) L 08/23/21 03:25 Globulin 2.6 g/dL (1.3-4.6) 08/23/21 03:25 TSH 0.97 uIU/mL (0.27-4.20) 08/20/21 12:18 Urine Color Yellow (Yellow) 08/20/21 22:55 Urine Appearance Clear (CLEAR) 08/20/21 22:55 Urine pH 6.5 (5-7) 08/20/21 22:55 Ur Specific Pierre Part 1.005 (1.005-1.030) 08/20/21 22:55 Urine Protein Neg (Negative) 08/20/21 22:55 Urine Glucose (UA) Norm (Normal) 08/20/21 22:55 Urine Ketones Negative (Negative) 08/20/21 22:55 Urine Blood Neg (Negative) 08/20/21 22:55 Urine Nitrate Negative (Negative) 08/20/21 22:55 Urine Bilirubin Neg (Negative) 08/20/21 22:55 Urine Urobilinogen Norm mg/dL (Negative) 08/20/21 22:55 Ur Leukocyte Esterase Negative (Negative) 08/20/21 22:55 Blood Type O Positive 08/20/21 11:44 Rho(D) Type Positive 08/20/21 11:44 Antibody Screen Negative 08/20/21 11:44 Crossmatch See Detail 08/20/21 11:44 Vitals Last Vital Signs Temp 97.9 F 08/30/21 11:53 Pulse 70 08/30/21 14:00 Resp 13 08/30/21 11:53 BP 113/67 08/30/21 11:53 Pulse Ox 95 08/30/21 11:53 Discharge Plan Discharge Patient Disposition: Home Health Service Condition: Stable Prescriptions: Continued buspirone 5 mg tablet 5 mg PO TID PRN (Reason: Anxiety) 0RF nitroglycerin 0.4 mg tablet, sublingual 0.4 mg sublingual PRN 0RF gabapentin 300 mg capsule 300 mg PO BID PRN (Reason: PT STATES TAKES PRN) 0RF duloxetine 30 mg capsule,delayed release(DR/EC) 30 mg PO DAILY 0RF multivitamin Tablet 1 tab PO DAILY 0RF atorvastatin 40 mg tablet 40 mg PO BEDTIME 30 Days Qty: 30 0RF alendronate 70 mg tablet 70 mg PO Q7D Qty: 0 0RF aspirin 81 mg Tablet,Delayed Release (Dr/Ec) 81 mg PO QAM 30 Days Qty: 30 0RF levothyroxine 25 mcg tablet 50 mcg PO DAILY 0RF Discontinued clopidogrel 75 mg tablet 75 mg PO DAILY 0RF spironolactone 25 mg tablet 25 mg PO DAILY 0RF amlodipine 10 mg tablet 10 mg PO DAILY 30 Days Qty: 30 0RF No Action clopidogrel 75 mg tablet 75 mg PO DAILY 0RF hydrocodone-acetaminophen 7.5-325 mg tablet 1 tab PO Q8H PRN (Reason: pain) 7 Days Qty: 20 0RF Nitro-Bid 2 % ointment 0.5 inch transdermal BID Qty: 60 0RF Rx Instructions: apply to top of right foot twice daily. Discharge Orders: Discharge Order (Routine); Ordered 08/30/21 Ordered By: Colt Andino Other Ambulatory Orders: DME: Wound Vac (Order) Location: None Selected Ordered By: Mendez Lauren Referrals: [facility] [place] [Outside] [facility] [Outside] Indra Julien MD [Physician] - 10/05/21 3:30 pm Luann Segovia FNP [Nurse Practitioner] - 09/03/21 10:45 am [facility], [Staff Physician] - 09/01/21 2:30 pm (Status post right lower extremity fasciotomy with bilateral right lower extremity wounds HAVE APPOINTMENT FOR Monday TIME OF 1:00 PM WITH .THIS HAS BEEN CONFIRMED WITH AND WOUND CLINIC.) Discharge Diet: Regular Discharge Activity: Increase activity as tolerated Patient Instructions: Compartment Syndrome, Peripheral Vascular Angioplasty (DC), Opioid Safety Discharge Attestations Time Spent in Discharge Care*: greater than 30 min Quality Metrics Clinical Quality Measures [ No reported AMI, CVA or VTE this stay] Coding Level of Care Code Acute Chg FW DC note Diagnoses Peripheral vascular disease I73.9 Peripheral vascular angioplasty status Z98.62 Compartment syndrome of lower extremity T79.A29A Accelerated hypertension I10 Hypothyroidism E03.9 Hypothyroidism type: acquired Noncompliance with medications Z91.14 Hyperlipidemia E78.2 Hyperlipidemia type: moderate mixed hyperlipidemia not requiring statin therapy
--- NOTE | 2021-08-30 19:22 | PC.NURSE ---
patient left the floor with all belongings via wheelchair, accompanied by her . Patient was assisted into passenger side of personal vehicle with no complications.
== END 2021-08-30 19:24 | disposition home health service (06) | DRG 271 ==
LOC: ICU 09:56 → MEDSURG 08-25 13:32
PROVIDERS: Internal Medicine; Student in an Organized Health Care Education/Training Program; Thoracic Surgery (Cardiothoracic Vascular Surgery); Admitting Provider Internal Medicine; PCP Nurse Practitioner Family; Visit Provider Internal Medicine
PROC: 04CK3ZZ Extirpation of Matter from Right Femoral Artery, Percutaneous Approach (ICD-10-PCS; principal; 2021-08-20 07:00)
PROC: 04CK3ZZ Extirpation of Matter from Right Femoral Artery, Percutaneous Approach (ICD-10-PCS; 2021-08-20 07:00)
PROC: 0KNS0ZZ Release Right Lower Leg Muscle, Open Approach (ICD-10-PCS; principal; 2021-08-20 11:45)
PROC: 0KNS0ZZ Release Right Lower Leg Muscle, Open Approach (ICD-10-PCS; 2021-08-20 11:45)
DX: I70.201 Unspecified atherosclerosis of native arteries of extremities, right leg (principal); M79.A21 Nontraumatic compartment syndrome of right lower extremity; D62 Acute posthemorrhagic anemia; Z86.73 Personal history of transient ischemic attack (TIA), and cerebral infarction without residual deficits; E78.2 Mixed hyperlipidemia; I10 Essential (primary) hypertension; E03.9 Hypothyroidism, unspecified; M81.0 Age-related osteoporosis without current pathological fracture; F17.210 Nicotine dependence, cigarettes, uncomplicated; Z79.82 Long term (current) use of aspirin; Z91.14 Patient's other noncompliance with medication regimen
CPT/HCPCS: 36415; 36430; 37224; 37225; 37228; 51702; 75625; 75710; 80048; 80053; 81003; 83036; 83540; 83550; 83605; 84443; 85025; 85610; 85730; 86850; 86900; 86920; 87641; 96360; 99152; 99153; C1724; C1725; C1769; C1887; C1894; G0378; J0330; J0360; J0690; J1100; J1170; J1644; J1885; J2250; J2270; J2370; J2405; J2543; J2704; J2710; J3010; J3490; J7030; P9016; Q0163; Q9967

== ENCOUNTER → 2021-09-01 14:34 | Outpatient (BNVA) | payer MEDICARE, MEDICAID, SELFPAY | PROVIDERS: PCP Nurse Practitioner Family; Visit Provider Thoracic Surgery (Cardiothoracic Vascular Surgery) | DX: L97.812 Non-pressure chronic ulcer of other part of right lower leg with fat layer exposed (principal); I96 Gangrene, not elsewhere classified; Z87.891 Personal history of nicotine dependence | CPT/HCPCS: 97606; 99213; A6237; A6250 ==

== ENCOUNTER → 2021-09-03 10:45 | Outpatient (BNVA) | payer MEDICARE, MEDICAID, SELFPAY | PROVIDERS: PCP Nurse Practitioner Family; Visit Provider Nurse Practitioner Family | DX: Z09 Encounter for follow-up examination after completed treatment for conditions other than malignant neoplasm (principal); I73.9 Peripheral vascular disease, unspecified; F17.200 Nicotine dependence, unspecified, uncomplicated | CPT/HCPCS: 99213 ==

== ENCOUNTER 2021-09-06 15:50 | Emergency (ER) | payer MEDICARE, MEDICAID, SELFPAY ==
[2021-09-06 16:50] VITALS: BP 102/67; PULSE 78; RESP 14; TEMP 37.1; O2SAT 94; BMI 29.2
--- NOTE | 2021-09-06 17:10 | USR_ITS ---
PROCEDURE INFORMATION: Exam: US Duplex Right Lower Extremity Arteries Or Arterial Bypass Grafts Exam date and time: 09/06/2021 5:40 PM Age: 70 years old Clinical indication: Pain; Foot; Right; Prior surgery; Surgery date: 3-7 days post-operative; Surgery type: Post lower leg surg to remove tissue around ulcers; Additional info: Eval for flow TECHNIQUE: Imaging protocol: Right Real-time duplex scan of the arteries or arterial bypass grafts of the right lower extremity with 2-D cortes scale, color Doppler flow and spectral waveform analysis. Images documented and saved. COMPARISON: CTA AbdAorta Runoff Leg [id number] 12/21/2017 3:57 PM FINDINGS: Right common femoral artery: No occlusion or significant stenosis. Normal waveform. No pseudoaneurysm in the inguinal region. Right superficial femoral artery: No occlusion or significant stenosis. Normal waveform. Right popliteal artery: Popliteal artery demonstrates no color blood flow. Right calf/foot arteries: Color blood flow seen in the posterior tibial artery and dorsalis pedis arteries with monophasic blood flow suggesting a degree of stenosis. Soft tissues: No hematoma or collection. US/[place] [id number] IMPRESSION: 1. Popliteal artery demonstrates no color blood flow. 2. Color blood flow seen in the posterior tibial artery and dorsalis pedis arteries with monophasic blood flow suggesting a degree of stenosis.
--- NOTE | 2021-09-06 17:28 | ED_ITS ---
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 Patient tells me that she woke up this morning transiently improved then restarting. Onset:4am Duration:ongoing Location:home Severity:severe Associated symptoms: Deny chest pain, dyspnea, nausea, rash, palpitations or vomiting Review of Systems Const: Denies: fever(s) or chills Eyes: Denies: change in vision ENMT: Denies: mouth pain Card: Denies: chest pain or palpitations Resp: Denies: dyspnea or non-productive cough GI: Denies: abdominal pain, nausea, vomiting or diarrhea : Denies: dysuria Musc: Reports: extremity pain (+R foot pain/numbness/coldness/decreased sensation and pain) Skin/Breast: Denies: rash or new lesions Neuro: Denies: weakness in extremities Psych: Reports: other (Normal mood) Arvin/Lymph: Denies: easy bruising PFSH ED PFSH: Medical History Abnormal EKG Accelerated hypertension Carotid stenosis Claudication Compartment syndrome of lower extremity CVA (cerebral vascular accident) Hyperlipidemia Hypertension Hypothyroidism Nicotine dependence, cigarettes, with other nicotine-induced disorders Noncompliance with medications Osteoporosis Peripheral vascular angioplasty status Peripheral vascular disease TIA (transient ischemic attack) Surgical History History of angiography (~2017) peripheral, fouond to have occluded mid to distal SFA, had orbital arthrectomy and balloon angioplasty History of colonoscopy History of tubal ligation Status post open reduction and internal fixation (ORIF) of fracture (~2012) right tib fib, Dr Cotter Family History Mother CAD (coronary artery disease) Family/Other CAD (coronary artery disease) Sister Cancer Diabetes Denies family history of Clotting disorder Dementia Chronic kidney disease (CKD) Suicide Anesthesia complication Bleeding disorder Lung disease Stroke Social History Smoking and tobacco status: current every day smoker Alcohol intake: never Household members: family History of recent travel: No Physical Exam Const: COMMON NORMALS: alert HENMT: COMMON NORMALS: atraumatic HEAD & SCALP: atraumatic MOUTH: moist mucous membranes not abnormal Eye: COMMON NORMALS: EOMs intact bilaterally and conjunctivae normal CONJUNCTIVA: Yes conjunctivae normal Neck/C-Spine: COMMON NORMALS: full ROM and supple Resp: COMMON NORMALS: normal respiratory effort and clear to auscultation bilaterally AUSCULTATION: clear to auscultation bilaterally Cardio: COMMON NORMALS: regular rate RATE: regular rate GI: COMMON NORMALS: Soft to palpation and non-tender PALPATION: Yes Soft to palpation Extremity: COMMON NORMALS: full ROM NARRATIVE EXTREMITY EXAM: no cap refill in the R foot DP/PT absent in the R foot Neuro: SENSORIUM/ORIENTATION: Yes alert MOTOR EXAM: No Abnormal motor strength present and Other motor observations present (no focal motor deficits) Psych: COMMON NORMALS: speech normal SPEECH: Yes normal speech MOOD & A FFECT: Yes euthymic mood Course Vital Signs: Vital signs: Vital Signs Temperature 98.7 F 09/06/21 16:50 Pulse Rate 78 09/06/21 16:50 Respiratory Rate 14 09/06/21 16:50 Blood Pressure 102/67 09/06/21 16:50 Pulse Oximetry 94 09/06/21 16:50 MDM - General Adult Medical Decision Making 70-year-old female history of SFA occlusion complicated by compartment syndrome requiring fasciotomy currently on wound VAC presented emergency room for concerns of acute right foot numbness, coolness, paresthesia, and pain since 4 AM this morning. Patient has no DP/PT pulses. Cap refill is absent. Bedside ultrasound showed no fluid DP/PT. US showed no color popliteal and minimal DP/PT flow with severely reduced brachial index. This is concerning for acute arterial occlusion. Compartments appear to be soft in the tib-fib segments. Patient started on heparin drip. Case was discussed with Dr. Andino who recommended transfer given concern of occlusion distal to the popliteal artery. Case was discussed with Dr. Hightower who agreed with the transfer to [facility] or acute arterial occlusion. Disposition: Transfer to outside hospital Lab Data : 09/06/21 17:30 09/06/21 17:30 Radiology Impressions Duplex Scan Lower Extremity Artery 09/06/21 17:10 IMPRESSION: 1. Popliteal artery demonstrates no color blood flow. 2. Color blood flow seen in the posterior tibial artery and dorsalis pedis arteries with monophasic blood flow suggesting a degree of stenosis. Laboratory Results WBC 8.3 10^3/uL (4.0-10.0) 09/06/21 17:30 RBC 4.18 10^6/uL (4.1-5.3) 09/06/21 17:30 Hgb 12.2 g/dL (11.5-15.3) 09/06/21 17: Hct 38.5 % (37.0-47.0) 09/06/21 17:30 MCV 92.1 fl (81-99) 09/06/21 17:30 MCH 29.2 pg (28.0-34.0) 09/06/21 17:30 MCHC 31.7 g/dL (30.0-36.0) 09/06/21 17:30 RDW 15.2 % (12.1-15.1) H 09/06/21 17:30 Plt Count 436 10^3/cmm (130-400) H 09/06/21 17:30 MPV 8.9 fL (7.4-10.4) 09/06/21 17:30 Neut % (Auto) 67.2 % 09/06/21 17:30 Lymph % (Auto) 21.5 % 09/06/21 17:30 [place] % (Auto) 8.6 % 09/06/21 17:30 Eos % (Auto) 1.1 % 09/06/21 17:30 Baso % (Auto) 1.1 % 09/06/21 17:30 Neut # (Auto) 5.56 10^3/uL (1.8-7.7) 09/06/21 17:30 Lymph # (Auto) 1.8 10^3/uL (0.8-4.8) 09/06/21 17:30 [place] # (Auto) 0.7 10^3/uL (0.2-0.9) 09/06/21 17:30 Eos # (Auto) 0.1 10^3/uL (0.0-0.8) 09/06/21 17:30 Baso # (Auto) 0.1 10^3/uL (0.0-0.1) 09/06/21 17:30 Nucleated RBC % (auto) 0 % 09/06/21 17:30 Nucleated RBCs # 0.0 /100WBC 09/06/21 17:30 PT 13.50 SECONDS (12.1-14.9) 09/06/21 17:30 INR 1.00 (0.8-1.2) 09/06/21 17:30 APTT 31.2 SECONDS (23.9-36.7) 09/06/21 17:30 Sodium 136 mmol/L (136-145) 09/06/21 17:30 Potassium 4.2 mmol/L (3.5-5.1) 09/06/21 17:30 Chloride 99 mmol/L (98-107) 09/06/21 17:30 Carbon Dioxide 23 mmol/L (22-29) 09/06/21 17:30 Anion Gap 18.2 (5-19) 09/06/21 17:30 BUN 10 mg/dL (8-23) 09/06/21 17:30 Creatinine 1.1 mg/dL (0.5-0.9) H 09/06/21 17:30 GFR Calculation Not Reportable 09/06/21 17:30 Glucose 102 mg/dL (65-115) 09/06/21 17:30 Calculated Osmolality 281 mOsm/kg (285-295) L 09/06/21 17:30 Calcium 10.2 mg/dL (8.5-10.5) 09/06/21 17:30 Imaging Data Other Imaging: Radiologist's impression: [facility] [address] [place] [address] Ultrasound Report Signed Patient: Yoselin Martin Unit #: [id number] : 1950 Age/Sex: 70 / F ADM Date: 09/06/21 Loc: ER Room/Bed: Attending Dr: Ordering Provider/Ordering MD: Neena Springer MD Date of Service: 09/06/21 Procedure(s): [place] [address] Accession Number(s): [id number] Report Number: [id number] PROCEDURE INFORMATION: Exam: US Duplex Right Lower Extremity Arteries Or Arterial Bypass Grafts Exam date and time: 09/06/2021 5:40 PM Age: 70 years old Clinical indication: Pain; Foot; Right; Prior surgery; Surgery date: 3-7 days post-operative; Surgery type: Post lower leg surg to remove tissue around ulcers; Additional info: Eval for flow TECHNIQUE: Imaging protocol: Right Real-time duplex scan of the arteries or arterial bypass grafts of the right lower extremity with 2-D cortes scale, color Doppler flow and spectral waveform analysis. Images documented and saved. COMPARISON: [facility]A [facility] Runoff Leg 16092 12/21/2017 3:57 PM FINDINGS: Right common femoral artery: No occlusion or significant stenosis. Normal waveform. No pseudoaneurysm in the inguinal region. Right superficial femoral artery: No occlusion or significant stenosis. Normal waveform. Right popliteal artery: Popliteal artery demonstrates no color blood flow. Right calf/foot arteries: Color blood flow seen in the posterior tibial artery and dorsalis pedis arteries with monophasic blood flow suggesting a degree of stenosis. Soft tissues: No hematoma or collection. US/[place] [id number] IMPRESSION: 1. Popliteal artery demonstrates no color blood flow. 2. Color blood flow seen in the posterior tibial artery and dorsalis pedis arteries with monophasic blood flow suggesting a degree of stenosis. ? Dictated By: Andi Dye MD Signed By: Andi Dye MD Signed Date/Time: 09/06/21 183 DD/ 39 Discharge Plan Discharge Patient Disposition: Transfer to ED Condition: Stable Prescriptions: No Action clopidogrel 75 mg tablet 75 mg PO DAILY 0RF hydrocodone-acetaminophen 7.5-325 mg tablet 1 tab PO Q8H PRN (Reason: pain) 7 Days Qty: 20 0RF Nitro-Bid 2 % ointment 0.5 inch transdermal BID Qty: 60 0RF Rx Instructions: apply to top of right foot twice daily. buspirone 5 mg tablet 5 mg PO TID PRN (Reason: Anxiety) 0RF nitroglycerin 0.4 mg tablet, sublingual 0.4 mg sublingual PRN 0RF gabapentin 300 mg capsule 300 mg PO BID PRN (Reason: PT STATES TAKES PRN) 0RF duloxetine 30 mg capsule,delayed release(DR/EC) 30 mg PO DAILY 0RF multivitamin Tablet 1 tab PO DAILY 0RF atorvastatin 40 mg tablet 40 mg PO BEDTIME 30 Days Qty: 30 0RF alendronate 70 mg tablet 70 mg PO Q7D Qty: 0 0RF aspirin 81 mg Tablet,Delayed Release (Dr/Ec) 81 mg PO QAM 30 Days Qty: 30 0RF levothyroxine 25 mcg tablet 50 mcg PO DAILY 0RF Referrals: Marine Eagle, DOUG [Primary Care Provider] - Coding Level of Care Code ED Crime Lab Technician for Chg Fwd Exam Comprehensive
[2021-09-06 17:43] LABS: Basophils # 0.1 10^3/uL (0.0-0.1); Basophils % 1.1 %; Eosinophils # 0.1 10^3/uL (0.0-0.8); Eosinophils % 1.1 %; Hematocrit 38.5 % (37.0-47.0); Hemoglobin 12.2 g/dL (11.5-15.3); Lymphocytes # 1.8 10^3/uL (0.8-4.8); Lymphocytes % 21.5 %; Mean Corpuscular HGB Conc 31.7 g/dL (30.0-36.0); Mean Corpuscular Hemoglobin 29.2 pg (28.0-34.0); Mean Corpuscular Volume 92.1 fl (81-99); Mean Platelet Volume 8.9 fL (7.4-10.4); Monocytes # 0.7 10^3/uL (0.2-0.9); Monocytes % 8.6 %; Neutrophils # 5.56 10^3/uL (1.8-7.7); Neutrophils % 67.2 %; Nucleated Red Blood Cells % 0 %; Platelet Count 436 10^3/cmm (130-400); Red Blood Count 4.18 10^6/uL (4.1-5.3); Red Cell Distribution Width 15.2 % (12.1-15.1); White Blood Count 8.3 10^3/uL (4.0-10.0)
[2021-09-06] MEDS: heparin 5,000 unit/mL INJ 1 mL 4000 UNIT IVP (17:52)
[2021-09-06 18:08] LABS: Anion Gap 18.2 (5-19); Blood Urea Nitrogen 10 mg/dL (8-23); Calcium 10.2 mg/dL (8.5-10.5); Carbon Dioxide 23 mmol/L (22-29); Chloride 99 mmol/L (98-107); Glucose 102 mg/dL (65-115); Osmolality Calculated 281 mOsm/kg (285-295); Potassium 4.2 mmol/L (3.5-5.1); Sodium 136 mmol/L (136-145)
[2021-09-06] MEDS: heparin drip 25,000 UNIT/500 ML PREMIX 21.5 UNIT IV (18:11)
[2021-09-06 18:42] LABS: Partial Thromboplastin Time 31.2 SECONDS (23.9-36.7)
[2021-09-06 19:08] VITALS: BP 126/64; PULSE 81; RESP 16; O2SAT 96
[2021-09-06 19:43] VITALS: BP 126/64; PULSE 81; RESP 16; O2SAT 96
== END 2021-09-06 19:40 ==
PROVIDERS: Emergency Provider Emergency Medicine; PCP Nurse Practitioner Family
DX: I82.431 Acute embolism and thrombosis of right popliteal vein (principal); M79.661 Pain in right lower leg; Z86.718 Personal history of other venous thrombosis and embolism; F17.210 Nicotine dependence, cigarettes, uncomplicated
CPT/HCPCS: 80048; 85025; 85610; 85730; 93926; 96365; 96375; 99284; J1644